=== PATIENT | female | born 1965 | race Two or more races ===

== ENCOUNTER 2024-08-23 08:57 | Outpatient (RCR) | payer MEDICARE, MEDICAID, SELFPAY | END 2024-09-18 23:59 | disposition home or self-care (01) | LOC: SCTC 08:57 | PROVIDERS: PCP Registered Nurse Community Health; Referring Provider Registered Nurse Community Health; Visit Provider Nurse Practitioner Family | DX: D50.9 Iron deficiency anemia, unspecified (principal); N18.6 End stage renal disease; D63.1 Anemia in chronic kidney disease; Z99.2 Dependence on renal dialysis; R12 Heartburn; K64.9 Unspecified hemorrhoids | CPT/HCPCS: 99212; G0463 ==

== ENCOUNTER → 2024-10-28 | Outpatient (CLI) | payer MEDICARE, MEDICAID, SELFPAY ==
--- NOTE | 2024-10-28 13:45 | XR_ITS ---
Examination: Screening digital mammography, bilateral Computer aided detection 3-D breast Tomosynthesis, bilateral Date and time of exam: October 28, 2024 1328 hours Compared to mammograms dating to March 14, 2015 Indication: Screening Technique: Nonmagnified MLO, CC views of the breasts to been obtained, reconstructed from 3-D Tomosynthesis images. R2 computer aided detection program utilized for evaluation of suspicious masses and/or abnormal calcifications. 3-D Tomosynthesis images obtained. Findings: Scattered areas of fibroglandular density. Benign calcifications. No interval suspicious masses Impression: BI-RADS category II: Benign Findings. Recommend 1 year follow-up mammogram.
== END | disposition home or self-care (01) ==
LOC: CDIM 13:16
PROVIDERS: Referring Provider Internal Medicine; Visit Provider Internal Medicine
DX: Z12.31 Encounter for screening mammogram for malignant neoplasm of breast (principal); R92.323 Mammographic fibroglandular density, bilateral breasts; R92.1 Mammographic calcification found on diagnostic imaging of breast
CPT/HCPCS: 77063; 77067

== ENCOUNTER 2024-11-16 10:36 | Outpatient (RCR) | payer MEDICARE, MEDICAID, SELFPAY | END 2024-11-19 23:59 | disposition home or self-care (01) | LOC: SCTC 10:36 | PROVIDERS: PCP Registered Nurse Community Health; Referring Provider Internal Medicine Hematology & Oncology; Visit Provider Internal Medicine Hematology & Oncology | DX: E11.22 Type 2 diabetes mellitus with diabetic chronic kidney disease (principal); N18.6 End stage renal disease; D63.1 Anemia in chronic kidney disease; Z99.2 Dependence on renal dialysis; Z79.4 Long term (current) use of insulin | CPT/HCPCS: 99213; G0463 ==

== ENCOUNTER 2024-12-16 16:12 | Outpatient (RCR) | payer MEDICARE, MEDICAID, SELFPAY ==
--- NOTE | 2024-12-20 00:13 | CTCFLWUP_ITS ---
Patient: MEME GIANG : 1965 Page 3 of 3 FOLLOW UP NOTE DATE OF SERVICE: 12/16/2024 NAME: MEME GIANG ACCOUNT: [id number] : 1965 AGE: 59 INTERVAL HISTORY: Telephone appointment to go over the results of bone density. 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 patient is doing well and have no new complaint. Patient have anemia from her CKD. Patient gets dialysis and get her treatment with Venofer and erythropoietin with her dialysis center. As per patient there is no change in her treatment plan. She is scheduled to have bone density done. She is not on vitamin D supplementation. She recently had EGD which she would like to review. HISTORY OF PRESENT ILLNESS: HISTORY: Meme Calixto is a 59-year-old Barbadian-speaking female. Patient was referred due to anemia on high-dose Mircera, Venofer every 2 weeks at dialysis center. Patient has been taking ferrous sulfate 3 times a day for 3 years, causes patient occasional constipation, none at this moment. Patient receiving daily peritoneal dialysis at home. Patient followed up with [facility] in July 2023, has not scheduled self for follow-up. Colonoscopy done 08/11/2023 showed hemorrhoids, pathology showed a few glands exhibit changes of early hyperplasia. No previous endoscopies done. Past medical history of heartburn, diabetes, hyperlipidemia back neuropathy, diabetic retinopathy, anemia, CKD. 08/11/2023: Colonoscopy 09/30/2023: Hemoglobin 9.8, MCV 89, ANC 3.8, WBC 6.6 platelets 232,000, 10/28/2023: Hemoglobin 9.1, MCV 87, ANC 4.3, WBC 6.7, platelets 190,000 11/12/2023: Hemoglobin 8.6, MCV 90, ANC 4.3, WBC 6.6, platelets 234,000, creatinine 4.5, EGFR 11 04/20/2024: Hemoglobin 9.4, MCV 93, ANC 3.3, WBC 5.3, platelets 183,000, iron saturation 21%, ferritin 751, B12 is 883, folate >20.0 06/02/2024: Hemoglobin 11.5, MCV 95, ANC 3.4, WBC 5.5, platelets 199,000, no iron saturation collected. 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 amlodipine - 10 mg 1 tab Daily 2. calcium carb,glucon-vitamin D2 - 500 mg-5 mcg (200 unit) 1 tab Daily 3. carvedilol - 25 mg 1 tab Twice a Day 4. cyclobenzaprine - 5 mg 1 tab Twice a Day 5. famotidine - 40 mg 1 tab Daily 6. ferrous sulfate - 325 mg (65 mg iron) 1 tab Three times a day 7. NovoLIN 70/30 PenFill - 100 unit/mL (70-30) As directed 8. pravastatin - 40 mg 1 tab Every day before sleep 9. Ashley-Joanne - 0.8 mg 1 tab Daily 10. sodium bicarbonate (antacid) - 325 mg 1 tab Twice a Day 11. terazosin - 5 mg 1 tab Daily 12. valsartan - 160 mg 1 tab Daily Medications Last Reconciled by Cora Glaser MA on 12/16/2024 ALLERGIES: No Known Drug Allergies REVIEW OF SYSTEMS: A complete 14-point review of systems was performed and is negative except as noted in interval history. 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 CBC CMP bone density results from tapper supervisor RETURN TO CLINIC: 4 to 6 weeks with results BILLING AND COMPLIANCE: I reviewed external records from providers outside my specialty as summarized above. I spent a total of 50 minutes on this patient?s care on the day of their visit excluding time spent related to any billed procedures. This time includes time spent with the patient as well as time spent documenting in the medical record, reviewing patients records and tests, obtaining history, placing orders, communicating with other healthcare professionals, counseling the patient, family or caregiver, and/or care coordination for the diagnoses above. Electronically Signed by: Sigifredo Sargent MD T: 12:10 AM CC: PCP: Janelle Glaser Referring: Janelle Glaser This document was completed utilizing speech recognition software. Grammatical errors, random word insertions, pronoun errors, and incomplete sentences are an occasional consequence of this system due to software limitations, ambient noise, and hardware issues. Any formal questions or concerns about the content, text or information contained within the body of this dictation should be directly addressed to the provider for clarification.
== END 2024-12-17 23:59 | disposition home or self-care (01) ==
LOC: SCTC 16:12
PROVIDERS: PCP Registered Nurse Community Health; Referring Provider Registered Nurse Community Health; Visit Provider Internal Medicine Hematology & Oncology
DX: E11.22 Type 2 diabetes mellitus with diabetic chronic kidney disease (principal); N18.9 Chronic kidney disease, unspecified; D63.1 Anemia in chronic kidney disease; Z99.2 Dependence on renal dialysis
CPT/HCPCS: 99212; G0463

== ENCOUNTER 2025-02-19 00:18 | Emergency (ER) | payer MEDICARE, MEDICAID, SELFPAY ==
[2025-02-19 00:20] VITALS: BMI 26.2
[2025-02-19 01:33] VITALS: BP 175/85; PULSE 74; RESP 20; TEMP 36.7; O2SAT 95
--- NOTE | 2025-02-19 05:40 | EDNOTE_ITS ---
<Statement entered by Chica Dillard MD - 02/20/25 04:33> As co-signing physician, I was present and available for consult prn. I concur with the plan and care as documented by the midlevel provider. ED Headache RME/HPI General Chief Complaint: Headache Stated Complaint: HIGH BP, HEADACHE, NAUSEA, DIARRHEA Time Seen by Provider: 02/19/25 02:18 Arrival date/time: 02/19/25 00:18 59F with history of ESRD, HTN, and DM presents to ED with elevated BP at home, as well as MANCINI. Prior to arrival in ED, MACNINI disappeared. Limitations: no limitations Related Data Home Medications ?Medication ?Instructions ?Recorded ?Confirmed carvedilol 25 mg tablet 12.5 mg PO BID ##0 01/03/13 11/13/23 amlodipine 5 mg tablet 10 mg PO QDAY 04/29/1811/13 pravastatin 40 mg tablet 40 mg PO QDAY 04/29/1811/13 ferrous sulfate 325 mg (65 mg 325 mg PO TID 08/11/23 0 11/13/23 iron) tablet insulin aspar prot-insulin aspart 5 unit subcut QPM 11/13/23 100 unit/mL (70-30) subcutaneous pen (Novolog Mix 70-30FlexPen U-100) omeprazole 20 mg capsule,delayed 20 mg PO QDAY 3 11/13/23 release semaglutide 2 mg/dose (8 mg/3 mL) 8 mg subcut QWEEK 11/12/23 subcutaneous pen injector (Ozempic) sodium bicarbonate 325 mg tablet 325 mg PO BID 3 11/13/23 terazosin 5 mg capsule 5 mg PO HS 08/11/23 11/13/23 valsartan 40 mg tablet 80 mg PO QDAY 08/11/2311/13 cyclobenzaprine 5 mg tablet 5 mg PO BID 11/12/2311/13 ergocalciferol (vitamin D2) 1,250 50,000 unit PO QWEEK 11/12/23 11/12/23 mcg (50,000 unit) capsule insulin aspar prot-insulin aspart 10 unit subcut QAM 0 11/12/23 11/13/23 100 unit/mL (70-30) subcutaneous pen (Novolog Mix 70-30FlexPen U-100) vitamin B complex-vitamin C-folic 1 tab PO QDAY 11/13/23 acid 0.8 mg tablet (Ashley-Joanne) Previous Rx's ?Medication ?Instructions ?Recorded docusate sodium 100 mg capsule 100 mg PO BID #40 caps 11/13/23 (Colace) hydrocodone 5 mg-acetaminophen 325 1 tab PO Q6H PRN pa in (scale score 11/13/23 mg tablet 7-10) #15 tabs Allergies Allergy/AdvReac Type Severity Reaction Status Date / Time No Known Allergies Allergy Verified 02/19/25 00:20 Review of Systems Review of Systems Systems Reviewed: All systems reviewed, normal except as documented Constitutional Constitutional: Reports system reviewed and no additional complaints, except as documented, Reports as per HPI, Denies fever(s) and Reports headache(s) ENT Ears, Nose, Mouth, and Throat: Denies disequilibrium and Reports headache(s) Cardiovascular Cardiovascular: Reports system reviewed and no additional complaints, except as documented, Denies chest pain and Denies dyspnea Respiratory Respiratory: Reports system reviewed and no additional complaints, except as documented, Denies cough and Denies dyspnea Gastrointestinal Gastrointestinal: Reports system reviewed and no additional complaints, except as documented, Denies abdominal pain, Denies nausea and Denies vomiting Neurologic Neurologic: Reports system reviewed and no additional complaints, except as documented, Denies confusion, Denies disequilibrium and Reports headache(s) Psychiatric Psychiatric: Denies confusion Past Medical History Past Medical History NEUROLOGIC: Negative Neurological Disorders or Seizures CARDIAC: Positive Cardiac Disorders, Hypercholesterolemia and Hypertension; Negative Congestive Heart Failure RESPIRATORY: Negative Chronic Obstructive Pulmonary Disease (COPD) GASTROINTESTINAL: Positive Gastrointestinal Disorders (constipation), Ulcer (Gastric), Gastroesophageal Reflux Disease and Obesity GENITOURINARY: Positive Genitourinary Disorders, Renal Disease and Dialysis (will start peritoneal) REPRODUCTIVE: Positive Previous Pregnancies MUSCULOSKELETAL: Positive Musculoskeletal Disorders, Arthritis and Fractures (hx or right ankle fracture) ENT: Positive Cataracts (BILATERAL), Blind (left eye) and Retinal Detachment (left eye) ENDOCRINE: Positive Endocrine Disorders and Diabetes Mellitus Type 2; Negative Diabetes Mellitus Type 1 HEMATOLOGIC: Positive Anemia; Negative Blood Disorders OTHER HISTORY: Positive Hospitalization (HTN), Blood Transfusions and Chicken Pox; Negative Autoimmune Disease, Shingles, Falls, Blood Transfusion Reaction, Anesthesia Reactions or Cancer Family History FAMILY HISTORY: Negative Family Psychiatric Problems, Family Respiratory Disorders, Family Cardiac Disorders, Family Gastrointestinal Problems, Family Cancer, Family Surgery or Family Anesthesia Reaction Surgical History SURGICAL: Positive Eye Surgery (left eye- retinal detachment) and Hysterectomy Social History SMOKING STATUS: Never smoker ED Exam General Limitations: Present no limitations General appearance: Present alert and in no apparent distress Head Head exam: Present atraumatic Eye Eye exam: Present normal appearance, PERRL and EOMI ENT ENT exam: Present normal exam, normal oropharynx and mucous membranes moist Neck Neck exam: Present normal inspection, full ROM and trachea midline Chest Chest inspection: Present normal inspection and symmetric chest wall rise Respiratory Respiratory exam: Present normal lung sounds bilaterally Cardiovascular Cardiovascular exam: Present regular rate, normal rhythm and normal heart sounds Abdominal Exam Abdominal exam: Present soft and normal bowel sounds Extremities Exam Extremities exam: Present normal inspection and full ROM Back Exam Back exam: Present normal inspection and full ROM Neurological Exam Neurological exam: Present alert, oriented X3 and CN II-XII intact Psychiatric Psychiatric exam: Present normal affect and normal mood Skin Skin exam: Present warm, dry, intact and normal color Course Quality Measures none Vital Signs Vital signs: Vital Signs Temperature 98.1 F 02/19/25 01:33 Pulse Rate 74 02/19/25 01:33 Respiratory Rate 20 02/19/25 01:33 Blood Pressure 175/85 H 02/19/25 01:33 Pulse Oximetry (%) 95 02/19/25 01:33 Oxygen Delivery Method Room Air 02/19/25 01:33 O2 at 95% on RA and WNLs Headache MDM Narrative MDM Narrative:: 59F with history of ESRD, HTN, and DM presents to ED with elevated BP at home, as well as MANCINI. Prior to arrival in ED, MANCINI disappeared. Patient had mentioned to triage nurse about intermittent N/V, diarrhea, and blurry vision. Patient states those have been chronic issues for her and nothing has changed recently. Physical exam reveals normal pupil response and EOM. CN II-XII grossly intact. Gait normal. Patient is afebrile, calm, and alert. Trimming Cutter Machine given. Patient declines further diagnostics and will follow-up with PCP. Patient data External records reviewed:: [facility] previous records Clinical information provided by:: patient Social determinants that could affect healthcare access:: none Patient has the following chronic illnesses:: ESRD, HTN, and DM How is presenting disease/condition affected by chronic disease/condition?: caused by Evaluation data The following diagnostics were reviewed and interpreted by me:: other (specify) (none) Lab and/or radiology exams considered but not ordered:: not ordered Interpretation Summary: n/a Medications / Prescriptions Medications or Prescriptions considered but not ordered:: not ordered Medication administrations:: n/a Consultations Consultation(s) initiated? (list below): No Diagnosis Differential diagnosis headache: migraine, tension headache, subarachnoid hemorrhage, headache, meningitis, sinusitis, postconcussion syndrome and other (asymptomatic HTN) Most likely diagnosis given after review of the tests above:: asymptomatic HTN Admission Indicated Admission indicated?: not indicated Admission Request Was there a request for admission?: No Disposition Plan Disposition Plan: Discharge Discharge Attestation Discharge Attestation: The patient and all family members were given an opportunity to ask questions and understood the discharge instructions. Discharge instructions specifically effects, indications for sooner follow up or return to the emergency department, and the expected course of current diagnosis. Patient condition: Stable Discharge Plan Plan Patient Disposition: HOME (Self Care) Discharge Disposition comment: Stable Prescriptions/Referrals Prescriptions/Med Rec: No Action carvedilol 25 MG tablet 12.5 mg PO BID Qty: 0 pravastatin 40 mg Tablet 40 mg PO QDAY amlodipine 5 mg Tablet 10 mg PO QDAY Ashley-Joanne 0.8 mg Tablet 1 tab PO QDAY ergocalciferol (vitamin D2) 1,250 mcg (50,000 unit) capsule 50,000 unit PO QWEEK Patient Comments: TAKE 1 CAPSULE BY MOUTH ONCE PER WEEK insulin asp prt-insulin aspart [Novolog Mix 70-30FlexPen U-100] 100 unit/mL (70-30) insulin pen 10 unit SUBCUT QAM Patient Comments: INJECT 20UNITS SUBCUTANEOUSLY IN THE MORNING AND 5 UNITS SUBCUTANEOUSLY AT BEDTIME cyclobenzaprine 5 mg Tablet 5 mg PO BID docusate sodium [Colace] 100 mg capsule 100 mg PO BID Qty: 40 0RF hydrocodone-acetaminophen 5-325 mg tablet 1 tab PO Q6H MDD 4 PRN (Reason: pain (scale score 7-10)) Qty: 15 0RF terazosin 5 mg capsule 5 mg PO HS Patient Comments: TAKE 1 CAPSULE BY MOUTH AT BEDTIME sodium bicarbonate 325 mg tablet 325 mg PO BID Patient Comments: TAKE 1 TABLET BY MOUTH TWICE A DAY ferrous sulfate 325 mg (65 mg iron) tablet 325 mg PO TID Patient Comments: TOME DANG TABLETA POR LA BOCA DERECK VECES AL LINK ANTES DE LAS COMIDA omeprazole 20 mg capsule,delayed release(DR/EC) 20 mg PO QDAY Patient Comments: TAKE 1 CAPSULE BY MOUTH EVERY DAY BEFORE A MEAL valsartan 40 mg tablet 80 mg PO QDAY insulin asp prt-insulin aspart [Novolog Mix 70-30FlexPen U-100] 100 unit/mL (70-30) insulin pen 5 unit SUBCUT QPM Ozempic 2 mg/dose (8 mg/3 mL) pen injector 8 mg SUBCUT QWEEK Patient Comments: INJECT 2MG SUBCUTANEOUSLY ONCE A WEEK Problem List Clinical Impression: Asymptomatic hypertension Patient/Caregiver Discharge Instructions Education Materials: ED Hypertension, Established Additional Instructions: Please follow-up with PCP within 24-48 hours and return immediately if symptoms worsen. Follow-up with Dr. Jackson's office about new med. Print Language: Armenian Stand Alone Forms: Patient Portal Info Letter IRVIN/POLA Supervising Physician IRVIN/POLA Supervising Physician: Dr. Dillard
== END 2025-02-19 03:44 | disposition home or self-care (01) ==
LOC: SERX 02:22
PROVIDERS: Emergency Provider Emergency Medicine; PCP Registered Nurse Community Health
DX: I12.0 Hypertensive chronic kidney disease with stage 5 chronic kidney disease or end stage renal disease (principal); N18.6 End stage renal disease; E11.22 Type 2 diabetes mellitus with diabetic chronic kidney disease; E78.00 Pure hypercholesterolemia, unspecified; Z79.4 Long term (current) use of insulin; Z79.85 Long-term (current) use of injectable non-insulin antidiabetic drugs
CPT/HCPCS: 99281

== ENCOUNTER 2025-04-15 11:30 | Inpatient (IN) | payer MEDICARE, MEDICAID, SELFPAY ==
[2025-04-15] VITALS (16 sets, daily range): BP systolic 179–215; BP diastolic 90–111; PULSE 76–112; RESP 16–100; TEMP 36.4–37.2; O2SAT 96–100; BMI 25.8
--- NOTE | 2025-04-15 11:42 | XR_ITS ---
Examination: CTA carotids with intravenous contrast CTA brain, head with intravenous contrast. 2-D sagittal, coronal reconstructions. 3-D reconstructions. Exam date and time: April 15, 2025 1153 hours INDICATIONS: Stroke alert slurred speech bilateral arm numbness beginning this morning CTDI: vol (mGy) 20.1 DLP: (mGycm) 440 Technique: Multiple CTA axial brain, head carotid images post intravenous contrast injection 75 cc, [id number]. 2-D sagittal, coronal reconstructions. 3-D reconstructions, 3-D post processing including vascular maximum intensity projection images. Low dose protocols were performed. One or more of the following dose reduction techniques were used; automated exposure control, adjustment of the mA and/or KV according to patient size, use of iterative reconstruction technique. Findings: Bilateral thyromegaly with multiple thyroid nodules No significant common carotid carotid bifurcation or internal carotid artery stenoses Minimally dominant left vertebral artery no critical vertebral artery stenoses No cerebral large vessel arterial occlusions or thrombus IMPRESSION: Bilateral thyromegaly with multiple thyroid nodules No significant neck arterial stenoses No cerebral large vessel arterial occlusions or thrombus
--- NOTE | 2025-04-15 11:42 | XR_ITS ---
Examination: CT brain head without contrast. 2-D sagittal coronal reconstructions Date and time of exam:April 15, 2025 1148 hours INDICATIONS: Stroke alert, onset focal neurologic deficit beginning this morning, slurred speech, numbness in the arms CTDI: vol (mGy):49.8 DLP: (mGycm):1000 Technique: Multiple CT axial sections of the brain have been obtained, 5 mm slice thickness. Contrast has not been administered. 2-D sagittal, coronal reconstructions have been obtained Low dose protocols were performed. One or more of the following dose reduction techniques were used; automated exposure control, adjustment of the mA and/or KV according to patient size, use of iterative reconstruction technique. Findings: No significant ventricular enlargement. Small old infarct left basal ganglia Intra-axial or extra-axial hemorrhage density is not seen. No mass effect or midline shift Basal cisterns are not remarkable. Fourth ventricle is midline. Cranial vault intact. Significant sphenoid sinusitis Impression: Negative for acute hemorrhage, mass effect or midline shift
--- NOTE | 2025-04-15 11:42 | EKG_ITS ---
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
--- NOTE | 2025-04-15 11:42 | PD.EDAMS ---
Altered Mental Status RME/HPI General Chief Complaint: Altered Mental Status Stated Complaint: HTN, face numbness, slurring her words Time Seen by Provider: 04/15/25 11:42 Arrival date/time: 04/15/25 11:30 RME / HPI RME / HPI narrative: 59-year-old female patient with significant history of end-stage renal disease, on peritoneal dialysis every day, hypertension diabetes mellitus, was brought in by family for evaluation regarding altered mental status, slurring of speech, and facial numbness. Patient was also noted to have difficulty ambulating due to feel very heavy with side of the body. Last well-known time was 2 AM today. Denies any cough denies any fever denies any other complaints. Related Data Home Medications ?Medication ?Instructions ?Recorded ?Confirmed carvedilol 25 mg tablet 12.5 mg PO BID ##0 01/03/13 11/13/23 amlodipine 5 mg tablet 10 mg PO QDAY 04/29/18 11/13/23 pravastatin 40 mg tablet 40 mg PO QDAY 04/29/18 11/13/23 ferrous sulfate 325 mg (65 mg 325 mg PO TID 08/11/23 11/13/23 iron) tablet insulin aspar prot-insulin aspart 5 unit subcut QPM 08/11/23 11/13/23 100 unit/mL (70-30) subcutaneous pen (Novolog Mix 70-30FlexPen U-100) omeprazole 20 mg capsule,delayed 20 mg PO QDAY 08/11/23 11/13/23 release semaglutide 2 mg/dose (8 mg/3 mL) 8 mg subcut QWEEK 08/11/23 11/12/23 subcutaneous pen injector (Ozempic) sodium bicarbonate 325 mg tablet 325 mg PO BID 08/11/23 11/13/23 terazosin 5 mg capsule 5 mg PO HS 08/11/23 11/13/23 valsartan 40 mg tablet 80 mg PO QDAY 08/11/23 11/13/23 cyclobenzaprine 5 mg tablet 5 mg PO BID 11/12/23 11/13/23 ergocalciferol (vitamin D2) 1,250 50,000 unit PO QWEEK 11/12/23 11/12/23 mcg (50,000 unit) capsule insulin aspar prot-insulin aspart 10 unit subcut QAM 11/12/23 11/13/23 100 unit/mL (70-30) subcutaneous pen (Novolog Mix 70-30FlexPen U-100) vitamin B complex-vitamin C-folic 1 tab PO QDAY 11/12/23 11/13/23 acid 0.8 mg tablet (Ashley-Joanne) Previous Rx's ?Medication ?Instructions ?Recorded docusate sodium 100 mg capsule 100 mg PO BID #40 caps 11/13/23 (Colace) hydrocodone 5 mg-acetaminophen 325 1 tab PO Q6H PRN pain (scale score 11/13/23 mg tablet 7-10) #15 tabs Allergies Allergy/AdvReac Type Severity Reaction Status Date / Time No Known Allergies Allergy Verified 04/15/25 11:35 Review of Systems Review of Systems Narrative Review of Systems: Review of system reviewed and within normal limits except mentioned in HPI ED Exam Narrative Physical exam: VITAL SIGNS: Reviewed. GENERAL APPEARANCE: Alert and oriented x 2, follows commands, no acute distress, HEAD AND FACE: Non-traumatic. ENT: PERRL, pink conjunctivitis, eyelid no trauma, Mucous membrane moist. NECK: Supple, nontender, no nuchal rigidity. CHEST: No tenderness, no crepitus, no paradoxical movement, no retractions. LUNGS: Clear, well ventilated, symmetric, no rales, no wheezing, no ronchi, no stridor, good breath sounds bilaterally. HEART: Regular rate, regular rhythm, no murmur, no gallops. ABDOMEN: Soft, positive bowel sounds, nondistended, no guarding, nontender, no rebound, no masses, RECTAL: Deferred. GENITAL: Deferred. NEUROLOGICAL: Gross motor function intact sensory function intact, Appropriate for age. No arm drifting noted MUSCULOSKELETAL: low back nontender, full range of motion. EXTREMITIES: Nontender, full range of motion. SKIN: Color pink, dry, no rash, no lacerations, no abrasions, no contusions. LYMPHATICS: Deferred. Course Quality Measures none Orders Category Date Time Status Bedside Blood Glucose NOW Care 04/15/25 11:42 Active Bedside Blood Glucose Q2HX3 Care 04/15/25 13:46 Active COVID-19 Screening Questionnaire NOW Care 04/15/25 14:13 Active Clothing Room Supervisor NOW Care 04/15/25 11:42 Active Continuous Pulse Oximetry NOW Care 04/15/25 11:42 Completed Decision to Admit X1 Care 04/15/25 14:13 Active EKG (ED ONLY) *Do not use* NOW Care 04/15/25 11:42 Completed In and Out Catheter NEEDED Care 04/15/25 11:42 Active Insert IV NOW Care 04/15/25 11:42 Active NIH Stroke Scale now Care 04/15/25 11:42 Active NPO NOW Care 04/15/25 11:42 Active Nurse Swallow Screen x1 Care 04/15/25 11:42 Active Consult to Nephrology Stat Cons 04/15/25 14:22 Ordered Consult to Neurology / Tele-Neurology Routine Cons 04/15/25 11:[address] angio stroke protocol Stat Exams 04/15/25 11:[address] stroke protocol Stat Exams 04/15/25 11:42 Completed EKG (ED Only) Stat Exams 04/15/25 11:42 Draft CBC Stat Lab 04/15/25 11:59 Completed Comprehensive Metabolic Panel Stat Lab 04/15/25 11:59 Completed Drug Screen,Urine Stat Lab 04/15/25 12:44 Completed Magnesium Stat Lab 04/15/25 11:59 Completed Partial Thromboplastin Time Stat Lab 04/15/25 11:59 Completed Prothrombin Time with INR Stat Lab 04/15/25 11:59 Completed Troponin I Stat Lab 04/15/25 11:59 Completed Urinalysis Stat Lab 04/15/25 12:44 Completed Urine Culture Stat Lab 04/15/25 12:44 Received ALBUTEROL RT 0.5ml [Proventil Rt 0.5ml] Med 04/15/25 13:46 Discontinued 5 mg INH X1 ONE Aspirin Med 04/15/25 12:21 Discontinued 325 mg PO X1 ONE Calcium Gluconate 10% Inj Med 04/15/25 13:46 Discontinued 1 gm IV X1 ONE Dextrose 50% Syr [D50w Syringe Abboject] Med 04/15/25 13:46 Active 25 ml IV Q15MIN PRN Dextrose 50% Syr [D50w Syringe Abboject] Med 04/15/25 13:46 Active 50 ml IV Q15MIN PRN Furosemide [Lasix Inj] Med 04/15/25 13:46 Discontinued 40 mg IVP X1 ONE Glucagon Inj Med 04/15/25 13:46 Active 1 mg IM Q15MIN PRN Ondansetron Inj [Zofran Inj] Med 04/15/25 11:42 Active 4 mg IVP Q4HR PRN Sod Polystyrene Sulfon Susp [Kayexalate Susp] Med 04/15/25 13:46 Discontinued 30 gm MD X1 ONE Sodium Chloride Rt Natalie 0.9% [NS Rt Natalie 0.9%] Med 04/15/25 13:46 Active 3 ml INH PRN PRN Oxygen Delivery NOW RT 04/15/25 11:42 Active Vital Signs Vital signs: Vital Signs Temperature 98.7 F 04/15/25 11:40 Pulse Rate 80 04/15/25 11:40 Respiratory Rate 17 04/15/25 11:40 Blood Pressure 209/90 H 04/15/25 11:40 Pulse Oximetry (%) 98 04/15/25 11:40 Oxygen Delivery Method Room Air 04/15/25 11:40 Altered Mental Status MDM Narrative MDM Narrative:: 59-year-old female patient with significant history of end-stage renal disease, on peritoneal dialysis every day, hypertension diabetes mellitus, was brought in by family for evaluation regarding altered mental status, slurring of speech, and facial numbness. Patient was also noted to have difficulty ambulating due to feel very heavy with side of the body. Last well-known time was 2 AM today. Denies any cough denies any fever denies any other complaints. According to the patient and family, patient is doing peritoneal dialysis, last dialysis was yesterday however for the last 1 week patient noticed less output was noted, patient denies any abdominal pain denies any fever. Stroke alert was initiated right away. I spoke with teleneurologist recommend giving 325 mg of aspirin x 1 and continue 81 mg aspirin daily. Patient is not a candidate for thrombolytics due to last well-known time more than 4.[address] scan of the head came back unremarkable CT angiogram of the head and neck came back unremarkable apart workup is significant for hemoglobin 8.4 hematocrit of 25.7 potassium 6.3. Patient's creatinine 10.4 BUN of 53. Urinalysis no UTI Patient received hyperkalemia treatment protocol., Albuterol breathing treatment, calcium gluconate, Kayexalate, EKG showed sinus rhythm, ventricular rate of 77 bpm, no ST segment elevation depression noted Spoke with hospitalist, who admitted the patient Patient data External records reviewed:: None Clinical information provided by:: patient and family Social determinants that could affect healthcare access:: none Patient has the following chronic illnesses:: ESRD, hypertension How is presenting disease/condition affected by chronic disease/condition?: caused by Evaluation data The following diagnostics were reviewed and interpreted by me:: lab results, radiology exam(s) and EKG tracing(s) Lab and/or radiology exams considered but not ordered:: None Interpretation Summary: See results MDM Medications / Prescriptions Medications or Prescriptions considered but not ordered:: None Medication administrations:: Medication Administration History Dextrose (Dextrose 50%-Water Inj 50 Ml Syringe) 25 ml IV Q15MIN PRN PRN Reason: BG 50-70 responsive npo pt Stop: 05/15/25 13:45 Dextrose (Dextrose 50%-Water Inj 50 Ml Syringe) 50 ml IV Q15MIN PRN PRN Reason: BG <50 OR BG <70 & pt unresponsive Stop: 05/15/25 13:45 Glucagon (Glucagon Inj 1 Mg Vial) 1 mg IM Q15MIN PRN PRN Reason: BG <70, and no IV access Ondansetron HCl (Ondansetron Inj 2 Mg/Ml Inj 2 Ml) 4 mg IVP Q4HR PRN PRN Reason: NAUSEA OR VOMITING Stop: 05/15/25 11:41 Sodium Chloride (Sodium Chloride Rt Natalie 0.9% 3 Ml Nebu) 3 ml INH PRN PRN PRN Reason: SOLN Stop: 05/15/25 13:45 Last Admin: 04/15/25 14:11 Dose: 3 ml Documented By: YUDY Discontinued Medications Albuterol (Albuterol Rt 2.5 Mg/0.5 Ml Nebu) 5 mg INH X1 ONE Stop: 04/15/25 13:47 Last Admin: 04/15/25 14:10 Dose: 5 mg Documented By: YUDY Aspirin (Aspirin 325 Mg Tablet) 325 mg PO X1 ONE Stop: 04/15/25 12:22 Last Admin: 04/15/25 12:47 Dose: 325 mg Documented By: YAIR Calcium Gluconate (Calcium Gluconate 10% Inj 1 Gm/10 Ml Vial) 1 gm IV X1 ONE Stop: 04/15/25 13:47 Last Admin: 04/15/25 14:20 Dose: 1 gm Documented By: YAIR Furosemide (Furosemide Inj 10 Mg/Ml Vial 2 Ml) 40 mg IVP X1 ONE Stop: 04/15/25 13:47 Last Admin: 04/15/25 14:16 Dose: 40 mg Documented By: YAIR Sodium Polystyrene Sulfonate (Sod Polystyrene Sulfon Susp 15 Gm/60 Ml Btl) 30 gm MD X1 ONE Stop: 04/15/25 13:47 Last Admin: 04/15/25 14:21 Dose: 30 gm Documented By: YAIR Aspirin, Kayexalate, calcium gluconate, Lasix, albuterol breathing treatment Consultations Consultation(s) initiated? (list below): Yes Consultation #1 (Physician, Specialty, Details): Teleneurologist thank you Diagnosis Differential diagnosis altered mental status: altered mental status and other (Strokelike symptoms, hyperkalemia, ESRD) Most likely diagnosis given after review of the tests above:: Strokelike symptoms, hyperkalemia, ESRD Admission Indicated Admission indicated?: indicated Explain why admission is indicated or not indicated:: For further management Admission Request Was there a request for admission?: Yes Admission Attestation Admission request attestation: Discussed case with [] from Hospitalist service regarding admission. Discussed patients ED course, exam findings, labs, and radiology results. The Hospitalist [agrees,declines] to accept the patient for admission. Disposition Plan Disposition Plan: Admit Discharge Plan Plan Patient Disposition: Admit Acute Care w/in Hospital Prescriptions/Referrals Prescriptions/Med Rec: No Action carvedilol 25 MG tablet 12.5 mg PO BID Qty: 0 pravastatin 40 mg Tablet 40 mg PO QDAY amlodipine 5 mg Tablet 10 mg PO QDAY Ashley-Joanne 0.8 mg Tablet 1 tab PO QDAY ergocalciferol (vitamin D2) 1,250 mcg (50,000 unit) capsule 50,000 unit PO QWEEK Patient Comments: TAKE 1 CAPSULE BY MOUTH ONCE PER WEEK insulin asp prt-insulin aspart [Novolog Mix 70-30FlexPen U-100] 100 unit/mL (70-30) insulin pen 10 unit SUBCUT QAM Patient Comments: INJECT 20UNITS SUBCUTANEOUSLY IN THE MORNING AND 5 UNITS SUBCUTANEOUSLY AT BEDTIME cyclobenzaprine 5 mg Tablet 5 mg PO BID docusate sodium [Colace] 100 mg capsule 100 mg PO BID Qty: 40 0RF hydrocodone-acetaminophen 5-325 mg tablet 1 tab PO Q6H MDD 4 PRN (Reason: pain (scale score 7-10)) Qty: 15 0RF terazosin 5 mg capsule 5 mg PO HS Patient Comments: TAKE 1 CAPSULE BY MOUTH AT BEDTIME sodium bicarbonate 325 mg tablet 325 mg PO BID Patient Comments: TAKE 1 TABLET BY MOUTH TWICE A DAY ferrous sulfate 325 mg (65 mg iron) tablet 325 mg PO TID Patient Comments: TOME DANG TABLETA POR LA BOCA DERECK VECES AL LINK ANTES DE LAS COMIDA omeprazole 20 mg capsule,delayed release(DR/EC) 20 mg PO QDAY Patient Comments: TAKE 1 CAPSULE BY MOUTH EVERY DAY BEFORE A MEAL valsartan 40 mg tablet 80 mg PO QDAY insulin asp prt-insulin aspart [Novolog Mix 70-30FlexPen U-100] 100 unit/mL (70-30) insulin pen 5 unit SUBCUT QPM Ozempic 2 mg/dose (8 mg/3 mL) pen injector 8 mg SUBCUT QWEEK Patient Comments: INJECT 2MG SUBCUTANEOUSLY ONCE A WEEK Referrals: Janelle Glaser FNP [Primary Care Provider] - In 1 week Problem List Clinical Impression: Stroke-like symptom, Acute hyperkalemia, ESRD (end stage renal disease) Patient/Caregiver Discharge Instructions Print Language: Romanian Stand Alone Forms: Elicia Award Info., Patient Portal Info Letter
[2025-04-15 12:17] LABS: Basophils % (Auto) 0 % (0-2.5); Eosinophils # (Auto) 0.2 Thou/mm3 (0.0-0.5); Eosinophils % (Auto) 4 % (0-10); Hematocrit 25.7 % (36.0-46.0); Immature Granulocytes % (Auto) 0 % (0-0); Immature Granulocytes Auto 0.02 Thou/mm3 (0.00-0.00); Lymphocytes # (Auto) 1.2 Thou/mm3 (1.0-4.8); Lymphocytes % (Auto) 22 % (10-50); Mean Corpuscular HGB Conc 32.7 g/dl (31.0-37.0); Mean Corpuscular Hemoglobin 29.9 pg (25.0-35.0); Mean Corpuscular Volume 92 fL (80-100); Monocytes # (Auto) 0.4 Thou/mm3 (0.0-0.8); Monocytes % (Auto) 7 % (0-12); Neutrophils # (Auto) 3.6 Thou/mm3 (1.8-7.7); Neutrophils % (Auto) 66 % (37-80); Nucleated Red Blood Cell % 0 /100 WBC (0); Platelet Count 192 Thou/mm3 (140-440); RDW Standard Deviation 45.2 fL (36.4-46.3); Red Blood Count 2.81 Miln/mm3 (4.00-5.20); White Blood Count 5.5 Thou/mm3 (3.6-11.0)
[2025-04-15 12:25] LABS: Hemoglobin 8.4 g/dL (12.0-16.0)
--- NOTE | 2025-04-15 12:30 | ESCONSULT_ITS ---
Tele Neuro Consultation Consultation Date 04/15/25 Most Recent Vital Signs Last Vital Signs Temp 98.9 F 04/15/25 12:10 Pulse 78 04/15/25 12:10 Resp 18 04/15/25 12:10 BP 179/98 H 04/15/25 12:10 Pulse Ox 98 04/15/25 12:10 O2 Del Method Room Air 04/15/25 12:10 Consultation Narrative [facility] Tele[facility]rology Consult [facility] Patient Name:???Meme Small Date of :???1965 Identification Number:??? Date of Service:???04/15/2025 11:43:29 Diagnosis:?G93.41 - Encephalopathy Metabolic Impression: ?59-year-old woman presents today with facial numbness, bilateral arm weakness, hypertension and slurred speech. On examination patient appears lethargic and has some difficulty following commands. No specific focal findings were appreciated. CT head shows area of chronic stroke in the left basal ganglia. CTA without LVO or high-grade stenosis on my review, formal read is pending. Presentation today is concerning for toxic metabolic etiology versus hypertensive encephalopathy. Considering the patient does have a chronic infarct she should be on lifelong aspirin 81 mg for secondary stroke prevention. Give ASA 325 mg today. Our recommendations are outlined below. Recommendations: ? Neuro Checks (Q4) Sign Out: ? Discussed with Emergency Department Provider Advanced Imaging:CTA Head and Neck Completed. LVO:No Patient is not a candidate for YANG Metrics: Last Known Well: 04/14/2025 23:00:00 Dispatch Time: 04/15/2025 11:43:29 Arrival Time: 04/15/2025 11:30:00 Initial Response Time: 04/15/2025 11:49:59Symptoms: facial numbness, slurred speech, high blood pressure, both arms feel weak . Initial patient interaction: 04/15/2025 11:55:02 NIHSS Assessment Completed: 04/15/2025 12:05:20Patient is not a candidate for Thrombolytic. Thrombolytic Medical Decision: 04/15/2025 12:05:21Patient was not deemed candidate for Thrombolytic because of following reasons: LKW outside 4.[address] Head: I personally reviewed all the CT images that were available to me and it showed: no acute intracranial changes. Agree with radiology report. Primary Provider Notified of Diagnostic Impression and Management Plan on: 04/15/2025 12:21:48 History of Present Illness:Patient is a 59 year old Female. Patient was brought by private transportation with symptoms of facial numbness, slurred speech, high blood pressure, both arms feel weak . 59-year-old woman was brought in today by family for several complaints. Since around 4 AM, the patient has had facial numbness, bilateral arm weakness, slurred speech and elevated blood pressure. On history taking the patient appears a bit lethargic and is able to answer questions but without great detail. She feels that both sides of her face are numb and has worsening of her chronic blurry vision in the left eye. She feels she woke up with the symptoms at 4 AM. She also states she has felt like this before, but unclear when. ? Past Medical History: ?Hypertension ?Diabetes Mellitus Other PMH:? ESRD on HD Medications: No Anticoagulant use? No Antiplatelet use Reviewed EMR for current medications Allergies:? Reviewed Social History: Drug Use: No Family History: There is no family history of premature cerebrovascular disease pertinent to this consultation ROS : 14 Points Review of Systems was performed and was negative except mentioned in HPI. Past Surgical History: There Is No Surgical History Contributory To Today?s Visit ? Examination: BP(209/90),?Pulse(80), 1A: Level of Consciousness - Arouses to minor stimulation?+ 1 1B: Ask Month and Age - Both Questions Right?+ 0 1C: Blink Eyes & Squeeze Hands - Performs Both Tasks?+ 0 2: Test Horizontal Extraocular Movements - Normal?+ 0 3: Test Visual [place] - No Visual Loss?+ 0 4: Test Facial Palsy (Use Grimace if Obtunded) - Normal symmetry?+ 0 5A: Test Left Arm Motor Drift - No Drift for 10 Seconds?+ 0 5B: Test Right Arm Motor Drift - No Drift for 10 Seconds?+ 0 6A: Test Left Leg Motor Drift - No Drift for 5 Seconds?+ 0 6B: Test Right Leg Motor Drift - No Drift for 5 Seconds?+ 0 7: Test Limb Ataxia (FNF/Heel-Underwood) - No Ataxia?+ 0 8: Test Sensation - Normal; No sensory loss?+ 0 9: Test Language/Aphasia - Mild-Moderate Aphasia: Some Obvious Changes, Without Significant Limitation?+ 1 10: Test Dysarthria - Mild-Moderate Dysarthria: Slurring but can be understood?+ 1 11: Test Extinction/Inattention - No abnormality?+ 0 NIHSS Score:?3 NIHSS Free Text :?Visual field testing aborted as patient was unable to follow instructions appropriately, chronic vision difficulties in both eyes, the patient appears lethargic, she is able to answer orientation questions but is sluggish to respond Pre-Morbid Modified [place] Scale:0 Points = No symptoms at all Spoke with :?Dr. Paulson This consult was conducted in real time using interactive audio and video technology. Patient was informed of the technology being used for this visit and agreed to proceed. Patient located in hospital and provider located at home/office setting. Patient is being evaluated for possible acute neurologic impairment and high probability of imminent or life-threatening deterioration. I spent total of 40 minutes providing care to this patient, including time for face to face visit via telemedicine, review of medical records, imaging studies and discussion of findings with providers, the patient and/or family. Dr Calvin Azevedo [facility] For Inpatient follow-up with [facility] physician please call [facility] at . As we are not an outpatient service for any post hospital discharge needs please contact the hospital for assistance. If you have any questions for the [facility] physicians or need to reconsult for clinical or diagnostic changes please contact us via [facility] at .
[2025-04-15 12:32] LABS: Partial Thromboplastin Time 31.4 Seconds (22.0-36.0)
[2025-04-15] MEDS: Aspirin 325 MG TABLET PO (12:47)
[2025-04-15 12:55] LABS: Alanine Aminotransferase 28 U/L (10-49); Albumin, Serum 3.1 gm/dL (3.4-4.8); Albumin/Globulin Ratio 0.9 (1.2-2.2); Alkaline Phosphatase 138 U/L (46-116); Anion Gap 10 (7-16); Aspartate Amino Transferase 22 U/L (0-34); BUN/Creatinine Ratio 5 Ratio (12-20); Bilirubin,Total 0.3 mg/dL (0.3-1.2); Blood Urea Nitrogen 53 mg/dL (9-23); Calcium 7.9 mg/dL (8.3-10.6); Calcium (Corrected) 8.6 mg/dL (8.5-10.1); Carbon Dioxide 22.1 mMol/L (20.0-31.0); Chloride 98 mMol/L (98-107); Globulin 3.4 gm/dL (2.3-3.5); Glucose 137 mg/dL (74-106); Magnesium 2.4 mg/dL (1.6-2.6); Osmolality,Calculated 277 (275-295); Sodium 130 mMol/L (136-145); Total Protein 6.5 gm/dL (5.7-8.2); Troponin I < 0.020 ng/mL (0.0-0.045); eGFR 4 See Note
[2025-04-15 12:55] LABS: Collection Type, Urine Clean Catch
[2025-04-15 12:57] LABS: Creatinine (Component) 10.4 mg/dL (0.6-1.3)
[2025-04-15 12:58] LABS: Potassium 6.3 mMol/L (3.4-5.1)
[2025-04-15 13:01] LABS: Bilirubin,Urine Negative (Negative); Blood,Urine Trace (Negative); Clarity,Urine Clear (Clear/Hazy); Color,Urine Colorless (Lt Yel-Yel); Glucose, Urine 2+ (Negative); Ketones,Urine Negative (Negative); Leukocyte Esterase,Urine Negative (Negative); Nitrite,Urine Negative (Negative); Protein,Urine 3+ (Neg - Trace); RBC,Urine 3 /hpf (0-3); Specific Gravity,Urine 1.025 (1.001-1.035); Squamous Epithelial Cell,Urine 3 /hpf (0-5); Urobilinogen,Urine Negative mg/dL (0.0-1.0); WBC,Urine 2 /hpf (0-5)
[2025-04-15 13:07] LABS: Amphetamine/Methamp Scrn,U Negative (Negative); Barbiturate Screen,Urine Negative (Negative); Benzodiazepines Screen,Urine Negative (Negative); Benzoylecgonine Screen, Ur Negative (Negative); Fentanyl Screen,Urine Negative (Negative); Opiate Screen,Urine Negative (Negative); THC Screen,Urine Negative (Negative)
--- NOTE | 2025-04-15 13:13 | PC.NURSE ---
JAMES GARCÍA INFORMED PATIENT'S POTASSIUM 6.3. PER DAUGHTER JUAN MANUEL AT BEDSIDE, PATIENT PERFORMS PERITONEAL DIALYSIS DAILY FOR THE PAST WEEK SHE HAS NOTICED HER BAG HAS NOT DRAINED MORE THAN ABOUT 100-200ML. OPERATING ROOM COORDINATOR MADE AWARE
[2025-04-15] MEDS: ALBUTEROL RT 2.5 MG/0.5 ML NEBU 5 MG INH (14:10)
[2025-04-15] MEDS: SODIUM CHLORIDE RT SOL 0.9% 3 ML NEBU INH (14:11)
[2025-04-15] MEDS: FUROSEMIDE INJ 10 MG/ML VIAL 2 ML 40 MG IVP (14:16)
[2025-04-15] MEDS: CALCIUM GLUCONATE 10% INJ 1 GM/10 ML VIAL IV (14:20)
[2025-04-15] MEDS: SOD POLYSTYRENE SULFON SUSP 15 GM/60 ML BTL 30 GM PR (14:21)
--- NOTE | 2025-04-15 14:35 | PC.NURSE ---
Per RN CASE MANAGER Khurram patient will be admitted. patient able to tolerated PO medication well. Patient is emotional crying in [facility] due to still not being able to speak like she used to. Patient speech is slow but understandable. Vitals are stable besides blood pressure. Patient given 40mg lasix as ordered IV. Plan of care ongoing
--- NOTE | 2025-04-15 15:12 | PC.NURSE ---
Per admitting residents patient will be treated as stroke, patient BP parameters will be for systolic blood pressure >220
--- NOTE | 2025-04-15 15:48 | PD.RESHP ---
Documentation for date of: 04/15/25 HPI History of Present Illness History of present illness: Meme Small is a 59-year-old female with a past medical history of peritoneal dialysis (follows Dr. Crews), anemia, type 2 diabetes mellitus, and hyperlipidemia who presents with with numbness in face and altered speech. Daughter at bedside and help provide additional information and translate. She states that patient experienced numbness in her face at around 3 AM on 04/15 and in the morning at around 10 AM daughter went to check on patient and patient was speaking in low tone with clear words but were not making sense. Patient also stated that she did not feel like [herself] as if she was in a dream. Thus, daughter brought patient to the emergency room. In the ED, daughter states that patient appeared to have a glazed look but upon evaluation patient appeared to be alert, was following commands, and answering questions appropriately and states that she felt better though she still endorsed some paresthesia of her face. Given symptoms, stroke alert was called and CT head shows areas of chronic stroke in the left basal ganglia, CTA without LVO or high-grade stenosis though formal read pending. Concern for toxic metabolic etiology versus hypertensive encephalopathy. She was given loading dose of aspirin and teleneuro had no further recommendations. Of note, patient has not been able to produce significant output from peritoneal dialysis within the last week or so after her appointment for kidney transplant. Of note, she follows Dr. Leach outpatient for management of blood pressure per daughter. In ED, vital signs show BP 209/90 but will allow for permissive hypertension at this time, CBC unremarkable other than chronic normocytic anemia, chem panel showed K of 6.3, BUN 53, Cr 10.4, ALP 138. Dr. Crews not in town at the moment so Dr. Greenberg consulted as covering vice president planning regarding peritoneal dialysis. Review of Systems Review of Systems Systems Reviewed: All systems reviewed, normal except as documented Exam Vital Signs Temp Pulse Resp BP Pulse Ox O2 Del Method 98.4 F 80 19 203/96 H 97 Room Air 04/15/25 14:00 04/15/25 15:11 04/15/25 15:11 04/15/25 15:11 04/15/25 15:11 04/15/25 15:11 Narrative Exam General: AOx3, no acute distress, able to speak full sentences HEENT: NC/AT, mucous membranes moist, bilateral sclera anicteric Cardiovascular: regular rate and rhythm, S1/S2 present, no murmurs appreciated Pulmonary: clear to auscultation bilaterally, no rales/rhonchi/wheezes Abdominal: soft, non-tender, non-distended, no rebound/guarding, normal bowel sounds present Musculoskeletal: normal ROM, no peripheral edema Skin: warm and dry, intact, no rashes Neuro: - CN II-XII intact, no focal deficits - Strength 4/5 in upper extremities bilaterally, able to wiggle toes and move legs spontaneously - Alert, oriented, following commands Results: Labs 04/16/25 06:17 04/16/25 06:17 Labs: Short CBC 04/15/25 Range/Units 11:59 WBC 5.5 (3.6-11.0) Thou/mm3 Hgb 8.4 L (12.0-16.0) g/dL Hct 25.7 L (36.0-46.0) % Plt Count 192 (140-440) Thou/mm3 BMP 04/15/25 11:59 Sodium 130 L Potassium 6.3 H* Chloride 98 Carbon Dioxide 22.1 BUN 53 H Creatinine 10.4 H* Glucose 137 H Calcium 7.9 L Cardiac Enzymes 04/15/25 Range/Units 11:59 Troponin I < 0.020 (0.0-0.045) ng/mL Liver Function 04/15/25 Range/Units 11:59 Total Bilirubin 0.3 (0.3-1.2) mg/dL AST 22 (0-34) U/L ALT 28 (10-49) U/L Alkaline Phosphatase 138 H (46-116) U/L Albumin 3.1 L (3.4-4.8) gm/dL Urine 04/15/25 Range/Units 12:44 Urine Color Colorless A (Lt Yel-Yel) Urine Clarity Clear (Clear/Hazy) Urine pH 8.0 H (5.0-7.0) Ur Specific [place] 1.025 (1.001-1.035) Urine Protein 3+ A (Neg - Trace) Urine Glucose (UA) 2+ A (Negative) Quality Measures Quality Measures none Medications Home Medications and Allergies Home Medications ?Medication ?Instructions ?Recorded ?Confirmed ?Type carvedilol 25 mg tablet 25 mg PO BID ##0 01/03/13 04/15/25 History amlodipine 5 mg tablet 10 mg PO QDAY 04/29/18 04/15/25 History pravastatin 40 mg tablet 40 mg PO QDAY 04/29/18 04/15/25 History ferrous sulfate 325 mg (65 mg 325 mg PO TID 08/11/23 04/15/25 History iron) tablet insulin aspar prot-insulin aspart 5 unit subcut QPM 08/11/23 04/15/25 History 100 unit/mL (70-30) subcutaneous pen (Novolog Mix 70-30FlexPen U-100) omeprazole 20 mg capsule,delayed 20 mg PO QDAY 08/11/23 04/15/25 History release sodium bicarbonate 325 mg tablet 325 mg PO BID 08/11/23 04/15/25 History valsartan 40 mg tablet 160 mg PO BID 08/11/23 04/15/25 History cyclobenzaprine 5 mg tablet 5 mg PO BID 11/12/23 04/15/25 History insulin aspar prot-insulin aspart 10 unit subcut QAM 11/12/23 04/15/25 History 100 unit/mL (70-30) subcutaneous pen (Novolog Mix 70-30FlexPen U-100) vitamin B complex-vitamin C-folic 1 tab PO QDAY 11/12/23 04/15/25 History acid 0.8 mg tablet (Ashley-Joanne) chlorthalidone 25 mg tablet 25 mg PO DAILY 04/15/25 04/15/25 History clonidine HCl 0.1 mg tablet 0.1 mg PO Q12H 04/15/25 04/15/25 History ferric citrate 210 mg iron tablet 210 mg PO TID 04/15/25 04/15/25 History (Auryxia) furosemide 40 mg tablet 40 mg PO QAM 04/15/25 04/15/25 History Allergies Allergy/AdvReac Type Severity Reaction Status Date / Time No Known Allergies Allergy Verified 04/15/25 11:35 Visit Medications Acetaminophen (Acetaminophen 325 Mg Tablet) 650 mg PO Q6H PRN PRN Reason: PAIN OR FEVER > 101 Stop: 05/15/25 15:01 Aspirin (Aspirin Ec 81 Mg Tabec) 81 mg PO QDAY TIFFANI Stop: 05/16/25 08:59 Atorvastatin Calcium (Atorvastatin Calcium 20 Mg Tablet) 80 mg PO HS TIFFANI Stop: 05/15/25 20:59 Dextrose (Dextrose 50%-Water Inj 50 Ml Syringe) 25 ml IV Q15MIN PRN PRN Reason: BG 50-70 responsive npo pt Stop: 05/15/25 13:45 Dextrose (Dextrose 50%-Water Inj 50 Ml Syringe) 50 ml IV Q15MIN PRN PRN Reason: BG <50 OR BG <70 & pt unresponsive Stop: 05/15/25 13:45 Famotidine (Famotidine 20 Mg Tablet) 20 mg PO BID TIFFANI Stop: 05/15/25 20:59 Glucagon (Glucagon Inj 1 Mg Vial) 1 mg IM Q15MIN PRN PRN Reason: BG <70, and no IV access Labetalol HCl (Labetalol Inj 5 Mg/Ml Vial 20 Ml) 10 mg IVP Q6H PRN PRN Reason: hypertension Stop: 05/15/25 15:14 Ondansetron HCl (Ondansetron Inj 2 Mg/Ml Inj 2 Ml) 4 mg IVP Q4HR PRN PRN Reason: NAUSEA OR VOMITING Stop: 05/15/25 11:41 Sennosides (Senna Tablet) 1 tab PO QDAY TIFFANI; Protocol Stop: 05/16/25 08:59 Sodium Chloride (Sodium Chloride Rt Natalie 0.9% 3 Ml Nebu) 3 ml INH PRN PRN PRN Reason: SOLN Stop: 05/15/25 13:45 Last Admin: 04/15/25 14:11 Dose: 3 ml Discontinued Medications Albuterol (Albuterol Rt 2.5 Mg/0.5 Ml Nebu) 5 mg INH X1 ONE Stop: 04/15/25 13:47 Last Admin: 04/15/25 14:10 Dose: 5 mg Aspirin (Aspirin 325 Mg Tablet) 325 mg PO X1 ONE Stop: 04/15/25 12:22 Last Admin: 04/15/25 12:47 Dose: 325 mg Calcium Gluconate (Calcium Gluconate 10% Inj 1 Gm/10 Ml Vial) 1 gm IV X1 ONE Stop: 04/15/25 13:47 Last Admin: 04/15/25 14:20 Dose: 1 gm Furosemide (Furosemide Inj 10 Mg/Ml Vial 2 Ml) 40 mg IVP X1 ONE Stop: 04/15/25 13:47 Last Admin: 04/15/25 14:16 Dose: 40 mg Sodium Polystyrene Sulfonate (Sod Polystyrene Sulfon Susp 15 Gm/60 Ml Btl) 30 gm MI X1 ONE Stop: 04/15/25 13:47 Last Admin: 04/15/25 14:21 Dose: 30 gm Assessment & Plan Plan Meme Small is a 59-year-old female with a past medical history of peritoneal dialysis (follows Dr. Crews), anemia, type 2 diabetes mellitus, and hyperlipidemia who is admitted for stroke work-up, hyperkalemia, and peritoneal dialysis. #? CVA vs TIA vs hypertensive encephalopathy #Facial numbness #Slow/dysarthric speech, resolved Presents with facial numbness, slow and dysarthric speech with last known well of 2 AM of 04/15. Continues to have facial numbness but speech impairments resolved. Noted to have SBP > 200, thus etiology could be hypertensive encephalopathy but given peritoneal dialysis and initial K of 6.3 and BUn 50s, could be toxic/metabolic encehalopathy as well. Given loading dose aspirin in ED. ? In-house neurology consulted, appreciate recommendations ? Aspirin 81 mg daily, atorvastatin 80 mg daily ? Follow-up echo and MRI ? Permissive hypertension, as needed labetalol if SBP > 200 or DBP > 110 ? Follow-up lipid panel, TSH, A1c ? Aspiration precautions, head of bed elevation, every 4 hour neurochecks ? Speech evaluation ordered ? Physical therapy ordered #Peritoneal dialysis Follows Dr. Crews outpatient but Dr. Dionicio pisano. Noted to have decreased peritoneal dialysis output for the last 7 days. ? Nephrology following, appreciate recommendations ? Avoid nephrotoxic agents when possible, renally dose medication #Hyperkalemia Albuterol treatment of 5 mg, Lasix 40 mg IV x 1, calcium gluconate 1 g IV x 1, Kayexalate 30 mg x 1 given and K increased from 6.3 to 7.0. ? 10 units regular insulin IV x 1 ? Albuterol treatment 10 mg x 1 ? Veltassa 8.4 g daily ? Follow-up K at 8 PM #Type 2 diabetes mellitus, insulin-dependent ? Follow-up A1c ? SSI ? Hypoglycemic protocol in place #Hyperlipidemia ? Atorvastatin 80 mg daily Hospital management: Disposition: pending MRI, echo, nephrology recommendations Diet: NPO Lines: PIV DVT prophylaxis: SCDs CODE STATUS: full code ----- Plan discussed with attending physician Dr. Luis Alberto Davis MD PGY-1 Internal Medicine Attending Provider Attestation/Addendum I have examined the patient, reviewed labs and imaging findings, discussed the case with the resident(s), and reviewed entered orders. I agree with the plan of care as outlined in this note, with these additional summaries/recommendations: After examination of the patient and review of the clinical data, I feel that this patient needs admission to the hospital for further treatment and evaluation. Patient is a 59-year-old female with a medical history of ESRD on peritoneal dialysis, primary hypertension, vitamin D deficiency, iron deficiency anemia, chronic pain, diabetes mellitus type 2, GERD, and hyperlipidemia presents to [facility] emergency department on 04/15/2025 with chief complaints of facial numbness, bilateral arm weakness, and slurred speech. Patient seen at bedside. Stroke alert called in the ED. Strokelike symptoms present possibly secondary to CVA versus TIA versus hypertensive encephalopathy. CT head negative for acute hemorrhage, mass effect or midline shift. CTA head and neck showed no LVO. Start aspirin 81 mg p.o. daily and atorvastatin 80 mg p.o. at bedtime. Order MRI brain. Permissive hypertension for now. Patient also noted to have severe hyperkalemia and is on peritoneal dialysis. Patient received temporizing measures for hyperkalemia in the ED although it worsened to 7.0. Patient given additional hyper-K bundle and nephrology contacted stat who is arranging dialysis nurse at this time. Start insulin sliding scale for diabetes mellitus type 2 with Accu-Cheks. Target blood sugar of 140-180 while hospitalized. Patient updated on the plan and in agreement. All questions answered to satisfaction. Please see residents note for additional details of management. Dr. Sahu
--- NOTE | 2025-04-15 15:51 | PC.CC ---
Patient is a 59 year-old female who presents for CVA R/O. PANCHOWGlory and INSTRUMENT REPAIRER HELPER Student Meli made [id number] contact with patient. ASW introduced self, role, and reason for visit. Patient appeared alert and oriented to self, location, and situation. Patient provided consent for INSTRUMENT REPAIRER HELPER to remain in the room during assessment. Limits of confidentiality were discussed. Patient was pleasant and engaged in initial assessment. Patient confirmed information on demographics and reports to living with her daughter, Marisa Cordova . Patient's medical decision maker is her daughter, Marisa in the event she is unable to make her own decisions her daughter would make these medical decisions for her. Patient reports she ambulates independently but since gardening yesterday she began to feel generalized weakness. Patient reports she is able to complete her own ADLs. Patient does not require the use of any DME. Patient's primary provider is Janelle Glaser and uses [facility]. Upon discharge she plans to return back home. industrial services worker to follow up with any discharge needs.
[2025-04-15] MEDS: ALBUTEROL RT 2.5 MG/0.5 ML NEBU 10 MG INH (16:19)
[2025-04-15] MEDS: DEXTROSE 50%-WATER INJ 50 ML SYRINGE IVP (17:13)
[2025-04-15] MEDS: INSULIN HUM REGULAR 1 UNIT/0.01 ML (PER UNIT) 10 UNIT IV (17:13)
[2025-04-15 18:20] LABS: Potassium 5.3 mMol/L (3.4-5.1)
[2025-04-15] MEDS: PATIROMER CALCIUM 8.4 GM PACKET (NON-FORM) PO (19:46)
[2025-04-15] MEDS: LABETALOL INJ 5 MG/ML VIAL 20 ML 10 MG IVP (19:48)
[2025-04-15] MEDS: FAMOTIDINE 20 MG TABLET PO (21:56)
[2025-04-15] MEDS: ATORVASTATIN CALCIUM 20 MG TABLET 80 MG PO (21:56)
[2025-04-15] MEDS: ONDANSETRON INJ 2 MG/ML INJ 2 ML 4 MG IVP (22:19)
[2025-04-16] VITALS (14 sets, daily range): BP systolic 162–193; BP diastolic 87–102; PULSE 75–101; RESP 12–95; TEMP 36.4–37.1; O2SAT 93–98; BMI 25.8
--- NOTE | 2025-04-16 | XR_ITS ---
Examinations: MRI Brain without intravenous contrast. MRA brain without intravenous contrast. MRA carotids without intravenous contrast 3-D vascular reconstructions Date and time of exam: April 16, 2025, 1032 hrs. Indications: Stroke alert yesterday, altered mental status slurred speech Technique: Multiple axial and sagittal images of the brain have been obtained MRA brain carotid images without contrast obtained, including 3-D postprocessing, vascular maximum intensity projection images Findings: [place] is not enlarged. The optic chiasm and infundibular stalk are not remarkable. Prepontine and interpeduncular cisterns are not enlarged. No localized enlargement of the medulla or edvin. Fourth ventricle and cerebellar tonsils normal in position. Subacute hemorrhage is not seen. Fourth ventricle is midline. Mass in the cerebellopontine angle region is not evident. 7th and 8th nerve complexes exhibits symmetry. Globes are symmetrical with no retro-orbital mass. Increased white matter signal prominent Diffusion-weighted images demonstrate no focus of restricted diffusion Mass-effect upon the ventricular system is not identified. MRA carotid images no critical carotid stenoses. MRA brain images no large vessel occlusions Impression: Negative for acute hemorrhage mass effect or midline shift No acute infarct Prominent white matter change, differential would include accelerated chronic microvascular white matter change and demyelinating disease, clinical correlation advised
[2025-04-16 06:42] LABS: Basophils % (Auto) 0 % (0-2.5); Eosinophils # (Auto) 0.1 Thou/mm3 (0.0-0.5); Eosinophils % (Auto) 1 % (0-10); Hematocrit 23.9 % (36.0-46.0); Immature Granulocytes % (Auto) 1 % (0-0); Immature Granulocytes Auto 0.03 Thou/mm3 (0.00-0.00); Lymphocytes # (Auto) 0.8 Thou/mm3 (1.0-4.8); Lymphocytes % (Auto) 15 % (10-50); Mean Corpuscular HGB Conc 33.1 g/dl (31.0-37.0); Mean Corpuscular Volume 91 fL (80-100); Monocytes # (Auto) 0.5 Thou/mm3 (0.0-0.8); Monocytes % (Auto) 8 % (0-12); Neutrophils # (Auto) 4.1 Thou/mm3 (1.8-7.7); Neutrophils % (Auto) 75 % (37-80); Nucleated Red Blood Cell % 0 /100 WBC (0); Platelet Count 176 Thou/mm3 (140-440); RDW Standard Deviation 43.9 fL (36.4-46.3); Red Blood Count 2.63 Miln/mm3 (4.00-5.20); White Blood Count 5.5 Thou/mm3 (3.6-11.0)
[2025-04-16 06:48] LABS: Hemoglobin 7.9 g/dL (12.0-16.0)
[2025-04-16 06:56] LABS: Glucose Estimated Average 126 mg/dL (80-131)
[2025-04-16 06:57] LABS: INR 1.1 (0.9-1.3); Partial Thromboplastin Time 30.9 Seconds (22.0-36.0); Prothrombin Time 11.8 Seconds (9.0-12.2)
[2025-04-16 07:17] LABS: Alanine Aminotransferase 24 U/L (10-49); Albumin, Serum 2.7 gm/dL (3.4-4.8); Albumin/Globulin Ratio 0.8 (1.2-2.2); Alkaline Phosphatase 104 U/L (46-116); Anion Gap 10 (7-16); Aspartate Amino Transferase 16 U/L (0-34); BUN/Creatinine Ratio 4 Ratio (12-20); Bilirubin,Total 0.2 mg/dL (0.3-1.2); Blood Urea Nitrogen 43 mg/dL (9-23); Calcium 7.7 mg/dL (8.3-10.6); Calcium (Corrected) 8.7 mg/dL (8.5-10.1); Carbon Dioxide 23.9 mMol/L (20.0-31.0); Cardiac Risk Estimate 2.2 RATIO (3.7-5.6); Chloride 97 mMol/L (98-107); Cholesterol 122 mg/dL (132-200); Estimated Creatinine Clearance 5.2 mL/min (>60); Globulin 3.3 gm/dL (2.3-3.5); Glucose 232 mg/dL (74-106); HDL Cholesterol 56 mg/dL (40-60); LDL Cholesterol,Calculated 51 mg/dL (0-130); Osmolality,Calculated 280 (275-295); Phosphorous 5.6 mg/dL (2.4-5.1); Potassium 4.9 mMol/L (3.4-5.1); Sodium 131 mMol/L (136-145); Thyroid Stimulating Hormone 1.92 uIU/mL (0.55-4.78); Triglycerides 77 mg/dL (30-150); eGFR 4 See Note
[2025-04-16] MEDS: INSULIN LISPRO (AdmeLOG) 1 UNIT/0.01 ML UNIT SC (07:40)
[2025-04-16] MEDS: PATIROMER CALCIUM 8.4 GM PACKET (NON-FORM) PO (09:55)
[2025-04-16] MEDS: CYCLObenzaPRINE 5 MG TABLET PO ×2 (09:57→21:07)
[2025-04-16] MEDS: ASPIRIN EC 81 MG TABEC PO (09:57)
[2025-04-16] MEDS: VIT B12/Vit C/FA (Nephrovite) TABLET 1 TAB PO (09:57)
[2025-04-16] MEDS: SENNA TABLET 1 TAB PO (09:57)
[2025-04-16] MEDS: FAMOTIDINE 20 MG TABLET PO ×2 (09:57→21:07)
--- NOTE | 2025-04-16 10:38 | PD.RESPRO ---
Documentation for date of: 04/16/25 Subjective Subjective Interval history: No acute overnight events. Seen and examined at bedside and she does not have any complaints, stating that her facial numbness has resolved at this time. Tolerated peritoneal dialysis well yesterday. MRI was negative for acute infarct but did show prominent white matter change. Currently pending echo and further neuro recs. Otherwise, will resume antihypertensives today as it has been over 24-hours from presentation as blood pressures elevated and may be etiology of patient's symptoms. Other vital signs stable, CBC showed stable hemoglobin and otherwise unremarkable, chem panel consistent with ESRD and resolved hyperkalemia. Exam Vital Signs Temp Pulse Resp BP Pulse Ox O2 Del Method 97.8 F 93 18 188/97 H 97 Room Air 04/16/25 08:00 04/16/25 09:04 04/16/25 09:04 04/16/25 08:00 04/16/25 08:00 04/16/25 08:00 Narrative Exam General: AOx3, no acute distress, able to speak full sentences HEENT: NC/AT, mucous membranes moist, bilateral sclera anicteric Cardiovascular: regular rate and rhythm, S1/S2 present, no murmurs appreciated Pulmonary: clear to auscultation bilaterally, no rales/rhonchi/wheezes Abdominal: soft, non-tender, non-distended, no rebound/guarding, normal bowel sounds present Musculoskeletal: normal ROM, no peripheral edema Skin: warm and dry, intact, no rashes Neuro: - CN II-XII intact, no focal deficits - Strength 4/5 in upper extremities bilaterally, able to wiggle toes and move legs spontaneously - Alert, oriented, following commands Objective Labs 04/17/25 06:08 04/17/25 06:08 Labs: Laboratory Results - last 24 hr 04/15/25 04/15/25 04/15/25 11:59 12:44 15:17 WBC 5.5 RBC 2.81 L Hgb 8.4 L Hct 25.7 L MCV 92 MCH 29.9 MCHC 32.7 RDW Std Deviation 45.2 Plt Count 192 Neut % (Auto) 66 Lymph % (Auto) 22 [place] % (Auto) 7 Eos % (Auto) 4 Baso % (Auto) 0 Neut # (Auto) 3.6 Lymph # (Auto) 1.2 [place] # (Auto) 0.4 Eos # (Auto) 0.2 Baso # (Auto) 0.0 Immature Gran # (Auto) 0.02 H Absolute Nucleated RBC 0.00 Immature Gran % 0 Nucleated RBC % 0 PT 11.0 INR 1.0 APTT 31.4 Sodium 130 L Potassium 6.3 H* 7.0 H* D Chloride 98 Carbon Dioxide 22.1 Anion Gap 10 BUN 53 H Creatinine 10.4 H* Estim Creat Clear Calc 5.0 L eGFR 4 L* BUN/Creatinine Ratio 5 L Glucose [address] Glu mg/dL Hemoglobin A1c Calculated Osmolality 277 Calcium 7.9 L Corrected Calcium 8.6 Phosphorus Magnesium 2.4 Total Bilirubin 0.3 AST 22 ALT 28 Alkaline Phosphatase 138 H Troponin I < 0.020 Total Protein 6.5 Albumin 3.1 L Globulin 3.4 Albumin/Globulin Ratio 0.9 L Triglycerides Cholesterol LDL Cholesterol, Calc HDL Cholesterol Cholesterol/HDL Ratio TSH Ur Collection Type Clean Catch Urine Color Colorless A Urine Clarity Clear Urine pH 8.0 H Ur Specific [place] 1.025 Urine Protein 3+ A Urine Glucose (UA) 2+ A Urine Ketones Negative Urine Blood Trace Urine Nitrite Negative Urine Bilirubin Negative Urine Urobilinogen (Auto) Negative Ur Leukocyte Esterase Negative Urine RBC 3 Urine WBC 2 Ur Squamous Epith Cells 3 Urine Bacteria None Urine Opiates Screen Negative Urine Fentanyl Screen Negative Ur Barbiturates Screen Negative U Amphetamin/Meth Scrn Negative U Benzodiazepines Scrn Negative U Cocaine Metab Screen Negative U Marijuana (THC) Screen Negative 04/15/25 04/16/25 17:54 06:17 WBC 5.5 RBC 2.63 L Hgb 7.9 L Hct 23.9 L MCV 91 MCH 30.0 MCHC 33.1 RDW Std Deviation 43.9 Plt Count 176 Neut % (Auto) 75 Lymph % (Auto) 15 [place] % (Auto) 8 Eos % (Auto) 1 Baso % (Auto) 0 Neut # (Auto) 4.1 Lymph # (Auto) 0.8 L [place] # (Auto) 0.5 Eos # (Auto) 0.1 Baso # (Auto) 0.0 Immature Gran # (Auto) 0.03 H Absolute Nucleated RBC 0.00 Immature Gran % 1 H Nucleated RBC % 0 PT 11.8 INR 1.1 APTT 30.9 Sodium 131 L Potassium 5.3 H D 4.9 Chloride 97 L Carbon Dioxide 23.9 Anion Gap 10 BUN 43 H Creatinine 10.0 H* Estim Creat Clear Calc 5.2 L eGFR 4 L* BUN/Creatinine Ratio 4 L Glucose [address] Glu mg/dL 126 Hemoglobin A1c 6.0 Calculated Osmolality 280 Calcium 7.7 L Corrected Calcium 8.7 Phosphorus 5.6 H Magnesium 2.0 Total Bilirubin 0.2 L AST 16 ALT 24 Alkaline Phosphatase 104 D Troponin I Total Protein 6.0 Albumin 2.7 L Globulin 3.3 Albumin/Globulin Ratio 0.8 L Triglycerides 77 Cholesterol 122 L LDL Cholesterol, Calc 51 HDL Cholesterol 56 Cholesterol/HDL Ratio 2.2 L TSH 1.92 Ur Collection Type Urine Color Urine Clarity Urine pH Ur Specific [place] Urine Protein Urine Glucose (UA) Urine Ketones Urine Blood Urine Nitrite Urine Bilirubin Urine Urobilinogen (Auto) Ur Leukocyte Esterase Urine RBC Urine WBC Ur Squamous Epith Cells Urine Bacteria Urine Opiates Screen Urine Fentanyl Screen Ur Barbiturates Screen U Amphetamin/Meth Scrn U Benzodiazepines Scrn U Cocaine Metab Screen U Marijuana (THC) Screen Quality Measures Quality Measures none Assessment & Plan Assessment Current Active Medications: Generic Name Dose Route Start Last Admin Trade Name Freq PRN Reason Stop Dose Admin Acetaminophen 650 mg 04/15/25 15:02 Acetaminophen 325 Mg Tablet PO 05/15/25 15:01 Q6H PRN PAIN OR FEVER > 101 Aspirin 81 mg 04/16/25 09:00 04/16/25 09:57 Aspirin Ec 81 Mg Tabec PO 05/16/25 08:59 81 mg QDAY TIFFANI Administration Atorvastatin Calcium 80 mg 04/15/25 21:00 04/15/25 21:56 Atorvastatin Calcium 20 Mg Tablet PO 05/15/25 20:59 80 mg HS TIFFANI Administration Auryxia 210 Mg 0 ea 04/16/25 12:00 Tablets PO 05/16/25 11:59 TIDWM TIFFANI Cyclobenzaprine HCl 5 mg 04/16/25 09:00 04/16/25 09:57 Cyclobenzaprine 5 Mg Tablet PO 05/16/25 08:59 5 mg BID TIFFANI Administration Dextrose 25 ml 04/15/25 13:46 Dextrose 50%-Water Inj 50 Ml Syringe IV 05/15/25 13:45 Q15MIN PRN BG 50-70 responsive npo pt Dextrose 50 ml 04/15/25 13:46 Dextrose 50%-Water Inj 50 Ml Syringe IV 05/15/25 13:45 Q15MIN PRN BG <50 OR BG <70 & pt unresponsive Famotidine 20 mg 04/15/25 21:00 04/16/25 09:57 Famotidine 20 Mg Tablet PO 05/15/25 20:59 20 mg BID TIFFANI Administration Glucagon 1 mg 04/15/25 13:46 Glucagon Inj 1 Mg Vial IM Q15MIN PRN BG <70, and no IV access Insulin Human Lispro 0 unit 04/16/25 07:30 04/16/25 07:40 Insulin Lispro (Admelog) 1 Unit/0.01 Ml Unit SC 05/16/25 07:29 2 unit AC TIFFANI Administration Protocol Labetalol HCl 10 mg 04/15/25 15:10 04/15/25 19:48 Labetalol Inj 5 Mg/Ml Vial 20 Ml IVP 05/15/25 15:14 10 mg Q6H PRN Administration hypertension Ondansetron HCl 4 mg 04/15/25 11:42 04/15/25 22:19 Ondansetron Inj 2 Mg/Ml Inj 2 Ml IVP 05/15/25 11:41 4 mg Q4HR PRN Administration NAUSEA OR VOMITING Patiromer 8.4 gm 04/15/25 17:00 04/16/25 09:55 Patiromer Calcium 8.4 Gm Packet (Non-Form) PO 05/15/25 16:59 8.4 gm DAILY TIFFANI Administration Sennosides 1 tab 04/16/25 09:00 04/16/25 09:57 Senna Tablet PO 05/16/25 08:59 1 tab QDAY TIFFANI Administration Protocol Sodium Chloride 3 ml 04/15/25 16:14 Sodium Chloride Rt Natalie 0.9% 3 Ml Nebu INH 05/15/25 16:13 PRN PRN SOLN Vitamin B Complex/Vit C/Folic Acid 1 tab 04/16/25 09:00 04/16/25 09:57 Vit B12/Vit C/Fa (Nephrovite) Tablet PO 05/16/25 08:59 1 tab QDAY TIFFANI Administration Plan Meme Small is a 59-year-old female with a past medical history of peritoneal dialysis (follows Dr. Crews), anemia, type 2 diabetes mellitus, and hyperlipidemia who is admitted for stroke work-up, hyperkalemia, and peritoneal dialysis. #Hypertensive encephalopathy #Facial numbness, resolved #Slow/dysarthric speech, resolved Presents with facial numbness, slow and dysarthric speech with last known well of 2 AM of 04/15. Continues to have facial numbness but speech impairments resolved. Noted to have SBP > 200, thus etiology could be hypertensive encephalopathy but given peritoneal dialysis and initial K of 6.3 and BUn 50s, could be toxic/metabolic encehalopathy as well. Given loading dose aspirin in ED. TSH wnl, A1c 6.0%, lipid panel showing LDL 51/HDL 56/cholesterol 122/TG 77. ? In-house neurology consulted, appreciate recommendations ? Aspirin 81 mg daily, atorvastatin 80 mg daily ? Follow-up echo ? Aspiration precautions, head of bed elevation, every 4 hour neurochecks ? Speech evaluation cleared patient without restrictions ? Physical therapy ordered #Hypertension Greater than 24 hours after initial presentation and no longer allowing for permissive hypertension. ? Amlodipine 10 mg daily ? Carvedilol 25 mg twice daily ? Clonidine 0.1 mg twice daily ? Losartan 160 mg twice daily ? Chlorthalidone 25 mg daily #Peritoneal dialysis Follows Dr. Crews outpatient but Dr. Greenberg covering. Noted to have decreased peritoneal dialysis output for the last 7 days. ? Nephrology following, appreciate recommendations ? Avoid nephrotoxic agents when possible, renally dose medication #Hyperkalemia, resolved Albuterol treatment of 5 mg, Lasix 40 mg IV x 1, calcium gluconate 1 g IV x 1, Kayexalate 30 mg x 1 given and K increased from 6.3 to 7.0. Downtrended to 4.9. #Type 2 diabetes mellitus, insulin-dependent A1c 6.0%. ? SSI ? Hypoglycemic protocol in place #Hyperlipidemia ? Atorvastatin 80 mg daily Hospital management: Disposition: pending echo, neurology recommendations Diet: renal diet Lines: PIV DVT prophylaxis: SCDs CODE STATUS: full code ----- Plan discussed with attending physician Dr. Luis Alberto Davis MD PGY-1 Internal Medicine Attending Provider Attestation/Addendum I have examined the patient, reviewed labs and imaging findings, discussed the case with the resident(s), and reviewed entered orders. I agree with the plan of care as outlined in this note, with these additional summaries/recommendations: After examination of the patient and review of the clinical data, I feel that this patient needs admission to the hospital for further treatment and evaluation. Patient is a 59-year-old female with a medical history of ESRD on peritoneal dialysis, primary hypertension, vitamin D deficiency, iron deficiency anemia, chronic pain, diabetes mellitus type 2, GERD, and hyperlipidemia presents to [facility] emergency department on 04/15/2025 with chief complaints of facial numbness, bilateral arm weakness, and slurred speech. Patient seen at bedside. No acute overnight events except for 1 episode of vomiting. Per patient and daughter her symptoms are improving although not resolved. Patient completed MRI brain as part of stroke protocol which is negative for acute hemorrhage and no acute infract. MRI did reveal relatively nonspecific prominent white matter changes with differentials including demyelinating disease although unlikely. Most likely patient's symptoms were related to hypertensive emergency +/- metabolic etiologies. Resume home antihypertensives and titrate antihypertensives as needed for BP control. Patient was found to have severe hyperkalemia on admission that has now resolved. She received peritoneal dialysis overnight and inpatient nephrology following. We will follow-up with nephrology to see how much fluid was removed as patient reports at home little to no fluid draining, only approximately 100 cc is draining per session. Continue insulin sliding scale for diabetes mellitus type 2 with Accu-Cheks. Target blood sugar of 140-180 while hospitalized. Patient updated on the plan and in agreement. All questions answered to satisfaction. Please see residents note for additional details of management. Dr. Sahu
[2025-04-16] MEDS: carVEDILOL 12.5 MG TABLET 25 MG PO ×2 (14:45→21:07)
[2025-04-16] MEDS: VALSARTAN 40 MG TABLET 160 MG PO ×2 (14:48→21:07)
[2025-04-16] MEDS: CHLORTHALIDONE 25 MG TABLET (NON-FORMULARY) PO (14:48)
[2025-04-16] MEDS: cloNIDine HCL 0.1 MG TABLET PO ×2 (14:49→22:28)
[2025-04-16] MEDS: amLODIPine BESYLATE 5 MG TABLET 10 MG PO (14:49)
--- NOTE | 2025-04-16 16:20 | PC.SS ---
Per rounding meeting, Currently pending echo and further neuro rec's. MRI is negative. No d/c date at this time.
[2025-04-16] MEDS: ONDANSETRON INJ 2 MG/ML INJ 2 ML 4 MG IVP (21:02)
[2025-04-16] MEDS: ATORVASTATIN CALCIUM 20 MG TABLET 80 MG PO (21:06)
[2025-04-17] VITALS (19 sets, daily range): BP systolic 148–178; BP diastolic 74–93; PULSE 68–96; RESP 16–97; TEMP 36.4–36.9; O2SAT 95–96; BMI 27.5
[2025-04-17] MEDS: cloNIDine HCL 0.1 MG TABLET PO ×3 (05:20→21:43)
[2025-04-17 06:35] LABS: Basophils # (Auto) 0.1 Thou/mm3 (0.0-0.2); Basophils % (Auto) 1 % (0-2.5); Eosinophils # (Auto) 0.2 Thou/mm3 (0.0-0.5); Eosinophils % (Auto) 1 % (0-10); Hematocrit 27.7 % (36.0-46.0); Hemoglobin 9.3 g/dL (12.0-16.0); Immature Granulocytes % (Auto) 2 % (0-0); Immature Granulocytes Auto 0.29 Thou/mm3 (0.00-0.00); Lymphocytes # (Auto) 2.6 Thou/mm3 (1.0-4.8); Lymphocytes % (Auto) 20 % (10-50); Mean Corpuscular HGB Conc 33.6 g/dl (31.0-37.0); Mean Corpuscular Hemoglobin 30.2 pg (25.0-35.0); Mean Corpuscular Volume 90 fL (80-100); Monocytes # (Auto) 1.5 Thou/mm3 (0.0-0.8); Monocytes % (Auto) 11 % (0-12); Neutrophils # (Auto) 8.6 Thou/mm3 (1.8-7.7); Neutrophils % (Auto) 65 % (37-80); Nucleated Red Blood Cell % 0 /100 WBC (0); Platelet Count 257 Thou/mm3 (140-440); RDW Standard Deviation 57.5 fL (36.4-46.3); Red Blood Count 3.08 Miln/mm3 (4.00-5.20); White Blood Count 13.2 Thou/mm3 (3.6-11.0)
[2025-04-17 07:19] LABS: Alanine Aminotransferase 20 U/L (10-49); Albumin, Serum 4.1 gm/dL (3.4-4.8); Albumin/Globulin Ratio 1.8 (1.2-2.2); Alkaline Phosphatase 68 U/L (46-116); Anion Gap 13 (7-16); Aspartate Amino Transferase 17 U/L (0-34); BUN/Creatinine Ratio 10 Ratio (12-20); Bilirubin,Total 0.7 mg/dL (0.3-1.2); Blood Urea Nitrogen 40 mg/dL (9-23); Calcium 9.4 mg/dL (8.3-10.6); Calcium (Corrected) 9.4 mg/dL (8.5-10.1); Chloride 101 mMol/L (98-107); Creatinine (Component) 3.9 mg/dL (0.6-1.3); Estimated Creatinine Clearance 13.3 mL/min (>60); Globulin 2.3 gm/dL (2.3-3.5); Glucose 120 mg/dL (74-106); Magnesium 2.5 mg/dL (1.6-2.6); Osmolality,Calculated 286 (275-295); Phosphorous 5.7 mg/dL (2.4-5.1); Potassium 3.6 mMol/L (3.4-5.1); Sodium 138 mMol/L (136-145); Total Protein 6.4 gm/dL (5.7-8.2); eGFR 13 See Note
[2025-04-17] MEDS: INSULIN LISPRO (AdmeLOG) 1 UNIT/0.01 ML UNIT SC ×2 (08:07→17:17)
[2025-04-17] MEDS: CHLORTHALIDONE 25 MG TABLET (NON-FORMULARY) PO ×2 (08:09→17:16)
[2025-04-17] MEDS: VIT B12/Vit C/FA (Nephrovite) TABLET 1 TAB PO (08:09)
[2025-04-17] MEDS: FAMOTIDINE 20 MG TABLET PO ×2 (08:09→20:44)
[2025-04-17] MEDS: carVEDILOL 12.5 MG TABLET 25 MG PO ×2 (08:09→17:23)
[2025-04-17] MEDS: amLODIPine BESYLATE 5 MG TABLET 10 MG PO (08:09)
[2025-04-17] MEDS: ASPIRIN EC 81 MG TABEC PO (08:09)
[2025-04-17] MEDS: SENNA TABLET 1 TAB PO (08:09)
[2025-04-17] MEDS: CYCLObenzaPRINE 5 MG TABLET PO ×2 (08:09→20:43)
[2025-04-17] MEDS: PATIROMER CALCIUM 8.4 GM PACKET (NON-FORM) PO (08:13)
--- NOTE | 2025-04-17 11:02 | ESPR_ITS ---
Documentation for date of: 04/17/25 Subjective Subjective Interval history: Patient was seen and examined at bedside. No acute overnight event. Yesterday overnight patient had a hemodialysis, tolerated procedure well, CBC today reveals mild leukocytosis most likely reactive, will continue close follow-up, patient is afebrile. Blood pressure is not well-controlled, clonidine was increased to 3 times daily, will also increase close of thiazides to 50 mg daily, plan is to tight control blood pressure, pending neurorecommendations, PT evaluation, patient might need placement. Exam Vital Signs Temp Pulse Resp BP Pulse Ox O2 Del Method 97.5 F 71 20 160/93 H 95 Room Air 04/17/25 08:00 04/17/25 08:09 04/17/25 08:00 04/17/25 08:09 04/17/25 08:00 04/17/25 08:00 Narrative Exam General: AOx3, no acute distress, able to speak full sentences HEENT: NC/AT, mucous membranes moist, bilateral sclera anicteric Cardiovascular: regular rate and rhythm, S1/S2 present, no murmurs appreciated Pulmonary: clear to auscultation bilaterally, no rales/rhonchi/wheezes Abdominal: soft, non-tender, non-distended, no rebound/guarding, normal bowel sounds present Musculoskeletal: normal ROM, no peripheral edema Skin: warm and dry, intact, no rashes Neuro: CN II-XII intact, no focal deficits.Strength 4/5 in upper extremities bilaterally, able to wiggle toes and move legs spontaneously. Alert, oriented, following commands Objective Labs 04/18/25 04:40 04/18/25 04:40 Labs: Laboratory Results - last 24 hr 04/17/25 06:08 WBC 13.2 H D RBC 3.08 L Hgb 9.3 L Hct 27.7 L MCV 90 MCH 30.2 MCHC 33.6 RDW Std Deviation 57.5 H Plt Count 257 D Neut % (Auto) 65 Lymph % (Auto) 20 [place] % (Auto) 11 Eos % (Auto) 1 Baso % (Auto) 1 Neut # (Auto) 8.6 H Lymph # (Auto) 2.6 [place] # (Auto) 1.5 H Eos # (Auto) 0.2 Baso # (Auto) 0.1 Immature Gran # (Auto) 0.29 H Absolute Nucleated RBC 0.00 Immature Gran % 2 H Nucleated RBC % 0 Sodium 138 Potassium 3.6 D Chloride 101 Carbon Dioxide 24.0 Anion Gap 13 BUN 40 H Creatinine 3.9 H D Estim Creat Clear Calc 13.3 L eGFR 13 L* BUN/Creatinine Ratio 10 L Glucose 120 H D Calculated Osmolality 286 Calcium 9.4 D Corrected Calcium 9.4 Phosphorus 5.7 H Magnesium 2.5 Total Bilirubin 0.7 D AST 17 ALT 20 Alkaline Phosphatase 68 D Total Protein 6.4 Albumin 4.1 D Globulin 2.3 Albumin/Globulin Ratio 1.8 Quality Measures Quality Measures none Assessment & Plan Assessment Current Active Medications: Generic Name Dose Route Start Last Admin Trade Name Freq PRN Reason Stop Dose Admin Acetaminophen 650 mg 04/15/25 15:02 Acetaminophen 325 Mg Tablet PO 05/15/25 15:01 Q6H PRN PAIN OR FEVER > 101 Amlodipine Besylate 10 mg 04/16/25 13:15 04/17/25 08:09 Amlodipine Besylate 5 Mg Tablet PO 05/16/25 13:14 10 mg QDAY TIFFANI Administration Aspirin 81 mg 04/16/25 09:00 04/17/25 08:09 Aspirin Ec 81 Mg Tabec PO 05/16/25 08:59 81 mg QDAY TIFFANI Administration Atorvastatin Calcium 80 mg 04/15/25 21:00 04/16/25 21:06 Atorvastatin Calcium 20 Mg Tablet PO 05/15/25 20:59 80 mg HS TIFFANI Administration Carvedilol 25 mg 04/16/25 13:15 04/17/25 08:09 Carvedilol 12.5 Mg Tablet PO 05/16/25 13:14 25 mg BID TIFFANI Administration Chlorthalidone 25 mg 04/16/25 13:45 04/17/25 08:09 Chlorthalidone 25 Mg Tablet (Non-Formulary) PO 05/16/25 13:44 25 mg DAILY TIFFANI Administration Clonidine 0.1 mg 04/16/25 22:00 04/17/25 05:20 Clonidine Hcl 0.1 Mg Tablet PO 05/16/25 21:59 0.1 mg TID TIFFANI Administration Auryxia 210 Mg 0 ea 04/16/25 12:00 04/17/25 08:08 Tablets PO 05/16/25 11:59 1 tablet TIDWM TIFFANI Administration Cyclobenzaprine HCl 5 mg 04/16/25 09:00 04/17/25 08:09 Cyclobenzaprine 5 Mg Tablet PO 05/16/25 08:59 5 mg BID TIFFANI Administration Dextrose 25 ml 04/15/25 13:46 Dextrose 50%-Water Inj 50 Ml Syringe IV 05/15/25 13:45 Q15MIN PRN BG 50-70 responsive npo pt Dextrose 50 ml 04/15/25 13:46 Dextrose 50%-Water Inj 50 Ml Syringe IV 05/15/25 13:45 Q15MIN PRN BG <50 OR BG <70 & pt unresponsive Famotidine 20 mg 04/15/25 21:00 04/17/25 08:09 Famotidine 20 Mg Tablet PO 05/15/25 20:59 20 mg BID TIFFANI Administration Glucagon 1 mg 04/15/25 13:46 Glucagon Inj 1 Mg Vial IM Q15MIN PRN BG <70, and no IV access Insulin Human Lispro 0 unit 04/16/25 07:30 04/17/25 08:07 Insulin Lispro (Admelog) 1 Unit/0.01 Ml Unit SC 05/16/25 07:29 3 unit AC TIFFANI Administration Protocol Labetalol HCl 10 mg 04/15/25 15:10 04/15/25 19:48 Labetalol Inj 5 Mg/Ml Vial 20 Ml IVP 05/15/25 15:14 10 mg Q6H PRN Administration hypertension Ondansetron HCl 4 mg 04/15/25 11:42 04/16/25 21:02 Ondansetron Inj 2 Mg/Ml Inj 2 Ml IVP 05/15/25 11:41 4 mg Q4HR PRN Administration NAUSEA OR VOMITING Patiromer 8.4 gm 04/15/25 17:00 04/17/25 08:13 Patiromer Calcium 8.4 Gm Packet (Non-Form) PO 05/15/25 16:59 8.4 gm DAILY TIFFANI Administration Sennosides 1 tab 04/16/25 09:00 04/17/25 08:09 Senna Tablet PO 05/16/25 08:59 1 tab QDAY TIFFANI Administration Protocol Sodium Chloride 3 ml 04/15/25 16:14 Sodium Chloride Rt Natalie 0.9% 3 Ml Nebu INH 05/15/25 16:13 PRN PRN SOLN Valsartan 160 mg 04/16/25 13:30 04/17/25 10:43 Valsartan 40 Mg Tablet PO 05/16/25 13:29 Not Given BID [facility] Vitamin B Complex/Vit C/Folic Acid 1 tab 04/16/25 09:00 04/17/25 08:09 Vit B12/Vit C/Fa (Nephrovite) Tablet PO 05/16/25 08:59 1 tab QDAY [facility] Administration Plan Meme Small is a 59-year-old female with a past medical history of peritoneal dialysis (follows Dr. Crews), anemia, type 2 diabetes mellitus, and hyperlipidemia who is admitted for stroke work-up, hyperkalemia, and peritoneal dialysis. #Hypertensive encephalopathy-resolved #Facial numbness, resolved #Slow/dysarthric speech, resolved Presents with facial numbness, slow and dysarthric speech with last known well of 2 AM of 04/15. Continues to have facial numbness but speech impairments resolved. Noted to have SBP > 200, thus etiology could be hypertensive encephalopathy but given peritoneal dialysis and initial K of 6.3 and BUn 50s, could be toxic/metabolic encehalopathy as well. Given loading dose aspirin in ED. TSH wnl, A1c 6.0%, lipid panel showing LDL 51/HDL 56/cholesterol 122/TG 77. ? In-house neurology consulted, appreciate recommendations ? Aspirin 81 mg daily, atorvastatin 80 mg daily ? Follow-up echo ? Aspiration precautions, head of bed elevation, every 4 hour neurochecks ? Speech evaluation cleared patient without restrictions ? Physical therapy ordered ? Tight with blood pressure control, goal to keep SBP below 151 #Hypertension Greater than 24 hours after initial presentation and no longer allowing for permissive hypertension. ? Amlodipine 10 mg daily ? Carvedilol 25 mg twice daily ? increased clonidine 0.1 mg twice daily to 3 times daily ? Losartan 160 mg twice daily ? Increased chlorthalidone 25 mg daily to 50 mg daily, add additional 25 mg chlorthalidone was given in the afternoon #Peritoneal dialysis Follows Dr. Crews outpatient but Dr. Dionicio pisano. Noted to have decreased peritoneal dialysis output for the last 7 days. ? Nephrology following, appreciate recommendations ? Avoid nephrotoxic agents when possible, renally dose medication #Hyperkalemia, resolved Albuterol treatment of 5 mg, Lasix 40 mg IV x 1, calcium gluconate 1 g IV x 1, Kayexalate 30 mg x 1 given and K increased from 6.3 to 7.0. Downtrended to 4.9. #Type 2 diabetes mellitus, insulin-dependent A1c 6.0%. ? SSI ? Hypoglycemic protocol in place #Hyperlipidemia ? Atorvastatin 80 mg daily Hospital management: Disposition: pending echo, neurology recommendations Diet: renal diet Lines: PIV DVT prophylaxis: SCDs CODE STATUS: full code Patient care was discussed with attending physician Dr. Luis Alberto Villanueva MD PGY-2 Attending Provider Attestation/Addendum I have examined the patient, reviewed labs and imaging findings, discussed the case with the resident(s), and reviewed entered orders. I agree with the plan of care as outlined in this note, with these additional summaries/recommendations: Patient is a 59-year-old female with a medical history of ESRD on peritoneal dialysis, primary hypertension, vitamin D deficiency, iron deficiency anemia, chronic pain, diabetes mellitus type 2, GERD, and hyperlipidemia presents to [facility] emergency department on 04/15/2025 with chief complaints of facial numbness, bilateral arm weakness, and slurred speech. Patient seen at bedside. No acute overnight events. Patient is alert and oriented x 3 this morning. She tolerated peritoneal dialysis overnight without complications. Patient completed MRI brain as part of stroke protocol which is negative for acute hemorrhage and no acute infract. MRI did reveal relatively nonspecific prominent white matter changes with differentials including demyelinating disease although unlikely. Most likely patient's symptoms were related to hypertensive emergency +/- metabolic etiologies. Home antihypertensives resumed. Systolic blood pressure still trending in the 160s to 170s. Patient's clonidine increased to 3 times daily today. We will continue to aggressively control blood pressure before patient can be safely discharged. Patient had episode of low blood sugar today 65 and given sugar with improvement. Patient was found to have severe hyperkalemia on admission that has now resolved. Continue insulin sliding scale for diabetes mellitus type 2 with Accu-Cheks. Target blood sugar of 140-180 while hospitalized. Patient updated on the plan and in agreement. All questions answered to satisfaction. Please see residents note for additional details of management. Dr. Sahu
--- NOTE | 2025-04-17 11:56 | PC.SS ---
Per rounding meeting, pt is pending a CVA workup, PT pending and ECHO pending. Neuro rec's needed. Pt is on dialysis. At this time there is no d/c date.
--- NOTE | 2025-04-17 14:41 | PD.NEPHCONS ---
History of Present Illness Data of Consult Requesting Physician: Reji Sahu MD Primary Care Provider: POLA Barrera Consult Narrative History of present illness: 59-year-old female with a past medical history of peritoneal dialysis (follows Dr. Crews), anemia, type 2 diabetes mellitus, and hyperlipidemia who presents with with numbness in face and altered speech. Pt is belgica nd examined. Pt is doing better Daughter at bedside and help provide additional information and translate. Other family members on bedside cc:: cc: Reji Sahu MD Review of Systems Review of Systems Systems Reviewed: All systems reviewed, normal except as documented Meds Home Medications and Allergies Home Medications ?Medication ?Instructions ?Recorded ?Confirmed ?Type carvedilol 25 mg tablet 25 mg PO BID ##0 01/03/13 04/15/25 History amlodipine 5 mg tablet 10 mg PO QDAY 04/29/18 04/15/25 History pravastatin 40 mg tablet 40 mg PO QDAY 04/29/18 04/15/25 History ferrous sulfate 325 mg (65 mg 325 mg PO TID 08/11/23 04/15/25 History iron) tablet insulin aspar prot-insulin aspart 5 unit subcut QPM 08/11/23 04/15/25 History 100 unit/mL (70-30) subcutaneous pen (Novolog Mix 70-30FlexPen U-100) omeprazole 20 mg capsule,delayed 20 mg PO QDAY 08/11/23 04/15/25 History release sodium bicarbonate 325 mg tablet 325 mg PO BID 08/11/23 04/15/25 History valsartan 40 mg tablet 160 mg PO BID 08/11/23 04/15/25 History cyclobenzaprine 5 mg tablet 5 mg PO BID 11/12/23 04/15/25 History insulin aspar prot-insulin aspart 10 unit subcut QAM 11/12/23 04/15/25 History 100 unit/mL (70-30) subcutaneous pen (Novolog Mix 70-30FlexPen U-100) vitamin B complex-vitamin C-folic 1 tab PO QDAY 11/12/23 04/15/25 History acid 0.8 mg tablet (Ashley-Joanne) chlorthalidone 25 mg tablet 25 mg PO DAILY 04/15/25 04/15/25 History clonidine HCl 0.1 mg tablet 0.1 mg PO Q12H 04/15/25 04/15/25 History ferric citrate 210 mg iron tablet 210 mg PO TID 04/15/25 04/15/25 History (Auryxia) furosemide 40 mg tablet 40 mg PO QAM 04/15/25 04/15/25 History Allergies Allergy/AdvReac Type Severity Reaction Status Date / Time No Known Allergies Allergy Verified 04/15/25 11:35 Exam Vital Signs Temp Pulse Resp BP Pulse Ox O2 Del Method 97.5 F 74 20 168/81 H 95 Room Air 04/17/25 11:53 04/17/25 11:53 04/17/25 11:53 04/17/25 11:53 04/17/25 11:53 04/17/25 11:53 Narrative Exam General: no acute distress Heart s1, s2 Chest CTA cristhian abd: no tenderness, PD catheter intact ext plus 1 edema Results Labs 04/17/25 06:08 04/17/25 06:08 Labs: Short CBC 04/17/25 Range/Units 06:08 WBC 13.2 H D (3.6-11.0) Thou/mm3 Hgb 9.3 L (12.0-16.0) g/dL Hct 27.7 L (36.0-46.0) % Plt Count 257 D (140-440) Thou/mm3 BMP 04/17/25 06:08 Sodium 138 Potassium 3.6 D Chloride 101 Carbon Dioxide 24.0 BUN 40 H Creatinine 3.9 H D Glucose 120 H D Calcium 9.4 D Liver Function 04/17/25 Range/Units 06:08 Total Bilirubin 0.7 D (0.3-1.2) mg/dL AST 17 (0-34) U/L ALT 20 (10-49) U/L Alkaline Phosphatase 68 D (46-116) U/L Albumin 4.1 D (3.4-4.8) gm/dL Assessment & Plan Assessment and plan (1) ESRD (end stage renal disease): Status: Acute Assessment and plan: started on PD with delflex 2.5%, 2 liters 4 exchanges at hole pt is on Isdextrin and working well change PD treatment communicate with out pt PD RN (2) Acute hyperkalemia: Status: Acute (3) Stroke-like symptom: Status: Acute
--- NOTE | 2025-04-17 16:12 | PC.NURSE ---
Report given to Camille Rn, care transferred to NARDA Obrien.
[2025-04-17] MEDS: ATORVASTATIN CALCIUM 20 MG TABLET 80 MG PO (20:43)
[2025-04-17] MEDS: VALSARTAN 40 MG TABLET 160 MG PO (20:44)
[2025-04-17] MEDS: ONDANSETRON INJ 2 MG/ML INJ 2 ML 4 MG IVP (20:56)
[2025-04-18] VITALS (19 sets, daily range): BP systolic 142–177; BP diastolic 73–93; PULSE 70–83; RESP 16–95; TEMP 36.1–36.8; O2SAT 95–97; BMI 27.5
[2025-04-18] MEDS: cloNIDine HCL 0.1 MG TABLET PO ×2 (05:23→14:28)
[2025-04-18 06:14] LABS: Basophils % (Auto) 0 % (0-2.5); Eosinophils # (Auto) 0.2 Thou/mm3 (0.0-0.5); Eosinophils % (Auto) 5 % (0-10); Hematocrit 22.5 % (36.0-46.0); Immature Granulocytes % (Auto) 0 % (0-0); Immature Granulocytes Auto 0.01 Thou/mm3 (0.00-0.00); Lymphocytes # (Auto) 1.3 Thou/mm3 (1.0-4.8); Lymphocytes % (Auto) 27 % (10-50); Mean Corpuscular HGB Conc 33.8 g/dl (31.0-37.0); Mean Corpuscular Hemoglobin 29.9 pg (25.0-35.0); Mean Corpuscular Volume 89 fL (80-100); Monocytes # (Auto) 0.4 Thou/mm3 (0.0-0.8); Monocytes % (Auto) 9 % (0-12); Neutrophils # (Auto) 2.9 Thou/mm3 (1.8-7.7); Neutrophils % (Auto) 59 % (37-80); Nucleated Red Blood Cell % 0 /100 WBC (0); Platelet Count 171 Thou/mm3 (140-440); RDW Standard Deviation 41.4 fL (36.4-46.3); Red Blood Count 2.54 Miln/mm3 (4.00-5.20); White Blood Count 4.8 Thou/mm3 (3.6-11.0)
[2025-04-18 06:29] LABS: Hemoglobin 7.6 g/dL (12.0-16.0)
[2025-04-18 06:53] LABS: Alanine Aminotransferase 18 U/L (10-49); Albumin, Serum 2.5 gm/dL (3.4-4.8); Albumin/Globulin Ratio 0.9 (1.2-2.2); Alkaline Phosphatase 122 U/L (46-116); Anion Gap 9 (7-16); Aspartate Amino Transferase 13 U/L (0-34); BUN/Creatinine Ratio 4 Ratio (12-20); Bilirubin,Total 0.2 mg/dL (0.3-1.2); Blood Urea Nitrogen 40 mg/dL (9-23); Calcium 7.4 mg/dL (8.3-10.6); Calcium (Corrected) 8.6 mg/dL (8.5-10.1); Carbon Dioxide 24.8 mMol/L (20.0-31.0); Chloride 96 mMol/L (98-107); Creatinine (Component) 9.3 mg/dL (0.6-1.3); Estimated Creatinine Clearance 5.6 mL/min (>60); Globulin 2.8 gm/dL (2.3-3.5); Glucose 349 mg/dL (74-106); Magnesium 1.8 mg/dL (1.6-2.6); Osmolality,Calculated 284 (275-295); Phosphorous 5.6 mg/dL (2.4-5.1); Potassium 4.1 mMol/L (3.4-5.1); Sodium 130 mMol/L (136-145); Total Protein 5.3 gm/dL (5.7-8.2); eGFR 4 See Note
[2025-04-18] MEDS: CYCLObenzaPRINE 5 MG TABLET PO (08:10)
[2025-04-18] MEDS: VIT B12/Vit C/FA (Nephrovite) TABLET 1 TAB PO (08:10)
[2025-04-18] MEDS: FAMOTIDINE 20 MG TABLET PO (08:10)
[2025-04-18] MEDS: VALSARTAN 40 MG TABLET 160 MG PO (08:11)
[2025-04-18] MEDS: ASPIRIN EC 81 MG TABEC PO (08:11)
[2025-04-18] MEDS: amLODIPine BESYLATE 5 MG TABLET 10 MG PO (08:11)
[2025-04-18] MEDS: carVEDILOL 12.5 MG TABLET 25 MG PO ×2 (08:11→17:35)
[2025-04-18] MEDS: CHLORTHALIDONE 25 MG TABLET (NON-FORMULARY) 50 MG PO (08:12)
[2025-04-18] MEDS: SENNA TABLET 1 TAB PO (08:12)
[2025-04-18] MEDS: INSULIN LISPRO (AdmeLOG) 1 UNIT/0.01 ML UNIT SC ×2 (08:12→17:36)
[2025-04-18] MEDS: hydrALAZINE HCL 25 MG TABLET PO ×2 (11:37→14:28)
[2025-04-18] MEDS: Artificial Tears 225 DROP/15 ML BTL BOTH EYES (11:52)
--- NOTE | 2025-04-18 12:28 | PD.RESDS ---
Planned Discharge Date 04/18/25 DS: Providers Provider Date of admission: 04/15/25 15:14 Primary care physician: POLA Barrera Admitting Provider: Reji Sahu MD Attending Provider on Admission: Reji Sahu MD Consults: 04/15/25 11:42 Consult to Neurology / Tele-Neurology Routine Comment: Consulting Provider: [facility] 04/15/25 14:22 Consult to Nephrology Stat Comment: ESRD Consulting Provider: Junito Greenberg 04/15/25 15:07 Consult to Neurology / Tele-Neurology Routine Comment: Consulting Provider: Adan Hunt 04/15/25 15:13 Referral Physical Therapy Routine Comment: Physician Instructions: 04/15/25 15:14 Referral Speech Therapy Stat Comment: Attending Provider on DC: Gomez Davis MD Discharging Provider: Gomez Davis MD DS: Diagnosis Problem List Completed Was Problem List Reviewed/Reconciled?: Yes Hospital Course Hospital Course Hospital course: Meme Small is a 59-year-old female with a past medical history of peritoneal dialysis (follows Dr. Crews), anemia, type 2 diabetes mellitus, and hyperlipidemia who presents with with numbness in face and altered speech. Daughter at bedside and help provide additional information and translate. Experienced numbness in her face at around 3 AM on 04/15 and in morning at around 10 AM daughter went to check on patient and was speaking in low tone with clear words but not making sense. Patient also stated that she did not feel like [herself] as if she was in a dream. Thus, daughter brought patient to the emergency room. Stroke alert was called and CT head shows areas of chronic stroke in the left basal ganglia, CTA without LVO or high-grade stenosis though formal read pending. Concern for toxic metabolic etiology versus hypertensive encephalopathy. She was given loading dose of aspirin and teleneuro had no further recommendations. MRI negative for acute stroke and will defer echo for outpatient. She was cleared by speech for regular diet and PT cleared patient to be discharged home with family support. Otherwise, during hospital course blood pressure remained significantly elevated in the 200s/100s despite being on multiple antihypertensives. Clonidine was increased and hydralazine was added with goal systolic blood pressure 160 for which patient was at on day of discharge. Additionally, blood sugars noted to be labile and switched sliding scale from step 2 to step 1. She is to follow-up closely with neurology outpatient as well as follow-up with nephrology and cardiology for further blood pressure management. Diagnoses during admission: #Hypertensive encephalopathy, resolved #Facial numbness, resolved #Slow/dysarthric speech, resolved #Hypertension #Peritoneal dialysis #Hyperkalemia, resolved #Type 2 diabetes mellitus, insulin-dependent #Hyperlipidemia Discharge instructions: ? Start taking aspirin 81 mg and atorvastatin 80 mg daily to decrease risk of strokes ? Your clonidine 0.1 mg was increased from twice per day to three times per day ? Start taking hydralazine 25 mg three times per day ? Hold taking chlorthalidone until you follow-up with your specialists ? Continue taking all other home medications as prescribed ? Follow-up with neurologist, Dr. Hunt, within 1-2 weeks of discharge ? Follow-up with PCP within 1-2 weeks of discharge ? If you do not have a PCP, you can follow-up at the [facility] (you can call [phone] to make an appointment) ? If you wish to follow-up with Dr. Davis, schedule appointment on Friday afternoons ? Return to ED if symptoms worsen or recur Time Spent with Patient Time attestation: Total time spent providing and/or coordinating discharge services: Time spent: Greater than 30 minutes Exam Vital Signs Temp Pulse Resp BP Pulse Ox O2 Del Method 97.0 F 70 16 176/93 H 97 Room Air 04/18/25 11:23 04/18/25 11:37 04/18/25 11:23 04/18/25 11:37 04/18/25 11:23 04/18/25 11:23 Discharge Plan Plan Patient Disposition: HOME (Self Care) Care Plan Goals: ? Start taking aspirin 81 mg and atorvastatin 80 mg daily to decrease risk of strokes ? Your clonidine 0.1 mg was increased from twice per day to three times per day ? Start taking hydralazine 25 mg three times per day ? Continue taking all other home medications as prescribed ? Follow-up with neurologist, Dr. Hunt, within 1-2 weeks of discharge ? Follow-up with PCP within 1-2 weeks of discharge ? If you do not have a PCP, you can follow-up at the [facility] (you can call [phone] to make an appointment) ? If you wish to follow-up with Dr. Davis, schedule appointment on Friday afternoons ? Return to ED if symptoms worsen or recur Prescriptions/Referrals Prescriptions/Med Rec: New aspirin 81 mg Tablet,Delayed Release (Dr/Ec) 81 mg PO QDAY 30 Days Qty: 30 0RF atorvastatin 80 mg tablet 80 mg PO HS 30 Days Qty: 30 0RF clonidine HCl 0.1 mg Tablet 0.1 mg PO TID 30 Days Qty: 90 0RF hydralazine 25 mg Tablet 25 mg PO TID 30 Days Qty: 90 0RF chlorthalidone 25 mg tablet 25 mg PO QDAY 30 Days Qty: 30 0RF Continued carvedilol 25 MG tablet 25 mg PO BID Qty: 0 amlodipine 5 mg Tablet 10 mg PO QDAY Ashley-Joanne 0.8 mg Tablet 1 tab PO QDAY insulin asp prt-insulin aspart [Novolog Mix 70-30FlexPen U-100] 100 unit/mL (70-30) insulin pen 10 unit SUBCUT QAM Patient Comments: INJECT 20UNITS SUBCUTANEOUSLY IN THE MORNING AND 5 UNITS SUBCUTANEOUSLY AT BEDTIME cyclobenzaprine 5 mg Tablet 5 mg PO BID sodium bicarbonate 325 mg tablet 325 mg PO BID Patient Comments: TAKE 1 TABLET BY MOUTH TWICE A DAY ferrous sulfate 325 mg (65 mg iron) tablet 325 mg PO TID Patient Comments: TOME DANG TABLETA POR LA BOCA DERECK VECES AL LINK ANTES DE LAS COMIDA omeprazole 20 mg capsule,delayed release(DR/EC) 20 mg PO QDAY Patient Comments: TAKE 1 CAPSULE BY MOUTH EVERY DAY BEFORE A MEAL valsartan 40 mg tablet 160 mg PO BID insulin asp prt-insulin aspart [Novolog Mix 70-30FlexPen U-100] 100 unit/mL (70-30) insulin pen 5 unit SUBCUT QPM furosemide 40 mg tablet 40 mg PO QAM ferric citrate [Auryxia] 210 mg iron tablet 210 mg PO TID Rx Instructions: administer with a meal Discontinued pravastatin 40 mg Tablet 40 mg PO QDAY clonidine HCl 0.1 mg tablet 0.1 mg PO Q12H chlorthalidone 25 mg tablet 25 mg PO DAILY Patient Comments: TAKE 1 TABLET IN THE MORNING WITH FOOD ORALLY EVERY DAY 90 DAYS Referrals: Janelle Glaser FNP [Primary Care Provider] - Patient/Caregiver Discharge Instructions Print Language: Japanese Stand Alone Forms: Elicia Award Info., Patient Portal Info Letter Discharge Order Discharge Orders: Discharge (Routine); Ordered 04/18/25 Ordered By: Gomez Roberts Caidania Quality Discharge Quality Measures VTE prophylaxis Attestestation MD Attestation I have examined the patient, reviewed labs and imaging findings, discussed the case with the resident(s), and reviewed entered orders. I agree with the plan of care as outlined in this note. Time Spent: [address] Luis Alberto MD
--- NOTE | 2025-04-18 15:14 | PC.NURSE ---
Discharge orders in, Per Dr Davis, Pt is not to discharge until seen by Dr Hunt
--- NOTE | 2025-04-18 15:19 | PC.SS ---
SS follow up note; Patient was going to discharge today, however Blood pressure is being monitored now, possible discharge home today.
--- NOTE | 2025-04-18 20:20 | PC.NURSE ---
called Dr. Hunt regarding clearing patient before dischrage, per doctor, patient is cleared to go home, patient to follow up tomorrow April 19, [address] Dr. Weaver regarding this, per Dr. Weaver okay to discharge patient. Discharge instructions given to daughter and patient. teletypesetter monitor removed.
== END 2025-04-18 20:40 | disposition home or self-care (01) | DRG 304 ==
LOC: SERX 14:14 → SERHOLD 04-18 05:35 → S3NX 04-18 05:35 → S2NX 04-18 05:35
PROVIDERS: Nurse Practitioner Family; Student in an Organized Health Care Education/Training Program; Admitting Provider Student in an Organized Health Care Education/Training Program; Emergency Provider Emergency Medicine; PCP Registered Nurse Community Health; Referring Provider Emergency Medicine; Visit Provider Student in an Organized Health Care Education/Training Program
DX: I16.1 Hypertensive emergency (principal); G92.8 Other toxic encephalopathy; N18.6 End stage renal disease; I67.4 Hypertensive encephalopathy; I12.0 Hypertensive chronic kidney disease with stage 5 chronic kidney disease or end stage renal disease; E78.5 Hyperlipidemia, unspecified; R47.1 Dysarthria and anarthria; E87.5 Hyperkalemia; E11.22 Type 2 diabetes mellitus with diabetic chronic kidney disease; Z79.4 Long term (current) use of insulin; Z99.2 Dependence on renal dialysis; D50.9 Iron deficiency anemia, unspecified; E55.9 Vitamin D deficiency, unspecified; G89.29 Other chronic pain; K21.9 Gastro-esophageal reflux disease without esophagitis; Z79.82 Long term (current) use of aspirin; Z79.899 Other long term (current) drug therapy; Z86.73 Personal history of transient ischemic attack (TIA), and cerebral infarction without residual deficits
CPT/HCPCS: 36415; 70450; 70496; 70498; 70544; 80053; 80061; 80307; 81001; 83036; 83735; 84100; 84132; 84443; 84484; 85025; 85610; 85730; 87081; 87086; 92610; 93005; 93225; 94640; 96374; 96375; 97162; 99285; A4649; J0612; J1815; J1938; J2405; J3490; Q9967; A9270; J1920; J7609

== ENCOUNTER 2025-04-19 17:50 | Inpatient (IN) | payer MEDICARE, MEDICAID, SELFPAY ==
[2025-04-19] VITALS (7 sets, daily range): BP systolic 177–180; BP diastolic 85–95; PULSE 77–95; RESP 18–98; TEMP 36.7–36.8; O2SAT 96–100; BMI 30.2
--- NOTE | 2025-04-19 17:56 | XR_ITS ---
Examination: CTA carotids with intravenous contrast CTA brain, head with intravenous contrast. 2-D sagittal, coronal reconstructions. 3-D reconstructions. Exam date and time: April 19, 2025 ET 04 hours Comparison April 15, 2025 INDICATIONS: Stroke alert, onset altered mental status beginning one hour ago CTDI: vol (mGy) 24.7 DLP: (mGycm) 130 Technique: Multiple CTA axial brain, head carotid images post intravenous contrast injection 75 cc, [id number]. 2-D sagittal, coronal reconstructions. 3-D reconstructions, 3-D post processing including vascular maximum intensity projection images. Low dose protocols were performed. One or more of the following dose reduction techniques were used; automated exposure control, adjustment of the mA and/or KV according to patient size, use of iterative reconstruction technique. Findings: Bilateral thyromegaly No significant common carotid and carotid bifurcation or internal carotid artery stenoses Dominant left vertebral artery with no critical vertebral artery stenoses in the neck Intracranial vertebral arteries artery and posterior cerebral branches fill with no large vessel occlusions Petrous juxtasellar supraclinoid portions internal carotid arteries fill, no large vessel occlusions involving M1 segments middle cerebral arteries spinal cerebral artery trifurcation vessels or anterior cerebral arteries IMPRESSION: No significant neck arterial stenoses No cerebral large vessel occlusions or thrombus As clinically warranted consider repeat brain MRI MRA without contrast, stroke protocol
--- NOTE | 2025-04-19 17:56 | XR_ITS ---
Examination: CT brain head without contrast. 2-D sagittal coronal reconstructions Date and time of exam: April 19, 2025, [address] cervical April 15, 2025, brain MRI April 16, 2025 INDICATIONS: Stroke alert, onset altered mental status beginning one hour ago CTDI: vol (mGy):45.8 DLP: (mGycm):930 Technique: Multiple CT axial sections of the brain have been obtained, 5 mm slice thickness. Contrast has not been administered. 2-D sagittal, coronal reconstructions have been obtained Low dose protocols were performed. One or more of the following dose reduction techniques were used; automated exposure control, adjustment of the mA and/or KV according to patient size, use of iterative reconstruction technique. Findings: No significant ventricular enlargement. Patient motion degrades scan image quality. Ventricles are not enlarged. No mass effect No gross hemorrhage Cranial vault grossly intact IMPRESSION: Patient motion significantly degrades scan image quality. Negative for gross hemorrhage mass effect or midline shift
--- NOTE | 2025-04-19 17:56 | EKG_ITS ---
[facility] Test Date: 2025-04-19 Pat Name: MATILDE GIANG Department: Room: - Gender: Female [employer]: : 1965 Requested By: Chica Arnold Order Number: [id number] Reading MD: Chica Arnold Measurements Intervals [place] Rate: 83 P: 29 PA: 172 QRS: 45 QRSD: 105 T: 48 QT: 401 QTc: 473 Interpretive Statements SINUS RHYTHM Compared to ECG 04/15/2025 12:22:46 No significant changes /[id number]/S0/[id number]
[2025-04-19 18:24] LABS: Basophils # (Auto) 0.0 Thou/mm3 (0.0-0.2); Basophils % (Auto) 1 % (0-2.5); Eosinophils # (Auto) 0.3 Thou/mm3 (0.0-0.5); Eosinophils % (Auto) 5 % (0-10); Hematocrit 24.0 % (36.0-46.0); Immature Granulocytes Auto 0.03 Thou/mm3 (0.00-0.00); Lymphocytes # (Auto) 1.2 Thou/mm3 (1.0-4.8); Lymphocytes % (Auto) 20 % (10-50); Mean Corpuscular HGB Conc 34.2 g/dl (31.0-37.0); Mean Corpuscular Hemoglobin 29.4 pg (25.0-35.0); Mean Corpuscular Volume 86 fL (80-100); Monocytes # (Auto) 0.5 Thou/mm3 (0.0-0.8); Monocytes % (Auto) 8 % (0-12); Neutrophils # (Auto) 4.1 Thou/mm3 (1.8-7.7); Neutrophils % (Auto) 66 % (37-80); Nucleated Red Blood Cell # 0.00 Thou/mm3 (0.00-0.00); Nucleated Red Blood Cell % 0 /100 WBC (0); Platelet Count 206 Thou/mm3 (140-440); RDW Standard Deviation 40.4 fL (36.4-46.3); Red Blood Count 2.79 Miln/mm3 (4.00-5.20); White Blood Count 6.1 Thou/mm3 (3.6-11.0)
[2025-04-19 18:26] LABS: Hemoglobin 8.2 g/dL (12.0-16.0)
[2025-04-19 18:35] LABS: INR 1.0 (0.9-1.3); Partial Thromboplastin Time 32.6 Seconds (22.0-36.0); Prothrombin Time 11.0 Seconds (9.0-12.2)
--- NOTE | 2025-04-19 18:36 | PD.EDNEURO ---
Neuro Symptoms Deficit-RME/HPI General Chief Complaint: Altered Mental Status Stated Complaint: ALTERED Time Seen by Provider: 04/19/25 18:30 Source: patient, family and EMS Arrival date/time: 04/19/25 17:50 Mode of arrival: EMS RME / HPI RME / HPI Narrative: Dr. Daniel?s Main ED Evaluation: 59-year-old female with PMH of ERSD on PD (under the care of Dr. Crews), anemia, T2DM, and HLD, presents to the ED with left-sided facial numbness, head pain, and altered speech. The patient was recently discharged on 04/18/25 following hospitalization for a similar neurologic presentation, which had resolved prior to discharge. However, per her daughter at bedside, she experienced recurrent left facial numbness and new-onset mumbling/slurred speech while preparing breakfast this morning, prompting her return to the ED. The family confirms the patient is taking all prescribed medications. The patient demonstrates mumbled speech but is able to respond appropriately to questions asked by her daughter. She reports numbness and pain localized to the left side of her face and posterior scalp, mirroring her symptoms during her prior admission. Stroke alert was activated. CT brain and CTA head and neck ordered. NeuroTele was consulted. Related Data Home Medications ?Medication ?Instructions ?Recorded ?Confirmed carvedilol 25 mg tablet 25 mg PO BID ##0 01/03/13 04/20/25 amlodipine 5 mg tablet 10 mg PO QDAY 04/29/18 04/20/25 ferrous sulfate 325 mg (65 mg 325 mg PO TID 08/11/23 04/20/25 iron) tablet insulin aspar prot-insulin aspart 5 unit subcut QPM 08/11/23 04/20/25 100 unit/mL (70-30) subcutaneous pen (Novolog Mix 70-30FlexPen U-100) omeprazole 20 mg capsule,delayed 20 mg PO QDAY 08/11/23 04/20/25 release sodium bicarbonate 325 mg tablet 325 mg PO BID 08/11/23 04/20/25 valsartan 40 mg tablet 160 mg PO BID 08/11/23 04/20/25 cyclobenzaprine 5 mg tablet 5 mg PO BID 11/12/23 04/20/25 insulin aspar prot-insulin aspart 10 unit subcut QAM 11/12/23 04/20/25 100 unit/mL (70-30) subcutaneous pen (Novolog Mix 70-30FlexPen U-100) vitamin B complex-vitamin C-folic 1 tab PO QDAY 11/12/23 04/20/25 acid 0.8 mg tablet (Ashley-Joanne) ferric citrate 210 mg iron tablet 210 mg PO TID 04/15/25 04/20/25 (Auryxia) furosemide 40 mg tablet 40 mg PO QAM 04/15/25 04/20/25 famotidine 40 mg tablet 40 mg PO QDAY acid reflux 04/20/25 04/20/25 Previous Rx's ?Medication ?Instructions ?Recorded aspirin 81 mg tablet,delayed 81 mg PO QDAY 30 days #30 tabs 04/18/25 release atorvastatin 80 mg tablet 80 mg PO HS 30 days #30 tabs 04/18/25 chlorthalidone 25 mg tablet 25 mg PO QDAY 30 days #30 tabs 04/18/25 clonidine HCl 0.1 mg tablet 0.1 mg PO TID 30 days #90 tabs 04/18/25 hydralazine 25 mg tablet 25 mg PO TID 30 days #90 tabs 04/18/25 Allergies Allergy/AdvReac Type Severity Reaction Status Date / Time No Known Allergies Allergy Verified 04/20/25 20:54 Review of Systems Review of Systems Systems Reviewed: All systems reviewed, normal except as documented Past Medical History Past Medical History NEUROLOGIC: Negative Neurological Disorders or Seizures CARDIAC: Positive Cardiac Disorders, Hypercholesterolemia and Hypertension; Negative Congestive Heart Failure RESPIRATORY: Negative Chronic Obstructive Pulmonary Disease (COPD) GASTROINTESTINAL: Positive Gastrointestinal Disorders, Ulcer, Gastroesophageal Reflux Disease and Obesity GENITOURINARY: Positive Genitourinary Disorders, Renal Disease and Dialysis (peritoneal dialysis) REPRODUCTIVE: Positive Previous Pregnancies MUSCULOSKELETAL: Positive Musculoskeletal Disorders, Arthritis and Fractures ENT: Positive Cataracts, Blind and Retinal Detachment ENDOCRINE: Positive Endocrine Disorders and Diabetes Mellitus Type 2; Negative Diabetes Mellitus Type 1 HEMATOLOGIC: Positive Anemia; Negative Blood Disorders OTHER HISTORY: Positive Hospitalization, Blood Transfusions and Chicken Pox; Negative Autoimmune Disease, Shingles, Falls, Blood Transfusion Reaction, Anesthesia Reactions or Cancer Family History FAMILY HISTORY: Negative Family Psychiatric Problems, Family Respiratory Disorders, Family Cardiac Disorders, Family Gastrointestinal Problems, Family Cancer, Family Surgery or Family Anesthesia Reaction Surgical History SURGICAL: Positive Eye Surgery and Hysterectomy Social History SMOKING STATUS: Never smoker ED Exam Narrative Physical exam: Examination: BP(173/85),?Pulse(81), 1A: Level of Consciousness - Alert; keenly responsive?+ 0 1B: Ask Month and Age - Both Questions Right?+ 0 1C: Blink Eyes & Squeeze Hands - Performs Both Tasks?+ 0 2: Test Horizontal Extraocular Movements - Normal?+ 0 3: Test Visual L[place]cano - No Visual Loss?+ 0 4: Test Facial Palsy (Use Grimace if Obtunded) - Normal symmetry?+ 0 5A: Test Left Arm Motor Drift - No Drift for 10 Seconds?+ 0 5B: Test Right Arm Motor Drift - No Drift for 10 Seconds?+ 0 6A: Test Left Leg Motor Drift - No Drift for 5 Seconds?+ 0 6B: Test Right Leg Motor Drift - No Drift for 5 Seconds?+ 0 7: Test Limb Ataxia (FNF/Heel-Underwood) - No Ataxia?+ 0 8: Test Sensation - Normal; No sensory loss?+ 0 9: Test Language/Aphasia - Normal; No aphasia?+ 0 10: Test Dysarthria - Normal?+ 0 11: Test Extinction/Inattention - No abnormality?+ 0 NIHSS Score:?0 GENERAL: In general the patient is awake, interactive, in an emergency department gurney. HEAD/EYES/EARS/NOSE/THROAT: normo-cephalic, atraumatic, mucus membranes are moist. No cervical tenderness palpation midline. Supple neck. CARDIOVASCULAR: regular rate and regular rhythm, no murmurs, heart sounds are not distant, strong pulses in all four extremities that are equal and symmetric bilateral upper and lower extremities, normal capillary refill. CHEST/PULMONARY: normal chest rise and fall, good air movement, clear to auscultation bilaterally, normal inspiratory to expiratory ratios without evidence of respiratory distress. ABDOMEN: soft, not tender, no masses appreciated BACK: normal range of motion without pain. NEUROLOGICAL: cranio-facial features are symmetric, moves all four extremities equally without obvious limitations or weakness. EXTREMITY: no tenderness to palpation over the long bones or large joints of the bilateral upper and lower extremities, no joint swelling, no joint erythema, no signs of trauma, no unilateral leg swelling and no peripheral edema. SKIN: warm, dry, well-perfused, no jaundice, no rash, no telangiectasias or petechia. PSYCH: calm, cooperative, no evidence of psychosis or agitation Course Quality Measures none Orders Category Date Time Status Patient Condition Routine Admission 04/19/25 20:[address] in Observation Status Routine Admission 04/19/25 20:56 Active Bedside Blood Glucose NOW Care 04/19/25 17:56 Active COVID-19 Screening Questionnaire NOW Care 04/19/25 20:55 Active Retort Condenser Attendant Q4H START 00 Care 04/19/25 17:56 Active Continuous Pulse Oximetry NOW Care 04/19/25 17:56 Completed Decision to Admit X1 Care 04/19/25 20:55 Completed EKG (ED ONLY) *Do not use* NOW Care 04/19/25 17:56 Completed In and Out Catheter NEEDED Care 04/19/25 17:56 Active Insert IV NOW Care 04/19/25 17:56 Active NIH Stroke Scale now Care 04/19/25 17:56 Active NPO NOW Care 04/19/25 17:56 Active Neuro Check Q4H Care 04/19/25 20:54 Active Notify provider NEEDED Care 04/19/25 20:56 Active Nurse Swallow Screen x1 Care 04/19/25 17:56 Active Sequential Compression Device QSHIFT Care 04/19/25 20:54 Active Consult to Neurology / Tele-Neurology Routine Cons 04/19/25 17:[address] angio stroke protocol Stat Exams 04/19/25 17:[address] stroke protocol Stat Exams 04/19/25 17:56 Completed EKG (ED Only) Stat Exams 04/19/25 17:56 Draft Alcohol, Blood Medical Stat Lab 04/19/25 18:13 Completed Basic Metabolic Panel AM DRAW Lab 04/20/25 04:54 Completed Basic Metabolic Panel AM DRAW Lab 04/21/25 05:00 Ordered Basic Metabolic Panel AM DRAW Lab 04/22/25 05:00 Ordered CBC AM DRAW Lab 04/20/25 04:54 Completed CBC AM DRAW Lab 04/21/25 05:00 Ordered CBC AM DRAW Lab 04/22/25 05:00 Ordered CBC Stat Lab 04/19/25 18:13 Completed Comprehensive Metabolic Panel Stat Lab 04/19/25 18:13 Completed Drug Screen,Urine Stat Lab 04/19/25 19:40 Completed HCG Titer if Positive Stat Lab 04/19/25 18:13 Completed Magnesium AM DRAW Lab 04/20/25 04:54 Completed Magnesium Stat Lab 04/19/25 18:13 Completed Partial Thromboplastin Time Stat Lab 04/19/25 18:13 Completed Phosphorous AM DRAW Lab 04/20/25 04:54 Completed Prothrombin Time with INR AM DRAW Lab 04/20/25 04:54 Completed Prothrombin Time with INR Stat Lab 04/19/25 18:13 Completed Troponin I Stat Lab 04/19/25 18:13 Completed Urinalysis Stat Lab 04/19/25 19:40 Completed Urine Culture Stat Lab 04/19/25 19:40 Received Acetaminophen Tab [Tylenol Tab] Med 04/19/25 20:54 Active 650 mg PO Q6H PRN Dextrose 50% Syr [D50w Syringe Abboject] Med 04/19/25 19:35 Discontinued 25 ml IVP X1 ONE Ondansetron Inj [Zofran Inj] Med 04/19/25 20:54 Active 4 mg IVP Q6H PRN Senna [Senokot] Med 04/19/25 20:54 Active 1 tab PO QDAY PRN hydrALAZINE INJ [Apresoline Inj] Med 04/19/25 20:55 Discontinued 20 mg IVP X1 ONE Code Status Routine Oth 04/19/25 20:54 Ordered Oxygen Delivery NOW RT 04/19/25 17:56 Active Vital Signs Vital signs: Vital Signs Temperature 98.1 F 04/19/25 17:53 Pulse Rate 78 04/19/25 17:53 Respiratory Rate 18 04/19/25 17:53 Blood Pressure 177/85 H 04/19/25 17:53 Pulse Oximetry (%) 96 04/19/25 17:53 Oxygen Delivery Method Room Air 04/19/25 17:53 Neuro Symptoms / Deficit MDM Narrative MDM Narrative:: 59-year-old Divehi-speaking female with history including end-stage renal disease on PD, hypertension, and type 2 diabetes mellitus, presenting with confusion and speech. She was evaluated for confusion, bilateral arm weakness, facial numbness, and slurred speech. Today, she presents again with confusion and speech. which resolved spontaneously prior to ED arrival. BP on arrival was 173/85 mmHg. At this time, patient is clinically stable but will be monitored closely for evolution of symptoms. Given the recurrence within 24 hours of discharge and neurologic symptoms affecting speech, inpatient admission is strongly considered for further evaluation and monitoring. 1939 Patient is admitted. Scribe Attestation: I, Victor M Jimenez, am scribing for and in the presence of Dr. Daniel. Provider Notation: Although this document has been carefully reviewed, there may still be some phonetic and other typographical errors. These errors are purely grammatical due to imperfections in the software program and should not be construed in any way to compromise the substance of the patient's medical care during this visit. Patient data External records reviewed:: [facility] previous records and EMS form Clinical information provided by:: patient, EMS and family Social determinants that could affect healthcare access:: none Patient has the following chronic illnesses:: See PMH How is presenting disease/condition affected by chronic disease/condition?: uneffected by Evaluation data The following diagnostics were reviewed and interpreted by me:: lab results and radiology exam(s) Lab and/or radiology exams considered but not ordered:: n/a Interpretation Summary: I personally reviewed the radiology data and agree with the radiologist's interpretation. Examination: CT brain head without contrast. Date and time of exam: April 19, 2025, [address] cervical April 15, 2025, brain MRI April 16, 2025 INDICATIONS: Stroke alert, onset altered mental status beginning one hour ago Findings: No significant ventricular enlargement. Patient motion degrades scan image quality. Ventricles are not enlarged. No mass effect No gross hemorrhage Cranial vault grossly intact IMPRESSION: Patient motion significantly degrades scan image quality. Negative for gross hemorrhage mass effect or midline shift Dictated By: Mark Melissa MD CTA carotids with intravenous contrast CTA brain, head with intravenous contrast. 2-D sagittal, coronal reconstructions. 3-D reconstructions. Exam date and time: April 19, 2025 ET 04 hours Comparison April 15, 2025 INDICATIONS: Stroke alert, onset altered mental status beginning one hour ago Findings: Bilateral thyromegaly No significant common carotid and carotid bifurcation or internal carotid artery stenoses Dominant left vertebral artery with no critical vertebral artery stenoses in the neck Intracranial vertebral arteries artery and posterior cerebral branches fill with no large vessel occlusions Petrous juxtasellar supraclinoid portions internal carotid arteries fill, no large vessel occlusions involving M1 segments middle cerebral arteries spinal cerebral artery trifurcation vessels or anterior cerebral arteries IMPRESSION: No significant neck arterial stenoses No cerebral large vessel occlusions or thrombus As clinically warranted consider repeat brain MRI MRA without contrast, stroke protocol Dictated By: Mark Melissa MD Medications / Prescriptions Medications or Prescriptions considered but not ordered:: n/a Medication administrations:: Medication Administration History Acetaminophen (Acetaminophen 325 Mg Tablet) 650 mg PO Q6H PRN PRN Reason: pain 1-3 &/or fever >100.1 Stop: 05/19/25 20:53 Aspirin (Aspirin Ec 81 Mg Tabec) 81 mg PO QDAY [facility] Stop: 05/20/25 00:14 Last Admin: 04/20/25 01:13 Dose: 81 mg Documented By: CG Atorvastatin Calcium (Atorvastatin Calcium 20 Mg Tablet) 80 mg PO [facility] Stop: 05/20/25 00:14 Last Admin: 04/20/25 21:18 Dose: 80 mg Documented By: Admin: 04/20/25 01:13 Dose: 80 mg Documented By: VALENTINO Clopidogrel Bisulfate (Clopidogrel Bisulfate 75 Mg Tablet) 75 mg PO QDAY [facility] Stop: 05/20/25 20:59 Last Admin: 04/20/25 21:18 Dose: 75 mg Documented By: CTF Cyclobenzaprine HCl (Cyclobenzaprine 5 Mg Tablet) 5 mg PO TID PRN PRN Reason: MUSCLE SPASMS Stop: 05/20/25 08:06 Dextrose (Dextrose 50%-Water Inj 50 Ml Syringe) 25 ml IV Q15MIN PRN PRN Reason: BG 50-70 responsive npo pt Stop: 05/19/25 23:51 Dextrose (Dextrose 50%-Water Inj 50 Ml Syringe) 50 ml IV Q15MIN PRN PRN Reason: BG <50 OR BG <70 & pt unresponsive Stop: 05/19/25 23:51 Glucagon (Glucagon Inj 1 Mg Vial) 1 mg IM Q15MIN PRN PRN Reason: BG <70, and no IV access Insulin Human Lispro (Insulin Lispro (Admelog) 1 Unit/0.01 Ml Unit) 0 unit SC [facility]; Protocol Stop: 05/20/25 07:29 Last Admin: 04/20/25 17:29 Dose: Not Given Documented By: KA Non-Admin Reason: Patient Refused Admin: 04/20/25 14:46 Dose: Not Given Documented By: ER Non-Admin Reason: Patient Refused Admin: 04/20/25 07:00 Dose: Not Given Documented By: ER Non-Admin Reason: Glucose, LOW Labetalol HCl (Labetalol Inj 5 Mg/Ml Vial 20 Ml) 10 mg IVP Q2H PRN PRN Reason: SBP>180 Stop: 05/20/25 17:28 Last Admin: 04/20/25 23:20 Dose: 10 mg Documented By: JUDITH Ondansetron HCl (Ondansetron Inj 2 Mg/Ml Inj 2 Ml) 4 mg IVP Q6H PRN; Protocol PRN Reason: NAUSEA OR VOMITING Stop: 05/19/25 20:53 Last Admin: 04/19/25 21:44 Dose: 4 mg Documented By: JORGE A Sennosides (Senna Tablet) 1 tab PO QDAY PRN; Protocol PRN Reason: constipation Stop: 05/19/25 20:53 Vitamin B Complex/Vit C/Folic Acid (Vit B12/Vit C/Fa (Nephrovite) Tablet) 1 tab PO QDAY TIFFANI Stop: 05/20/25 08:59 Last Admin: 04/20/25 14:48 Dose: 1 tab Documented By: ER Discontinued Medications Clopidogrel Bisulfate (Clopidogrel Bisulfate 75 Mg Tablet) 300 mg PO X1 ONE Stop: 04/19/25 21:15 Last Admin: 04/19/25 21:44 Dose: 300 mg Documented By: JORGE A Dextrose (Dextrose 50%-Water Inj 50 Ml Syringe) 25 ml IVP X1 ONE Stop: 04/19/25 19:36 Last Admin: 04/19/25 19:40 Dose: 25 ml Documented By: JORGE A Hydralazine HCl (Hydralazine Inj 20 Mg/Ml Vial) 20 mg IVP X1 ONE Stop: 04/19/25 20:56 Last Admin: 04/19/25 21:45 Dose: 20 mg Documented By: JORGE A Lorazepam (Lorazepam 2 Mg/Ml Vial) 1 mg IVP X1 ONE Stop: 04/19/25 20:57 Last Admin: 04/19/25 21:44 Dose: 1 mg Documented By: JORGE A Morphine Sulfate (Morphine Sulf Inj 10 Mg/Ml Vial) 2 mg IVP X1 ONE Stop: 04/19/25 21:10 Last Admin: 04/19/25 21:47 Dose: 2 mg Documented By: JORGE A as above Consultations Consultation(s) initiated? (list below): Yes Consultation #1 (Physician, Specialty, Details): Dr. Song, Neuro-on- call, Seizure vs TIA work, No TPA. met work-up ad Time: 18:39 Diagnosis Neuro Differential Diagnosis: convulsions, cerebrovascular accident, transient cerebral ischemia and other (TIA, seizures) Most likely diagnosis given after review of the tests above:: see clinical impression Admission Indicated Admission indicated?: indicated Admission Request Was there a request for admission?: Yes Admission Attestation Admission request attestation: Discussed case with [] from Hospitalist service regarding admission. Discussed patients ED course, exam findings, labs, and radiology results. The Hospitalist [agrees,declines] to accept the patient for admission. Disposition Plan Disposition Plan: Admit Critical Care Time Critical Care Time Critical Care Time: Yes Total Critical Care Time (min.): 45 Attestation: The high probability of sudden, clinically significant deterioration in the patient?s condition required the highest level of my preparedness to intervene urgently. ? The services I provided to this patient were to treat and/or prevent clinically significant deterioration. Services included the following: chart data review, reviewing nursing notes and/or old charts, documentation time, systems security consultant collaboration regarding findings and treatment options, medication orders and management, direct patient care, vital sign assessments and ordering, interpreting and reviewing diagnostic studies and lab tests. ? Aggregate critical care time includes only time during which I was engaged in work directly related to the patient?s care, as described above, whether at bedside or elsewhere in the Emergency Department. It did not include time spent performing other reported procedures or the services of residents, students, nurses or physician assistants. Discharge Plan Plan Patient Disposition: Admit Acute Care w/in Hospital Patient condition on transfer: Stable Problem List Clinical Impression: Stroke-like symptom
--- NOTE | 2025-04-19 18:38 | ESCONSULT_ITS ---
Tele Neuro Consultation Consultation Date 04/19/25 Most Recent Vital Signs Last Vital Signs Temp 98.1 F 04/19/25 17:53 Pulse 78 04/19/25 17:53 Resp 18 04/19/25 17:53 BP 177/85 H 04/19/25 17:53 Pulse Ox 96 04/19/25 17:53 O2 Del Method Room Air 04/19/25 17:53 Laboratory-Coagulation Panel PT 11.0 Seconds (9.0-12.2) 04/19/25 18:13 INR 1.0 (0.9-1.3) 04/19/25 18:13 APTT 32.6 Seconds (22.0-36.0) 04/19/25 18:13 Consultation Narrative [facility] TeleNeurology Consult Services Patient Name:???vick, alida Date of :???1965 Identification Number:??? Date of Service:???04/19/2025 17:54:03 Diagnosis:?R41.82 - Altered mental status, unspecified Impression: ?This consult was conducted in real-time using interactive audio and video technology. Patient was informed of the technology being used for this visit and agreed to proceed. Patient located in hospital and provider located at home/office setting. ? ?This is a 59 year old F with ESRD on HD, HTN, DM who presents to [place], [place] at 04/19/2025 17:55:00 for complaints of transient speech changes. ? ?She is Sudanese-speaking so a bedside porcelain finisher is used. ? ?Of note, the patient's recent medical history is significant for a previous presentation to the hospital on April 15 with complaints of confusion, bilateral arm weakness, facial numbness, and slurred speech. At that time, she was diagnosed with either a toxic/metabolic etiology or hypertensive encephalopathy by the attending neurologist. An MRI of the brain performed during that admission showed no evidence of hemorrhage or other acute abnormalities. She was subsequently discharged on April 18 (yesterday) with new medications, including aspirin, an increased dose of clonidine from 0.1mg BID to TID, and the addition of hydralazine 25mg TID. ? ?Today, the patient presents again with confusion and transient speech changes, and a blood pressure of 173/85 mmHg. During the examination, which was conducted with the assistance of a bedside porcelain finisher, the patient was able to speak in full sentences but was tearful and crying. When asked about her current symptoms, she reported only a headache, stating that earlier at home, she had been unable to speak at all, but now feels that her speech issue has resolved. The patient was observed to move all extremities slowly, including both arms and legs. A bilateral postural tremor was noted, which extinguished with distraction. The patient denies any other associated symptoms at this time. NIHSS is 0. ? ?With now episodic nature, etiologies to consider include unwitnessed seizures with postictal state, versus functional disorder. Also on the differential is metabolic encephalopathy or hypertensive encephalopathy. Stroke/TIA may be considered on the differential as well. She is not a tPA/TNK candidate due to rapid improvement in symptoms with no remaining focal disabling deficits. Recommendations below. Recommendations: ? Stroke/Telemetry Floor ? Neuro Checks (Q4) ? DVT Prophylaxis ? Euglycemia and Avoid Hyperthermia (PRN Acetaminophen) ? Systolic BP cap <180 ?Metabolic, infectious, and toxic workup including (or per primary team): CXR, UA, CBC, CMP, LFTs, NH3, TSH, and drug screen. Treat abnormalities as appropriate. ?Delirium precautions (lights on during day and off at night, family visits as appropriate, familiar objects in room, avoid polypharmacy, nighttime strategies to improve sleep by non-sedating means, encourage mobility as tolerated). ?MRI brain without contrast. ?Obtain routine spot EEG (20-60 minutes) if available at this hospital. If not available at this hospital, or will significantly delay discharge, can plan for as an outpatient. If performed and epileptic potential is seen (i.e. sharps, spikes, LRDA) then provide a levetiracetam 1000 mg IV one-time load, followed by 500 mg PO or IV BID thereafter. ?If the patient worsens clinically, such as an increase of NIHSS by 2 or more points, new focal findings arise, or other, or if new pertinent medical history becomes available that was previously unavailable and may change neurologic care, please update Neurology at and update the primary team. ?Continue aspirin 81 mg daily and atorvastatin 80 mg daily ?Add Plavix 300 mg once then 75 mg daily for 21 days . Advanced Imaging: CTA: An acute surgically intervenable large vessel occlusion was not seen, therefore patient is not an YANG IA candidate. Metrics: Last Known Well: 04/19/2025 16:00:00 Dispatch Time: 04/19/2025 17:54:03 Arrival Time: 04/19/2025 17:55:00 Initial Response Time: 04/19/2025 18:07:31Symptoms: transient speech changes. . Initial patient interaction: 04/19/2025 18:17:10 NIHSS Assessment Completed: 04/19/2025 18:24:30Patient is not a candidate for Thrombolytic. Thrombolytic Medical Decision: 04/19/2025 18:24:30Patient was not deemed candidate for Thrombolytic because of following reasons: Resolved symptoms . Stroke severity too mild (non-disabling) . CT Head: I personally reviewed all the CT images that were available to me and it showed: no acute pathology Primary Provider Notified of Diagnostic Impression and Management Plan on: 04/19/2025 18:36:22 History of Present Illness:Patient is a 59 year old Female. Patient was brought by EMS for symptoms of transient speech changes. . This consult was conducted in real-time using interactive audio and video technology. Patient was informed of the technology being used for this visit and agreed to proceed. Patient located in hospital and provider located at home/office setting. This is a 59 year old F with ESRD on HD, HTN, DM who presents to [place], [place] at 04/19/2025 17:55:00 for complaints of transient speech changes. She is Sudanese-speaking so a bedside porcelain finisher is used. Of note, the patient's recent medical history is significant for a previous presentation to the hospital on April 15 with complaints of confusion, bilat eral arm weakness, facial numbness, and slurred speech. At that time, she was diagnosed with either a toxic/metabolic etiology or hypertensive encephalopathy by the attending neurologist. An MRI of the brain performed during that admission showed no evidence of hemorrhage or other acute abnormalities. She was subsequently discharged on April 18 (yesterday) with new medications, including aspirin, an increased dose of clonidine from 0.1mg BID to TID, and the addition of hydralazine 25mg TID. Today, the patient presents again with confusion and transient speech changes, and a blood pressure of 173/85 mmHg. During the examination, which was conducted with the assistance of a bedside porcelain finisher, the patient was able to speak in full sentences but was tearful and crying. When asked about her current symptoms, she reported only a headache, stating that earlier at home, she had been unable to speak at all, but now feels that her speech issue has resolved. The patient was observed to move all extremities slowly, including both arms and legs. A bilateral postural tremor was noted, which extinguished with distraction. The patient denies any other associated symptoms at this time. NIHSS is 0. Past Medical History: Other PMH:? ESRD on HD, HTN, DM Medications: No Anticoagulant use? Antiplatelet use:?Yes?ASA Reviewed EMR for current medications Allergies:? Reviewed Social History: Unable To Obtain Due To Patient Status :?Patient Is Confused Family History: Family History Cannot Be Obtained Because:Patient Is Confused ROS :?ROS Cannot Be Obtained Because:? Patient Is Confused Past Surgical History: Past Surgical History Cannot Be Obtained Because: Patient Is Confused There Is No Surgical History Contributory To Today?s Visit Examination: BP(173/85),?Pulse(81), 1A: Level of Consciousness - Alert; keenly responsive?+ 0 1B: Ask Month and Age - Both Questions Right?+ 0 1C: Blink Eyes & Squeeze Hands - Performs Both Tasks?+ 0 2: Test Horizontal Extraocular Movements - Normal?+ 0 3: Test Visual [place] - No Visual Loss?+ 0 4: Test Facial Palsy (Use Grimace if Obtunded) - Normal symmetry?+ 0 5A: Test Left Arm Motor Drift - No Drift for 10 Seconds?+ 0 5B: Test Right Arm Motor Drift - No Drift for 10 Seconds?+ 0 6A: Test Left Leg Motor Drift - No Drift for 5 Seconds?+ 0 6B: Test Right Leg Motor Drift - No Drift for 5 Seconds?+ 0 7: Test Limb Ataxia (FNF/Heel-Underwood) - No Ataxia?+ 0 8: Test Sensation - Normal; No sensory loss?+ 0 9: Test Language/Aphasia - Normal; No aphasia?+ 0 10: Test Dysarthria - Normal?+ 0 11: Test Extinction/Inattention - No abnormality?+ 0 NIHSS Score:?0 NIHSS Free Text :?lethargic. Bilateral postural tremors. Overall slow movement in all limbs. Emotional, crying on exam. Pre-Morbid Modified Celestina Scale:1 Points = No significant disability despite symptoms; able to carry out all usual duties and activities Spoke with :?ed provider This consult was conducted in real time using interactive audio and video technology. Patient was informed of the technology being used for this visit and agreed to proceed. Patient located in hospital and provider located at home/office setting. Patient is being evaluated for possible acute neurologic impairment and high pro bability of imminent or life-threatening deterioration. I spent total of 45 minutes providing care to this patient, including time for face to face visit via telemedicine, review of medical records, imaging studies and discussion of findings with providers, the patient and/or family. Dr Joseph Song [facility] For Inpatient follow-up with [facility] physician please call [facility] at [phone]. As we are not an outpatient service for any post hospital discharge needs please contact the hospital for assistance. If you have any questions for the [facility] physicians or need to reconsult for clinical or diagnostic changes please contact us via [facility] at .
[2025-04-19 18:42] LABS: Alanine Aminotransferase 18 U/L (10-49); Albumin, Serum 3.0 gm/dL (3.4-4.8); Albumin/Globulin Ratio 0.9 (1.2-2.2); Alcohol, Blood Medical < 3.0 mg/dL (0-10.0); Alkaline Phosphatase 142 U/L (46-116); Anion Gap 8 (7-16); Aspartate Amino Transferase 17 U/L (0-34); BUN/Creatinine Ratio 5 Ratio (12-20); Bilirubin,Total 0.2 mg/dL (0.3-1.2); Blood Urea Nitrogen 50 mg/dL (9-23); Calcium 7.8 mg/dL (8.3-10.6); Calcium (Corrected) 8.6 mg/dL (8.5-10.1); Carbon Dioxide 25.1 mMol/L (20.0-31.0); Chloride 99 mMol/L (98-107); Creatinine (Component) 9.8 mg/dL (0.6-1.3); Globulin 3.3 gm/dL (2.3-3.5); Glucose 94 mg/dL (74-106); Magnesium 1.9 mg/dL (1.6-2.6); Osmolality,Calculated 277 (275-295); Potassium 4.6 mMol/L (3.4-5.1); Sodium 132 mMol/L (136-145); Total Protein 6.3 gm/dL (5.7-8.2); Troponin I < 0.020 ng/mL (0.0-0.045); eGFR 4 See Note
[2025-04-19 18:48] LABS: HCG Titer if Positive Negative
[2025-04-19] MEDS: DEXTROSE 50%-WATER INJ 50 ML SYRINGE 25 ML IVP (19:40)
[2025-04-19 20:20] LABS: Collection Type, Urine Catheter
[2025-04-19 20:32] LABS: Bilirubin,Urine Negative (Negative); Blood,Urine Trace (Negative); Clarity,Urine Clear (Clear/Hazy); Color,Urine Colorless (Lt Yel-Yel); Glucose, Urine 3+ (Negative); Ketones,Urine Negative (Negative); Leukocyte Esterase,Urine Negative (Negative); Nitrite,Urine Negative (Negative); PH,Urine 8.0 (5.0-7.0); Protein,Urine 3+ (Neg - Trace); RBC,Urine 2 /hpf (0-3); Specific Gravity,Urine 1.018 (1.001-1.035); Squamous Epithelial Cell,Urine 1 /hpf (0-5); Urobilinogen,Urine Negative mg/dL (0.0-1.0); WBC,Urine 1 /hpf (0-5)
--- NOTE | 2025-04-19 21:16 | ESHP_ITS ---
<Statement entered by Greg Ruelas MD - 04/20/25 00:52> I have personally seen and examined the patient. I agree with the resident's assessment and plan as documented below. Greg Ruelas DO PGY-2 Internal Medicine - G[facility] Documentation for date of: 04/19/25 HPI History of Present Illness Chief complaint: Facial numbness History of present illness: Meme Small is a 59F pmhx significant for peritoneal dialysis (follows Dr. Crews), anemia, DM2, and HLD discharged 04/18 for similar presentation who presents with with pain and numbness of left face/head and altered speech. Family member at bedside and help provide additional information and translate. Patient reports being discharged last night with improved facial numbness and slurred speech, but began feeling facial numbness and started having slurred, mumbling speech this morning while making breakfast, prompting visit to ED. Family member states that patient is taking all new medications prescribed on last discharge. On evaluation, patient is mumbling but able to answer family member's questions, and reports some pain and numbness of left side of face and back of head, similar to previous admission. Reports bilateral upper extremity weakness but denies chest pain, fever or SOB. Given recent admission and presentation, stroke alert was called. CT brain wo contrast negative for gross hemorrhage, mass effect or midline shift. CTA head and neck showed no significant neck arterial stenoses, no cerebral large vessel occlusions or thrombus. NeuroTele was consulted and recommended MRI wo contrast, metabolic/infectious/toxic workup, routine spot EEG, Plavix loading dose, and to continue home ASA 81 mg and atorvastatin 80 mg. Last known PD was 04/15. In ED, BP 177/85, CBC unremarkable other than chronic normocytic anemia, Na 132, BUN 50, Cr 9.8, ALP 142. In ED, given Lorazepam 1 mg, Zofran, Plavix 300 mg, Hydralazine 20 mg and morphine 2 mg. Patient was admitted for further workup. Review of Systems Review of Systems Narrative Review of Systems: Normal except for as above in HPI Exam Vital Signs Temp Pulse Resp BP Pulse Ox O2 Del Method 98.1 F 85 20 177/85 H 96 Room Air 04/19/25 17:53 04/19/25 18:58 04/19/25 18:15 04/19/25 17:53 04/19/25 17:53 04/19/25 17:53 Narrative Exam General: AOx3, no acute distress, no slurred speech HEENT: NC/AT, mucous membranes moist, bilateral sclera anicteric Cardiovascular: regular rate and rhythm, S1/S2 present, no murmurs appreciated Pulmonary: clear to auscultation bilaterally, no rales/rhonchi/wheezes Abdominal: soft, non-tender, non-distended, no rebound/guarding, bowel sounds present Musculoskeletal: normal ROM, no peripheral edema Skin: warm and dry, intact, no rashes Neuro: - CN II-XII grossly intact, no focal deficits - Strength 4/5 in BUE, shrimp cleaner strength 4/5, able to move legs spontaneously - Alert, following commands Results: Labs 04/19/25 18:13 04/19/25 18:13 Labs: Short CBC 04/19/25 Range/Units 18:13 WBC 6.1 (3.6-11.0) Thou/mm3 Hgb 8.2 L (12.0-16.0) g/dL Hct 24.0 L (36.0-46.0) % Plt Count 206 D (140-440) Thou/mm3 BMP 04/19/25 18:13 Sodium 132 L Potassium 4.6 D Chloride 99 Carbon Dioxide 25.1 BUN 50 H Creatinine 9.8 H* D Glucose 94 D Calcium 7.8 L Cardiac Enzymes 04/19/25 Range/Units 18:13 Troponin I < 0.020 (0.0-0.045) ng/mL Liver Function 04/19/25 Range/Units 18:13 Total Bilirubin 0.2 L (0.3-1.2) mg/dL AST 17 (0-34) U/L ALT 18 (10-49) U/L Alkaline Phosphatase 142 H D (46-116) U/L Albumin 3.0 L D (3.4-4.8) gm/dL Urine 04/19/25 Range/Units 19:40 Urine Color Colorless A (Lt Yel-Yel) Urine Clarity Clear (Clear/Hazy) Urine pH 8.0 H (5.0-7.0) Ur Specific [place] 1.018 (1.001-1.035) Urine Protein 3+ A (Neg - Trace) Urine Glucose (UA) 3+ A (Negative) Quality Measures Quality Measures VTE prophylaxis Medications Home Medications and Allergies Home Medications ?Medication ?Instructions ?Recorded ?Confirmed ?Type carvedilol 25 mg tablet 25 mg PO BID ##0 01/03/13 History amlodipine 5 mg tablet 10 mg PO QDAY 04/29/1804/15 History ferrous sulfate 325 mg (65 mg 325 mg PO TID 08/11/23 0 04/15/25 History iron) tablet insulin aspar prot-insulin aspart 5 unit subcut QPM 04/15/25 History 100 unit/mL (70-30) subcutaneous pen (Novolog Mix 70-30FlexPen U-100) omeprazole 20 mg capsule,delayed 20 mg PO QDAY 3 04/15/25 History release sodium bicarbonate 325 mg tablet 325 mg PO BID 3 04/15/25 History valsartan 40 mg tablet 160 mg PO BID 08/11/2304/15 History cyclobenzaprine 5 mg tablet 5 mg PO BID 11/12/2304/15 History insulin aspar prot-insulin aspart 10 unit subcut QAM 0 11/12/23 04/15/25 History 100 unit/mL (70-30) subcutaneous pen (Novolog Mix 70-30FlexPen U-100) vitamin B complex-vitamin C-folic 1 tab PO QDAY 04/15/25 History acid 0.8 mg tablet (Ashley-Joanne) ferric citrate 210 mg iron tablet 210 mg PO TID 04/15/25 History (Auryxia) furosemide 40 mg tablet 40 mg PO QAM 04/15/25 History Allergies Allergy/AdvReac Type Severity Reaction Status Date / Time No Known Allergies Allergy Verified 04/15/25 11:35 Visit Medications Acetaminophen (Acetaminophen 325 Mg Tablet) 650 mg PO Q6H PRN PRN Reason: pain 1-3 &/or fever >100.1 Stop: 05/19/25 20:53 Clopidogrel Bisulfate (Clopidogrel Bisulfate 75 Mg Tablet) 300 mg PO X1 ONE Stop: 04/19/25 21:15 Clopidogrel Bisulfate (Clopidogrel Bisulfate 75 Mg Tablet) 75 mg PO QDAY TIFFANI Stop: 05/20/25 20:59 Ondansetron HCl (Ondansetron Inj 2 Mg/Ml Inj 2 Ml) 4 mg IVP Q6H PRN; Protocol PRN Reason: NAUSEA OR VOMITING Stop: 05/19/25 20:53 Sennosides (Senna Tablet) 1 tab PO QDAY PRN; Protocol PRN Reason: constipation Stop: 05/19/25 20:53 Discontinued Medications Dextrose (Dextrose 50%-Water Inj 50 Ml Syringe) 25 ml IVP X1 ONE Stop: 04/19/25 19:36 Last Admin: 04/19/25 19:40 Dose: 25 ml Hydralazine HCl (Hydralazine Inj 20 Mg/Ml Vial) 20 mg IVP X1 ONE Stop: 04/19/25 20:56 Lorazepam (Lorazepam 2 Mg/Ml Vial) 1 mg IVP X1 ONE Stop: 04/19/25 20:57 Morphine Sulfate (Morphine Sulf Inj 10 Mg/Ml Vial) 2 mg IVP X1 ONE Stop: 04/19/25 21:10 Assessment & Plan Plan Meme Small is a 59F pmhx significant for ESRD on PD (follows Dr. Crews), anemia, DM2, and HLD discharged 04/18 for similar presentation who is admitted for stroke workup. #Left facial numbness #Slow/dysarthric speech Ddx includes CVA vs seizure vs hypertensive encephalopathy vs metabolic encephalopathy. Presents with left facial pain/numbness, slurred speech and bilateral upper extremity weakness beginning 7/1 AM with NIHSS 0. Similar presentation for recent admission 04/15 to 04/18 with resolution of symptoms upon discharge. CT brain wo contrast negative for hemorrhage. CTA head and neck showed no significant neck arterial stenoses, no cerebral large vessel occlusions or thrombus. NeuroTele was consulted and recommended MRI wo contrast, metabolic/infectious/toxic workup, routine spot EEG, Plavix loading dose, and to continue home ASA 81 mg and atorvastatin 80 mg. Last known PD was 04/15 and current K wnl. Systolic BP on admission 177. - Neuro checks q4h - s/p Plavix 300 mg loading dose, Plavix 75 QD for 21 days - Continue ASA 81 mg QD and atorvastatin 80 mg QD - F/u ammonia, BMP, CBC, Mg - F/u MRI and EEG #Hypertension Previous admission documented BP in 200s/100s. Patient received one dose of hydralazine in ED. TeleNeuro recommends to keep BP <180. Current BP 178/92. - Med rec pending #ESRD on PD Follows with Dr. Crews outpatient. Last HD 04/15 and current K wnl. - Dr. Crews consulted, recs appreciated - Avoid nephrotoxic medication - Hold HD for now #Type 2 DM, insulin-dependent HbA1c 6.0 on 04/16. - [facility] Hospital management: Disposition: telemetry for stroke workup Diet: pending swallow eval DVT prophylaxis: SCDs CODE STATUS: full code Plan of care discussed with attending Dr. Jimenes, and PGY-2 Dr. Ruelas. Yareli Roberts, PGY-1 Attending Provider Attestation/Addendum 59-year-old female with uncontrolled hypertension, peritoneal dialysis complains of left facial numbness. She has generalized pain. Her blood pressure is uncontrolled well. Patient is being admitted for stroke workup. Teleneurology evaluation done. Discussed with housestaff. I discussed with and supervised the resident physician who took care of this patient. I agree with the assessment and plan as above.
[2025-04-19 21:19] LABS: Amphetamine/Methamp Scrn,U Negative (Negative); Barbiturate Screen,Urine Negative (Negative); Benzodiazepines Screen,Urine Negative (Negative); Benzoylecgonine Screen, Ur Negative (Negative); Fentanyl Screen,Urine Negative (Negative); Opiate Screen,Urine Negative (Negative); THC Screen,Urine Negative (Negative)
[2025-04-19] MEDS: ONDANSETRON INJ 2 MG/ML INJ 2 ML 4 MG IVP (21:44)
[2025-04-19] MEDS: LORazepam 2 MG/ML VIAL 1 MG IVP (21:44)
[2025-04-19] MEDS: CLOPIDOGREL BISULFATE 75 MG TABLET 300 MG PO (21:44)
[2025-04-19] MEDS: hydrALAZINE INJ 20 MG/ML VIAL IVP (21:45)
[2025-04-19] MEDS: MORPHINE SULF INJ 10 MG/ML VIAL 2 MG IVP (21:47)
[2025-04-20] VITALS (12 sets, daily range): BP systolic 163–189; BP diastolic 81–99; PULSE 83–109; RESP 15–19; TEMP 36.4–37.7; O2SAT 96–98; BMI 30.2
--- NOTE | 2025-04-20 | XR_ITS ---
Examinations: MRI Brain without intravenous contrast. MRA brain without intravenous contrast. MRA carotids without intravenous contrast 3-D vascular reconstructions Date and time of exam: April 20, 2025 1124 hours Comparison brain MRI April 08, 2025 INDICATIONS: CT stroke alert yesterday, onset altered mental status Technique: Multiple axial and sagittal images of the brain have been obtained MRA brain carotid images without contrast obtained, including 3-D postprocessing, vascular maximum intensity projection images Findings: [place] is not enlarged. The optic chiasm and infundibular stalk are not remarkable. Prepontine and interpeduncular cisterns are not enlarged. No localized enlargement of the medulla or edvin. Fourth ventricle and cerebellar tonsils normal in position. Subacute hemorrhage is not seen. Fourth ventricle is midline. Mass in the cerebellopontine angle region is not evident. 7th and 8th nerve complexes exhibits symmetry. Globes are symmetrical with no retro-orbital mass. Increased white matter signal is evident including in the brainstem and left cerebellar hemisphere Diffusion-weighted images demonstrate no focus of restricted diffusion Mass-effect upon the ventricular system is not identified. MRA carotid images no significant stenosis. MRA brain images no large vessel occlusions Impression: Negative for acute hemorrhage mass effect or midline shift No acute infarct Multiple foci increased signal in the white matter including in the brainstem and left cerebellar hemisphere, consider accelerated chronic microvascular white matter change as well as demyelinating disease, clinical correlation advised
[2025-04-20] MEDS: ATORVASTATIN CALCIUM 20 MG TABLET 80 MG PO ×2 (01:13→21:18)
[2025-04-20] MEDS: ASPIRIN EC 81 MG TABEC PO (01:13)
--- NOTE | 2025-04-20 03:15 | PC.NURSE ---
WE HAD DOWN TIME FROM [id number].
[2025-04-20 05:22] LABS: Basophils # (Auto) 0.0 Thou/mm3 (0.0-0.2); Basophils % (Auto) 0 % (0-2.5); Eosinophils # (Auto) 0.0 Thou/mm3 (0.0-0.5); Eosinophils % (Auto) 0 % (0-10); Hematocrit 22.1 % (36.0-46.0); Immature Granulocytes Auto 0.06 Thou/mm3 (0.00-0.00); Lymphocytes # (Auto) 1.2 Thou/mm3 (1.0-4.8); Lymphocytes % (Auto) 16 % (10-50); Mean Corpuscular HGB Conc 33.9 g/dl (31.0-37.0); Mean Corpuscular Hemoglobin 29.6 pg (25.0-35.0); Mean Corpuscular Volume 87 fL (80-100); Monocytes # (Auto) 0.4 Thou/mm3 (0.0-0.8); Monocytes % (Auto) 5 % (0-12); Neutrophils # (Auto) 6.1 Thou/mm3 (1.8-7.7); Neutrophils % (Auto) 78 % (37-80); Nucleated Red Blood Cell # 0.00 Thou/mm3 (0.00-0.00); Nucleated Red Blood Cell % 0 /100 WBC (0); Platelet Count 196 Thou/mm3 (140-440); RDW Standard Deviation 41.2 fL (36.4-46.3); Red Blood Count 2.53 Miln/mm3 (4.00-5.20); White Blood Count 7.8 Thou/mm3 (3.6-11.0)
[2025-04-20 05:27] LABS: Hemoglobin 7.5 g/dL (12.0-16.0)
[2025-04-20 05:28] LABS: INR 1.0 (0.9-1.3); Prothrombin Time 11.3 Seconds (9.0-12.2)
[2025-04-20 05:52] LABS: Alanine Aminotransferase 16 U/L (10-49); Albumin, Serum 2.6 gm/dL (3.4-4.8); Alkaline Phosphatase 101 U/L (46-116); Anion Gap 9 (7-16); Aspartate Amino Transferase 16 U/L (0-34); BUN/Creatinine Ratio 5 Ratio (12-20); Bilirubin,Direct < 0.1 mg/dL (0.0-0.3); Bilirubin,Total 0.2 mg/dL (0.3-1.2); Blood Urea Nitrogen 55 mg/dL (9-23); Calcium 7.4 mg/dL (8.3-10.6); Carbon Dioxide 24.1 mMol/L (20.0-31.0); Chloride 98 mMol/L (98-107); Estimated Creatinine Clearance 5.5 mL/min (>60); Glucose 171 mg/dL (74-106); Magnesium 1.7 mg/dL (1.6-2.6); Osmolality,Calculated 281 (275-295); Phosphorous 5.1 mg/dL (2.4-5.1); Potassium 5.0 mMol/L (3.4-5.1); Sodium 131 mMol/L (136-145); Total Protein 5.4 gm/dL (5.7-8.2); eGFR 4 See Note
[2025-04-20 06:28] LABS: Creatinine (Component) 10.2 mg/dL (0.6-1.3)
--- NOTE | 2025-04-20 09:47 | CHAP ---
Patient's daughter was present and translated for me. I gave patient some words of comfort and prayed with her.
--- NOTE | 2025-04-20 11:20 | PC.CC ---
Patient is a 59 year old female who presents to the Emergency Department for Neuro Deficits ACSW Mary Ann and RN RESEARCH student Meli introduced self, role reason for visit. Limits of confidentiality were discussed. Patient appears to be alert and oriented to self, location and situation. Patient was pleasant and engaged in initial assessment. Patients daughter Marisa Cordova was at bedside and patient gave consent for her to remain in the room during the assessment. Patient confirmed information of demographics. Patient is unemployed and lives with her daughter Marisa Cordova ([phone]) who patient also named as her surrogate decision maker. Patient states she is able to ambulate independently and is independent with her ADL's. Patient denies use of DME at home. The patient stated her primary care provider is Janelle Glaser and pharmacy of preference is [facility]. Upon discharge patient plans to return home. Family is able to provide transport. No other needs identified at this time and donor services team leader to remain available to address further concerns.
--- NOTE | 2025-04-20 14:32 | ESPR_ITS ---
<Statement entered by Demario Davis MD - 04/20/25 22:07> In summary 59-year-old female PMHx of ESRD on peritoneal dialysis, anemia, T2DM, hyperlipidemia, presenting with left-sided weakness and dysarthria, admitted for stroke workup. CT brain, MRI brain, and CTA were negative for acute pathology. Teleneuro recommended PLAVIX and ASPIRIN which patient is currently on. Pending EEG, echocardiogram, ammonia, and other labs. Allowing for permissive hypertensive, LABETALOL on board for ED greater than 180. Continued on peritoneal dialysis with urology team. Further recommendations from neurology team. Pending PT eval. Documentation for date of: 04/20/25 Subjective Subjective Interval history: Patient seen and evaluated at bedside. She was found to be sleeping comfortably in bed. Original pain in the left side of head had subsided and patient spoke clearly and unhindered to individuals in the room. Daughter accompanies the pt and translates for her. Exam Vital Signs Temp Pulse Resp BP Pulse Ox O2 Del Method O2 Flow Rate 98.5 F 90 16 171/85 H 96 Room Air 2 04/20/25 14:23 04/20/25 14:23 04/20/25 14:23 04/20/25 14:23 04/20/25 14:23 04/20/25 14:23 04/19/25 21:43 Narrative Exam General: AOx3, no acute distress, no slurred speech HEENT: NC/AT, mucous membranes moist, bilateral sclera anicteric Cardiovascular: regular rate and rhythm, S1/S2 present, no murmurs appreciated Pulmonary: clear to auscultation bilaterally, no rales/rhonchi/wheezes Abdominal: soft, non-tender, non-distended, no rebound/guarding, bowel sounds present Musculoskeletal: normal ROM, no peripheral edema Skin: warm and dry, intact, no rashes Neuro: - CN II-XII grossly intact, no focal deficits - Strength 4/5 in Rt UE and LE, 5/5 in Lt UE/LE. 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, able to move legs spontaneously - Alert, following commands Objective Labs 04/21/25 05:39 04/21/25 05:39 Labs: Laboratory Results - last 24 hr 04/19/25 04/19/25 04/20/25 18:13 19:40 04:54 WBC 6.1 7.8 RBC 2.79 L 2.53 L Hgb 8.2 L 7.5 L Hct 24.0 L 22.1 L MCV 86 87 MCH 29.4 29.6 MCHC 34.2 33.9 RDW Std Deviation 40.4 41.2 Plt Count 206 D 196 Neut % (Auto) 66 78 Lymph % (Auto) 20 16 [place] % (Auto) 8 5 Eos % (Auto) 5 0 Baso % (Auto) 1 0 Neut # (Auto) 4.1 6.1 Lymph # (Auto) 1.2 1.2 [place] # (Auto) 0.5 0.4 Eos # (Auto) 0.3 0.0 Baso # (Auto) 0.0 0.0 Immature Gran # (Auto) 0.03 H 0.06 H Absolute Nucleated RBC 0.00 0.00 Immature Gran % 1 H 1 H Nucleated RBC % 0 0 PT 11.0 11.3 INR 1.0 1.0 APTT 32.6 Sodium 132 L 131 L Potassium 4.6 D 5.0 Chloride 99 98 Carbon Dioxide 25.1 24.1 Anion Gap 8 9 BUN 50 H 55 H Creatinine 9.8 H* D 10.2 H* Estim Creat Clear Calc Not Performed. 5.5 L eGFR 4 L* 4 L* BUN/Creatinine Ratio 5 L 5 L Glucose 94 D 171 H D Calculated Osmolality 277 281 Calcium 7.8 L 7.4 L Corrected Calcium 8.6 Phosphorus 5.1 Magnesium 1.9 1.7 Total Bilirubin 0.2 L 0.2 L Direct Bilirubin < 0.1 AST 17 16 ALT 18 16 Alkaline Phosphatase 142 H D 101 D Troponin I < 0.020 Total Protein 6.3 5.4 L Albumin 3.0 L D 2.6 L Globulin 3.3 Albumin/Globulin Ratio 0.9 L Ur Collection Type Catheter Urine Color Colorless A Urine Clarity Clear Urine pH 8.0 H Ur Specific [place] 1.018 Urine Protein 3+ A Urine Glucose (UA) 3+ A Urine Ketones Negative Urine Blood Trace Urine Nitrite Negative Urine Bilirubin Negative Urine Urobilinogen (Auto) Negative Ur Leukocyte Esterase Negative Urine RBC 2 Urine WBC 1 Ur Squamous Epith Cells 1 Urine Bacteria None Urine Opiates Screen Negative Urine Fentanyl Screen Negative Ur Barbiturates Screen Negative U Amphetamin/Meth Scrn Negative U Benzodiazepines Scrn Negative U Cocaine Metab Screen Negative U Marijuana (THC) Screen Negative Ethyl Alcohol < 3.0 HCG (Qual) Negative Quality Measures Quality Measures VTE prophylaxis Assessment & Plan Assessment Current Active Medications: Generic Name Dose Route Start Last Admin Trade Name Freq PRN Reason Stop Dose Admin Acetaminophen 650 mg 04/19/25 20:54 Acetaminophen 325 Mg Tablet PO 05/19/25 20:53 Q6H PRN pain 1-3 &/or fever >100.1 Aspirin 81 mg 04/20/25 00:15 04/20/25 01:13 Aspirin Ec 81 Mg Tabec PO 05/20/25 00:14 81 mg QDAY TIFFANI Administration Atorvastatin Calcium 80 mg 04/20/25 00:15 04/20/25 01:13 Atorvastatin Calcium 20 Mg Tablet PO 05/20/25 00:14 80 mg HS TIFFANI Administration Clopidogrel Bisulfate 75 mg 04/20/25 21:00 Clopidogrel Bisulfate 75 Mg Tablet PO 05/20/25 20:59 QDAY TIFFANI Cyclobenzaprine HCl 5 mg 04/20/25 08:07 Cyclobenzaprine 5 Mg Tablet PO 05/20/25 08:06 TID PRN MUSCLE SPASMS Dextrose 25 ml 04/19/25 23:52 Dextrose 50%-Water Inj 50 Ml Syringe IV 05/19/25 23:51 Q15MIN PRN BG 50-70 responsive npo pt Dextrose 50 ml 04/19/25 23:52 Dextrose 50%-Water Inj 50 Ml Syringe IV 05/19/25 23:51 Q15MIN PRN BG <50 OR BG <70 & pt unresponsive Glucagon 1 mg 04/19/25 23:52 Glucagon Inj 1 Mg Vial IM Q15MIN PRN BG <70, and no IV access Insulin Human Lispro 0 unit 04/20/25 07:30 Insulin Lispro (Admelog) 1 Unit/0.01 Ml Unit SC 05/20/25 07:29 AC TIFFANI Protocol Ondansetron HCl 4 mg 04/19/25 20:54 04/19/25 21:44 Ondansetron Inj 2 Mg/Ml Inj 2 Ml IVP 05/19/25 20:53 4 mg Q6H PRN Administration NAUSEA OR VOMITING Protocol Sennosides 1 tab 04/19/25 20:54 Senna Tablet PO 05/19/25 20:53 QDAY PRN constipation Protocol Vitamin B Complex/Vit C/Folic Acid 1 tab 04/20/25 09:00 Vit B12/Vit C/Fa (Nephrovite) Tablet PO 05/20/25 08:59 QDAY TIFFANI Plan Meme Geovanny is a 59F pmhx significant for ESRD on PD (follows Dr. Crews), anemia, DM2, and HLD discharged 04/18 for similar presentation who is admitted for stroke workup. #Left facial numbness #Slow/dysarthric speech Ddx includes CVA vs seizure vs hypertensive encephalopathy vs metabolic encephalopathy. Presents with left facial pain/numbness, slurred speech and bilateral upper extremity weakness beginning 7/1 AM with NIHSS 0. Similar presentation for recent admission 04/15 to 04/18 with resolution of symptoms upon discharge. CT brain wo contrast negative for hemorrhage. CTA head and neck showed no significant neck arterial stenoses, no cerebral large vessel occlusions or thrombus. NeuroTele was consulted and recommended MRI wo contrast, routine spot EEG. MRI of brain: Negative for acute hemorrhage mass effect or midline shift. No acute infarct. Multiple foci increased signal in the white matter including in the brainstem and left cerebellar hemisphere, consider accelerated chronic microvascular white matter change as well as demyelinating disease. - Neuro checks q4h - s/p Plavix 300 mg loading dose, Plavix 75 QD for 21 days - Continue ASA 81 mg QD and atorvastatin 80 mg QD - F/u ammonia, BMP, CBC, Mg - F/u EEG #Hypertension Previous admission documented BP in 200s/100s. Patient received one dose of hydralazine in ED. TeleNeuro recommends to keep BP <180. Current BP 171/85. - Med rec pending #ESRD on PD Follows with Dr. Crews outpatient. Last HD 04/15 and current K wnl. - Dr. Crews consulted, recs appreciated - Avoid nephrotoxic medication - Hold HD for now #Type 2 DM, insulin-dependent HbA1c 6.0 on 04/16. - SSI Hospital management: Disposition: telemetry for stroke workup Diet: pending swallow eval DVT prophylaxis: SCDs CODE STATUS: full code Case was discussed with attending physician, Dr. Gorman, and senior resident Dr Davis. Jacques Patel, DO PGY I Attending Provider Attestation/Addendum I attest that I was physically present for the evaluation, physical examination, lab and imaging review of the patient with the residents. I discussed the case with the residents and agree with the findings and plans of care as documented above. Lupe Gorman MD
[2025-04-20] MEDS: VIT B12/Vit C/FA (Nephrovite) TABLET 1 TAB PO (14:48)
--- NOTE | 2025-04-20 17:19 | PD.RESPRO ---
Documentation for date of: 04/20/25 Exam Vital Signs Temp Pulse Resp BP Pulse Ox O2 Del Method O2 Flow Rate 98.0 F 86 18 175/83 H 96 Room Air 2 04/20/25 16:42 04/20/25 16:42 04/20/25 16:42 04/20/25 16:42 04/20/25 16:42 04/20/25 16:42 04/19/25 21:43 Objective Labs 04/20/25 04:54 04/20/25 04:54 Labs: Laboratory Results - last 24 hr 04/19/25 04/19/25 04/20/25 18:13 19:40 04:54 WBC 6.1 7.8 RBC 2.79 L 2.53 L Hgb 8.2 L 7.5 L Hct 24.0 L 22.1 L MCV 86 87 MCH 29.4 29.6 MCHC 34.2 33.9 RDW Std Deviation 40.4 41.2 Plt Count 206 D 196 Neut % (Auto) 66 78 Lymph % (Auto) 20 16 [place] % (Auto) 8 5 Eos % (Auto) 5 0 Baso % (Auto) 1 0 Neut # (Auto) 4.1 6.1 Lymph # (Auto) 1.2 1.2 [place] # (Auto) 0.5 0.4 Eos # (Auto) 0.3 0.0 Baso # (Auto) 0.0 0.0 Immature Gran # (Auto) 0.03 H 0.06 H Absolute Nucleated RBC 0.00 0.00 Immature Gran % 1 H 1 H Nucleated RBC % 0 0 PT 11.0 11.3 INR 1.0 1.0 APTT 32.6 Sodium 132 L 131 L Potassium 4.6 D 5.0 Chloride 99 98 Carbon Dioxide 25.1 24.1 Anion Gap 8 9 BUN 50 H 55 H Creatinine 9.8 H* D 10.2 H* Estim Creat Clear Calc Not Performed. 5.5 L eGFR 4 L* 4 L* BUN/Creatinine Ratio 5 L 5 L Glucose 94 D 171 H D Calculated Osmolality 277 281 Calcium 7.8 L 7.4 L Corrected Calcium 8.6 Phosphorus 5.1 Magnesium 1.9 1.7 Total Bilirubin 0.2 L 0.2 L Direct Bilirubin < 0.1 AST 17 16 ALT 18 16 Alkaline Phosphatase 142 H D 101 D Troponin I < 0.020 Total Protein 6.3 5.4 L Albumin 3.0 L D 2.6 L Globulin 3.3 Albumin/Globulin Ratio 0.9 L Ur Collection Type Catheter Urine Color Colorless A Urine Clarity Clear Urine pH 8.0 H Ur Specific [place] 1.018 Urine Protein 3+ A Urine Glucose (UA) 3+ A Urine Ketones Negative Urine Blood Trace Urine Nitrite Negative Urine Bilirubin Negative Urine Urobilinogen (Auto) Negative Ur Leukocyte Esterase Negative Urine RBC 2 Urine WBC 1 Ur Squamous Epith Cells 1 Urine Bacteria None Urine Opiates Screen Negative Urine Fentanyl Screen Negative Ur Barbiturates Screen Negative U Amphetamin/Meth Scrn Negative U Benzodiazepines Scrn Negative U Cocaine Metab Screen Negative U Marijuana (THC) Screen Negative Ethyl Alcohol < 3.0 HCG (Qual) Negative Quality Measures Quality Measures VTE prophylaxis Assessment & Plan Assessment Current Active Medications: Generic Name Dose Route Start Last Admin Trade Name Freq PRN Reason Stop Dose Admin Acetaminophen 650 mg 04/19/25 20:54 Acetaminophen 325 Mg Tablet PO 05/19/25 20:53 Q6H PRN pain 1-3 &/or fever >100.1 Aspirin 81 mg 04/20/25 00:15 04/20/25 01:13 Aspirin Ec 81 Mg Tabec PO 05/20/25 00:14 81 mg QDAY TIFFANI Administration Atorvastatin Calcium 80 mg 04/20/25 00:15 04/20/25 01:13 Atorvastatin Calcium 20 Mg Tablet PO 05/20/25 00:14 80 mg HS TIFFANI Administration Clopidogrel Bisulfate 75 mg 04/20/25 21:00 Clopidogrel Bisulfate 75 Mg Tablet PO 05/20/25 20:59 QDAY TIFFANI Cyclobenzaprine HCl 5 mg 04/20/25 08:07 Cyclobenzaprine 5 Mg Tablet PO 05/20/25 08:06 TID PRN MUSCLE SPASMS Dextrose 25 ml 04/19/25 23:52 Dextrose 50%-Water Inj 50 Ml Syringe IV 05/19/25 23:51 Q15MIN PRN BG 50-70 responsive npo pt Dextrose 50 ml 04/19/25 23:52 Dextrose 50%-Water Inj 50 Ml Syringe IV 05/19/25 23:51 Q15MIN PRN BG <50 OR BG <70 & pt unresponsive Glucagon 1 mg 04/19/25 23:52 Glucagon Inj 1 Mg Vial IM Q15MIN PRN BG <70, and no IV access Insulin Human Lispro 0 unit 04/20/25 07:30 04/20/25 14:46 Insulin Lispro (Admelog) 1 Unit/0.01 Ml Unit SC 05/20/25 07:29 Not Given AC TIFFANI Protocol Ondansetron HCl 4 mg 04/19/25 20:54 04/19/25 21:44 Ondansetron Inj 2 Mg/Ml Inj 2 Ml IVP 05/19/25 20:53 4 mg Q6H PRN Administration NAUSEA OR VOMITING Protocol Sennosides 1 tab 04/19/25 20:54 Senna Tablet PO 05/19/25 20:53 QDAY PRN constipation Protocol Vitamin B Complex/Vit C/Folic Acid 1 tab 04/20/25 09:00 04/20/25 14:48 Vit B12/Vit C/Fa (Nephrovite) Tablet PO 05/20/25 08:59 1 tab QDAY TIFFANI Administration
--- NOTE | 2025-04-20 17:25 | PD.RESCONSUL ---
HPI Data of Consult Consult date: 04/20/25 Requesting Physician: Lupe Gorman MD Admitting Provider: Aguilar Jimenes MD Attending Provider: Lupe Gorman MD Primary Care Provider: POLA Barrera Consult Narrative Reason for consult: Pt on dialysis History of present illness: Mrs. Small is a 59 year old lady with a relevant medical history of ESRD on peritoneal dialysis (followed by Dr. Crews), anemia, T2DM, and HLD who presents with facial numbness . The patient was recently discharged from [facility] on 04/18 for similar complaints. She was accompanied by her niece who acted as a electron gun inspector for her. Nephrology was consulted due to the patient's history of being on dialysis. The patient had a noncontrast CT head, which showed no signs of hemorrhage, resulting in further stroke workup. On evaluation, the patient appeared to be drowsy but responding appropriately. The patient's BUN was 55, Cr 10.2, and GFR 4 at time of consultation request. The patient stated that she is currently on the kidney transplant waitlist due to her condition, and has peritoneal dialysis performed nightly from 8pm to 4am. During her previous hospital stay, she had peritoneal dialysis performed every night. However, she was not able to perform peritoneal dialysis the previous night due to her visit to the ED and readmission to [facility]. No other complaints at this time other than feeling cold and swelling in her lower extremities. cc:: cc: Lupe Gorman MD Review of Systems Review of Systems Narrative Review of Systems: General: Denies fevers Heart: Denies chest pain or palpitations Lungs: Denies shortness of breath or cough Abdomen: Denies abdominal pain, nausea, vomiting, constipation, diarrhea, or blood in stool Genitourinary: Denies frequency, urgency, dysuria, or hematuria Review of systems otherwise negative except what is mentioned above. Exam Vital Signs Temp Pulse Resp BP Pulse Ox O2 Del Method O2 Flow Rate 98.0 F 86 18 175/83 H 96 Room Air 2 04/20/25 16:42 04/20/25 16:42 04/20/25 16:42 04/20/25 16:42 04/20/25 16:42 04/20/25 16:42 04/19/25 21:43 Narrative Exam Physical Exam: General: Alert, no acute distress. Skin: Warm, dry, intact, no obvious rash. Head: Normocephalic, atraumatic. Eye: Normal conjunctiva, PERRL. Cardiovascular: Regular rate and rhythm, systolic murmur, +S1/S2. Respiratory: Lungs are clear to auscultation, respirations unlabored, no crackles, no wheezing. Gastrointestinal: Soft, nontender, non-distended. No guarding or rebound tenderness. Extremities: 1+ edema in BLE, no cyanosis, no clubbing. 1+ radial pulse bilaterally, 1+ posterior tibial pulse bilaterally. Neuro: No focal deficits observed. Conversant, moving all extremities. No overt cerebellar signs/incoordination. Psychiatric: Cooperative, appropriate affect. Results Labs 04/21/25 05:39 04/21/25 05:39 Labs: Short CBC 04/20/25 Range/Units 04:54 WBC 7.8 (3.6-11.0) Thou/mm3 Hgb 7.5 L (12.0-16.0) g/dL Hct 22.1 L (36.0-46.0) % Plt Count 196 (140-440) Thou/mm3 BMP 04/20/25 04:54 Sodium 131 L Potassium 5.0 Chloride 98 Carbon Dioxide 24.1 BUN 55 H Creatinine 10.2 H* Glucose 171 H D Calcium 7.4 L Liver Function 04/20/25 Range/Units 04:54 Total Bilirubin 0.2 L (0.3-1.2) mg/dL Direct Bilirubin < 0.1 (0.0-0.3) mg/dL AST 16 (0-34) U/L ALT 16 (10-49) U/L Alkaline Phosphatase 101 D (46-116) U/L Albumin 2.6 L (3.4-4.8) gm/dL Urine 04/19/25 Range/Units 19:40 Urine Color Colorless A (Lt Yel-Yel) Urine Clarity Clear (Clear/Hazy) Urine pH 8.0 H (5.0-7.0) Ur Specific [place] 1.018 (1.001-1.035) Urine Protein 3+ A (Neg - Trace) Urine Glucose (UA) 3+ A (Negative) Quality Measures Quality Measures VTE prophylaxis Medications Home Medications and Allergies Home Medications ?Medication ?Instructions ?Recorded ?Confirmed ?Type carvedilol 25 mg tablet 25 mg PO BID ##0 01/03/13 04/20/25 History amlodipine 5 mg tablet 10 mg PO QDAY 04/29/18 04/20/25 History ferrous sulfate 325 mg (65 mg 325 mg PO TID 08/11/23 04/20/25 History iron) tablet insulin aspar prot-insulin aspart 5 unit subcut QPM 08/11/23 04/20/25 History 100 unit/mL (70-30) subcutaneous pen (Novolog Mix 70-30FlexPen U-100) omeprazole 20 mg capsule,delayed 20 mg PO QDAY 08/11/23 04/20/25 History release sodium bicarbonate 325 mg tablet 325 mg PO BID 08/11/23 04/20/25 History valsartan 40 mg tablet 160 mg PO BID 08/11/23 04/20/25 History cyclobenzaprine 5 mg tablet 5 mg PO BID 11/12/23 04/20/25 History insulin aspar prot-insulin aspart 10 unit subcut QAM 11/12/23 04/20/25 History 100 unit/mL (70-30) subcutaneous pen (Novolog Mix 70-30FlexPen U-100) vitamin B complex-vitamin C-folic 1 tab PO QDAY 11/12/23 04/20/25 History acid 0.8 mg tablet (Ashley-Joanne) ferric citrate 210 mg iron tablet 210 mg PO TID 04/15/25 04/20/25 History (A[place]xia) furosemide 40 mg tablet 40 mg PO QAM 04/15/25 04/20/25 History famotidine 40 mg tablet 40 mg PO QDAY acid reflux 04/20/25 04/20/25 History Allergies Allergy/AdvReac Type Severity Reaction Status Date / Time No Known Allergies Allergy Verified 04/20/25 20:54 Visit Medications Acetaminophen (Acetaminophen 325 Mg Tablet) 650 mg PO Q6H PRN PRN Reason: pain 1-3 &/or fever >100.1 Stop: 05/19/25 20:53 Aspirin (Aspirin Ec 81 Mg Tabec) 81 mg PO QDAY TIFFANI Stop: 05/20/25 00:14 Last Admin: 04/20/25 01:13 Dose: 81 mg Atorvastatin Calcium (Atorvastatin Calcium 20 Mg Tablet) 80 mg PO [facility] Stop: 05/20/25 00:14 Last Admin: 04/20/25 01:13 Dose: 80 mg Clopidogrel Bisulfate (Clopidogrel Bisulfate 75 Mg Tablet) 75 mg PO QDAY TIFFANI Stop: 05/20/25 20:59 Cyclobenzaprine HCl (Cyclobenzaprine 5 Mg Tablet) 5 mg PO TID PRN PRN Reason: MUSCLE SPASMS Stop: 05/20/25 08:06 Dextrose (Dextrose 50%-Water Inj 50 Ml Syringe) 25 ml IV Q15MIN PRN PRN Reason: BG 50-70 responsive npo pt Stop: 05/19/25 23:51 Dextrose (Dextrose 50%-Water Inj 50 Ml Syringe) 50 ml IV Q15MIN PRN PRN Reason: BG <50 OR BG <70 & pt unresponsive Stop: 05/19/25 23:51 Glucagon (Glucagon Inj 1 Mg Vial) 1 mg IM Q15MIN PRN PRN Reason: BG <70, and no IV access Insulin Human Lispro (Insulin Lispro (Admelog) 1 Unit/0.01 Ml Unit) 0 unit SC AC [facility]; Protocol Stop: 05/20/25 07:29 Last Admin: 04/20/25 17:29 Dose: Not Given Labetalol HCl (Labetalol Inj 5 Mg/Ml Vial 20 Ml) 10 mg IVP Q2H PRN PRN Reason: SBP>180 Stop: 05/20/25 17:28 Ondansetron HCl (Ondansetron Inj 2 Mg/Ml Inj 2 Ml) 4 mg IVP Q6H PRN; Protocol PRN Reason: NAUSEA OR VOMITING Stop: 05/19/25 20:53 Last Admin: 04/19/25 21:44 Dose: 4 mg Sennosides (Senna Tablet) 1 tab PO QDAY PRN; Protocol PRN Reason: constipation Stop: 05/19/25 20:53 Vitamin B Complex/Vit C/Folic Acid (Vit B12/Vit C/Fa (Nephrovite) Tablet) 1 tab PO QDAY TIFFANI Stop: 05/20/25 08:59 Last Admin: 04/20/25 14:48 Dose: 1 tab Discontinued Medications Clopidogrel Bisulfate (Clopidogrel Bisulfate 75 Mg Tablet) 300 mg PO X1 ONE Stop: 04/19/25 21:15 Last Admin: 04/19/25 21:44 Dose: 300 mg Dextrose (Dextrose 50%-Water Inj 50 Ml Syringe) 25 ml IVP X1 ONE Stop: 04/19/25 19:36 Last Admin: 04/19/25 19:40 Dose: 25 ml Hydralazine HCl (Hydralazine Inj 20 Mg/Ml Vial) 20 mg IVP X1 ONE Stop: 04/19/25 20:56 Last Admin: 04/19/25 21:45 Dose: 20 mg Lorazepam (Lorazepam 2 Mg/Ml Vial) 1 mg IVP X1 ONE Stop: 04/19/25 20:57 Last Admin: 04/19/25 21:44 Dose: 1 mg Morphine Sulfate (Morphine Sulf Inj 10 Mg/Ml Vial) 2 mg IVP X1 ONE Stop: 04/19/25 21:10 Last Admin: 04/19/25 21:47 Dose: 2 mg Assessment & Plan Plan Mrs. Small is a 59 year old lady with a relevant medical history of ESRD on peritoneal dialysis (followed by Dr. Crews), anemia, T2DM, and HLD who presents with facial numbness . The patient was recently discharged from [facility] on 04/18 for similar complaints. Nephrology was consulted due to the patient's history of being on dialysis. #ESRD on peritoneal dialysis nightly The patient is known to Dr. Crews and is on the kidney transplant waitlist. Her BUN, Cr, and eGFR on admission were 50, 9.8, and 4 respectively. She missed one night of dialysis on 04/19. - Restart peritoneal dialysis nightly. - Continue to monitor renal function. - Avoid nephrotoxic drugs. - Nephrology will continue to follow. Patient was discussed with the Nephrology attending, Dr. Greenberg. Thank you for allowing us to participate in the care of this patient. Lester Rouse, PGY-1 Attending Provider Attestation/Addendum Pt is seen and examined. labs reviewed. notes reviewed. agree with assessment and plan and findings of resident. Junito Greenberg MD
[2025-04-20] MEDS: CLOPIDOGREL BISULFATE 75 MG TABLET PO (21:18)
[2025-04-20] MEDS: LABETALOL INJ 5 MG/ML VIAL 20 ML 10 MG IVP (23:20)
[2025-04-21] VITALS (25 sets, daily range): BP systolic 147–201; BP diastolic 75–110; PULSE 72–107; RESP 16–96; TEMP 36–36.7; O2SAT 95–97
--- NOTE | 2025-04-21 00:55 | PD.RESCONSUL ---
HPI Data of Consult Requesting Physician: Lupe Gorman MD Admitting Provider: Aguilar Jimenes MD Attending Provider: Lupe Gorman MD Primary Care Provider: POLA Barrera Consult Narrative History of present illness: Ms. Small is a 59 y/o female with PMH of peritoneal dialysis (follows with Dr. Crews), HTN, anemia of chronic disease, DM2, HLD who presented to the ED 04/19 with pain and numbness of left face/head and altered speech. She was recently discharged 04/18 for similar presentation (confusion, bilateral arm weakness, facial numbness, and slurred speech). At that time, imaging was negative for acute stroke or hemorrhage, and she was prescribed ASA, hydralazine and increased clonidine due to elevated BP. Patient was seen at bedside with daughter. Patient was cooking night before admission when she noticed right hand tingling that progressed to b/l upper extremity weakness and difficulty with speech, states that patient couldn't talk . BP upon admission 170s/80s. CT head w/o negative for hemorrhage, mass effect or midline shift. CTA head/neck showed no significant neck arterial stenoses, no cerebral large vessel occlusions or thrombus. MRI showed no hemorrhage or acute infarct, consistent with previous images of chronic microvascular white matter change. Spot EEG performed, pending final read. Given Plavix loading dose and started home ASA 81 mg daily, Atorvastatin 80 mg daily. At bedside, patient denies headache, hx migraines. Denies difficulty with word finding or numbness/paresthesias. Daughter noted patient has been increasingly anxious and BP has been high (ie. 200s) at home. cc:: cc: Lupe Gorman MD Review of Systems Review of Systems Narrative Review of Systems: Constitutional: Denies fevers, chills, weight loss or gain Skin: Denies rashes Eyes: Denies change in vision, double vision HENT: Denies rhinorrhea, nasal congestion, Respiratory: Denies cough, shortness of breath Cardiovascular: Denies palpitations, chest tightness or pain GI: Denies difficulty with swallowing, acid reflux, nausea, vomiting MSK: Denies acute pain in joints or muscles Neurological: Denies headache, dizziness, paresthesias, falls Psych: + anxiety Exam Vital Signs Temp Pulse Resp BP Pulse Ox O2 Del Method O2 Flow Rate 98.3 F 87 18 189/99 H 98 Room Air 2 04/20/25 22:13 04/20/25 23:20 04/20/25 22:13 04/20/25 23:20 04/20/25 20:00 04/20/25 20:00 04/19/25 21:43 Narrative Exam General: No acute distress, well nourished, Argentine-speaking Eye: PERRL, EOMI, normal conjunctiva, no scleral icterus HENT: Normocephalic, atraumatic, clear tympanic membranes, normal hearing, moist oral mucosa Neck: Supple, non-tender, no carotid bruits, no JVD, no lymphadenopathy Lungs: Clear to auscultation bilaterally, non-labored respirations, symmetric chest rise Heart: Normal S1 and S2, no S3 or S4 appreciated. Normal rate and regular rhythm, no murmurs, rubs gallops, or edema. Peripheral pulses intact bilaterally, capillary refill brisk distally Abdomen: Soft, non-tender, non-distended, normal bowel sounds, no masses Musculoskeletal: Normal range of motion and strength, no tenderness or swelling Skin: Skin is warm, dry, no rashes or lesions. Neurologic: Alert, awake and oriented x3. Cranial nerves: II through XII grossly intact. Speech and language: Normal with no dysarthria or dysphasia. Motor system: Tone and bulk: Normal: Strength: 5 out of 5 in all 4 extremities.. Deep tendon reflexes: 2+ bilaterally symmetrical. Plantar reflex: Downgoing bilaterally. Sensory system: Intact to all modalities of sensation bilaterally. Coordination: Intact to [id number] and [id number] test bilaterally. No ataxia, no dysmetria, or dysdiadochokinesia noted. No intention tremors noted. Gait: Normal stance, stride length, and arm swing, normal pivot and turn. Requires support for stability. Psychiatric: Cooperative, appropriate mood and affect Results Labs 04/22/25 05:49 04/22/25 05:49 Labs: Short CBC 04/20/25 Range/Units 04:54 WBC 7.8 (3.6-11.0) Thou/mm3 Hgb 7.5 L (12.0-16.0) g/dL Hct 22.1 L (36.0-46.0) % Plt Count 196 (140-440) Thou/mm3 BMP 04/20/25 04:54 Sodium 131 L Potassium 5.0 Chloride 98 Carbon Dioxide 24.1 BUN 55 H Creatinine 10.2 H* Glucose 171 H D Calcium 7.4 L Liver Function 04/20/25 Range/Units 04:54 Total Bilirubin 0.2 L (0.3-1.2) mg/dL Direct Bilirubin < 0.1 (0.0-0.3) mg/dL AST 16 (0-34) U/L ALT 16 (10-49) U/L Alkaline Phosphatase 101 D (46-116) U/L Albumin 2.6 L (3.4-4.8) gm/dL Quality Measures Quality Measures VTE prophylaxis Medications Home Medications and Allergies Home Medications ?Medication ?Instructions ?Recorded ?Confirmed ?Type carvedilol 25 mg tablet 25 mg PO BID ##0 01/03/13 04/20/25 History amlodipine 5 mg tablet 10 mg PO QDAY 04/29/18 04/20/25 History ferrous sulfate 325 mg (65 mg 325 mg PO TID 08/11/23 04/20/25 History iron) tablet insulin aspar prot-insulin aspart 5 unit subcut QPM 08/11/23 04/20/25 History 100 unit/mL (70-30) subcutaneous pen (Novolog Mix 70-30FlexPen U-100) omeprazole 20 mg capsule,delayed 20 mg PO QDAY 08/11/23 04/20/25 History release sodium bicarbonate 325 mg tablet 325 mg PO BID 08/11/23 04/20/25 History valsartan 40 mg tablet 160 mg PO BID 08/11/23 04/20/25 History cyclobenzaprine 5 mg tablet 5 mg PO BID 11/12/23 04/20/25 History insulin aspar prot-insulin aspart 10 unit subcut QAM 11/12/23 04/20/25 History 100 unit/mL (70-30) subcutaneous pen (Novolog Mix 70-30FlexPen U-100) vitamin B complex-vitamin C-folic 1 tab PO QDAY 11/12/23 04/20/25 History acid 0.8 mg tablet (Ashley-Joanne) ferric citrate 210 mg iron tablet 210 mg PO TID 04/15/25 04/20/25 History (Auryxia) furosemide 40 mg tablet 40 mg PO QAM 04/15/25 04/20/25 History famotidine 40 mg tablet 40 mg PO QDAY acid reflux 04/20/25 04/20/25 History Allergies Allergy/AdvReac Type Severity Reaction Status Date / Time No Known Allergies Allergy Verified 04/20/25 20:54 Visit Medications Acetaminophen (Acetaminophen 325 Mg Tablet) 650 mg PO Q6H PRN PRN Reason: pain 1-3 &/or fever >100.1 Stop: 05/19/25 20:53 Aspirin (Aspirin Ec 81 Mg Tabec) 81 mg PO QDAY [facility] Stop: 05/20/25 00:14 Last Admin: 04/20/25 01:13 Dose: 81 mg Atorvastatin Calcium (Atorvastatin Calcium 20 Mg Tablet) 80 mg PO HS [facility] Stop: 05/20/25 00:14 Last Admin: 04/20/25 21:18 Dose: 80 mg Clopidogrel Bisulfate (Clopidogrel Bisulfate 75 Mg Tablet) 75 mg PO QDAY [facility] Stop: 05/20/25 20:59 Last Admin: 04/20/25 21:18 Dose: 75 mg Cyclobenzaprine HCl (Cyclobenzaprine 5 Mg Tablet) 5 mg PO TID PRN PRN Reason: MUSCLE SPASMS Stop: 05/20/25 08:06 Dextrose (Dextrose 50%-Water Inj 50 Ml Syringe) 25 ml IV Q15MIN PRN PRN Reason: BG 50-70 responsive npo pt Stop: 05/19/25 23:51 Dextrose (Dextrose 50%-Water Inj 50 Ml Syringe) 50 ml IV Q15MIN PRN PRN Reason: BG <50 OR BG <70 & pt unresponsive Stop: 05/19/25 23:51 Glucagon (Glucagon Inj 1 Mg Vial) 1 mg IM Q15MIN PRN PRN Reason: BG <70, and no IV access Insulin Human Lispro (Insulin Lispro (Admelog) 1 Unit/0.01 Ml Unit) 0 unit SC [facility]; Protocol Stop: 05/20/25 07:29 Last Admin: 04/20/25 17:29 Dose: Not Given Labetalol HCl (Labetalol Inj 5 Mg/Ml Vial 20 Ml) 10 mg IVP Q2H PRN PRN Reason: SBP>180 Stop: 05/20/25 17:28 Last Admin: 04/20/25 23:20 Dose: 10 mg Ondansetron HCl (Ondansetron Inj 2 Mg/Ml Inj 2 Ml) 4 mg IVP Q6H PRN; Protocol PRN Reason: NAUSEA OR VOMITING Stop: 05/19/25 20:53 Last Admin: 04/19/25 21:44 Dose: 4 mg Sennosides (Senna Tablet) 1 tab PO QDAY PRN; Protocol PRN Reason: constipation Stop: 05/19/25 20:53 Vitamin B Complex/Vit C/Folic Acid (Vit B12/Vit C/Fa (Nephrovite) Tablet) 1 tab PO QDAY TIFFANI Stop: 05/20/25 08:59 Last Admin: 04/20/25 14:48 Dose: 1 tab Discontinued Medications Clopidogrel Bisulfate (Clopidogrel Bisulfate 75 Mg Tablet) 300 mg PO X1 ONE Stop: 04/19/25 21:15 Last Admin: 04/19/25 21:44 Dose: 300 mg Dextrose (Dextrose 50%-Water Inj 50 Ml Syringe) 25 ml IVP X1 ONE Stop: 04/19/25 19:36 Last Admin: 04/19/25 19:40 Dose: 25 ml Hydralazine HCl (Hydralazine Inj 20 Mg/Ml Vial) 20 mg IVP X1 ONE Stop: 04/19/25 20:56 Last Admin: 04/19/25 21:45 Dose: 20 mg Lorazepam (Lorazepam 2 Mg/Ml Vial) 1 mg IVP X1 ONE Stop: 04/19/25 20:57 Last Admin: 04/19/25 21:44 Dose: 1 mg Morphine Sulfate (Morphine Sulf Inj 10 Mg/Ml Vial) 2 mg IVP X1 ONE Stop: 04/19/25 21:10 Last Admin: 04/19/25 21:47 Dose: 2 mg Assessment & Plan Assessment #Stroke-like symptoms, resolved #Hypertension No residual neuro deficits on exam Elevated BP with sBP >180s Patient afebrile. UDS negative. CT head w/o negative for hemorrhage, mass effect or midline shift. CTA head/neck showed no significant neck arterial stenoses, no cerebral large vessel occlusions or thrombus. MRI showed no hemorrhage or acute infarct, consistent with previous images of chronic microvascular white matter change. Spot EEG abnormal. Most likely secondary to hypertensive encephalopathy vs toxic/metabolic encephalopathy (patient on peritoneal dialysis for ESRD) Plan: - Repeat spot EEG to assess for continuation of abnormality - Delirium precautions - Continue Plavix and ASA 81 mg daily - BP management per primary team with labetolol PRN. Goal sBP <180 - Nephro following #Anxiety Anxiety may be contributing to elevated BP, as events are precluded by stressful events Plan: - Start Sertraline 25 mg daily. Does not require renal dosing adjustment. Plan discussed with Dr. Gilbert Gutierrez, PGY1 Attending Provider Attestation/Addendum I personally examined the patient bedside and agree with resident findings and assessment plan of care. EEG showed multi focal spike-wave discharges suggestive of seizures. Will repeat the EEG to confirm the findings.
[2025-04-21 06:15] LABS: Glucose Estimated Average 126 mg/dL (80-131); Hemoglobin A1C 6.0 % Hgb (4.8-6.0)
[2025-04-21 06:23] LABS: Basophils # (Auto) 0.0 Thou/mm3 (0.0-0.2); Basophils % (Auto) 0 % (0-2.5); Eosinophils # (Auto) 0.2 Thou/mm3 (0.0-0.5); Eosinophils % (Auto) 4 % (0-10); Hematocrit 22.2 % (36.0-46.0); Immature Granulocytes Auto 0.03 Thou/mm3 (0.00-0.00); Lymphocytes # (Auto) 1.4 Thou/mm3 (1.0-4.8); Lymphocytes % (Auto) 23 % (10-50); Mean Corpuscular HGB Conc 33.8 g/dl (31.0-37.0); Mean Corpuscular Hemoglobin 30.5 pg (25.0-35.0); Mean Corpuscular Volume 90 fL (80-100); Monocytes # (Auto) 0.5 Thou/mm3 (0.0-0.8); Monocytes % (Auto) 9 % (0-12); Neutrophils # (Auto) 3.9 Thou/mm3 (1.8-7.7); Neutrophils % (Auto) 64 % (37-80); Nucleated Red Blood Cell # 0.00 Thou/mm3 (0.00-0.00); Nucleated Red Blood Cell % 0 /100 WBC (0); Platelet Count 196 Thou/mm3 (140-440); RDW Standard Deviation 42.6 fL (36.4-46.3); Red Blood Count 2.46 Miln/mm3 (4.00-5.20); White Blood Count 6.0 Thou/mm3 (3.6-11.0)
[2025-04-21 06:28] LABS: Hemoglobin 7.5 g/dL (12.0-16.0)
[2025-04-21 06:41] LABS: Ammonia 13 uMol/L (11-32)
[2025-04-21 06:48] LABS: Anion Gap 9 (7-16); BUN/Creatinine Ratio 5 Ratio (12-20); Blood Urea Nitrogen 54 mg/dL (9-23); Calcium 7.6 mg/dL (8.3-10.6); Carbon Dioxide 24.8 mMol/L (20.0-31.0); Cardiac Risk Estimate 2.3 RATIO (3.7-5.6); Chloride 97 mMol/L (98-107); Cholesterol 107 mg/dL (132-200); Estimated Creatinine Clearance 5.4 mL/min (>60); Glucose 320 mg/dL (74-106); HDL Cholesterol 46 mg/dL (40-60); LDL Cholesterol,Calculated 45 mg/dL (0-130); Osmolality,Calculated 289 (275-295); Potassium 4.6 mMol/L (3.4-5.1); Sodium 131 mMol/L (136-145); Triglycerides 82 mg/dL (30-150); eGFR 4 See Note
[2025-04-21 06:53] LABS: Creatinine (Component) 10.4 mg/dL (0.6-1.3)
--- NOTE | 2025-04-21 07:42 | ESPR_ITS ---
<Statement entered by Demario Davis MD - 04/21/25 20:58> In summary: 59-year-old female with pertinent PMHx of ESRD on PD, senting with left facial numbness and dysarthria, admitted for stroke workup. Currently on stroke protocol and under workup. CT brain and CTA head/neck showed no acute pathology. MRI brain showed no acute pathology however there was evidence of chronic microvascular white matter changes which were present on MRI from previous admission. Continued on ASPIRIN and PLAVIX and high-dose statin. Symptoms have resolved. Neurology team is following. EEG was done to rule out seizure but was inconclusive although there was abnormalities noted. Neurology recommended repeat EEG which has been ordered. Currently pending echo with bubble study. At this point, the likely cause of her symptoms include hypertensive encephalopathy and metabolic/toxic given CHEM panel findings, elevated BUN. She continued on peritoneal dialysis HS. UA showed nephrotic range proteinuria, elevated GLUCOSE, but no signs of UTI. GLUCOSE 320 today, we started glargine HS. Will adjust INSULIN going forward and as needed. She has normocytic anemia with Hgb around 7.5 and stable. Signs of active bleed. Folate and B12 are normal. Iron stores are low. We started her oral iron. As for resistant hypertension, renal artery duplex showed small kidneys with renal cortical thinning, moderate bilateral renal parenchymal scar formation, but no signs of renal artery stenosis. She is on home VALSARTAN for RAAS blunting in addition to home AMLODIPINE, CLONIDINE, HYDRALAZINE, and despite LABETALOL PRN. We resumed home CARVEDILOL 25 mg BID, BP currently 165/81. Pending further recommendations from nephrology regarding BP. Will consider HYDROCHLOROTHIAZIDE or MINOXIDIL if nephrology agrees. Case was discussed with attending physician. Demario Davis DO PGY II This document was transcribed using voice recognition technology. Minor inaccuracies may be present. Documentation for date of: 04/21/25 Subjective Subjective Interval history: Patient seen and evaluated at bedside. She was found to be awake and resting comfortably in bed, alone in the room. Phone hospice liaison service for Danish was utilized. Original pain in the left side of head has subsided and patient spoke clearly and unhindered to resident physician in the room. Admits to nausea. Denies headaches, or sensory abnormalities. Overnight events: Patient became hypertensive with BP in 190/90's and was administered one time dose of IV labetalol in french binder. Exam Vital Signs Temp Pulse Resp BP Pulse Ox O2 Del Method O2 Flow Rate 97.9 F 103 19 191/110 H 96 Room Air 2 04/21/25 04:00 04/21/25 13:00 04/21/25 04:00 04/21/25 13:00 04/21/25 04:00 04/21/25 04:00 04/19/25 21:43 Narrative Exam General: AOx3, no acute distress, no slurred speech HEENT: NC/AT, mucous membranes moist, bilateral sclera anicteric Cardiovascular: regular rate and rhythm, S1/S2 present, no murmurs appreciated Pulmonary: clear to auscultation bilaterally, no rales/rhonchi/wheezes Abdominal: soft, non-tender, non-distended, no rebound/guarding, bowel sounds present Musculoskeletal: normal ROM, no peripheral edema Extremities: 1+ edema in BLE, no cyanosis, no clubbing. 1+ radial pulse bilaterally, 1+ posterior tibial pulse bilaterally. Skin: warm and dry, intact, no rashes Neuro: - CN II-XII grossly intact, no focal deficits - Strength 5/5 in BUE and BLE. 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 - Alert, following commands Objective Labs 04/22/25 05:49 04/22/25 05:49 Labs: Laboratory Results - last 24 hr 04/21/25 05:39 WBC 6.0 RBC 2.46 L Hgb 7.5 L Hct 22.2 L MCV 90 MCH 30.5 MCHC 33.8 RDW Std Deviation 42.6 Plt Count 196 Neut % (Auto) 64 Lymph % (Auto) 23 [place] % (Auto) 9 Eos % (Auto) 4 Baso % (Auto) 0 Neut # (Auto) 3.9 Lymph # (Auto) 1.4 [place] # (Auto) 0.5 Eos # (Auto) 0.2 Baso # (Auto) 0.0 Immature Gran # (Auto) 0.03 H Absolute Nucleated RBC 0.00 Immature Gran % 1 H Nucleated RBC % 0 Sodium 131 L Potassium 4.6 Chloride 97 L Carbon Dioxide 24.8 Anion Gap 9 BUN 54 H Creatinine 10.4 H* Estim Creat Clear Calc 5.4 L eGFR 4 L* BUN/Creatinine Ratio 5 L Glucose [address] Glu mg/dL 126 Hemoglobin A1c 6.0 Calculated Osmolality 289 Calcium 7.6 L Ammonia 13 Triglycerides 82 Cholesterol 107 L LDL Cholesterol, Calc 45 HDL Cholesterol 46 Cholesterol/HDL Ratio 2.3 L Quality Measures Quality Measures VTE prophylaxis Assessment & Plan Assessment Current Active Medications: Generic Name Dose Route Start Last Admin Trade Name Freq PRN Reason Stop Dose Admin Acetaminophen 650 mg 04/19/25 20:54 Acetaminophen 325 Mg Tablet PO 05/19/25 20:53 Q6H PRN pain 1-3 &/or fever >100.1 Aspirin 81 mg 04/20/25 00:15 04/20/25 01:13 Aspirin Ec 81 Mg Tabec PO 05/20/25 00:14 81 mg QDAY TIFFANI Administration Atorvastatin Calcium 80 mg 04/20/25 00:15 04/20/25 21:18 Atorvastatin Calcium 20 Mg Tablet PO 05/20/25 00:14 80 mg HS TIFFANI Administration Clopidogrel Bisulfate 75 mg 04/20/25 21:00 04/20/25 21:18 Clopidogrel Bisulfate 75 Mg Tablet PO 05/20/25 20:59 75 mg QDAY TIFFANI Administration Cyclobenzaprine HCl 5 mg 04/20/25 08:07 Cyclobenzaprine 5 Mg Tablet PO 05/20/25 08:06 TID PRN MUSCLE SPASMS Dextrose 25 ml 04/19/25 23:52 Dextrose 50%-Water Inj 50 Ml Syringe IV 05/19/25 23:51 Q15MIN PRN BG 50-70 responsive npo pt Dextrose 50 ml 04/19/25 23:52 Dextrose 50%-Water Inj 50 Ml Syringe IV 05/19/25 23:51 Q15MIN PRN BG <50 OR BG <70 & pt unresponsive Glucagon 1 mg 04/19/25 23:52 Glucagon Inj 1 Mg Vial IM Q15MIN PRN BG <70, and no IV access Insulin Human Lispro 0 unit 04/20/25 07:30 04/20/25 17:29 Insulin Lispro (Admelog) 1 Unit/0.01 Ml Unit SC 05/20/25 07:29 Not Given [facility] Protocol Labetalol HCl 10 mg 04/20/25 17:29 04/20/25 23:20 Labetalol Inj 5 Mg/Ml Vial 20 Ml IVP 05/20/25 17:28 10 mg Q2H PRN Administration SBP>180 Ondansetron HCl 4 mg 04/19/25 20:54 04/19/25 21:44 Ondansetron Inj 2 Mg/Ml Inj 2 Ml IVP 05/19/25 20:53 4 mg Q6H PRN Administration NAUSEA OR VOMITING Protocol Sennosides 1 tab 04/19/25 20:54 Senna Tablet PO 05/19/25 20:53 QDAY PRN constipation Protocol Vitamin B Complex/Vit C/Folic Acid 1 tab 04/20/25 09:00 04/20/25 14:48 Vit B12/Vit C/Fa (Nephrovite) Tablet PO 05/20/25 08:59 1 tab QDAY TIFFANI Administration Plan Meme Small is a 59F pmhx significant for ESRD on PD (follows Dr. Crews), anemia, DM2, and HLD discharged 04/18 for similar presentation who is admitted for stroke workup. DEMARIO -- started insulin glarg HS #Left facial numbness #Slow/dysarthric speech #Stroke-like symptoms, resolved Ddx includes CVA vs seizure vs hypertensive encephalopathy vs metabolic encephalopathy. Presented with left facial pain/numbness, slurred speech and bilateral upper extremity weakness beginning 7/1 AM with NIHSS 0. Similar presentation for recent admission 04/15 to 04/18 with resolution of symptoms upon discharge. No residual neuro deficits on exam (04/21) CT brain wo contrast negative for hemorrhage, mass effect, or midline shift. CTA head and neck showed no significant neck arterial stenoses, no cerebral large vessel occlusions or thrombus. NeuroTele was consulted and recommended MRI wo contrast, routine spot EEG. MRI of brain: Negative for acute hemorrhage mass effect or midline shift. No acute infarct. Multiple foci increased signal in the white matter including in the brainstem and left cerebellar hemisphere, consider accelerated chronic microvascular white matter change as well as demyelinating disease. Neurology consult: Most likely secondary to hypertensive encephalopathy vs toxic/metabolic encephalopathy (patient on peritoneal dialysis for ESRD). Recommendations as follows - Neurology recommendations: -- Repeat spot EEG to assess for continuation of abnormality -- Delirium precautions - s/p Plavix 300 mg loading dose, Plavix 75 QD for 21 days (12/10) - Continue ASA 81 mg QD and atorvastatin 80 mg QD -- BP management per primary team with labetolol PRN. Goal SBP <180 - F/u ammonia, BMP, CBC, Mg #Hypertension Elevated BP with SBP>180s Previous admission documented BP in 200s/100s. Patient received one dose of hydralazine in ED. Patient afebrile. UDS negative. TeleNeuro recommends to keep BP <180. Current BP 171/85. Plan: -continue home antihypertensive regiment --hydralazine HCl 25mg PO TID --clonidine 0.1mg PO TID --amlodipine 10mg PO Qday --valsartan 160mg PO BID - IV labetalol 10mg if BP >170 - Nephrology on board #ESRD on PD Follows with Dr. Crews outpatient. Last HD 04/15 and current K wnl. - Dr. Crews consulted, recommendations as follows The patient is known to Dr. Crews and is on the kidney transplant waitlist. Her BUN, Cr, and eGFR on admission were 50, 9.8, and 4 respectively. She missed one night of dialysis on 04/19. - Restart peritoneal dialysis nightly. - Continue to monitor renal function. - Avoid nephrotoxic drugs. - Nephrology will continue to follow. - Avoid nephrotoxic medication - Hold HD for now #Anxiety Anxiety may be contributing to elevated BP, as events are precluded by stressful events Plan: - Start Sertraline 25 mg daily. Does not require renal dosing adjustment. Chronic, normocytic anemia Hx of ESRD, likely anemia of chronic disease Hgb around 7.0 which is baseline for her. Hgb 7.5 (04/21) Serum iron 113 wnl, iron saturation 59 (H), TIBC 189 (L) (04/21) vit B12 1093 (H), folate >24 wnl (04/21) Plan ? Recommeded EPO with HD #Type 2 DM, insulin-dependent HbA1c 6.0 on 04/16. glc 328 (AM 04/21) Plan: - SSI - insulin glargine 10u HS Hospital management: Disposition: telemetry for stroke workup Diet: renal diet DVT prophylaxis: SCDs CODE STATUS: full code Case was discussed with attending physician, Dr. Gorman, and senior resident Dr Davis. Jacques Patel, DO PGY I Attending Provider Attestation/Addendum I attest that I was physically present for the evaluation, physical examination, lab and imaging review of the patient with the residents. I discussed the case with the residents and agree with the findings and plans of care as documented above. Lupe Gorman MD
--- NOTE | 2025-04-21 07:46 | PC.NURSE ---
Md Patel notified of current BP 201/110-106 HR. Per continue with labetalol. Notified that Bp home meds need to be restarted as well.
[2025-04-21] MEDS: LABETALOL INJ 5 MG/ML VIAL 20 ML 10 MG IVP (08:01)
[2025-04-21] MEDS: INSULIN LISPRO (AdmeLOG) 1 UNIT/0.01 ML UNIT SC ×3 (08:06→16:28)
[2025-04-21] MEDS: ONDANSETRON INJ 2 MG/ML INJ 2 ML 4 MG IVP (08:06)
[2025-04-21] MEDS: VIT B12/Vit C/FA (Nephrovite) TABLET 1 TAB PO (08:07)
[2025-04-21] MEDS: CLOPIDOGREL BISULFATE 75 MG TABLET PO (08:07)
[2025-04-21] MEDS: ASPIRIN EC 81 MG TABEC PO (08:07)
--- NOTE | 2025-04-21 09:00 | PC.NURSE ---
Dr Susan plummer with pt at bedside notified of pts current bp of 194/101-88.
[2025-04-21 09:13] LABS: Iron 113 mcg/dL (50-170); Percent Iron Saturation 59 % (20-55); Total Iron Binding Capacity 189 mcg/dL (250-425); Unsaturated Iron Binding 76 (225-295)
[2025-04-21 09:18] LABS: Folate > 24.00 ng/mL (>5.38); Vitamin B12 1093 pg/mL (211-911)
[2025-04-21] MEDS: VALSARTAN 40 MG TABLET 160 MG PO ×3 (09:23→20:15)
--- NOTE | 2025-04-21 12:16 | XR_ITS ---
Examination: Renal sonography Renal Doppler sonographic arterial evaluation Date and time: April 21, 2025 1626 hours INDICATIONS: Altered mental status, hypertension this week FINDINGS: Right kidney 8.6 cm medial cortex 1.3 cm Left kidney 9.0 cm renal cortex 0.9 cm No bilateral elevation of peak systolic velocities Mild elevation of resistive indices bilaterally Bilateral normal renal aorta ratios IMPRESSION: Small kidneys with renal cortical thinning Moderate bilateral renal parenchymal scar formation No Doppler sonographic findings of renal artery stenosis
--- NOTE | 2025-04-21 12:56 | PC.NURSE ---
Notified MD Gorman on current bp 191/103-103 HR. Regardless of all the medication interventions done. Per cont with iv labetalol and pt will be reevaluated.
--- NOTE | 2025-04-21 13:19 | PC.NURSE ---
Update given to dr Greenberg on current pt status including hypertension events bps reviewed.
--- NOTE | 2025-04-21 15:13 | PC.SS ---
rounding note: Patient is pending echo and EGD. D/c plan is to return home.
--- NOTE | 2025-04-21 17:36 | PD.RESPRO ---
Documentation for date of: 04/21/25 Subjective Subjective Interval history: Overnight events: No acute events overnight. Patient was seen and examined at bedside. AM vitals and labs reviewed. BUN 54, Cr 10.4, eGFR 4. Lab values not unexpected given how advanced the patient's ESRD is. Tolerated her nightly peritoneal dialysis well. No other complaints at this time. Review of systems otherwise negative except for what is mentioned above. Exam Vital Signs Temp Pulse Resp BP Pulse Ox O2 Del Method O2 Flow Rate 97.7 F 95 18 172/93 H 95 Room Air 2 04/21/25 16:00 04/21/25 16:00 04/21/25 16:00 04/21/25 16:00 04/21/25 16:00 04/21/25 16:00 04/19/25 21:43 Narrative Exam Physical Exam: General: Alert, no acute distress. Skin: Warm, dry, intact, no obvious rash. Head: Normocephalic, atraumatic. Eye: Normal conjunctiva, PERRL. Respiratory: Respirations unlabored on room air. Neuro: No focal deficits observed. Conversant, moving all extremities. No overt cerebellar signs/incoordination. Psychiatric: Cooperative, appropriate affect. Objective Labs 04/23/25 17:42 04/23/25 04:17 Labs: Laboratory Results - last 24 hr 04/21/25 05:39 WBC 6.0 RBC 2.46 L Hgb 7.5 L Hct 22.2 L MCV 90 MCH 30.5 MCHC 33.8 RDW Std Deviation 42.6 Plt Count 196 Neut % (Auto) 64 Lymph % (Auto) 23 [place] % (Auto) 9 Eos % (Auto) 4 Baso % (Auto) 0 Neut # (Auto) 3.9 Lymph # (Auto) 1.4 [place] # (Auto) 0.5 Eos # (Auto) 0.2 Baso # (Auto) 0.0 Immature Gran # (Auto) 0.03 H Absolute Nucleated RBC 0.00 Immature Gran % 1 H Nucleated RBC % 0 Sodium 131 L Potassium 4.6 Chloride 97 L Carbon Dioxide 24.8 Anion Gap 9 BUN 54 H Creatinine 10.4 H* Estim Creat Clear Calc 5.4 L eGFR 4 L* BUN/Creatinine Ratio 5 L Glucose [address] Glu mg/dL 126 Hemoglobin A1c 6.0 Calculated Osmolality 289 Calcium 7.6 L Iron 113 TIBC 189 L Iron Saturation 59 H Unsat Iron Binding 76 L Ammonia 13 Triglycerides 82 Cholesterol 107 L LDL Cholesterol, Calc 45 HDL Cholesterol 46 Cholesterol/HDL Ratio 2.3 L Vitamin B12 1093 H Folate > 24.00 Quality Measures Quality Measures VTE prophylaxis Assessment & Plan Assessment Current Active Medications: Generic Name Dose Route Start Last Admin Trade Name Phoebe PRN Reason Stop Dose Admin Acetaminophen 650 mg 04/19/25 20:54 Acetaminophen 325 Mg Tablet PO 05/19/25 20:53 Q6H PRN pain 1-3 &/or fever >100.1 Amlodipine Besylate 10 mg 04/21/25 08:00 04/21/25 11:30 Amlodipine Besylate 5 Mg Tablet PO 05/21/25 07:59 10 mg QDAY TIFFANI Administration Aspirin 81 mg 04/20/25 00:15 04/21/25 08:07 Aspirin Ec 81 Mg Tabec PO 05/20/25 00:14 81 mg QDAY TIFFANI Administration Atorvastatin Calcium 80 mg 04/20/25 00:15 04/20/25 21:18 Atorvastatin Calcium 20 Mg Tablet PO 05/20/25 00:14 80 mg HS TIFFANI Administration Clonidine 0.1 mg 04/21/25 14:00 04/21/25 13:02 Clonidine Hcl 0.1 Mg Tablet PO 05/21/25 13:59 0.1 mg TID TIFFANI Administration Clopidogrel Bisulfate 75 mg 04/20/25 21:00 04/21/25 08:07 Clopidogrel Bisulfate 75 Mg Tablet PO 05/20/25 20:59 75 mg QDAY TIFFANI Administration Cyclobenzaprine HCl 5 mg 04/20/25 08:07 Cyclobenzaprine 5 Mg Tablet PO 05/20/25 08:06 TID PRN MUSCLE SPASMS Dextrose 25 ml 04/19/25 23:52 Dextrose 50%-Water Inj 50 Ml Syringe IV 05/19/25 23:51 Q15MIN PRN BG 50-70 responsive npo pt Dextrose 50 ml 04/19/25 23:52 Dextrose 50%-Water Inj 50 Ml Syringe IV 05/19/25 23:51 Q15MIN PRN BG <50 OR BG <70 & pt unresponsive Glucagon 1 mg 04/19/25 23:52 Glucagon Inj 1 Mg Vial IM Q15MIN PRN BG <70, and no IV access Hydralazine HCl 25 mg 04/21/25 08:00 04/21/25 13:03 Hydralazine Hcl 25 Mg Tablet PO 05/21/25 07:59 25 mg TID TIFFANI Administration Insulin Glargine 10 unit 04/21/25 21:00 Insulin Glargine (Lantus) 5 Unit/0.05 Ml (Per 5 Units) SC 05/21/25 20:59 HS TIFFANI Insulin Human Lispro 0 unit 04/21/25 15:39 04/21/25 16:28 Insulin Lispro (Admelog) 1 Unit/0.01 Ml Unit SC 05/20/25 07:29 2 unit AC TIFFANI Administration Protocol Labetalol HCl 10 mg 04/20/25 17:29 04/21/25 08:01 Labetalol Inj 5 Mg/Ml Vial 20 Ml IVP 05/20/25 17:28 10 mg Q2H PRN Administration SBP>180 Ondansetron HCl 4 mg 04/19/25 20:54 04/21/25 08:06 Ondansetron Inj 2 Mg/Ml Inj 2 Ml IVP 05/19/25 20:53 4 mg Q6H PRN Administration NAUSEA OR VOMITING Protocol Sennosides 1 tab 04/19/25 20:54 Senna Tablet PO 05/19/25 20:53 QDAY PRN constipation Protocol Sertraline HCl 25 mg 04/21/25 21:00 Sertraline Hcl 25 Mg Tablet PO 05/21/25 20:59 HS TIFFANI Valsartan 160 mg 04/21/25 08:00 04/21/25 11:29 Valsartan 40 Mg Tablet PO 05/21/25 07:59 160 mg BID TIFFANI Administration Vitamin B Complex/Vit C/Folic Acid 1 tab 04/20/25 09:00 04/21/25 08:07 Vit B12/Vit C/Fa (Nephrovite) Tablet PO 05/20/25 08:59 1 tab QDAY TIFFANI Administration Plan Mrs. Small is a 59 year old lady with a relevant medical history of ESRD on peritoneal dialysis (followed by Dr. Crews), anemia, T2DM, and HLD who presents with facial numbness . The patient was recently discharged from [facility] on 04/18 for similar complaints. Nephrology was consulted due to the patient's history of being on dialysis. #ESRD on peritoneal dialysis nightly The patient is known to Dr. Crews and is on the kidney transplant waitlist. Her BUN, Cr, and eGFR on admission were 50, 9.8, and 4 respectively. She missed one night of dialysis on 04/19. - Restarted peritoneal dialysis nightly. - Continue to monitor renal function. - Avoid nephrotoxic drugs. - Nephrology will continue to follow. Patient was discussed with the Nephrology attending, Dr. Greenberg. Thank you for allowing us to participate in the care of this patient. Lester Rouse, PGY-1 Attending Provider Attestation/Addendum Pt is seen and examined. labs and investigations are reviewed. Agree with assessment and plan and findings by resident. Junito Greenberg MD
[2025-04-21] MEDS: INSULIN GLARGINE (Lantus) 5 UNIT/0.05 ML (PER 5 UNITS) 10 UNIT SC (20:12)
[2025-04-21] MEDS: ATORVASTATIN CALCIUM 20 MG TABLET 80 MG PO (20:14)
[2025-04-21] MEDS: SERTRALINE HCL 25 MG TABLET PO (20:15)
--- NOTE | 2025-04-21 23:18 | ESPR_ITS ---
Documentation for date of: 04/21/25 Subjective Subjective Interval history: Interval history: sBP 190-201 / dBP 110 with nausea and 3 episodes of vomiting this AM. Resolved within 10 minutes. Denies N/V, change in vision at time of interview. Patient reports throbbing pain behind left eye but denies temporal pain with chewing, excessive lacrimation, or hx of cluster headache. Resumed peritoneal dialysis. Exam Vital Signs Temp Pulse Resp BP Pulse Ox O2 Del Method O2 Flow Rate 96.8 F 89 18 147/75 H 96 Room Air 2 04/21/25 22:50 04/21/25 22:50 04/21/25 22:50 04/21/25 22:50 04/21/25 20:25 04/21/25 20:25 04/19/25 21:43 Narrative Exam General: No acute distress, well nourished, [place]ese-speaking Eye: PERRL, EOMI, normal conjunctiva, no scleral icterus HENT: Normocephalic, atraumatic, clear tympanic membranes, normal hearing, moist oral mucosa Neck: Supple, non-tender, no carotid bruits, no JVD, no lymphadenopathy Lungs: Clear to auscultation bilaterally, non-labored respirations, symmetric chest rise Heart: Normal S1 and S2, no S3 or S4 appreciated. Normal rate and regular rhythm, no murmurs, rubs gallops, or edema. Peripheral pulses intact bilaterally, capillary refill brisk distally Abdomen: Soft, non-tender, non-distended, normal bowel sounds, no masses Musculoskeletal: Normal range of motion and strength, no tenderness or swelling Skin: Skin is warm, dry, no rashes or lesions. Neurologic: Alert, awake and oriented x3. Cranial nerves: II through XII grossly intact. Speech and language: Normal with no dysarthria or dysphasia. Motor system: Tone and bulk: Normal: Strength: 5 out of 5 in all 4 extremities.. Deep tendon reflexes: 2+ bilaterally symmetrical. Plantar reflex: Downgoing bilaterally. Sensory system: Intact to all modalities of sensation bilaterally. Coordination: Intact to [id number] and ihak-[id number]-flcc test bilaterally. No ataxia, no dysmetria, or dysdiadochokinesia noted. No intention tremors noted. Gait: Deferred Psychiatric: Cooperative, appropriate mood and affect Objective Labs 04/22/25 05:49 04/22/25 05:49 Labs: Laboratory Results - last 24 hr 04/21/25 05:39 WBC 6.0 RBC 2.46 L Hgb 7.5 L Hct 22.2 L MCV 90 MCH 30.5 MCHC 33.8 RDW Std Deviation 42.6 Plt Count 196 Neut % (Auto) 64 Lymph % (Auto) 23 [place] % (Auto) 9 Eos % (Auto) 4 Baso % (Auto) 0 Neut # (Auto) 3.9 Lymph # (Auto) 1.4 [place] # (Auto) 0.5 Eos # (Auto) 0.2 Baso # (Auto) 0.0 Immature Gran # (Auto) 0.03 H Absolute Nucleated RBC 0.00 Immature Gran % 1 H Nucleated RBC % 0 Sodium 131 L Potassium 4.6 Chloride 97 L Carbon Dioxide 24.8 Anion Gap 9 BUN 54 H Creatinine 10.4 H* Estim Creat Clear Calc 5.4 L eGFR 4 L* BUN/Creatinine Ratio 5 L Glucose [address] Glu mg/dL 126 Hemoglobin A1c 6.0 Calculated Osmolality 289 Calcium 7.6 L Iron 113 TIBC 189 L Iron Saturation 59 H Unsat Iron Binding 76 L Ammonia 13 Triglycerides 82 Cholesterol 107 L LDL Cholesterol, Calc 45 HDL Cholesterol 46 Cholesterol/HDL Ratio 2.3 L Vitamin B12 1093 H Folate > 24.00 Quality Measures Quality Measures VTE prophylaxis Assessment & Plan Assessment Current Active Medications: Generic Name Dose Route Start Last Admin Trade Name Freq PRN Reason Stop Dose Admin Acetaminophen 650 mg 04/19/25 20:54 Acetaminophen 325 Mg Tablet PO 05/19/25 20:53 Q6H PRN pain 1-3 &/or fever >100.1 Amlodipine Besylate 10 mg 04/21/25 08:00 04/21/25 11:30 Amlodipine Besylate 5 Mg Tablet PO 05/21/25 07:59 10 mg QDAY TIFFANI Administration Aspirin 81 mg 04/20/25 00:15 04/21/25 08:07 Aspirin Ec 81 Mg Tabec PO 05/20/25 00:14 81 mg QDAY TIFFANI Administration Atorvastatin Calcium 80 mg 04/20/25 00:15 04/21/25 20:14 Atorvastatin Calcium 20 Mg Tablet PO 05/20/25 00:14 80 mg HS TIFFANI Administration Carvedilol 25 mg 04/21/25 21:00 04/21/25 20:14 Carvedilol 12.5 Mg Tablet PO 05/21/25 20:59 25 mg BID TIFFANI Administration Clonidine 0.1 mg 04/21/25 14:00 04/21/25 22:04 Clonidine Hcl 0.1 Mg Tablet PO 05/21/25 13:59 0.1 mg TID TIFFANI Administration Clopidogrel Bisulfate 75 mg 04/20/25 21:00 04/21/25 08:07 Clopidogrel Bisulfate 75 Mg Tablet PO 05/20/25 20:59 75 mg QDAY TIFFANI Administration Cyclobenzaprine HCl 5 mg 04/20/25 08:07 Cyclobenzaprine 5 Mg Tablet PO 05/20/25 08:06 TID PRN MUSCLE SPASMS Dextrose 25 ml 04/19/25 23:52 Dextrose 50%-Water Inj 50 Ml Syringe IV 05/19/25 23:51 Q15MIN PRN BG 50-70 responsive npo pt Dextrose 50 ml 04/19/25 23:52 Dextrose 50%-Water Inj 50 Ml Syringe IV 05/19/25 23:51 Q15MIN PRN BG <50 OR BG <70 & pt unresponsive Glucagon 1 mg 04/19/25 23:52 Glucagon Inj 1 Mg Vial IM Q15MIN PRN BG <70, and no IV access Hydralazine HCl 25 mg 04/21/25 08:00 04/21/25 22:04 Hydralazine Hcl 25 Mg Tablet PO 05/21/25 07:59 25 mg TID TIFFANI Administration Insulin Glargine 10 unit 04/21/25 21:00 04/21/25 20:12 Insulin Glargine (Lantus) 5 Unit/0.05 Ml (Per 5 Units) SC 05/21/25 20:59 10 unit HS TIFFANI Administration Insulin Human Lispro 0 unit 04/21/25 15:39 04/21/25 16:28 Insulin Lispro (Admelog) 1 Unit/0.01 Ml Unit SC 05/20/25 07:29 2 unit AC TIFFANI Administration Protocol Labetalol HCl 10 mg 04/20/25 17:29 04/21/25 08:01 Labetalol Inj 5 Mg/Ml Vial 20 Ml IVP 05/20/25 17:28 10 mg Q2H PRN Administration SBP>180 Ondansetron HCl 4 mg 04/19/25 20:54 04/21/25 08:06 Ondansetron Inj 2 Mg/Ml Inj 2 Ml IVP 05/19/25 20:53 4 mg Q6H PRN Administration NAUSEA OR VOMITING Protocol Sennosides 1 tab 04/19/25 20:54 04/21/25 20:14 Senna Tablet PO 05/19/25 20:53 1 tab QDAY PRN Administration constipation Protocol Sertraline HCl 25 mg 04/21/25 21:00 04/21/25 20:15 Sertraline Hcl 25 Mg Tablet PO 05/21/25 20:59 25 mg HS TIFFANI Administration Valsartan 160 mg 04/21/25 08:00 04/21/25 20:15 Valsartan 40 Mg Tablet PO 05/21/25 07:59 160 mg BID TIFFANI Administration Vitamin B Complex/Vit C/Folic Acid 1 tab 04/20/25 09:00 04/21/25 08:07 Vit B12/Vit C/Fa (Nephrovite) Tablet PO 05/20/25 08:59 1 tab QDAY TIFFANI Administration Plan #Hypertensive encephalopathy #Abnormal EEG No residual neuro deficits on exam Elevated BP with sBP 201 with N/V, resolved with BP management CT head w/o negative for hemorrhage, mass effect or midline shift. CTA head/neck showed no significant neck arterial stenoses, no cerebral large vessel occlusions or thrombus. MRI showed no hemorrhage or acute infarct, consistent with previous images of chronic microvascular white matter change. Spot EEG abnormal. EEG: abnormal B12 elevated, folate WNL Most likely secondary to hypertensive encephalopathy as patient's symptoms resolve with management of BP Plan: - Repeat regular spot EEG to assess for continuation of abnormality - Continue Plavix and ASA 81 mg daily - BP management per primary team. Goal sBP <180 - Nephro following #Anxiety Anxiety may be contributing to elevated BP, as events are precluded by stressful events Plan: - Sertraline 25 mg daily. Does not require renal dosing adjustment. Plan discussed with Dr. Gilbert Gutierrez, PGY1 Attending Provider Attestation/Addendum I personally have seen and examined the patient at the bedside and I agreed with resdient's findings, assessment and plan of care. FU with repeat EEG to decide about the next step. Keep the BP controlled.
--- NOTE | 2025-04-21 23:29 | RESP.EEG ---
EEG has been recorded and is ready for MD interpretation.
[2025-04-22] VITALS (18 sets, daily range): BP systolic 118–147; BP diastolic 60–82; PULSE 18–85; RESP 16–96; TEMP 36.2–36.4; O2SAT 95–98
[2025-04-22 06:01] LABS: Basophils # (Auto) 0.0 Thou/mm3 (0.0-0.2); Basophils % (Auto) 0 % (0-2.5); Eosinophils # (Auto) 0.4 Thou/mm3 (0.0-0.5); Eosinophils % (Auto) 5 % (0-10); Hematocrit 25.3 % (36.0-46.0); Immature Granulocytes Auto 0.05 Thou/mm3 (0.00-0.00); Lymphocytes # (Auto) 1.2 Thou/mm3 (1.0-4.8); Lymphocytes % (Auto) 15 % (10-50); Mean Corpuscular HGB Conc 32.4 g/dl (31.0-37.0); Mean Corpuscular Hemoglobin 29.7 pg (25.0-35.0); Mean Corpuscular Volume 92 fL (80-100); Monocytes # (Auto) 0.6 Thou/mm3 (0.0-0.8); Monocytes % (Auto) 7 % (0-12); Neutrophils # (Auto) 5.8 Thou/mm3 (1.8-7.7); Neutrophils % (Auto) 71 % (37-80); Nucleated Red Blood Cell # 0.00 Thou/mm3 (0.00-0.00); Nucleated Red Blood Cell % 0 /100 WBC (0); Platelet Count 223 Thou/mm3 (140-440); RDW Standard Deviation 42.5 fL (36.4-46.3); Red Blood Count 2.76 Miln/mm3 (4.00-5.20); White Blood Count 8.1 Thou/mm3 (3.6-11.0)
[2025-04-22 06:13] LABS: Hemoglobin 8.2 g/dL (12.0-16.0)
[2025-04-22 06:35] LABS: Anion Gap 10 (7-16); BUN/Creatinine Ratio 5 Ratio (12-20); Blood Urea Nitrogen 50 mg/dL (9-23); Carbon Dioxide 27.0 mMol/L (20.0-31.0); Chloride 94 mMol/L (98-107); Potassium 4.2 mMol/L (3.4-5.1); Sodium 131 mMol/L (136-145)
[2025-04-22 06:36] LABS: Alanine Aminotransferase 19 U/L (10-49); Albumin, Serum 3.0 gm/dL (3.4-4.8); Albumin/Globulin Ratio 0.9 (1.2-2.2); Alkaline Phosphatase 93 U/L (46-116); Aspartate Amino Transferase 19 U/L (0-34); Bilirubin,Total 0.2 mg/dL (0.3-1.2); Calcium 7.9 mg/dL (8.3-10.6); Calcium (Corrected) 8.7 mg/dL (8.5-10.1); Estimated Creatinine Clearance 5.5 mL/min (>60); Globulin 3.3 gm/dL (2.3-3.5); Glucose 254 mg/dL (74-106); Magnesium 1.9 mg/dL (1.6-2.6); Osmolality,Calculated 284 (275-295); Phosphorous 5.7 mg/dL (2.4-5.1); Total Protein 6.3 gm/dL (5.7-8.2); eGFR 4 See Note
[2025-04-22 06:37] LABS: Creatinine (Component) 10.1 mg/dL (0.6-1.3)
--- NOTE | 2025-04-22 07:37 | PD.RESPRO ---
Documentation for date of: 04/22/25 Subjective Subjective Interval history: Patient seen and evaluated at bedside. She was found to be awake and resting comfortably in bed, alone in the room. Nurse translated Lithuanian. Original pain in the left side of head has subsided and patient spoke clearly and unhindered to resident physician in the room. Denies headaches, neasea/vomit, or sensory abnormalities. Patient had throbbing pain in her left eye which has left her today. Pt states her previous EEG demonstrated abnormality. No acute events overnight. BP <150 since midnight. Exam Vital Signs Temp Pulse Resp BP Pulse Ox O2 Del Method O2 Flow Rate 97.3 F 74 18 142/82 H 97 Room Air 2 04/22/25 04:00 04/22/25 05:14 04/22/25 04:00 04/22/25 05:14 04/22/25 04:00 04/22/25 04:00 04/19/25 21:43 Narrative Exam General: AOx3, no acute distress, no slurred speech HEENT: NC/AT, mucous membranes moist, bilateral sclera anicteric Cardiovascular: regular rate and rhythm, S1/S2 present, no murmurs appreciated Pulmonary: clear to auscultation bilaterally, no rales/rhonchi/wheezes Abdominal: soft, non-tender, non-distended, no rebound/guarding, bowel sounds present Musculoskeletal: normal ROM, no peripheral edema Extremities: 1+ edema in BLE, no cyanosis, no clubbing. 1+ radial pulse bilaterally, 1+ posterior tibial pulse bilaterally. Skin: warm and dry, intact, no rashes Neuro: - CN II-XII grossly intact, no focal deficits - Strength 5/5 in BUE and BLE. radiopharmacist strength 4/5, able to move legs spontaneously. - Alert, following commands Objective Labs 04/22/25 05:49 04/22/25 05:49 Labs: Laboratory Results - last 24 hr 04/21/25 04/22/25 05:39 05:49 WBC 8.1 RBC 2.76 L Hgb 8.2 L Hct 25.3 L MCV 92 MCH 29.7 MCHC 32.4 RDW Std Deviation 42.5 Plt Count 223 Neut % (Auto) 71 Lymph % (Auto) 15 [place] % (Auto) 7 Eos % (Auto) 5 Baso % (Auto) 0 Neut # (Auto) 5.8 Lymph # (Auto) 1.2 [place] # (Auto) 0.6 Eos # (Auto) 0.4 Baso # (Auto) 0.0 Immature Gran # (Auto) 0.05 H Absolute Nucleated RBC 0.00 Immature Gran % 1 H Nucleated RBC % 0 Sodium 131 L Potassium 4.2 Chloride 94 L Carbon Dioxide 27.0 Anion Gap 10 BUN 50 H Creatinine 10.1 H* Estim Creat Clear Calc 5.5 L eGFR 4 L* BUN/Creatinine Ratio 5 L Glucose 254 H D Calculated Osmolality 284 Calcium 7.9 L Corrected Calcium 8.7 Phosphorus 5.7 H Magnesium 1.9 Iron 113 TIBC 189 L Iron Saturation 59 H Unsat Iron Binding 76 L Total Bilirubin 0.2 L AST 19 ALT 19 Alkaline Phosphatase 93 Total Protein 6.3 Albumin 3.0 L Globulin 3.3 Albumin/Globulin Ratio 0.9 L Vitamin B12 1093 H Folate > 24.00 Quality Measures Quality Measures VTE prophylaxis Assessment & Plan Assessment Current Active Medications: Generic Name Dose Route Start Last Admin Trade Name Freq PRN Reason Stop Dose Admin Acetaminophen 650 mg 04/19/25 20:54 Acetaminophen 325 Mg Tablet PO 05/19/25 20:53 Q6H PRN pain 1-3 &/or fever >100.1 Amlodipine Besylate 10 mg 04/21/25 08:00 04/21/25 11:30 Amlodipine Besylate 5 Mg Tablet PO 05/21/25 07:59 10 mg QDAY TIFFANI Administration Aspirin 81 mg 04/20/25 00:15 04/21/25 08:07 Aspirin Ec 81 Mg Tabec PO 05/20/25 00:14 81 mg QDAY TIFFANI Administration Atorvastatin Calcium 80 mg 04/20/25 00:15 04/21/25 20:14 Atorvastatin Calcium 20 Mg Tablet PO 05/20/25 00:14 80 mg HS TIFFANI Administration Carvedilol 25 mg 04/21/25 21:00 04/21/25 20:14 Carvedilol 12.5 Mg Tablet PO 05/21/25 20:59 25 mg BID TIFFANI Administration Clonidine 0.1 mg 04/21/25 14:00 04/22/25 05:14 Clonidine Hcl 0.1 Mg Tablet PO 05/21/25 13:59 0.1 mg TID TIFFANI Administration Clopidogrel Bisulfate 75 mg 04/20/25 21:00 04/21/25 08:07 Clopidogrel Bisulfate 75 Mg Tablet PO 05/20/25 20:59 75 mg QDAY TIFFANI Administration Cyclobenzaprine HCl 5 mg 04/20/25 08:07 Cyclobenzaprine 5 Mg Tablet PO 05/20/25 08:06 TID PRN MUSCLE SPASMS Dextrose 25 ml 04/19/25 23:52 Dextrose 50%-Water Inj 50 Ml Syringe IV 05/19/25 23:51 Q15MIN PRN BG 50-70 responsive npo pt Dextrose 50 ml 04/19/25 23:52 Dextrose 50%-Water Inj 50 Ml Syringe IV 05/19/25 23:51 Q15MIN PRN BG <50 OR BG <70 & pt unresponsive Glucagon 1 mg 04/19/25 23:52 Glucagon Inj 1 Mg Vial IM Q15MIN PRN BG <70, and no IV access Hydralazine HCl 25 mg 04/21/25 08:00 04/22/25 05:13 Hydralazine Hcl 25 Mg Tablet PO 05/21/25 07:59 25 mg TID TIFFANI Administration Insulin Glargine 10 unit 04/21/25 21:00 04/21/25 20:12 Insulin Glargine (Lantus) 5 Unit/0.05 Ml (Per 5 Units) SC 05/21/25 20:59 10 unit HS TIFFANI Administration Insulin Human Lispro 0 unit 04/21/25 15:39 04/21/25 16:28 Insulin Lispro (Admelog) 1 Unit/0.01 Ml Unit SC 05/20/25 07:29 2 unit AC TIFFANI Administration Protocol Labetalol HCl 10 mg 04/20/25 17:29 04/21/25 08:01 Labetalol Inj 5 Mg/Ml Vial 20 Ml IVP 05/20/25 17:28 10 mg Q2H PRN Administration SBP>180 Ondansetron HCl 4 mg 04/19/25 20:54 04/21/25 08:06 Ondansetron Inj 2 Mg/Ml Inj 2 Ml IVP 05/19/25 20:53 4 mg Q6H PRN Administration NAUSEA OR VOMITING Protocol Sennosides 1 tab 04/19/25 20:54 04/21/25 20:14 Senna Tablet PO 05/19/25 20:53 1 tab QDAY PRN Administration constipation Protocol Sertraline HCl 25 mg 04/21/25 21:00 04/21/25 20:15 Sertraline Hcl 25 Mg Tablet PO 05/21/25 20:59 25 mg HS TIFFANI Administration Valsartan 160 mg 04/21/25 08:00 04/21/25 20:15 Valsartan 40 Mg Tablet PO 05/21/25 07:59 160 mg BID TIFFANI Administration Vitamin B Complex/Vit C/Folic Acid 1 tab 04/20/25 09:00 04/21/25 08:07 Vit B12/Vit C/Fa (Nephrovite) Tablet PO 05/20/25 08:59 1 tab QDAY TIFFANI Administration Plan Memeharshil Small is a 59F pmhx significant for ESRD on PD (follows Dr. Crews), anemia, DM2, and HLD discharged 04/18 for similar presentation who is admitted for stroke workup. #Left facial numbness #Slow/dysarthric speech #Stroke-like symptoms, resolved Ddx includes CVA vs seizure vs hypertensive encephalopathy vs metabolic encephalopathy. Presented with left facial pain/numbness, slurred speech and bilateral upper extremity weakness beginning 7/ AM with NIHSS 0. Similar presentation for recent admission 04/15 to 04/18 with resolution of symptoms upon discharge. No residual neuro deficits on exam (04/21) CT brain wo contrast negative for hemorrhage, mass effect, or midline shift. CTA head and neck showed no significant neck arterial stenoses, no cerebral large vessel occlusions or thrombus. NeuroTele was consulted and recommended MRI wo contrast, routine spot EEG. MRI of brain: Negative for acute hemorrhage mass effect or midline shift. No acute infarct. Multiple foci increased signal in the white matter including in the brainstem and left cerebellar hemisphere, consider accelerated chronic microvascular white matter change as well as demyelinating disease. Neurology consult: Most likely secondary to hypertensive encephalopathy vs toxic/metabolic encephalopathy (patient on peritoneal dialysis for ESRD). Recommendations as follows - Neurology recommendations: -- Repeat spot EEG to assess for continuation of abnormality -- Delirium precautions - s/p Plavix 300 mg loading dose, Plavix 75 QD for 21 days (12/10) - Continue ASA 81 mg QD and atorvastatin 80 mg QD -- BP management per primary team with labetolol PRN. Goal SBP <180 - F/u ammonia, BMP, CBC, Mg #Hypertension Presented with Elevated BP with SBP>180s Previous admission documented BP in 200s/100s. Patient received one dose of hydralazine in ED. Patient afebrile. UDS negative. TeleNeuro recommends to keep BP <180. Current BP 142/82. BP downtrending with current regiment. Patient on amlodipine and +pedal edema, reduce/discontinue amlodipine? Plan: -continue home antihypertensive regiment --hydralazine HCl 25mg PO TID --clonidine 0.1mg PO TID --amlodipine 10mg PO Qday --valsartan 160mg PO BID - IV labetalol 10mg if BP >170 - Nephrology on board #ESRD on PD Follows with Dr. Crews outpatient. Last HD 04/15 and current K wnl. - Dr. Crews consulted, recommendations as follows The patient is known to Dr. Crews and is on the kidney transplant waitlist. Her BUN, Cr, and eGFR on admission were 50, 9.8, and 4 respectively. She missed one night of dialysis on 04/19. - Restart peritoneal dialysis nightly. - Continue to monitor renal function. - Avoid nephrotoxic drugs. - Nephrology will continue to follow. - Avoid nephrotoxic medication - Hold HD for now #Anxiety Anxiety may be contributing to elevated BP, as events are precluded by stressful events Plan: - Start Sertraline 25 mg daily. Does not require renal dosing adjustment. Chronic, normocytic anemia Hx of ESRD, likely anemia of chronic disease Hgb around 7.0 which is baseline for her. Hgb 7.5 (04/21) Serum iron 113 wnl, iron saturation 59 (H), TIBC 189 (L) (04/21) vit B12 1093 (H), folate >24 wnl (04/21) Plan ? Recommeded EPO with HD #Type 2 DM, insulin-dependent HbA1c 6.0 on 04/16. glc 328 (AM 04/21), 254 (AM 7/4) raise glargine to twice as much? Plan: - SSI - insulin glargine 10u HS Hospital management: Disposition: telemetry for stroke workup Diet: renal diet DVT prophylaxis: SCDs CODE STATUS: full code Case was discussed with attending physician, Dr. Gorman, and senior resident Dr Davis. Jacques Patel, DO PGY I Attending Provider Attestation/Addendum I attest that I was physically present for the evaluation, physical examination, lab and imaging review of the patient with the residents. I discussed the case with the residents and agree with the findings and plans of care as documented above. Lupe Gorman MD
[2025-04-22] MEDS: INSULIN LISPRO (AdmeLOG) 1 UNIT/0.01 ML UNIT SC ×2 (08:09→11:47)
[2025-04-22] MEDS: VALSARTAN 40 MG TABLET 160 MG PO (08:10)
[2025-04-22] MEDS: ASPIRIN EC 81 MG TABEC PO (08:11)
[2025-04-22] MEDS: VIT B12/Vit C/FA (Nephrovite) TABLET 1 TAB PO (08:11)
[2025-04-22] MEDS: CLOPIDOGREL BISULFATE 75 MG TABLET PO (08:11)
--- NOTE | 2025-04-22 08:49 | ESPR_ITS ---
Documentation for date of: 04/22/25 Subjective Subjective Interval history: Overnight events: No acute events. Patient was seen and examined at bedside. AM vitals and labs reviewed. Spoke to patient with aid of Medical seat installer. BUN 50, Cr 10.1, eGFR 4. Patient has no complaints at this time. Patient reports no issue with dialysis last night. Review of systems otherwise negative except for what is mentioned above. Exam Vital Signs Temp Pulse Resp BP Pulse Ox O2 Del Method O2 Flow Rate 97.3 F 74 18 142/82 H 97 Room Air 2 04/22/25 04:00 04/22/25 08:11 04/22/25 04:00 04/22/25 08:11 04/22/25 04:00 04/22/25 04:00 04/19/25 21:43 Narrative Exam Physical Exam: General: Alert, no acute distress. Skin: Warm, dry, intact, no obvious rash. Head: Normocephalic, atraumatic. Eye: Normal conjunctiva, PERRL. Cardiovascular: Regular rate and rhythm, no murmur, +S1/S2. Respiratory: Lungs are clear to auscultation, respirations unlabored, no crackles, no wheezing. Gastrointestinal: Soft, nontender, non-distended. No guarding or rebound tenderness. Extremities: 1+ edema, right proximal arm and distal forearm swollen, no cyanosis, no clubbing. 2+ radial pulse bilaterally, 2+ posterior tibial pulse bilaterally. Neuro: No focal deficits observed. Conversant, moving all extremities. No overt cerebellar signs/incoordination. Psychiatric: Cooperative, appropriate affect. Objective Labs 04/23/25 17:42 04/23/25 04:17 Labs: Laboratory Results - last 24 hr 04/21/25 04/22/25 05:39 05:49 WBC 8.1 RBC 2.76 L Hgb 8.2 L Hct 25.3 L MCV 92 MCH 29.7 MCHC 32.4 RDW Std Deviation 42.5 Plt Count 223 Neut % (Auto) 71 Lymph % (Auto) 15 [place] % (Auto) 7 Eos % (Auto) 5 Baso % (Auto) 0 Neut # (Auto) 5.8 Lymph # (Auto) 1.2 [place] # (Auto) 0.6 Eos # (Auto) 0.4 Baso # (Auto) 0.0 Immature Gran # (Auto) 0.05 H Absolute Nucleated RBC 0.00 Immature Gran % 1 H Nucleated RBC % 0 Sodium 131 L Potassium 4.2 Chloride 94 L Carbon Dioxide 27.0 Anion Gap 10 BUN 50 H Creatinine 10.1 H* Estim Creat Clear Calc 5.5 L eGFR 4 L* BUN/Creatinine Ratio 5 L Glucose 254 H D Calculated Osmolality 284 Calcium 7.9 L Corrected Calcium 8.7 Phosphorus 5.7 H Magnesium 1.9 Iron 113 TIBC 189 L Iron Saturation 59 H Unsat Iron Binding 76 L Total Bilirubin 0.2 L AST 19 ALT 19 Alkaline Phosphatase 93 Total Protein 6.3 Albumin 3.0 L Globulin 3.3 Albumin/Globulin Ratio 0.9 L Vitamin B12 1093 H Folate > 24.00 Quality Measures Quality Measures VTE prophylaxis Assessment & Plan Assessment Current Active Medications: Generic Name Dose Route Start Last Admin Trade Name Freq PRN Reason Stop Dose Admin Acetaminophen 650 mg 04/19/25 20:54 Acetaminophen 325 Mg Tablet PO 05/19/25 20:53 Q6H PRN pain 1-3 &/or fever >100.1 Amlodipine Besylate 10 mg 04/21/25 08:00 04/22/25 08:11 Amlodipine Besylate 5 Mg Tablet PO 05/21/25 07:59 10 mg QDAY TIFFANI Administration Aspirin 81 mg 04/20/25 00:15 04/22/25 08:11 Aspirin Ec 81 Mg Tabec PO 05/20/25 00:14 81 mg QDAY TIFFANI Administration Atorvastatin Calcium 80 mg 04/20/25 00:15 04/21/25 20:14 Atorvastatin Calcium 20 Mg Tablet PO 05/20/25 00:14 80 mg HS TIFFANI Administration Carvedilol 25 mg 04/21/25 21:00 04/22/25 08:11 Carvedilol 12.5 Mg Tablet PO 05/21/25 20:59 25 mg BID TIFFANI Administration Clonidine 0.1 mg 04/21/25 14:00 04/22/25 05:14 Clonidine Hcl 0.1 Mg Tablet PO 05/21/25 13:59 0.1 mg TID TIFFANI Administration Clopidogrel Bisulfate 75 mg 04/20/25 21:00 04/22/25 08:11 Clopidogrel Bisulfate 75 Mg Tablet PO 05/20/25 20:59 75 mg QDAY TIFFANI Administration Cyclobenzaprine HCl 5 mg 04/20/25 08:07 Cyclobenzaprine 5 Mg Tablet PO 05/20/25 08:06 TID PRN MUSCLE SPASMS Dextrose 25 ml 04/19/25 23:52 Dextrose 50%-Water Inj 50 Ml Syringe IV 05/19/25 23:51 Q15MIN PRN BG 50-70 responsive npo pt Dextrose 50 ml 04/19/25 23:52 Dextrose 50%-Water Inj 50 Ml Syringe IV 05/19/25 23:51 Q15MIN PRN BG <50 OR BG <70 & pt unresponsive Glucagon 1 mg 04/19/25 23:52 Glucagon Inj 1 Mg Vial IM Q15MIN PRN BG <70, and no IV access Hydralazine HCl 25 mg 04/21/25 08:00 04/22/25 05:13 Hydralazine Hcl 25 Mg Tablet PO 05/21/25 07:59 25 mg TID TIFFANI Administration Insulin Glargine 10 unit 04/21/25 21:00 04/21/25 20:12 Insulin Glargine (Lantus) 5 Unit/0.05 Ml (Per 5 Units) SC 05/21/25 20:59 10 unit HS TIFFANI Administration Insulin Human Lispro 0 unit 04/21/25 15:39 04/22/25 08:09 Insulin Lispro (Admelog) 1 Unit/0.01 Ml Unit SC 05/20/25 07:29 4 unit AC TIFFANI Administration Protocol Labetalol HCl 10 mg 04/20/25 17:29 04/21/25 08:01 Labetalol Inj 5 Mg/Ml Vial 20 Ml IVP 05/20/25 17:28 10 mg Q2H PRN Administration SBP>180 Ondansetron HCl 4 mg 04/19/25 20:54 04/21/25 08:06 Ondansetron Inj 2 Mg/Ml Inj 2 Ml IVP 05/19/25 20:53 4 mg Q6H PRN Administration NAUSEA OR VOMITING Protocol Sennosides 1 tab 04/19/25 20:54 04/21/25 20:14 Senna Tablet PO 05/19/25 20:53 1 tab QDAY PRN Administration constipation Protocol Sertraline HCl 25 mg 04/21/25 21:00 04/21/25 20:15 Sertraline Hcl 25 Mg Tablet PO 05/21/25 20:59 25 mg HS TIFFANI Administration Valsartan 160 mg 04/21/25 08:00 04/22/25 08:10 Valsartan 40 Mg Tablet PO 05/21/25 07:59 160 mg BID TIFFANI Administration Vitamin B Complex/Vit C/Folic Acid 1 tab 04/20/25 09:00 04/22/25 08:11 Vit B12/Vit C/Fa (Nephrovite) Tablet PO 05/20/25 08:59 1 tab QDAY TIFFANI Administration Plan Mrs. Small is a 59 year old lady with a relevant medical history of ESRD on peritoneal dialysis (followed by Dr. Crews), anemia, T2DM, and HLD who presents with facial numbness . The patient was recently discharged from [facility] on 04/18 for similar complaints. Nephrology was consulted due to the patient's history of being on dialysis. #ESRD on peritoneal dialysis nightly The patient is known to Dr. Crews and is on the kidney transplant waitlist. Her BUN, Cr, and eGFR on admission were 50, 9.8, and 4 respectively. She missed one night of dialysis on 04/19. - Restarted peritoneal dialysis nightly. - Continue to monitor renal function. - Avoid nephrotoxic drugs. Patient was discussed with the Nephrology attending, Dr. Greenberg. Thank you for allowing us to participate in the care of this patient. Lester Rouse, PGY-1 Attending Provider Attestation/Addendum Pt is seen and examined. labs and investigations are reviewed. Agree with assessment and plan and findings by resident. Junito Greenberg MD
[2025-04-22] MEDS: levETIRAcetam LIQD 500 MG/5 ML UDC PO ×2 (14:55→20:39)
--- NOTE | 2025-04-22 16:08 | PC.NURSE ---
Discharge instructions done at bedside along with MD Quezada along with tests results reviewed. Per pt would like something to to help with BM prior to DC. MD will order and continue with DC upon daughters arrival for rock picker.
--- NOTE | 2025-04-22 16:18 | ESDS_ITS ---
<Statement entered by Demario Davis MD - 04/22/25 18:27> In summary: 59-year-old female PMHx of ESRD on PD HS, anemia, T2DM, HLD presenting with left-sided numbness and slurred speech, admitted for stroke workup. CT brain, CTA head/neck were negative for acute pathology. MRI brain was negative for acute pathology but did show chronic microvascular change consistent with findings from previous MRI. Subsequently started on PLAVIX, ASPIRIN, and high-dose statin. Cardiogram showed no PFO. EEG was abnormal, subsequently started on KEPPRA per neurology recommendations. Meanwhile she continued on PD with nephrology team. Her symptoms have resolved at the end of discharge. She was cleared by physical therapy. Blood pressure was significantly elevated on admission, but improved with hemodialysis and after resuming home meds. She had chronic normocytic anemia with Hgb around 7.5. Workup showed low iron stores, normal B12/folate, subsequently started on iron supplements. She remained stable throughout the hospital course. Recommendations: * Follow-up with PCP within 1-2 weeks of discharge. * Recommended follow-up with neurology within 1-2 weeks of discharge. * Continue taking KEPPRA 500 mg twice daily (NEW). * Continue taking ATORVASTATIN 80 mg daily. * Continue taking ASPIRIN 81 mg daily. * STOP taking HYDRALAZINE 25 mg since her blood pressure has been controlled without HYDRALAZINE. Discussed with PCP prior to resuming HYDRALAZINE. * Continue taking daily iron supplements. * Do not drive motor vehicle until you see your PCP or neurology. * Return to Emergency Room if symptoms persist, worsen, or new symptoms develop. * Continue taking medications as prescribed below. Case was discussed with attending physician. Demario Davis DO PGY II This document was transcribed using voice recognition technology. Minor inaccuracies may be present. Planned Discharge Date 04/22/25 DS: Providers Provider Date of admission: 04/21/25 07:43 Primary care physician: POLA Barrera Admitting Provider: Aguilar Jimenes MD Attending Provider on Admission: Lupe Gorman MD Consults: 04/19/25 17:56 Consult to Neurology / Tele-Neurology Routine Comment: Consulting Provider: [facility] 04/19/25 21:12 Consult to Neurology / Tele-Neurology Routine Comment: Consulting Provider: Adan Hunt 04/20/25 08:08 Consult to Nephrology Routine Comment: PD Consulting Provider: Junito Greenberg 04/20/25 22:08 Referral Physical Therapy Routine Comment: Physician Instructions: Attending Provider on DC: Lupe Gorman MD Discharging Provider: Lupe Gorman MD DS: Diagnosis Problem List Completed Was Problem List Reviewed/Reconciled?: Yes Hospital Course Hospital Course Hospital course: Meme Small is a 59F with PMHx significant for peritoneal dialysis (follows Dr. Crews), anemia, DM2, and HLD who presented to the ED on 04/19/2025 c/o pain and numbness of left face/head, altered speech, and bilateral upper extremity weakness. Pt had been discharged from the hospital the day before after resolution of a previous similar presentation. Pt was started on Plavix, aspirin, and statin and admitted for stroke work up. In the light of negative imaging findings for infarct or hemorrhage, neurology consult posited the presenting symptoms to likely be secondary to hypertensive and/or toxic/metabolic encephalopathy. Patient had come in to ED with SBP >180 which was controlled with inpatient resume of her home antihypertensives. Pt hy perglycemia was controlled with sliding scale insulin and 10u of glargine at nights. EEG study demonstrated abnormal activity suggestive of seizures, and patient was started on Keppra. Meanwhile, patient underwent peritoneal dialysis daily in hospital by the nephrology team. At the time of discharge, patient presenting symptoms were resolved. Imaging: (1) CT brain wo contrast negative for gross hemorrhage, mass effect or midline shift. (2) CTA head and neck showed no significant neck arterial stenoses, no cerebral large vessel occlusions or thrombus. (3) MRI of brain: Negative for acute hemorrhage mass effect or midline shift. No acute infarct. Multiple foci increased signal in the white matter including in the brainstem and left cerebellar hemisphere, consider accelerated chronic microvascular white matter change as well as demyelinating disease. (4)Echocardiogram Bubble Study Negative for PFO/ASD. Consider SHAWNA if high index of clinical suspicion. Normal LV size and function.. Estimated EF 55%. Moderate LVH. Stage I diastolic dysfunction. Normal RV size and function. Normal RVSP at around 20 to 25 mmHg. Mild MAC with trace MR and AI. Mild TR. No Pericardial Effusion. (5)EEG: Abnormal. Localized spike and wave activity was noted in both frontal, temporal, and central areas suggestive of seizures. PATIENT INSTRUCTIONS: * Follow-up with PCP within 1-2 weeks of discharge. * Recommended follow-up with neurology within 1-2 weeks of discharge. * Continue taking KEPPRA 500 mg twice daily (NEW). * Continue taking ATORVASTATIN 80 mg daily. * Continue taking ASPIRIN 81 mg daily. * STOP taking HYDRALAZINE 25 mg since her blood pressure has been controlled without HYDRALAZINE. Discussed with PCP prior to resuming HYDRALAZINE. * Continue taking daily iron supplements. * Do not drive motor vehicle until you see your PCP or neurology. * Return to Emergency Room if symptoms persist, worsen, or new symptoms develop. * Continue taking medications as prescribed below. ADMISSION DIAGNOSES: #Left facial numbness #Slow/dysarthric speech #Stroke-like symptoms, resolved #Hypertension #ESRD on PD #Anxiety #Chronic, normocytic anemia #Type 2 DM, insulin-dependent Case was discussed with attending physician, Dr. Gorman, and senior resident Dr. Davis. Jacques Patel, DO PGY I This document was transcribed using voice recognition technology. Minor inaccuracies may be present. Status at Discharge Overall status at discharge: patient is back to baseline Time Spent with Patient Time attestation: Total time spent providing and/or coordinating discharge services: Time spent: Greater than 30 minutes Exam Vital Signs Temp Pulse Resp BP Pulse Ox O2 Del Method O2 Flow Rate 97.4 F 78 18 118/65 98 Room Air 2 04/22/25 12:00 04/22/25 14:54 04/22/25 12:00 04/22/25 14:54 04/22/25 12:00 04/22/25 12:00 04/19/25 21:43 Narrative Exam General: AOx3, no acute distress, no slurred speech HEENT: NC/AT, mucous membranes moist, bilateral sclera anicteric Cardiovascular: regular rate and rhythm, S1/S2 present, no murmurs appreciated Pulmonary: clear to auscultation bilaterally, no rales/rhonchi/wheezes Abdominal: soft, non-tender, non-distended, no rebound/guarding, bowel sounds present Musculoskeletal: normal ROM, no peripheral edema Extremities: trace edema in BLE, no cyanosis, no clubbing. 1+ radial pulse bilaterally, 1+ posterior tibial pulse bilaterally. Skin: warm and dry, intact, no rashes Neuro: - CN II-XII grossly intact, no focal deficits - Strength 5/5 in BUE and BLE. information engineer strength 4/5, able to move legs spontaneously. - Alert, following commands Discharge Plan Plan Patient Disposition: HOME (Self Care) Patient condition on transfer: Stable Health Concerns: In summary: 59-year-old female with pertinent PMHx of ESRD on PD, senting with left facial numbness and dysarthria, admitted for stroke workup. CT head and CTA head/neck were negative for acute pathology. Brain MRI showed chronic microvascular white matter change consistent with finding on previous visit, no acute changes. EEG was done and was abnormal. Echocardiogram showed no signs of PFO/ASD, EF 55%,, stage I diastolic dysfunction. Additionally, she was found to have resistant hypertension with BP max 200/110, which improved after resuming home med. We've discontinued home HYDRALAZINE on discharge, as blood pressure was softer after resuming meds. Recommended follow- up with nephrology. Her symptoms have improved since admission. She is independent based on physical therapy evaluation. Will discharge to home on ASPIRIN, statin, and KEPPRA. Advised against motor vehicle use until cleared by PCP. Case was discussed with attending physician. Deamrio Davis DO PGY II This document was transcribed using voice recognition technology. Minor inaccuracies may be present. Care Plan Goals: * Follow-up with PCP within 1-2 weeks of discharge. * Recommended follow-up with neurology within 1-2 weeks of discharge. * Continue taking KEPPRA 500 mg twice daily (NEW). * Continue taking ATORVASTATIN 80 mg daily. * Continue taking ASPIRIN 81 mg daily. * STOP taking HYDRALAZINE 25 mg since her blood pressure has been controlled without HYDRALAZINE. Discussed with PCP prior to resuming HYDRALAZINE. * Continue taking daily iron supplements. * Do not drive motor vehicle until you see your PCP or neurology. * Return to Emergency Room if symptoms persist, worsen, or new symptoms develop. * Continue taking medications as prescribed below. Seguimiento con arboleda m?dico de cabecera dentro de 1-2 semanas despu?s del lin. Seguimiento recomendado con neurolog?a dentro de 1-2 semanas despu?s del lin. Contin?e tomando KEPPRA 500 mg dos veces al d?a (NUEVO) Contin?e tomando ATORVASTATINA 80 mg al d?a Contin?e tomando ASPIRINA 81 mg al d?a DEJE de lanie HIDRALAZINA 25 mg, ya que arboleda presi?n arterial se perez controlado sin HIDRALAZINA. Se lo coment? a arboleda m?dico de cabecera antes de reanudar el tratamiento con HIDRALAZINA Contin?e tomando suplementos de jacquelin a diario No conduzca hasta que mary jane a arboleda m?dico de cabecera o a arboleda neur?logo Regrese a urgencias si los s?ntomas persisten, empeoran o aparecen nuevos Contin?e tomando los medicamentos seg?n lo prescrito a continuaci?n Prescriptions/Referrals Prescriptions/Med Rec: New levetiracetam 500 mg/5 mL (5 mL) Solution 500 mg PO BID Qty: 60 0RF Continued carvedilol 25 MG tablet 25 mg PO BID Qty: 0 amlodipine 5 mg Tablet 10 mg PO QDAY Ashley-Joanne 0.8 mg Tablet 1 tab PO QDAY insulin asp prt-insulin aspart [Novolog Mix 70-30FlexPen U-100] 100 unit/mL (70-30) insulin pen 10 unit SUBCUT QAM Patient Comments: INJECT 20UNITS SUBCUTANEOUSLY IN THE MORNING AND 5 UNITS SUBCUTANEOUSLY AT BEDTIME cyclobenzaprine 5 mg Tablet 5 mg PO BID famotidine 40 mg tablet 40 mg PO QDAY Patient Comments: TOME DANG TABLETA POR V A ORAL TODOS LOS D FOR ACID REFLUX sodium bicarbonate 325 mg tablet 325 mg PO BID Patient Comments: TAKE 1 TABLET BY MOUTH TWICE A DAY ferrous sulfate 325 mg (65 mg iron) tablet 325 mg PO TID Patient Comments: TOME DANG TABLETA POR LA BOCA DERECK VECES AL LINK ANTES DE LAS COMIDA valsartan 40 mg tablet 160 mg PO BID insulin asp prt-insulin aspart [Novolog Mix 70-30FlexPen U-100] 100 unit/mL (70-30) insulin pen 5 unit SUBCUT QPM furosemide 40 mg tablet 40 mg PO QAM ferric citrate [Auryxia] 210 mg iron tablet 210 mg PO TID Rx Instructions: administer with a meal aspirin 81 mg Tablet,Delayed Release (Dr/Ec) 81 mg PO QDAY 30 Days Qty: 30 0RF Patient Comments: New medication from last Discharged on 04/18/25. atorvastatin 80 mg tablet 80 mg PO HS 30 Days Qty: 30 0RF Patient Comments: New medication from last Discharged on 04/18/25. clonidine HCl 0.1 mg Tablet 0.1 mg PO TID 30 Days Qty: 90 0RF Patient Comments: New medication from last Discharged on 04/18/25. chlorthalidone 25 mg tablet 25 mg PO QDAY 30 Days Qty: 30 0RF Patient Comments: New medication from last Discharged on 04/18/25. Discontinued omeprazole 20 mg capsule,delayed release(DR/EC) 20 mg PO QDAY Patient Comments: TAKE 1 CAPSULE BY MOUTH EVERY DAY BEFORE A MEAL hydralazine 25 mg Tablet 25 mg PO TID 30 Days Qty: 90 0RF Patient Comments: New medication from last Discharged on 04/18/25. Referrals: Janelle Glaser FNP [Primary Care Provider] - Patient/Caregiver Discharge Instructions Discharge Activity: as per physical therapy Education Materials: 5 Steps for Eating Healthier, First Aid: Seizures, ED Seizure New Onset Unk Cause Ch, ED Seizure New Onset Unknown ..., ED Symptoms With Uncertain Cause Print Language: Micronesian Stand Alone Forms: Elicia Award Info., Patient Portal Info Letter Discharge Order Discharge Orders: Discharge (Routine); Ordered 04/22/25 Ordered By: Demario Davis Quality Discharge Quality Measures VTE prophylaxis Attestestation MD Attestation I attest that I was physically present for the evaluation, physical examination, lab and imaging review of the patient with the residents. I discussed the case with the residents and agree with the findings and plans of care as documented above. Lupe Gorman MD
--- NOTE | 2025-04-22 17:37 | ESCONSULT_ITS ---
HPI Data of Consult Requesting Physician: Lupe Gorman MD Admitting Provider: Aguilar Jimenes MD Attending Provider: Lupe Gorman MD Primary Care Provider: POLA Barrera Consult Narrative History of present illness: A 59-year-old female patient with a past medical history of end-stage renal disease on peritoneal dialysis, chronic diastolic CHF, hypertension, diabetes mellitus type 2, hyperlipidemia, diabetic nephropathy, diabetic retinopathy, anemia of chronic disease secondary to the kidney disease, cataract eye surgery in 2014 presented to the emergency department for further evaluation of pain and numbness of the left face and head along with some altered speech. Patient was admitted for further evaluation for possible stroke and teleneurology was consulted and eventually patient did have a CT head which was negative. CTA head and neck was also negative for any acute stenosis. No cerebral arterial occlusions noted. MRI was recommended which showed no evidence of any acute stroke but did show chronic microvascular changes to previous MRI. Patient was started on aspirin Plavix as well as statin. Echocardiogram was repeated during the admission and bubble study was negative for PFO and or ASD. Estimated EF is 55 to 60%. Moderate LVH stage I diastolic dysfunction, normal RV size and function, normal RVSP mild MAC with trace MR and AI. Mild TR no pericardial effusion. Patient was also hypertensive during this admission. EEG was also performed which was abnormal with low flow spike and wave activity in both frontotemporal as well as several areas history of seizures. Patient was started on Keppra by the neurology. Past medical history: As noted above Past surgical history: Cataract surgery along with surgery for uterine fibroids Family history: Diabetes for both mother and father Social history: Denies any kind of smoking alcohol or drug abuse and lives with her daughter. Allergies: No known drug allergies Travel history: None recently cc:: cc: Lupe Gorman MD Review of Systems Review of Systems Systems Reviewed: All systems reviewed, normal except as documented Past Medical History Past Medical History NEUROLOGIC: Negative Neurological Disorders or Seizures CARDIAC: Positive Cardiac Disorders, Hypercholesterolemia and Hypertension; Negative Congestive Heart Failure RESPIRATORY: Negative Chronic Obstructive Pulmonary Disease (COPD) GASTROINTESTINAL: Positive Gastrointestinal Disorders, Ulcer, Gastroesophageal Reflux Disease and Obesity GENITOURINARY: Positive Genitourinary Disorders, Renal Disease and Dialysis (peritoneal dialysis) REPRODUCTIVE: Positive Previous Pregnancies MUSCULOSKELETAL: Positive Musculoskeletal Disorders, Arthritis and Fractures ENT: Positive Cataracts, Blind and Retinal Detachment ENDOCRINE: Positive Endocrine Disorders and Diabetes Mellitus Type 2; Negative Diabetes Mellitus Type 1 HEMATOLOGIC: Positive Anemia; Negative Blood Disorders OTHER HISTORY: Positive Hospitalization, Blood Transfusions and Chicken Pox; Negative Autoimmune Disease, Shingles, Falls, Blood Transfusion Reaction, Anesthesia Reactions or Cancer Family History FAMILY HISTORY: Negative Family Psychiatric Problems, Family Respiratory Disorders, Family Cardiac Disorders, Family Gastrointestinal Problems, Family Cancer, Family Surgery or Family Anesthesia Reaction Surgical History SURGICAL: Positive Eye Surgery and Hysterectomy Social History SMOKING STATUS: Never smoker Exam Vital Signs Temp Pulse Resp BP Pulse Ox O2 Del Method O2 Flow Rate 97.6 F 72 18 141/72 H 95 Room Air 2 04/22/25 16:00 04/22/25 16:00 04/22/25 16:00 04/22/25 16:00 04/22/25 16:00 04/22/25 16:00 04/19/25 21:43 Results Labs 04/24/25 05:19 04/24/25 05:19 Labs: Short CBC 04/22/25 Range/Units 05:49 WBC 8.1 (3.6-11.0) Thou/mm3 Hgb 8.2 L (12.0-16.0) g/dL Hct 25.3 L (36.0-46.0) % Plt Count 223 (140-440) Thou/mm3 BMP 04/22/25 05:49 Sodium 131 L Potassium 4.2 Chloride 94 L Carbon Dioxide 27.0 BUN 50 H Creatinine 10.1 H* Glucose 254 H D Calcium 7.9 L Liver Function 04/22/25 Range/Units 05:49 Total Bilirubin 0.2 L (0.3-1.2) mg/dL AST 19 (0-34) U/L ALT 19 (10-49) U/L Alkaline Phosphatase 93 (46-116) U/L Albumin 3.0 L (3.4-4.8) gm/dL Quality Measures Quality Measures VTE prophylaxis Medications Home Medications and Allergies Home Medications ?Medication ?Instructions ?Recorded ?Confirmed ?Type carvedilol 25 mg tablet 25 mg PO BID ##0 01/03/13 History amlodipine 5 mg tablet 10 mg PO QDAY 04/29/1804/20 History ferrous sulfate 325 mg (65 mg 325 mg PO TID 08/11/23 0 04/20/25 History iron) tablet insulin aspar prot-insulin aspart 5 unit subcut QPM 04/20/25 History 100 unit/mL (70-30) subcutaneous pen (Novolog Mix 70-30FlexPen U-100) sodium bicarbonate 325 mg tablet 325 mg PO BID 3 04/20/25 History valsartan 40 mg tablet 160 mg PO BID 08/11/2304/20 History cyclobenzaprine 5 mg tablet 5 mg PO BID 11/12/2304/20 History insulin aspar prot-insulin aspart 10 unit subcut QAM 0 11/12/23 04/20/25 History 100 unit/mL (70-30) subcutaneous pen (Novolog Mix 70-30FlexPen U-100) vitamin B complex-vitamin C-folic 1 tab PO QDAY 04/20/25 History acid 0.8 mg tablet (Ashley-Joanne) ferric citrate 210 mg iron tablet 210 mg PO TID 04/20/25 History (Auryxia) furosemide 40 mg tablet 40 mg PO QAM 04/15/25 History famotidine 40 mg tablet 40 mg PO QDAY acid reflux 04/20/25 History Allergies Allergy/AdvReac Type Severity Reaction Status Date / Time No Known Allergies Allergy Verified 04/20/25 20:54 Visit Medications Acetaminophen (Acetaminophen 325 Mg Tablet) 650 mg PO Q6H PRN PRN Reason: pain 1-3 &/or fever >100.1 Stop: 05/19/25 20:53 Amlodipine Besylate (Amlodipine Besylate 5 Mg Tablet) 10 mg PO QDAY [facility] Stop: 05/21/25 07:59 Last Admin: 04/22/25 08:11 Dose: 10 mg Aspirin (Aspirin Ec 81 Mg Tabec) 81 mg PO QDAY [facility] Stop: 05/20/25 00:14 Last Admin: 04/22/25 08:11 Dose: 81 mg Atorvastatin Calcium (Atorvastatin Calcium 20 Mg Tablet) 80 mg PO HS [facility] Stop: 05/20/25 00:14 Last Admin: 04/21/25 20:14 Dose: 80 mg Carvedilol (Carvedilol 12.5 Mg Tablet) 25 mg PO BID [facility] Stop: 05/21/25 20:59 Last Admin: 04/22/25 08:11 Dose: 25 mg Clonidine (Clonidine Hcl 0.1 Mg Tablet) 0.1 mg PO TID [facility] Stop: 05/21/25 13:59 Last Admin: 04/22/25 14:54 Dose: 0.1 mg Clopidogrel Bisulfate (Clopidogrel Bisulfate 75 Mg Tablet) 75 mg PO QDAY [facility] Stop: 05/20/25 20:59 Last Admin: 04/22/25 08:11 Dose: 75 mg Cyclobenzaprine HCl (Cyclobenzaprine 5 Mg Tablet) 5 mg PO TID PRN PRN Reason: MUSCLE SPASMS Stop: 05/20/25 08:06 Dextrose (Dextrose 50%-Water Inj 50 Ml Syringe) 25 ml IV Q15MIN PRN PRN Reason: BG 50-70 responsive npo pt Stop: 05/19/25 23:51 Dextrose (Dextrose 50%-Water Inj 50 Ml Syringe) 50 ml IV Q15MIN PRN PRN Reason: BG <50 OR BG <70 & pt unresponsive Stop: 05/19/25 23:51 Glucagon (Glucagon Inj 1 Mg Vial) 1 mg IM Q15MIN PRN PRN Reason: BG <70, and no IV access Hydralazine HCl (Hydralazine Hcl 25 Mg Tablet) 25 mg PO TID [facility] Stop: 05/21/25 07:59 Last Admin: 04/22/25 17:15 Dose: Not Given Insulin Glargine (Insulin Glargine (Lantus) 5 Unit/0.05 Ml (Per 5 Units)) 10 unit SC [facility] Stop: 05/21/25 20:59 Last Admin: 04/21/25 20:12 Dose: 10 unit Insulin Human Lispro (Insulin Lispro (Admelog) 1 Unit/0.01 Ml Unit) 0 unit SC [facility]; Protocol Stop: 05/20/25 07:29 Last Admin: 04/22/25 17:19 Dose: Not Given Labetalol HCl (Labetalol Inj 5 Mg/Ml Vial 20 Ml) 10 mg IVP Q2H PRN PRN Reason: SBP>180 Stop: 05/20/25 17:28 Last Admin: 04/21/25 08:01 Dose: 10 mg Levetiracetam (Levetiracetam Liqd 500 Mg/5 Ml Udc) 500 mg PO BID [facility] Stop: 05/22/25 14:44 Last Admin: 04/22/25 14:55 Dose: 500 mg Ondansetron HCl (Ondansetron Inj 2 Mg/Ml Inj 2 Ml) 4 mg IVP Q6H PRN; Protocol PRN Reason: NAUSEA OR VOMITING Stop: 05/19/25 20:53 Last Admin: 04/21/25 08:06 Dose: 4 mg Sennosides (Senna Tablet) 1 tab PO QDAY PRN; Protocol PRN Reason: constipation Stop: 05/19/25 20:53 Last Admin: 04/21/25 20:14 Dose: 1 tab Sertraline HCl (Sertraline Hcl 25 Mg Tablet) 25 mg PO HS [facility] Stop: 05/21/25 20:59 Last Admin: 04/21/25 20:15 Dose: 25 mg Valsartan (Valsartan 80 Mg Tablet) 160 mg PO BID [facility] Stop: 05/21/25 07:59 Vitamin B Complex/Vit C/Folic Acid (Vit B12/Vit C/Fa (Nephrovite) Tablet) 1 tab PO QDAY [facility] Stop: 05/20/25 08:59 Last Admin: 04/22/25 08:11 Dose: 1 tab Discontinued Medications Clopidogrel Bisulfate (Clopidogrel Bisulfate 75 Mg Tablet) 300 mg PO X1 ONE Stop: 04/19/25 21:15 Last Admin: 04/19/25 21:44 Dose: 300 mg Dextrose (Dextrose 50%-Water Inj 50 Ml Syringe) 25 ml IVP X1 ONE Stop: 04/19/25 19:36 Last Admin: 04/19/25 19:40 Dose: 25 ml Hydralazine HCl (Hydralazine Inj 20 Mg/Ml Vial) 20 mg IVP X1 ONE Stop: 04/19/25 20:56 Last Admin: 04/19/25 21:45 Dose: 20 mg Insulin Glargine (Insulin Glargine (Lantus) 5 Unit/0.05 Ml (Per 5 Units)) 5 unit SC [facility] Stop: 05/21/25 20:59 Insulin Human Lispro (Insulin Lispro (Admelog) 1 Unit/0.01 Ml Unit) 0 unit SC [facility]; Protocol Stop: 05/20/25 07:29 Last Admin: 04/21/25 11:29 Dose: 3 unit Lorazepam (Lorazepam 2 Mg/Ml Vial) 1 mg IVP X1 ONE Stop: 04/19/25 20:57 Last Admin: 04/19/25 21:44 Dose: 1 mg Morphine Sulfate (Morphine Sulf Inj 10 Mg/Ml Vial) 2 mg IVP X1 ONE Stop: 04/19/25 21:10 Last Admin: 04/19/25 21:47 Dose: 2 mg Polyethylene Glycol (Polyethylene Glycol 17 Gm Packet) 17 gm PO X1 ONE Stop: 04/22/25 16:08 Valsartan (Valsartan 40 Mg Tablet) 160 mg PO BID TIFFANI Stop: 05/21/25 07:59 Last Admin: 04/22/25 08:10 Dose: 160 mg Assessment & Plan Plan A 59-year-old female patient with a past medical history of end-stage renal disease on peritoneal dialysis, chronic diastolic CHF, hypertension, diabetes mellitus type 2, hyperlipidemia, diabetic nephropathy, diabetic retinopathy, anemia of chronic disease secondary to the kidney disease, cataract eye surgery in 2014 presented to the emergency department for further evaluation of pain and numbness of the left face and head along with some altered speech. 1. Acute encephalopathy-CVA ruled out 2. New onset seizure disorder 3. Hypertensive urgency 4. End-stage renal disease on peritoneal dialysis patient on transplant list 5. Chronic diastolic CHF 6. Diabetes mellitus type 2 7. Hyperlipidemia 8. Diabetic nephropathy as well as retinopathy 9. Chronic anemia secondary to the kidney disease 10. History of cataract eye surgery Patient was admitted for further evaluation for possible stroke and teleneurology was consulted and eventually patient did have a CT head which was negative. CTA head and neck was also negative for any acute stenosis. No cerebral arterial occlusions noted. MRI was recommended which showed no evidence of any acute stroke but did show chronic microvascular changes to previous MRI. Patient was started on aspirin Plavix as well as statin. Echocardiogram was repeated during the admission and bubble study was negative for PFO and or ASD. Estimated EF is 55 to 60%. Moderate LVH stage I diastolic dysfunction, normal RV size and function, normal RVSP mild MAC with trace MR and AI. Mild TR no pericardial effusion. EEG was also performed which was abnormal with low flow spike and wave activity in both frontotemporal as well as several areas history of seizures. Patient was started on Keppra by the neurology. Further workup as per neurology. Patient has a history of end-stage renal disease on peritoneal access for more than a year and he is on the transplant list and was referred to me for preoperative cardiac risk assessment. Patient was in the process of the workup and she was in the process to be scheduled for left and right heart cardiac catheterization as part of the transplant workup before she was admitted to the hospital. Family, patient wants all the cardiac workup completed including the cardiac catheterization. Patient recommended to follow-up again with me in the office and will reschedule the left and right heart cardiac catheterization as outpatient Patient denies any Chest pain or chest pressure with the present moment and troponins are negative. EKG also without any acute ST-T changes. Regarding hypertensive urgency. Her blood pressure has been well-controlled out patient on multiple medications including Coreg 25 mg twice daily and amlodipine 10 mg once daily, valsartan 160 mg twice daily. Patient is also on chlorthalidone 25 mg once daily and Lasix 40 mg twice daily. She was on clonidine as needed at home. Blood pressure was elevated on admission patient restarted on all medications except for the chlorthalidone, Lasix and hence we recommend to restart chlorthalidone 25 mg once daily. Started on clonidine 0.1 mg 3 times daily and continue for now and will titrate as outpatient as needed. Management of rest of the medical conditions as per primary team and other consultants. Thank you for the consult and allowing me to participate in the care of the patient. Cardiology will continue to follow. Dread Leach M.D. Interventional Cardiology
[2025-04-22] MEDS: POLYETHYLENE GLYCOL 17 GM PACKET PO (17:50)
--- NOTE | 2025-04-22 19:13 | ECHO_ITS ---
Transthoracic Echo Report Ht (in): 62 Wt (lb): 165 Exam Location: Echo Lab Status: Inpatient Golf Caddy: Griselda Torres Indications: Procedure Performed: BP: 201 / 110 HR: 102 Technical Quality: Adequate MEASUREMENTS (Male / Female) Normal Values 2D ECHO LV Diastolic Diameter PLAX 3.2 cm 4.2 - 5.9 / 3.9 - 5.3 cm LV Systolic Diameter PLAX 2.1 cm IVS Diastolic Thickness 1.6 cm 0.6 - 1.0 / 0.6 - 0.9 cm LVPW Diastolic Thickness 1.3 cm 0.6 - 1.0 / 0.6 - 0.9 cm LV Relative Wall Thickness 0.9 LVOT Diameter 1.4 cm LA Volume Index 41.7 cm?/m? 16 - 28 cm?/m? Ascending Aorta Diameter 2.7 cm M-MODE AV Cusp Separation MM 1.2 cm DOPPLER AV Peak Velocity 168.0 cm/s AV Peak Gradient 11.3 mmHg LVOT Peak Velocity 110.0 cm/s LVOT Peak Gradient 4.8 mmHg AV Area Cont Eq pk 1.0 cm? MV Area PHT 2.6 cm? Mitral E Point Velocity 92.6 cm/s Mitral A Point Velocity 108.0 cm/s Mitral E to A Ratio 0.9 LV E' Lateral Velocity 5.8 cm/s Mitral E to LV E' Lateral Ratio 16.0 LV E' Septal Velocity 4.0 cm/s Mitral E to LV E' Septal Ratio 23.0 TR Peak Velocity 227.0 cm/s TR Peak Gradient 20.6 mmHg PV Peak Velocity 114.0 cm/s PV Peak Gradient 5.2 mmHg FINDINGS Left Ventricle Normal left ventricular size and systolic function with no obvious regional wall motion abnormalities. Moderate left ventricular hypertrophy. The ejection fraction is visually estimated at 55 %. Diastology is indeterminate. Right Ventricle The right ventricle is normal in size and systolic function. The estimated right ventricular systolic pressure 20 mmHg. RAP 5mmHg. Left Atrium The left atrial cavity size is moderately increased. Right Atrium The right atrium is normal by two-dimensional imaging, color flow and Doppler imaging with no structural abnormalities, no thrombus formation present. Atrial Septum Bubble study negative for PFO/ASD. Aorta The aorta is normal by two-dimensional, color flow and Doppler interrogation. Mitral Valve Moderate mitral annulcar calcification without stenosis. Trace mitral regurgitation. Aortic Valve The aortic valve is trileaflet and normal by two-dimensional, color flow and Doppler interrogation. There is trace aortic regurgitation. Tricuspid Valve The tricuspid valve is normal by two-dimensional, color flow and Doppler interrogation. There is no significant tricuspid valve regurgitation. Pulmonic Valve The pulmonic valve is not well visualized. There is no significant pulmonic valve regurgitation. Vessels The pulmonary artery appears normal. The inferior vena cava pulmonary and hepatic veins appear normal. Pericardium The pericardium is normal by two-dimensional imaging. There is no significant pericardial effusion. CONCLUSIONS Indications: Stroke Bubble Study Negative for PFO/ASD. Consider SHAWNA if high index of clinical suspicion. Normal LV size and function.. Estimated EF 55%. Moderate LVH. Stage I diastolic dysfunction. Normal RV size and function. Normal RVSP at around 20 to 25 mmHg. Mild MAC with trace MR and AI. Mild TR. No Pericardial Effusion. Dread Leach (Electronically Signed) Final Date: 22 April 2025 13:28
--- NOTE | 2025-04-22 19:30 | PC.NURSE ---
Notified david matos pt will need dialysis services.dialysis nurse will be contacted. care handed to yue LABOY night nurse
[2025-04-22] MEDS: SERTRALINE HCL 25 MG TABLET PO (20:36)
[2025-04-22] MEDS: VALSARTAN 80 MG TABLET 160 MG PO (20:37)
[2025-04-22] MEDS: ATORVASTATIN CALCIUM 20 MG TABLET 80 MG PO (20:37)
[2025-04-22] MEDS: INSULIN GLARGINE (Lantus) 5 UNIT/0.05 ML (PER 5 UNITS) 10 UNIT SC (20:39)
--- NOTE | 2025-04-22 23:43 | VVPN_ITS ---
Telemedicine visit statement This visit was conducted with the use of phone was obtained on 04/22/25 at 2343. Documentation for date of: 04/22/25 Subjective Subjective Interval history: Patient is in medsrug, no issues/new symptoms reported, getting ready to get Peritoneal dialysis tonight. Virtual exam Vital Signs Temp Pulse Resp BP Pulse Ox O2 Del Method O2 Flow Rate 97.1 F 74 18 118/60 97 Room Air 2 04/22/25 20:00 04/22/25 22:33 04/22/25 22:33 04/22/25 21:46 04/22/25 20:00 04/22/25 20:00 04/19/25 21:43 Objective Labs 04/22/25 05:49 04/22/25 05:49 Labs: Laboratory Results - last 24 hr 04/22/25 05:49 WBC 8.1 RBC 2.76 L Hgb 8.2 L Hct 25.3 L MCV 92 MCH 29.7 MCHC 32.4 RDW Std Deviation 42.5 Plt Count 223 Neut % (Auto) 71 Lymph % (Auto) 15 [place] % (Auto) 7 Eos % (Auto) 5 Baso % (Auto) 0 Neut # (Auto) 5.8 Lymph # (Auto) 1.2 [place] # (Auto) 0.6 Eos # (Auto) 0.4 Baso # (Auto) 0.0 Immature Gran # (Auto) 0.05 H Absolute Nucleated RBC 0.00 Immature Gran % 1 H Nucleated RBC % 0 Sodium 131 L Potassium 4.2 Chloride 94 L Carbon Dioxide 27.0 Anion Gap 10 BUN 50 H Creatinine 10.1 H* Estim Creat Clear Calc 5.5 L eGFR 4 L* BUN/Creatinine Ratio 5 L Glucose 254 H D Calculated Osmolality 284 Calcium 7.9 L Corrected Calcium 8.7 Phosphorus 5.7 H Magnesium 1.9 Total Bilirubin 0.2 L AST 19 ALT 19 Alkaline Phosphatase 93 Total Protein 6.3 Albumin 3.0 L Globulin 3.3 Albumin/Globulin Ratio 0.9 L Assessment & Plan Assessment Hypertensive encephalopathy #Abnormal EEG No residual neuro deficits on exam Elevated BP with sBP 201 with N/V, resolved with BP management CT head w/o negative for hemorrhage, mass effect or midline shift. CTA head/neck showed no significant neck arterial stenoses, no cerebral large vessel occlusions or thrombus. MRI showed no hemorrhage or acute infarct, consistent with previous images of chronic microvascular white matter change. EEG: continues to be abnormal, suggestive of sz B12 elevated, folate WNL Plan: - start Keppra 500 mg bid - Continue ASA 81 mg daily - BP management per primary team. Goal sBP <180 - Nephro following -Stable for d/c home, no driving. -FU in 2 weeks. #Anxiety Anxiety may be contributing to elevated BP, as events are precluded by stressful events Plan: - continue Sertraline 25 mg daily.
[2025-04-23] VITALS (18 sets, daily range): BP systolic 122–138; BP diastolic 62–72; PULSE 15–73; RESP 15–96; TEMP 36.1–37.1; O2SAT 95–98
--- NOTE | 2025-04-23 04:08 | PC.NURSE ---
Patient was supposed to have peritoneal dialysis last night. Per house sup, machine is being used in the ED, no machine available. MD made aware. Patient was informed (Ilene LABOY translated for this nurse).
[2025-04-23 05:31] LABS: Basophils # (Auto) 0.0 Thou/mm3 (0.0-0.2); Basophils % (Auto) 0 % (0-2.5); Eosinophils # (Auto) 0.4 Thou/mm3 (0.0-0.5); Eosinophils % (Auto) 5 % (0-10); Hematocrit 21.3 % (36.0-46.0); Immature Granulocytes Auto 0.03 Thou/mm3 (0.00-0.00); Lymphocytes # (Auto) 1.7 Thou/mm3 (1.0-4.8); Lymphocytes % (Auto) 21 % (10-50); Mean Corpuscular HGB Conc 33.3 g/dl (31.0-37.0); Mean Corpuscular Hemoglobin 29.8 pg (25.0-35.0); Mean Corpuscular Volume 90 fL (80-100); Monocytes # (Auto) 0.7 Thou/mm3 (0.0-0.8); Monocytes % (Auto) 9 % (0-12); Neutrophils # (Auto) 5.1 Thou/mm3 (1.8-7.7); Neutrophils % (Auto) 64 % (37-80); Nucleated Red Blood Cell # 0.00 Thou/mm3 (0.00-0.00); Nucleated Red Blood Cell % 0 /100 WBC (0); Platelet Count 199 Thou/mm3 (140-440); RDW Standard Deviation 42.3 fL (36.4-46.3); Red Blood Count 2.38 Miln/mm3 (4.00-5.20); White Blood Count 8.0 Thou/mm3 (3.6-11.0)
[2025-04-23 05:33] LABS: Hemoglobin 7.1 g/dL (12.0-16.0)
[2025-04-23 06:19] LABS: Alanine Aminotransferase 18 U/L (10-49); Albumin, Serum 2.6 gm/dL (3.4-4.8); Albumin/Globulin Ratio 1.0 (1.2-2.2); Alkaline Phosphatase 80 U/L (46-116); Anion Gap 13 (7-16); Aspartate Amino Transferase 19 U/L (0-34); BUN/Creatinine Ratio 5 Ratio (12-20); Bilirubin,Total 0.2 mg/dL (0.3-1.2); Blood Urea Nitrogen 54 mg/dL (9-23); Calcium 7.5 mg/dL (8.3-10.6); Calcium (Corrected) 8.6 mg/dL (8.5-10.1); Carbon Dioxide 25.1 mMol/L (20.0-31.0); Chloride 93 mMol/L (98-107); Estimated Creatinine Clearance 5.3 mL/min (>60); Globulin 2.7 gm/dL (2.3-3.5); Glucose 100 mg/dL (74-106); Magnesium 1.8 mg/dL (1.6-2.6); Osmolality,Calculated 277 (275-295); Phosphorous 6.3 mg/dL (2.4-5.1); Potassium 4.6 mMol/L (3.4-5.1); Sodium 131 mMol/L (136-145); Total Protein 5.3 gm/dL (5.7-8.2); eGFR 4 See Note
[2025-04-23 06:24] LABS: Creatinine (Component) 10.6 mg/dL (0.6-1.3)
[2025-04-23] MEDS: VALSARTAN 80 MG TABLET 160 MG PO ×2 (09:15→20:33)
[2025-04-23] MEDS: VIT B12/Vit C/FA (Nephrovite) TABLET 1 TAB PO (09:16)
[2025-04-23] MEDS: levETIRAcetam LIQD 500 MG/5 ML UDC PO ×2 (09:16→20:34)
[2025-04-23] MEDS: ASPIRIN EC 81 MG TABEC PO (10:05)
[2025-04-23] MEDS: CLOPIDOGREL BISULFATE 75 MG TABLET PO (10:05)
--- NOTE | 2025-04-23 10:24 | PC.SS ---
Addendum entered by Alaina Donis 04/23/25 11:40: Per resident, pt is not d/c soon. Pt missed her dialysis last night and there's other concerns regarding her labs, so pt will remain today. No d/c at this time. Addendum entered by Alaina Donis 04/23/25 10:29: addendum to last note: Pt missed dialysis last night and because of this, pt stay another night or so. F/u with resident to confirm is needed. Original Note: Per rounding this morning, pts family informed staffing rn that they want to appeal the discharge. Per assigned Lety [phone] RN, pt may end of staying another few days due to labs not stabilized.
--- NOTE | 2025-04-23 17:00 | PD.IMPROG ---
Documentation for date of: 04/24/25 Subjective Subjective Interval history: Patient seen and examined at the bedside. No new cardiac complaints. Patient has not been feeling well since the starting the Keppra yesterday and hence the discharge was held. She is feeling better today but she does not feel that she is not ready for discharge yet. Blood pressure appears to be better controlled today in the 120-130 mm range after reintroduction of the clonidine. Okay to hold off on the chlorthalidone for now and will restart it as outpatient Exam Vital Signs Temp Pulse Resp BP Pulse Ox O2 Del Method O2 Flow Rate 97.2 F 63 15 125/63 95 Room Air 2 04/24/25 04:00 04/24/25 08:30 04/24/25 04:00 04/24/25 08:30 04/24/25 04:00 04/24/25 04:00 04/19/25 21:43 Narrative Exam General: Alert and oriented x3. In no acute distress. Eyes: Pupils are equal and reactive to light bilaterally. HEENT: Atraumatic, normocephalic. No JVD noted. Mucosa moist. Cardiovascular: Normal S1 and S2. Normal rate and regular rhythm. 2 out of 6 systolic murmur heard at the apex. No peripheral pitting edema noted. Respiratory: No respiratory distress. Lungs are clear to auscultation bilaterally. No wheezing or crackles heard. Abdomen: Soft, nontender, nondistended. PD catheter site clean Skin: No rash. Warm to touch. Musculoskeletal: No gross injuries. Able to move all 4 extremities. Neuro: Alert and oriented x3. No focal neuro deficits. Psych: Normal affect and mood Objective Labs 04/24/25 05:19 04/24/25 05:19 Labs: Laboratory Results - last 24 hr 04/23/25 04/23/25 04/24/25 11:00 17:42 05:19 WBC 6.9 RBC 2.53 L Hgb 8.1 L 7.6 L Hct 23.7 L 22.7 L MCV 90 MCH 30.0 MCHC 33.5 RDW Std Deviation 43.4 Plt Count 172 Neut % (Auto) 63 Lymph % (Auto) 21 [place] % (Auto) 10 Eos % (Auto) 6 Baso % (Auto) 0 Neut # (Auto) 4.4 Lymph # (Auto) 1.5 [place] # (Auto) 0.7 Eos # (Auto) 0.4 Baso # (Auto) 0.0 Immature Gran # (Auto) 0.03 H Absolute Nucleated RBC 0.00 Immature Gran % 0 Nucleated RBC % 0 Sodium 127 L Potassium 5.0 Chloride 92 L Carbon Dioxide 23.8 Anion Gap 11 BUN 55 H Creatinine 10.7 H* Estim Creat Clear Calc 5.2 L eGFR 4 L* BUN/Creatinine Ratio 5 L Glucose 127 H Calculated Osmolality 272 L Calcium 7.4 L Corrected Calcium 8.6 Phosphorus 6.3 H Magnesium 1.8 Total Bilirubin < 0.2 L AST 19 ALT 17 Alkaline Phosphatase 87 Total Protein 5.0 L Albumin 2.5 L Globulin 2.5 Albumin/Globulin Ratio 1.0 L Blood Type O Positive Antibody Screen NEGATIVE Crossmatch See Detail Blood Bank Wristband ID Yes Assessment & Plan A&P Narrative A 59-year-old female patient with a past medical history of end-stage renal disease on peritoneal dialysis, chronic diastolic CHF, hypertension, diabetes mellitus type 2, hyperlipidemia, diabetic nephropathy, diabetic retinopathy, anemia of chronic disease secondary to the kidney disease, cataract eye surgery in 2014 presented to the emergency department for further evaluation of pain and numbness of the left face and head along with some altered speech. 1. Acute encephalopathy-CVA ruled out 2. New onset seizure disorder 3. Hypertensive urgency 4. End-stage renal disease on peritoneal dialysis patient on transplant list 5. Chronic diastolic CHF 6. Diabetes mellitus type 2 7. Hyperlipidemia 8. Diabetic nephropathy as well as retinopathy 9. Chronic anemia secondary to the kidney disease 10. History of cataract eye surgery Patient was admitted for further evaluation for possible stroke and teleneurology was consulted and eventually patient did have a CT head which was negative. CTA head and neck was also negative for any acute stenosis. No cerebral arterial occlusions noted. MRI was recommended which showed no evidence of any acute stroke but did show chronic microvascular changes to previous MRI. Patient was started on aspirin Plavix as well as statin. Echocardiogram was repeated during the admission and bubble study was negative for PFO and or ASD. Estimated EF is 55 to 60%. Moderate LVH stage I diastolic dysfunction, normal RV size and function, normal RVSP mild MAC with trace MR and AI. Mild TR no pericardial effusion. EEG was also performed which was abnormal with low flow spike and wave activity in both frontotemporal as well as several areas history of seizures. Patient was started on Keppra by the neurology. Further workup as per neurology. Patient has a history of end-stage renal disease on peritoneal access for more than a year and he is on the transplant list and was referred to me for preoperative cardiac risk assessment. Patient was in the process of the workup and she was in the process to be scheduled for left and right heart cardiac catheterization as part of the transplant workup before she was admitted to the hospital. Family, patient wants all the cardiac workup completed including the cardiac catheterization. Patient recommended to follow-up again with me in the office and will reschedule the left and right heart cardiac catheterization as outpatient Patient denies any Chest pain or chest pressure with the present moment and troponins are negative. EKG also without any acute ST-T changes. Regarding hypertensive urgency. Her blood pressure has been well-controlled out patient on multiple medications including Coreg 25 mg twice daily and amlodipine 10 mg once daily, valsartan 160 mg twice daily. Patient is also on chlorthalidone 25 mg once daily and Lasix 40 mg twice daily. She was on clonidine as needed at home. Blood pressure was elevated on admission patient restarted on all medications except for the chlorthalidone, Lasix and hence we recommend to restart chlorthalidone 25 mg once daily. Started on clonidine 0.1 mg 3 times daily and continue for now and will titrate as outpatient as needed. Management of rest of the medical conditions as per primary team and other consultants. Thank you for the consult and allowing me to participate in the care of the patient. Cardiology will continue to follow. Dread Leach M.D. Interventional Cardiology Time Spent With Patient Time: Total time spent is greater than 50% in coordination of care (as documented) at patient's floor/unit and/or counseling patient:
[2025-04-23 17:55] LABS: Hematocrit 23.7 % (36.0-46.0)
[2025-04-23] MEDS: INSULIN LISPRO (AdmeLOG) 1 UNIT/0.01 ML UNIT SC (17:58)
[2025-04-23 18:02] LABS: Hemoglobin 8.1 g/dL (12.0-16.0)
[2025-04-23] MEDS: SERTRALINE HCL 25 MG TABLET PO (20:33)
[2025-04-23] MEDS: ATORVASTATIN CALCIUM 20 MG TABLET 80 MG PO (20:34)
--- NOTE | 2025-04-23 20:53 | ESPR_ITS ---
Documentation for date of: 04/23/25 Subjective Subjective Interval history: Patient examined at bedside today. No acute overnight events. Patient reports that she still feels weak. She reports that she is not ready to go home. She is wondering if she can get her PD dialysis today. No other complaints this time. Exam Vital Signs Temp Pulse Resp BP Pulse Ox O2 Del Method O2 Flow Rate 97.3 F 69 15 126/65 98 Room Air 2 04/23/25 20:00 04/23/25 20:33 04/23/25 20:00 04/23/25 20:33 04/23/25 20:00 04/23/25 20:00 04/19/25 21:43 Narrative Exam General: AOx3, no acute distress, no slurred speech HEENT: NC/AT, mucous membranes moist, bilateral sclera anicteric Cardiovascular: regular rate and rhythm, S1/S2 present, no murmurs appreciated Pulmonary: clear to auscultation bilaterally, no rales/rhonchi/wheezes Abdominal: soft, non-tender, non-distended, no rebound/guarding, bowel sounds present Musculoskeletal: normal ROM, no peripheral edema Extremities: trace edema in BLE, no cyanosis, no clubbing. 1+ radial pulse bilaterally, 1+ posterior tibial pulse bilaterally. Skin: warm and dry, intact, no rashes Neuro: - CN II-XII grossly intact, no focal deficits - Strength 5/5 in BUE and BLE. 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 - Alert, following commands Objective Labs 04/24/25 05:19 04/24/25 05:19 Labs: Laboratory Results - last 24 hr 04/23/25 04/23/25 04/23/25 04:17 11:00 17:42 WBC 8.0 RBC 2.38 L Hgb 7.1 L 8.1 L Hct 21.3 L* 23.7 L MCV 90 MCH 29.8 MCHC 33.3 RDW Std Deviation 42.3 Plt Count 199 Neut % (Auto) 64 Lymph % (Auto) 21 [place] % (Auto) 9 Eos % (Auto) 5 Baso % (Auto) 0 Neut # (Auto) 5.1 Lymph # (Auto) 1.7 [place] # (Auto) 0.7 Eos # (Auto) 0.4 Baso # (Auto) 0.0 Immature Gran # (Auto) 0.03 H Absolute Nucleated RBC 0.00 Immature Gran % 0 Nucleated RBC % 0 Sodium 131 L Potassium 4.6 Chloride 93 L Carbon Dioxide 25.1 Anion Gap 13 BUN 54 H Creatinine 10.6 H* D Estim Creat Clear Calc 5.3 L eGFR 4 L* BUN/Creatinine Ratio 5 L Glucose 100 D Calculated Osmolality 277 Calcium 7.5 L Corrected Calcium 8.6 Phosphorus 6.3 H Magnesium 1.8 Total Bilirubin 0.2 L AST 19 ALT 18 Alkaline Phosphatase 80 Total Protein 5.3 L Albumin 2.6 L Globulin 2.7 Albumin/Globulin Ratio 1.0 L Blood Type O Positive Antibody Screen NEGATIVE Crossmatch See Detail Blood Bank Wristband ID Yes Quality Measures Quality Measures VTE prophylaxis Assessment & Plan Assessment Current Active Medications: Generic Name Dose Route Start Last Admin Trade Name Freq PRN Reason Stop Dose Admin Acetaminophen 650 mg 04/19/25 20:54 Acetaminophen 325 Mg Tablet PO 05/19/25 20:53 Q6H PRN pain 1-3 &/or fever >100.1 Amlodipine Besylate 10 mg 04/21/25 08:00 04/23/25 09:16 Amlodipine Besylate 5 Mg Tablet PO 05/21/25 07:59 10 mg QDAY TIFFANI Administration Aspirin 81 mg 04/20/25 00:15 04/23/25 10:05 Aspirin Ec 81 Mg Tabec PO 05/20/25 00:14 81 mg QDAY TIFFANI Administration Atorvastatin Calcium 80 mg 04/20/25 00:15 04/23/25 20:34 Atorvastatin Calcium 20 Mg Tablet PO 05/20/25 00:14 80 mg HS TIFFANI Administration Carvedilol 25 mg 04/21/25 21:00 04/23/25 20:33 Carvedilol 12.5 Mg Tablet PO 05/21/25 20:59 25 mg BID TIFFANI Administration Clonidine 0.1 mg 04/21/25 14:00 04/23/25 14:41 Clonidine Hcl 0.1 Mg Tablet PO 05/21/25 13:59 0.1 mg TID TIFFANI Administration Clopidogrel Bisulfate 75 mg 04/20/25 21:00 04/23/25 10:05 Clopidogrel Bisulfate 75 Mg Tablet PO 05/20/25 20:59 75 mg QDAY TIFFANI Administration Cyclobenzaprine HCl 5 mg 04/20/25 08:07 Cyclobenzaprine 5 Mg Tablet PO 05/20/25 08:06 TID PRN MUSCLE SPASMS Dextrose 25 ml 04/19/25 23:52 Dextrose 50%-Water Inj 50 Ml Syringe IV 05/19/25 23:51 Q15MIN PRN BG 50-70 responsive npo pt Dextrose 50 ml 04/19/25 23:52 Dextrose 50%-Water Inj 50 Ml Syringe IV 05/19/25 23:51 Q15MIN PRN BG <50 OR BG <70 & pt unresponsive Glucagon 1 mg 04/19/25 23:52 Glucagon Inj 1 Mg Vial IM Q15MIN PRN BG <70, and no IV access Hydralazine HCl 25 mg 04/21/25 08:00 04/23/25 14:41 Hydralazine Hcl 25 Mg Tablet PO 05/21/25 07:59 25 mg TID TIFFANI Administration Insulin Glargine 10 unit 04/21/25 21:00 04/23/25 20:26 Insulin Glargine (Lantus) 5 Unit/0.05 Ml (Per 5 Units) SC 05/21/25 20:59 Not Given HS [facility] Insulin Human Lispro 0 unit 04/21/25 15:39 04/23/25 17:58 Insulin Lispro (Admelog) 1 Unit/0.01 Ml Unit SC 05/20/25 07:29 2 unit AC TIFFANI Administration Protocol Labetalol HCl 10 mg 04/20/25 17:29 04/21/25 08:01 Labetalol Inj 5 Mg/Ml Vial 20 Ml IVP 05/20/25 17:28 10 mg Q2H PRN Administration SBP>180 Levetiracetam 500 mg 04/22/25 14:45 04/23/25 20:34 Levetiracetam Liqd 500 Mg/5 Ml Udc PO 05/22/25 14:44 500 mg BID TIFFANI Administration Ondansetron HCl 4 mg 04/19/25 20:54 04/21/25 08:06 Ondansetron Inj 2 Mg/Ml Inj 2 Ml IVP 05/19/25 20:53 4 mg Q6H PRN Administration NAUSEA OR VOMITING Protocol Sennosides 1 tab 04/19/25 20:54 04/21/25 20:14 Senna Tablet PO 05/19/25 20:53 1 tab QDAY PRN Administration constipation Protocol Sertraline HCl 25 mg 04/21/25 21:00 04/23/25 20:33 Sertraline Hcl 25 Mg Tablet PO 05/21/25 20:59 25 mg HS TIFFANI Administration Valsartan 160 mg 04/22/25 21:00 04/23/25 20:33 Valsartan 80 Mg Tablet PO 05/21/25 07:59 160 mg BID TIFFANI Administration Vitamin B Complex/Vit C/Folic Acid 1 tab 04/20/25 09:00 04/23/25 09:16 Vit B12/Vit C/Fa (Nephrovite) Tablet PO 05/20/25 08:59 1 tab QDAY TIFFANI Administration Plan Assessment: Meme Small is a 59F pmhx significant for ESRD on PD (follows Dr. Crews), anemia, DM2, and HLD discharged 04/18 for similar presentation who is admitted for stroke workup. #Acute CVA, ruled out #Left facial numbness #Slow/dysarthric speech #Stroke-like symptoms, resolved Ddx includes CVA vs seizure vs hypertensive encephalopathy vs metabolic encephalopathy. Presented with left facial pain/numbness, slurred speech and bilateral upper extremity weakness beginning 7 AM with NIHSS 0. Similar presentation for recent admission 04/15 to 04/18 with resolution of symptoms upon discharge. No residual neuro deficits on exam (04/21) CT brain wo contrast negative for hemorrhage, mass effect, or midline shift. CTA head and neck showed no significant neck arterial stenoses, no cerebral large vessel occlusions or thrombus. NeuroTele was consulted and recommended MRI wo contrast, routine spot EEG. MRI of brain: Negative for acute hemorrhage mass effect or midline shift. No acute infarct. Multiple foci increased signal in the white matter including in the brainstem and left cerebellar hemisphere, consider accelerated chronic microvascular white matter change as well as demyelinating disease. Neurology consult: Most likely secondary to hypertensive encephalopathy vs toxic/metabolic encephalopathy (patient on peritoneal dialysis for ESRD). Recommendations as follows - Neurology recommendations: -- Repeat spot EEG to assess for continuation of abnormality -- Delirium precautions - s/p Plavix 300 mg loading dose, Plavix 75 QD for 21 days (12/10) - Continue ASA 81 mg QD and atorvastatin 80 mg QD -- BP management per primary team with labetolol PRN. Goal SBP <180 #Hypertension Elevated BP with SBP>180s Previous admission documented BP in 200s/100s. Patient received one dose of hydralazine in ED. Patient afebrile. UDS negative. TeleNeuro recommends to keep BP <180. Current BP 171/85. Plan: -continue home antihypertensive regiment --hydralazine HCl 25mg PO TID --clonidine 0.1mg PO TID --amlodipine 10mg PO Qday --valsartan 160mg PO BID - IV labetalol 10mg if BP >170 - Nephrology on board #ESRD on PD Follows with Dr. Crews outpatient. Last HD 04/15 and current K wnl. - Dr. Crews consulted, recommendations as follows The patient is known to Dr. Crews and is on the kidney transplant waitlist. Her BUN, Cr, and eGFR on admission were 50, 9.8, and 4 respectively. She missed one night of dialysis on 04/19. - Restart peritoneal dialysis nightly. - Continue to monitor renal function. - Avoid nephrotoxic drugs. - Nephrology will continue to follow. - Avoid nephrotoxic medication - PD dialysis tonight #Anxiety Anxiety may be contributing to elevated BP, as events are precluded by stressful events Plan: - Start Sertraline 25 mg daily. Does not require renal dosing adjustment. #Anemia of chronic disease #Acute blood loss anemia #Chronic, normocytic anemia Hx of ESRD, likely anemia of chronic disease Hgb around 7.0 which is baseline for her. Hgb 7.5 (04/21) Serum iron 113 wnl, iron saturation 59 (H), TIBC 189 (L) (04/21) vit B12 1093 (H), folate >24 wnl (04/21) Hgb 7.1 this AM, will transfuse because of CKD Plan: ? Transfuse 1 PRBC, trend post H and H #Type 2 DM, insulin-dependent HbA1c 6.0 on 04/16. glc 328 (AM 04/21) Plan: - SSI - insulin glargine 10u HS #Health Maintenance Disposition: Telemetry DVT prophylaxis: SCDs GI prophylaxis: Protonix Diet: Renal CODE STATUS: Full Patient seen and care discussed with my attending physician, Dr. Yudy Quezada, PGY-2 Attending Provider Attestation/Addendum 59-year-old female who was admitted for strokelike symptoms. MRI of the brain showed no infarction no hemorrhage no midline shift. Patient is anemic with a creatinine 0.1. The patient will receive PRBC transfusion. I discussed with and supervised the resident physician who took care of this patient. I agree with the assessment and plan as above.
--- NOTE | 2025-04-23 23:59 | PD.VPROG1 ---
Telemedicine visit statement This visit was conducted with the use of phone was obtained on 04/23/25 at 2359. Documentation for date of: 04/23/25 Subjective Subjective Interval history: Patient is in medsrug, no issues/new symptoms reported, stayed in patient for the blood transfusion for low HGB and got Peritoneal dialysis tonight. Virtual exam Vital Signs Temp Pulse Resp BP Pulse Ox O2 Del Method O2 Flow Rate 97.3 F 71 15 136/68 H 98 Room Air 2 04/23/25 20:00 04/23/25 21:31 04/23/25 20:00 04/23/25 21:31 04/23/25 20:00 04/23/25 20:00 04/19/25 21:43 Objective Labs 04/23/25 17:42 04/23/25 04:17 Labs: Laboratory Results - last 24 hr 04/23/25 04/23/25 04/23/25 04:17 11:00 17:42 WBC 8.0 RBC 2.38 L Hgb 7.1 L 8.1 L Hct 21.3 L* 23.7 L MCV 90 MCH 29.8 MCHC 33.3 RDW Std Deviation 42.3 Plt Count 199 Neut % (Auto) 64 Lymph % (Auto) 21 [place] % (Auto) 9 Eos % (Auto) 5 Baso % (Auto) 0 Neut # (Auto) 5.1 Lymph # (Auto) 1.7 [place] # (Auto) 0.7 Eos # (Auto) 0.4 Baso # (Auto) 0.0 Immature Gran # (Auto) 0.03 H Absolute Nucleated RBC 0.00 Immature Gran % 0 Nucleated RBC % 0 Sodium 131 L Potassium 4.6 Chloride 93 L Carbon Dioxide 25.1 Anion Gap 13 BUN 54 H Creatinine 10.6 H* D Estim Creat Clear Calc 5.3 L eGFR 4 L* BUN/Creatinine Ratio 5 L Glucose 100 D Calculated Osmolality 277 Calcium 7.5 L Corrected Calcium 8.6 Phosphorus 6.3 H Magnesium 1.8 Total Bilirubin 0.2 L AST 19 ALT 18 Alkaline Phosphatase 80 Total Protein 5.3 L Albumin 2.6 L Globulin 2.7 Albumin/Globulin Ratio 1.0 L Blood Type O Positive Antibody Screen NEGATIVE Crossmatch See Detail Blood Bank Wristband ID Yes Assessment & Plan Assessment Hypertensive encephalopathy #Abnormal EEG No residual neuro deficits on exam Elevated BP with sBP 201 with N/V, resolved with BP management CT head w/o negative for hemorrhage, mass effect or midline shift. CTA head/neck showed no significant neck arterial stenoses, no cerebral large vessel occlusions or thrombus. MRI showed no hemorrhage or acute infarct, consistent with previous images of chronic microvascular white matter change. EEG: continues to be abnormal, suggestive of sz B12 elevated, folate WNL Plan: - continue with Keppra 500 mg bid - Continue ASA 81 mg daily - BP management per primary team. Goal sBP <180 - Nephro following -Stable for d/c home, no driving. -FU in 2 weeks. #Anxiety Anxiety may be contributing to elevated BP, as events are precluded by stressful events Plan: - continue Sertraline 25 mg daily.
[2025-04-24] VITALS (9 sets, daily range): BP systolic 120–138; BP diastolic 56–65; PULSE 63–71; RESP 15–18; TEMP 36.1–36.3; O2SAT 95–98
[2025-04-24 06:16] LABS: Basophils # (Auto) 0.0 Thou/mm3 (0.0-0.2); Basophils % (Auto) 0 % (0-2.5); Eosinophils # (Auto) 0.4 Thou/mm3 (0.0-0.5); Eosinophils % (Auto) 6 % (0-10); Hematocrit 22.7 % (36.0-46.0); Immature Granulocytes Auto 0.03 Thou/mm3 (0.00-0.00); Lymphocytes # (Auto) 1.5 Thou/mm3 (1.0-4.8); Lymphocytes % (Auto) 21 % (10-50); Mean Corpuscular HGB Conc 33.5 g/dl (31.0-37.0); Mean Corpuscular Hemoglobin 30.0 pg (25.0-35.0); Mean Corpuscular Volume 90 fL (80-100); Monocytes # (Auto) 0.7 Thou/mm3 (0.0-0.8); Monocytes % (Auto) 10 % (0-12); Neutrophils # (Auto) 4.4 Thou/mm3 (1.8-7.7); Neutrophils % (Auto) 63 % (37-80); Nucleated Red Blood Cell # 0.00 Thou/mm3 (0.00-0.00); Nucleated Red Blood Cell % 0 /100 WBC (0); Platelet Count 172 Thou/mm3 (140-440); RDW Standard Deviation 43.4 fL (36.4-46.3); Red Blood Count 2.53 Miln/mm3 (4.00-5.20); White Blood Count 6.9 Thou/mm3 (3.6-11.0)
[2025-04-24 06:19] LABS: Hemoglobin 7.6 g/dL (12.0-16.0)
[2025-04-24 07:00] LABS: Alanine Aminotransferase 17 U/L (10-49); Albumin, Serum 2.5 gm/dL (3.4-4.8); Albumin/Globulin Ratio 1.0 (1.2-2.2); Alkaline Phosphatase 87 U/L (46-116); Anion Gap 11 (7-16); Aspartate Amino Transferase 19 U/L (0-34); BUN/Creatinine Ratio 5 Ratio (12-20); Bilirubin,Total < 0.2 mg/dL (0.3-1.2); Blood Urea Nitrogen 55 mg/dL (9-23); Calcium 7.4 mg/dL (8.3-10.6); Calcium (Corrected) 8.6 mg/dL (8.5-10.1); Carbon Dioxide 23.8 mMol/L (20.0-31.0); Chloride 92 mMol/L (98-107); Estimated Creatinine Clearance 5.2 mL/min (>60); Globulin 2.5 gm/dL (2.3-3.5); Glucose 127 mg/dL (74-106); Magnesium 1.8 mg/dL (1.6-2.6); Osmolality,Calculated 272 (275-295); Phosphorous 6.3 mg/dL (2.4-5.1); Potassium 5.0 mMol/L (3.4-5.1); Sodium 127 mMol/L (136-145); Total Protein 5.0 gm/dL (5.7-8.2); eGFR 4 See Note
[2025-04-24 07:01] LABS: Creatinine (Component) 10.7 mg/dL (0.6-1.3)
--- NOTE | 2025-04-24 07:57 | PD.RESPRO ---
Documentation for date of: 04/24/25 Subjective Subjective Interval history: Patient seen and examined at bedside today. No acute overnight events. Patient reports that she feels rested and decompressed today after having slept the majority of time yesterday. Produces urine as usual. However, pt reports fullness and bloating x4 days, has been having BM once every two days and of a smaller size. No other complaints. Denies bodily pain. Exam Vital Signs Temp Pulse Resp BP Pulse Ox O2 Del Method O2 Flow Rate 97.2 F 71 15 128/64 95 Room Air 2 04/24/25 04:00 04/24/25 05:34 04/24/25 04:00 04/24/25 05:34 04/24/25 04:00 04/24/25 04:00 04/19/25 21:43 Narrative Exam General: AOx3, no acute distress, no slurred speech HEENT: NC/AT, mucous membranes moist, bilateral sclera anicteric Cardiovascular: regular rate and rhythm, S1/S2 present, no murmurs appreciated Pulmonary: clear to auscultation bilaterally, no rales/rhonchi/wheezes Abdominal: soft, distended somewhat, non-tender, hardened/distended loops of bowel in LLQ. no rebound/guarding, bowel sounds present but soft. Musculoskeletal: normal ROM, no peripheral edema Extremities: trace edema in BLE, no cyanosis, no clubbing. 1+ radial pulse bilaterally, 1+ posterior tibial pulse bilaterally. Skin: warm and dry, intact, no rashes Neuro: - CN II-XII grossly intact, no focal deficits - Strength 5/5 in BUE and BLE. 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 - Alert, following commands Objective Labs 04/24/25 09:40 04/24/25 05:19 Labs: Laboratory Results - last 24 hr 04/23/25 04/23/25 04/24/25 11:00 17:42 05:19 WBC 6.9 RBC 2.53 L Hgb 8.1 L 7.6 L Hct 23.7 L 22.7 L MCV 90 MCH 30.0 MCHC 33.5 RDW Std Deviation 43.4 Plt Count 172 Neut % (Auto) 63 Lymph % (Auto) 21 [place] % (Auto) 10 Eos % (Auto) 6 Baso % (Auto) 0 Neut # (Auto) 4.4 Lymph # (Auto) 1.5 [place] # (Auto) 0.7 Eos # (Auto) 0.4 Baso # (Auto) 0.0 Immature Gran # (Auto) 0.03 H Absolute Nucleated RBC 0.00 Immature Gran % 0 Nucleated RBC % 0 Sodium 127 L Potassium 5.0 Chloride 92 L Carbon Dioxide 23.8 Anion Gap 11 BUN 55 H Creatinine 10.7 H* Estim Creat Clear Calc 5.2 L eGFR 4 L* BUN/Creatinine Ratio 5 L Glucose 127 H Calculated Osmolality 272 L Calcium 7.4 L Corrected Calcium 8.6 Phosphorus 6.3 H Magnesium 1.8 Total Bilirubin < 0.2 L AST 19 ALT 17 Alkaline Phosphatase 87 Total Protein 5.0 L Albumin 2.5 L Globulin 2.5 Albumin/Globulin Ratio 1.0 L Blood Type O Positive Antibody Screen NEGATIVE Crossmatch See Detail Blood Bank Wristband ID Yes Quality Measures Quality Measures VTE prophylaxis Assessment & Plan Assessment Current Active Medications: Generic Name Dose Route Start Last Admin Trade Name Freq PRN Reason Stop Dose Admin Acetaminophen 650 mg 04/19/25 20:54 Acetaminophen 325 Mg Tablet PO 05/19/25 20:53 Q6H PRN pain 1-3 &/or fever >100.1 Amlodipine Besylate 10 mg 04/21/25 08:00 04/23/25 09:16 Amlodipine Besylate 5 Mg Tablet PO 05/21/25 07:59 10 mg QDAY TIFFANI Administration Aspirin 81 mg 04/20/25 00:15 04/23/25 10:05 Aspirin Ec 81 Mg Tabec PO 05/20/25 00:14 81 mg QDAY TIFFANI Administration Atorvastatin Calcium 80 mg 04/20/25 00:15 04/23/25 20:34 Atorvastatin Calcium 20 Mg Tablet PO 05/20/25 00:14 80 mg HS TIFFANI Administration Carvedilol 25 mg 04/21/25 21:00 04/23/25 20:33 Carvedilol 12.5 Mg Tablet PO 05/21/25 20:59 25 mg BID TIFFANI Administration Clonidine 0.1 mg 04/21/25 14:00 04/24/25 05:34 Clonidine Hcl 0.1 Mg Tablet PO 05/21/25 13:59 0.1 mg TID TIFFANI Administration Clopidogrel Bisulfate 75 mg 04/20/25 21:00 04/23/25 10:05 Clopidogrel Bisulfate 75 Mg Tablet PO 05/20/25 20:59 75 mg QDAY TIFFANI Administration Cyclobenzaprine HCl 5 mg 04/20/25 08:07 Cyclobenzaprine 5 Mg Tablet PO 05/20/25 08:06 TID PRN MUSCLE SPASMS Dextrose 25 ml 04/19/25 23:52 Dextrose 50%-Water Inj 50 Ml Syringe IV 05/19/25 23:51 Q15MIN PRN BG 50-70 responsive npo pt Dextrose 50 ml 04/19/25 23:52 Dextrose 50%-Water Inj 50 Ml Syringe IV 05/19/25 23:51 Q15MIN PRN BG <50 OR BG <70 & pt unresponsive Glucagon 1 mg 04/19/25 23:52 Glucagon Inj 1 Mg Vial IM Q15MIN PRN BG <70, and no IV access Hydralazine HCl 25 mg 04/21/25 08:00 04/24/25 05:34 Hydralazine Hcl 25 Mg Tablet PO 05/21/25 07:59 25 mg TID TIFFANI Administration Insulin Glargine 10 unit 04/21/25 21:00 04/23/25 20:26 Insulin Glargine (Lantus) 5 Unit/0.05 Ml (Per 5 Units) SC 05/21/25 20:59 Not Given HS [facility] Insulin Human Lispro 0 unit 04/21/25 15:39 04/24/25 07:21 Insulin Lispro (Admelog) 1 Unit/0.01 Ml Unit SC 05/20/25 07:29 Not Given AC [facility] Protocol Labetalol HCl 10 mg 04/20/25 17:29 04/21/25 08:01 Labetalol Inj 5 Mg/Ml Vial 20 Ml IVP 05/20/25 17:28 10 mg Q2H PRN Administration SBP>180 Levetiracetam 500 mg 04/22/25 14:45 04/23/25 20:34 Levetiracetam Liqd 500 Mg/5 Ml Udc PO 05/22/25 14:44 500 mg BID TIFFANI Administration Ondansetron HCl 4 mg 04/19/25 20:54 04/21/25 08:06 Ondansetron Inj 2 Mg/Ml Inj 2 Ml IVP 05/19/25 20:53 4 mg Q6H PRN Administration NAUSEA OR VOMITING Protocol Pantoprazole Sodium 40 mg 04/24/25 09:00 Pantoprazole Inj 40 Mg Vial IVP 05/24/25 08:59 QDAY TIFFANI Sennosides 1 tab 04/19/25 20:54 04/21/25 20:14 Senna Tablet PO 05/19/25 20:53 1 tab QDAY PRN Administration constipation Protocol Sertraline HCl 25 mg 04/21/25 21:00 04/23/25 20:33 Sertraline Hcl 25 Mg Tablet PO 05/21/25 20:59 25 mg HS TIFFANI Administration Valsartan 160 mg 04/22/25 21:00 04/23/25 20:33 Valsartan 80 Mg Tablet PO 05/21/25 07:59 160 mg BID TIFFANI Administration Vitamin B Complex/Vit C/Folic Acid 1 tab 04/20/25 09:00 04/23/25 09:16 Vit B12/Vit C/Fa (Nephrovite) Tablet PO 05/20/25 08:59 1 tab QDAY TIFFANI Administration Plan Assessment: Meme Small is a 59F pmhx significant for ESRD on PD (follows Dr. Crews), anemia, DM2, and HLD discharged 04/18 for similar presentation who is admitted for stroke workup. #Acute CVA, ruled out #Left facial numbness #Slow/dysarthric speech #Stroke-like symptoms, resolved Ddx includes CVA vs seizure vs hypertensive encephalopathy vs metabolic encephalopathy. Presented with left facial pain/numbness, slurred speech and bilateral upper extremity weakness beginning 7/1 AM with NIHSS 0. Similar presentation for recent admission 04/15 to 04/18 with resolution of symptoms upon discharge. No residual neuro deficits on exam (04/21) CT brain wo contrast negative for hemorrhage, mass effect, or midline shift. CTA head and neck showed no significant neck arterial stenoses, no cerebral large vessel occlusions or thrombus. NeuroTele was consulted and recommended MRI wo contrast, routine spot EEG. MRI of brain: Negative for acute hemorrhage mass effect or midline shift. No acute infarct. Multiple foci increased signal in the white matter including in the brainstem and left cerebellar hemisphere, consider accelerated chronic microvascular white matter change as well as demyelinating disease. Neurology consult: Most likely secondary to hypertensive encephalopathy vs toxic/metabolic encephalopathy (patient on peritoneal dialysis for ESRD). Recommendations as follows - Neurology recommendations: -- Repeat spot EEG to assess for continuation of abnormality -- Delirium precautions - s/p Plavix 300 mg loading dose, Plavix 75 QD for 21 days (12/10) - Continue ASA 81 mg QD and atorvastatin 80 mg QD -- BP management per primary team with labetolol PRN. Goal SBP <180 #Hypertension Elevated BP with SBP>180s Previous admission documented BP in 200s/100s. Patient received one dose of hydralazine in ED. Patient afebrile. UDS negative. TeleNeuro recommends to keep BP <180. Current BP 171/85. BP 125/60 (04/24) Plan: -continue home antihypertensive regiment --hydralazine HCl 25mg PO TID --clonidine 0.1mg PO TID --amlodipine 10mg PO Qday --valsartan 160mg PO BID - IV labetalol 10mg if BP >170 - Nephrology on board #ESRD on PD Follows with Dr. Crews outpatient. Last HD 04/15 and current K wnl. - Dr. Crews consulted, recommendations as follows The patient is known to Dr. Crews and is on the kidney transplant waitlist. Her BUN, Cr, and eGFR on admission were 50, 9.8, and 4 respectively. She missed one night of dialysis on 04/19. - Restart peritoneal dialysis nightly. - Continue to monitor renal function. - Avoid nephrotoxic drugs. - Nephrology will continue to follow. - Avoid nephrotoxic medication - PD dialysis tonight #Anxiety Anxiety may be contributing to elevated BP, as events are precluded by stressful events Plan: - Start Sertraline 25 mg daily. Does not require renal dosing adjustment. #Anemia of chronic disease #Acute blood loss anemia #Chronic, normocytic anemia Hx of ESRD, likely anemia of chronic disease Serum iron 113 wnl, iron saturation 59 (H), TIBC 189 (L) (04/21) vit B12 1093 (H), folate >24 wnl (04/21) Hgb 7.1 (04/23). Patient has CKD. After administration of 1 unit of pRBC, Hgb (04/24) Plan: ? Transfuse 1 PRBC, trend post H and H #Type 2 DM, insulin-dependent HbA1c 6.0 on 04/16. glc 328 (AM 04/21) Plan: - SSI - insulin glargine 10u HS #Health Maintenance Disposition: Telemetry DVT prophylaxis: SCDs GI prophylaxis: Protonix Diet: Renal CODE STATUS: Full Case was discussed with attending physician, Dr Shook, and senior resident Dr Davis. Jacques Patel, DO PGY I
[2025-04-24] MEDS: levETIRAcetam LIQD 500 MG/5 ML UDC PO (08:27)
[2025-04-24] MEDS: VALSARTAN 80 MG TABLET 160 MG PO (08:28)
[2025-04-24] MEDS: VIT B12/Vit C/FA (Nephrovite) TABLET 1 TAB PO (08:30)
[2025-04-24] MEDS: ASPIRIN EC 81 MG TABEC PO (08:30)
[2025-04-24] MEDS: CLOPIDOGREL BISULFATE 75 MG TABLET PO (08:30)
[2025-04-24 10:04] LABS: Hematocrit 23.3 % (36.0-46.0)
[2025-04-24 10:08] LABS: Hemoglobin 7.8 g/dL (12.0-16.0)
--- NOTE | 2025-04-24 10:11 | PD.NEPHPROG ---
Documentation for date of: 04/24/25 Subjective Subjective Interval history: Pt is seen and examined no new complaints Exam Vital Signs Temp Pulse Resp BP Pulse Ox O2 Del Method O2 Flow Rate 97.3 F 63 16 125/63 96 Room Air 2 04/24/25 08:00 04/24/25 08:30 04/24/25 08:00 04/24/25 08:30 04/24/25 08:00 04/24/25 08:00 04/19/25 21:43 Narrative Exam heart s1, s2 chest CTA cristhian ext no edema Objective Labs 04/24/25 09:40 04/24/25 05:19 Labs: Laboratory Results - last 24 hr 04/23/25 04/23/25 04/24/25 11:00 17:42 05:19 WBC 6.9 RBC 2.53 L Hgb 8.1 L 7.6 L Hct 23.7 L 22.7 L MCV 90 MCH 30.0 MCHC 33.5 RDW Std Deviation 43.4 Plt Count 172 Neut % (Auto) 63 Lymph % (Auto) 21 [place] % (Auto) 10 Eos % (Auto) 6 Baso % (Auto) 0 Neut # (Auto) 4.4 Lymph # (Auto) 1.5 [place] # (Auto) 0.7 Eos # (Auto) 0.4 Baso # (Auto) 0.0 Immature Gran # (Auto) 0.03 H Absolute Nucleated RBC 0.00 Immature Gran % 0 Nucleated RBC % 0 Sodium 127 L Potassium 5.0 Chloride 92 L Carbon Dioxide 23.8 Anion Gap 11 BUN 55 H Creatinine 10.7 H* Estim Creat Clear Calc 5.2 L eGFR 4 L* BUN/Creatinine Ratio 5 L Glucose 127 H Calculated Osmolality 272 L Calcium 7.4 L Corrected Calcium 8.6 Phosphorus 6.3 H Magnesium 1.8 Total Bilirubin < 0.2 L AST 19 ALT 17 Alkaline Phosphatase 87 Total Protein 5.0 L Albumin 2.5 L Globulin 2.5 Albumin/Globulin Ratio 1.0 L Blood Type O Positive Antibody Screen NEGATIVE Crossmatch See Detail Blood Bank Wristband ID Yes 04/24/25 09:40 WBC RBC Hgb 7.8 L Hct 23.3 L MCV MCH MCHC RDW Std Deviation Plt Count Neut % (Auto) Lymph % (Auto) [place] % (Auto) Eos % (Auto) Baso % (Auto) Neut # (Auto) Lymph # (Auto) [place] # (Auto) Eos # (Auto) Baso # (Auto) Immature Gran # (Auto) Absolute Nucleated RBC Immature Gran % Nucleated RBC % Sodium Potassium Chloride Carbon Dioxide Anion Gap BUN Creatinine Estim Creat Clear Calc eGFR BUN/Creatinine Ratio Glucose Calculated Osmolality Calcium Corrected Calcium Phosphorus Magnesium Total Bilirubin AST ALT Alkaline Phosphatase Total Protein Albumin Globulin Albumin/Globulin Ratio Blood Type Antibody Screen Crossmatch Blood Bank Wristband ID Assessment & Plan Assessment and plan (1) ESRD (end stage renal disease): Status: Acute Assessment and plan: c/w PD
[2025-04-24] MEDS: EPOETIN ALFA-EPBX INJ 10,000 UNIT/ML VIAL (ESRD) 10000 UNIT SC (11:35)
--- NOTE | 2025-04-24 14:00 | ESPR_ITS ---
Documentation for date of: 04/23/25 Subjective Subjective Interval history: atient seen and examined at the bedside. No new cardiac complaints. Patient has not been feeling well since the starting the Keppra yesterday and hence the discharge was held. She is feeling better today but she does not feel that she is not ready for discharge yet. Blood pressure appears to be better controlled today in the 120-130 mm range after reintroduction of the clonidine. Okay to hold off on the chlorthalidone for now and will restart it as outpatient Recommended to follow-up with me in the clinics in 7 days and will plan for outpatient cardiac catheterization for a kidney transplant workup Exam Vital Signs Temp Pulse Resp BP Pulse Ox O2 Del Method O2 Flow Rate 97.0 F 66 18 120/56 L 97 Room Air 2 04/24/25 15:40 04/24/25 15:40 04/24/25 15:40 04/24/25 15:40 04/24/25 15:40 04/24/25 15:40 04/19/25 21:43 Narrative Exam General: Alert and oriented x3. In no acute distress. Eyes: Pupils are equal and reactive to light bilaterally. HEENT: Atraumatic, normocephalic. No JVD noted. Mucosa moist. Cardiovascular: Normal S1 and S2. Normal rate and regular rhythm. 2 out of 6 systolic murmur heard at the apex. No peripheral pitting edema noted. Respiratory: No respiratory distress. Lungs are clear to auscultation bilaterally. No wheezing or crackles heard. Abdomen: Soft, nontender, nondistended. PD catheter site clean Skin: No rash. Warm to touch. Musculoskeletal: No gross injuries. Able to move all 4 extremities. Neuro: Alert and oriented x3. No focal neuro deficits. Psych: Normal affect and mood Objective Labs 04/24/25 09:40 04/24/25 05:19 Labs: Laboratory Results - last 24 hr 04/23/25 04/24/25 04/24/25 11:00 05:19 09:40 WBC 6.9 RBC 2.53 L Hgb 7.6 L 7.8 L Hct 22.7 L 23.3 L MCV 90 MCH 30.0 MCHC 33.5 RDW Std Deviation 43.4 Plt Count 172 Neut % (Auto) 63 Lymph % (Auto) 21 [place] % (Auto) 10 Eos % (Auto) 6 Baso % (Auto) 0 Neut # (Auto) 4.4 Lymph # (Auto) 1.5 [place] # (Auto) 0.7 Eos # (Auto) 0.4 Baso # (Auto) 0.0 Immature Gran # (Auto) 0.03 H Absolute Nucleated RBC 0.00 Immature Gran % 0 Nucleated RBC % 0 Sodium 127 L Potassium 5.0 Chloride 92 L Carbon Dioxide 23.8 Anion Gap 11 BUN 55 H Creatinine 10.7 H* Estim Creat Clear Calc 5.2 L eGFR 4 L* BUN/Creatinine Ratio 5 L Glucose 127 H Calculated Osmolality 272 L Calcium 7.4 L Corrected Calcium 8.6 Phosphorus 6.3 H Magnesium 1.8 Total Bilirubin < 0.2 L AST 19 ALT 17 Alkaline Phosphatase 87 Total Protein 5.0 L Albumin 2.5 L Globulin 2.5 Albumin/Globulin Ratio 1.0 L Blood Type O Positive Antibody Screen NEGATIVE Crossmatch See Detail Blood Bank Wristband ID Yes Assessment & Plan A&P Narrative A 59-year-old female patient with a past medical history of end-stage renal disease on peritoneal dialysis, chronic diastolic CHF, hypertension, diabetes mellitus type 2, hyperlipidemia, diabetic nephropathy, diabetic retinopathy, anemia of chronic disease secondary to the kidney disease, cataract eye surgery in 2014 presented to the emergency department for further evaluation of pain and numbness of the left face and head along with some altered speech. 1. Acute encephalopathy-CVA ruled out 2. New onset seizure disorder 3. Hypertensive urgency 4. End-stage renal disease on peritoneal dialysis patient on transplant list 5. Chronic diastolic CHF 6. Diabetes mellitus type 2 7. Hyperlipidemia 8. Diabetic nephropathy as well as retinopathy 9. Chronic anemia secondary to the kidney disease 10. History of cataract eye surgery Patient was admitted for further evaluation for possible stroke and teleneurology was consulted and eventually patient did have a CT head which was negative. CTA head and neck was also negative for any acute stenosis. No cerebral arterial occlusions noted. MRI was recommended which showed no evidence of any acute stroke but did show chronic microvascular changes to previous MRI. Patient was started on aspirin Plavix as well as statin. Echocardiogram was repeated during the admission and bubble study was negative for PFO and or ASD. Estimated EF is 55 to 60%. Moderate LVH stage I diastolic dysfunction, normal RV size and function, normal RVSP mild MAC with trace MR and AI. Mild TR no pericardial effusion. EEG was also performed which was abnormal with low flow spike and wave activity in both frontotemporal as well as several areas history of seizures. Patient was started on Keppra by the neurology. Further workup as per neurology. Patient has a history of end-stage renal disease on peritoneal access for more than a year and he is on the transplant list and was referred to me for preoperative cardiac risk assessment. Patient was in the process of the workup and she was in the process to be scheduled for left and right heart cardiac catheterization as part of the transplant workup before she was admitted to the hospital. Family, patient wants all the cardiac workup completed including the cardiac catheterization. Patient recommended to follow-up again with me in the office in 7 days and will reschedule the left and right heart cardiac catheterization as outpatient Patient denies any Chest pain or chest pressure with the present moment and troponins are negative. EKG also without any acute ST-T changes. Regarding hypertensive urgency. Her blood pressure has been well-controlled out patient on multiple medications including Coreg 25 mg twice daily and amlodipine 10 mg once daily, valsartan 160 mg twice daily. Patient is also on chlorthalidone 25 mg once daily and Lasix 40 mg twice daily. She was on clonidine as needed at home. Blood pressure was elevated on admission patient restarted on all medications except for the chlorthalidone, Lasix and hence we recommend to restart chlorthalidone 25 mg once daily. Started on clonidine 0.1 mg 3 times daily and continue for now and will titrate as outpatient as needed. Management of rest of the medical conditions as per primary team and other consultants. Thank you for the consult and allowing me to participate in the care of the patient. Cardiology will continue to follow. Dread Leach M.D. Interventional Cardiology Time Spent With Patient Time: Total time spent is greater than 50% in coordination of care (as documented) at patient's floor/unit and/or counseling patient:
--- NOTE | 2025-04-24 14:33 | ESDS_ITS ---
Planned Discharge Date 04/24/25 DS: Providers Provider Date of admission: 04/21/25 07:43 Primary care physician: POLA Barrera Admitting Provider: Aguilar Jimenes MD Attending Provider on Admission: Lupe Gorman MD Consults: 04/19/25 17:56 Consult to Neurology / Tele-Neurology Routine Comment: Consulting Provider: [facility] 04/19/25 21:12 Consult to Neurology / Tele-Neurology Routine Comment: Consulting Provider: Adan Hunt 04/20/25 08:08 Consult to Nephrology Routine Comment: PD Consulting Provider: Junito Greenberg 04/20/25 22:08 Referral Physical Therapy Routine Comment: Physician Instructions: Attending Provider on DC: Aguilar Jimenes MD Discharging Provider: Aguilar Jimenes MD DS: Diagnosis Problem List Completed Was Problem List Reviewed/Reconciled?: Yes Hospital Course Hospital Course Hospital course: Meme Small is a 59F with PMHx significant for peritoneal dialysis (follows Dr. Crews), anemia, DM2, and HLD who presented to the ED on 04/19/2025 c/o pain and numbness of left face/head, altered speech, and bilateral upper extremity weakness. Pt had been discharged from the hospital the day before after resolution of a previous similar presentation. Pt initially started on Plavix, aspirin, and statin and admitted for stroke work up. Imaging were negative for acute pathology, including CT head, CTA neck/head and MRI. In the light of negative imaging findings for infarct or hemorrhage, neurology consult posited the presenting symptoms to likely be secondary to hypertensive and/or to xic/metabolic encephalopathy. Patient had come in to ED with SBP >180 which was controlled with inpatient resume of her home antihypertensives. Patient's Hgb dropped to 7.1 on 04/23/2025. Being a CKD patient, patient met requirement for blood transfusion. After receiving a unit of pRBC, her Hgb aneesh to 8.1. To further stimulate hematopoiesis, patient was administered one time shot of EPO. Furthermore, Pt hyperglycemia was controlled with sliding scale insulin and 10u of glargine at nights. Morning glucose were controlled with values of 100 and 127 on 04/23 and 04/24/2025. EEG study demonstrated abnormal activity suggestive of seizures, and patient was started on Keppra. Meanwhile, patient underwent peritoneal dialysis daily in hospital by the nephrology team. At the time of discharge, patient p resenting symptoms were resolved. Imaging: * CT brain wo contrast negative for gross hemorrhage, mass effect or midline shift. * CTA head and neck showed no significant neck arterial stenoses, no cerebral large vessel occlusions or thrombus. * MRI of brain: Negative for acute hemorrhage mass effect or midline shift. No acute infarct. * Multiple foci increased signal in the white matter including in the brainstem and left cerebellar hemisphere, consider accelerated chronic microvascular white matter change as well as demyelinating disease. * Echocardiogram Bubble Study Negative for PFO/ASD. Consider SHAWNA if high index of clinical suspicion. Normal LV size and function. Estimated EF 55%. Moderate LVH. Stage I diastolic dysfunction. Normal RV size and function. Normal RVSP at around 20 to 25 mmHg. Mild MAC with trace MR and AI. Mild TR. No Pericardial Effusion. * EEG: Abnormal. Localized spike and wave activity was noted in both frontal, temporal, and central areas suggestive of seizures. PATIENT INSTRUCTIONS: * Follow-up with PCP within 1-2 weeks of discharge. * Recommended follow-up with neurology within 1-2 weeks of discharge. * Continue taking KEPPRA 500 mg twice daily (NEW). * Continue taking ATORVASTATIN 80 mg daily. * Continue taking ASPIRIN 81 mg daily. * STOP taking HYDRALAZINE 25 mg since her blood pressure has been controlled without HYDRALAZINE. Discussed with PCP prior to resuming HYDRALAZINE. * Continue taking daily iron supplements. * Do not drive motor vehicle until you see your PCP or neurology. * Return to Emergency Room if symptoms persist, worsen, or new symptoms develop. * Continue taking medications as prescribed below. ADMISSION DIAGNOSES: #Left facial numbness #Slow/dysarthric speech #Stroke-like symptoms, resolved #Hypertension #ESRD on PD #Anxiety #Chronic, normocytic anemia #Type 2 DM, insulin-dependent Status at Discharge Overall status at discharge: patient is back to baseline Time Spent with Patient Time attestation: Total time spent providing and/or coordinating discharge services: Time spent: Greater than 30 minutes Exam Vital Signs Temp Pulse Resp BP Pulse Ox O2 Del Method O2 Flow Rate 97.1 F 66 18 125/60 98 Room Air 2 04/24/25 12:00 04/24/25 14:04 04/24/25 12:00 04/24/25 14:04 04/24/25 12:00 04/24/25 12:00 04/19/25 21:43 Narrative Exam General: AOx3, no acute distress, no slurred speech. HEENT: NC/AT, mucous membranes moist, bilateral sclera anicteric. Cardiovascular: regular rate and rhythm, S1/S2 present, no murmurs appreciated. Pulmonary: clear to auscultation bilaterally, no rales/rhonchi/wheezes. Abdominal: soft, distended somewhat, non-tender, no rebound/guarding, bowel sounds present but soft. Musculoskeletal: normal ROM, no peripheral edema. Extremities: trace edema in BLE, no cyanosis, no clubbing. 1+ radial pulse bilaterally, 1+ posterior tibial pulse bilaterally. Skin: warm and dry, intact, no rashes. Neuro: - CN II-XII grossly intact, no focal deficits. - Strength 5/5 in BUE and BLE. participant administrator strength 4/5, able to move legs spontaneously. - Alert, following commands Discharge Plan Plan Patient Disposition: HOME (Self Care) Patient condition on transfer: Stable Health Concerns: In summary: 59-year-old female with pertinent PMHx of ESRD on PD, senting with left facial numbness and dysarthria, admitted for stroke workup. CT head and CTA head/neck were negative for acute pathology. Brain MRI showed chronic microvascular white matter change consistent with finding on previous visit, no acute changes. EEG was done and was abnormal. Echocardiogram showed no signs of PFO/ASD, EF 55%,, stage I diastolic dysfunction. Additionally, she was found to have resistant hypertension with BP max 200/110, which improved after resuming home med. We've discontinued home HYDRALAZINE on discharge, as blood pressure was softer after resuming meds. Recommended follow- up with nephrology. Her symptoms have improved since admission. She is independent based on physical therapy evaluation. Will discharge to home on ASPIRIN, statin, and KEPPRA. Advised against motor vehicle use until cleared by PCP. Case was discussed with attending physician. Demario Davis DO PGY II This document was transcribed using voice recognition technology. Minor inaccuracies may be present. Care Plan Goals: * Follow-up with PCP within 1-2 weeks of discharge. * Recommended follow-up with neurology within 1-2 weeks of discharge. * Continue taking KEPPRA 500 mg twice daily (NEW). * Continue taking ATORVASTATIN 80 mg daily. * Continue taking ASPIRIN 81 mg daily. * STOP taking HYDRALAZINE 25 mg since her blood pressure has been controlled without HYDRALAZINE. Discussed with PCP prior to resuming HYDRALAZINE. * Continue taking daily iron supplements, please verify dose and quantity with your PCP. * Do not drive motor vehicle until you see your PCP or neurology. * Return to Emergency Room if symptoms persist, worsen, or new symptoms develop. * Continue taking medications as prescribed below. Seguimiento con arboleda m?dico de cabecera dentro de 1-2 semanas despu?s del lin. Seguimiento recomendado con neurolog?a dentro de 1-2 semanas despu?s del lin. Contin?e tomando KEPPRA 500 mg dos veces al d?a (NUEVO) Contin?e tomando ATORVASTATINA 80 mg al d?a Contin?e tomando ASPIRINA 81 mg al d?a DEJE de lanie HIDRALAZINA 25 mg, ya que arboleda presi?n arterial se perez controlado sin HIDRALAZINA. Se lo coment? a arboleda m?dico de cabecera antes de reanudar el tratamiento con HIDRALAZINA Contin?e tomando suplementos de jacquelin a diario No conduzca hasta que mary jane a arboleda m?dico de cabecera o a arboleda neur?logo Regrese a urgencias si los s?ntomas persisten, empeoran o aparecen nuevos Contin?e tomando los medicamentos seg?n lo prescrito a continuaci?n Prescriptions/Referrals Prescriptions/Med Rec: New levetiracetam 500 mg/5 mL (5 mL) Solution 500 mg PO BID Qty: 60 0RF Continued carvedilol 25 MG tablet 25 mg PO BID Qty: 0 amlodipine 5 mg Tablet 10 mg PO QDAY Ashley-Joanne 0.8 mg Tablet 1 tab PO QDAY insulin asp prt-insulin aspart [Novolog Mix 70-30FlexPen U-100] 100 unit/mL (70-30) insulin pen 10 unit SUBCUT QAM Patient Comments: INJECT 20UNITS SUBCUTANEOUSLY IN THE MORNING AND 5 UNITS SUBCUTANEOUSLY AT BEDTIME cyclobenzaprine 5 mg Tablet 5 mg PO BID famotidine 40 mg tablet 40 mg PO QDAY Patient Comments: TOME DANG TABLETA POR V A ORAL TODOS LOS D FOR ACID REFLUX sodium bicarbonate 325 mg tablet 325 mg PO BID Patient Comments: TAKE 1 TABLET BY MOUTH TWICE A DAY ferrous sulfate 325 mg (65 mg iron) tablet 325 mg PO TID Patient Comments: TOME DANG TABLETA POR LA BOCA DERECK VECES AL LINK ANTES DE LAS COMIDA valsartan 40 mg tablet 160 mg PO BID insulin asp prt-insulin aspart [Novolog Mix 70-30FlexPen U-100] 100 unit/mL (70-30) insulin pen 5 unit SUBCUT QPM furosemide 40 mg tablet 40 mg PO QAM ferric citrate [Auryxia] 210 mg iron tablet 210 mg PO TID Rx Instructions: administer with a meal aspirin 81 mg Tablet,Delayed Release (Dr/Ec) 81 mg PO QDAY 30 Days Qty: 30 0RF Patient Comments: New medication from last Discharged on 04/18/25. atorvastatin 80 mg tablet 80 mg PO HS 30 Days Qty: 30 0RF Patient Comments: New medication from last Discharged on 04/18/25. clonidine HCl 0.1 mg Tablet 0.1 mg PO TID 30 Days Qty: 90 0RF Patient Comments: New medication from last Discharged on 04/18/25. chlorthalidone 25 mg tablet 25 mg PO QDAY 30 Days Qty: 30 0RF Patient Comments: New medication from last Discharged on 04/18/25. Discontinued omeprazole 20 mg capsule,delayed release(DR/EC) 20 mg PO QDAY Patient Comments: TAKE 1 CAPSULE BY MOUTH EVERY DAY BEFORE A MEAL hydralazine 25 mg Tablet 25 mg PO TID 30 Days Qty: 90 0RF Patient Comments: New medication from last Discharged on 04/18/25. Referrals: Janelle Glaser FNP [Primary Care Provider] - Adan Hunt MD [Physician] - Jolly Crews MD [Physician] - Patient/Caregiver Discharge Instructions Discharge Activity: as per physical therapy Education Materials: 5 Steps for Eating Healthier, First Aid: Seizures, ED Seizure New Onset Unk Cause Ch, ED Seizure New Onset Unknown ..., ED Symptoms With Uncertain Cause Print Language: Greek Stand Alone Forms: Elicia Award Info., Patient Portal Info Letter Discharge Order Discharge Orders: Discharge (Routine); Ordered 04/24/25 Ordered By: Demario Davis Quality Discharge Quality Measures VTE prophylaxis Attestestation MD Attestation I discussed with and supervised the resident physician who took care of this patient. I agree with the assessment and discharge plan as above. Follow-up with PCP as scheduled. Return to the ER for recurrent symptoms.
--- NOTE | 2025-04-24 23:59 | ESPR_ITS ---
Documentation for date of: 04/24/25 Subjective Subjective Interval history: Patient was seen in [facility] today at the bedside. No new symptoms reported. She feels significantly better after the last unit of blood transfusion. She was seen sitting up and eating lunch. Exam - Neurology Vital Signs Temp Pulse Resp BP Pulse Ox O2 Del Method O2 Flow Rate 97.0 F 66 18 120/56 L 97 Room Air 2 04/24/25 15:40 04/24/25 15:40 04/24/25 15:40 04/24/25 15:40 04/24/25 15:40 04/24/25 15:40 04/19/25 21:43 Narrative Exam GENERAL APPEARANCE: Well hydrated, well-nourished in no acute distress. HEENT: Normocephalic, atraumatic, extraocular movements intact. Pupils: Equal reacting to light and accommodation NECK: Supple, no JVD or bruits. CARDIOVASULAR: Heart: S1, S2 heard, regular without S3-S4 or murmur no rubs or gallops. LUNGS/CHEST: Clear to auscultation bilaterally. No rails, rhonchi, or wheezing. Normal inspection. ABDOMEN: Soft, nontender, with normal bowel sounds. No pulsatile masses. No rebound, rigidity, or guarding. Normal inspection and palpation. EXTREMITIES: Normal inspection and palpation. No edema, clubbing or cyanosis. SKIN: Warm and dry without rashes. Normal inspection. MUSCULOSKELETAL: No cervical, thoracic, lumbar or midline bony tenderness. Normal inspection. NEURO: Alert, awake and oriented x3. Cranial nerves: II through XII grossly intact. Speech and language: Normal with no dysarthria or dysphasia. Motor system: Tone and bulk: Normal: Strength: 5 out of 5 in all 4 extremities; No pronator drift noted. Deep tendon reflexes: 2+ bilaterally symmetrical. Plantar reflex: Downgoing bilaterally. Sensory system: Intact to all modalities of sensation bilaterally. Coordination: Intact to llpyrf-ejas-ileic and lmxg-zrfb-kpkn test bilaterally. No ataxia, no dysmetria, or dysdiadochokinesia noted. No intention tremors noted. Gait: Normal. Toe, heel, tandem walk all are normal. Romberg: Negative. No signs of meningeal irritation noted. PSYCHIATRIC: Normal mood and affect. Objective Labs 04/24/25 09:40 04/24/25 05:19 Labs: Laboratory Results - last 24 hr 04/23/25 04/24/25 04/24/25 11:00 05:19 09:40 WBC 6.9 RBC 2.53 L Hgb 7.6 L 7.8 L Hct 22.7 L 23.3 L MCV 90 MCH 30.0 MCHC 33.5 RDW Std Deviation 43.4 Plt Count 172 Neut % (Auto) 63 Lymph % (Auto) 21 Clarke % (Auto) 10 Eos % (Auto) 6 Baso % (Auto) 0 Neut # (Auto) 4.4 Lymph # (Auto) 1.5 Clarke # (Auto) 0.7 Eos # (Auto) 0.4 Baso # (Auto) 0.0 Immature Gran # (Auto) 0.03 H Absolute Nucleated RBC 0.00 Immature Gran % 0 Nucleated RBC % 0 Sodium 127 L Potassium 5.0 Chloride 92 L Carbon Dioxide 23.8 Anion Gap 11 BUN 55 H Creatinine 10.7 H* Estim Creat Clear Calc 5.2 L eGFR 4 L* BUN/Creatinine Ratio 5 L Glucose 127 H Calculated Osmolality 272 L Calcium 7.4 L Corrected Calcium 8.6 Phosphorus 6.3 H Magnesium 1.8 Total Bilirubin < 0.2 L AST 19 ALT 17 Alkaline Phosphatase 87 Total Protein 5.0 L Albumin 2.5 L Globulin 2.5 Albumin/Globulin Ratio 1.0 L Blood Type O Positive Antibody Screen NEGATIVE Crossmatch See Detail Blood Bank Wristband ID Yes Assessment & Plan Additional Assessment & Plan Additional Plan: Hypertensive encephalopathy #Abnormal EEG No residual neuro deficits on exam Elevated BP with sBP 201 with N/V, resolved with BP management CT head w/o negative for hemorrhage, mass effect or midline shift. CTA head/neck showed no significant neck arterial stenoses, no cerebral large vessel occlusions or thrombus. MRI showed no hemorrhage or acute infarct, consistent with previous images of chronic microvascular white matter change. EEG: continues to be abnormal, suggestive of sz B12 elevated, folate WNL Plan: - continue with Keppra 500 mg bid - Continue ASA 81 mg daily - BP management per primary team. Goal sBP <180 - Nephro following -Stable for d/c home, no driving. -FU in 2 weeks. #Anxiety Anxiety may be contributing to elevated BP, as events are precluded by stressful events Plan: - continue Sertraline 25 mg daily. # Anemia: Improved hemoglobin after blood transfusion
== END 2025-04-24 15:56 | disposition home or self-care (01) | DRG 77 ==
LOC: SERX 19:24 → SERHOLD 22:34 → S3SX 04-21 07:49 → SERHOLD 04-21 21:14
PROVIDERS: Emergency Medicine; Admitting Provider Internal Medicine; Emergency Provider Emergency Medicine; PCP Registered Nurse Community Health; Visit Provider Student in an Organized Health Care Education/Training Program
DX: I67.4 Hypertensive encephalopathy (principal); N18.6 End stage renal disease; I13.2 Hypertensive heart and chronic kidney disease with heart failure and with stage 5 chronic kidney disease, or end stage renal disease; I50.32 Chronic diastolic (congestive) heart failure; D62 Acute posthemorrhagic anemia; R20.0 Anesthesia of skin; E78.5 Hyperlipidemia, unspecified; E11.22 Type 2 diabetes mellitus with diabetic chronic kidney disease; D63.1 Anemia in chronic kidney disease; Z79.82 Long term (current) use of aspirin; R94.01 Abnormal electroencephalogram [EEG]; F41.9 Anxiety disorder, unspecified; Z76.82 Awaiting organ transplant status; Z99.2 Dependence on renal dialysis; I16.0 Hypertensive urgency; G40.909 Epilepsy, unspecified, not intractable, without status epilepticus; E11.65 Type 2 diabetes mellitus with hyperglycemia; N27.1 Small kidney, bilateral; I1A.0 Resistant hypertension; E11.319 Type 2 diabetes mellitus with unspecified diabetic retinopathy without macular edema; Z79.02 Long term (current) use of antithrombotics/antiplatelets; Z79.4 Long term (current) use of insulin; Z79.899 Other long term (current) drug therapy; R47.1 Dysarthria and anarthria
CPT/HCPCS: 36415; 70450; 70496; 70498; 70544; 80048; 80053; 80061; 80076; 80307; 80320; 81001; 82140; 82607; 82746; 83036; 83540; 83550; 83735; 84100; 84484; 84703; 85014; 85018; 85025; 85610; 85730; 86850; 86900; 86901; 86923; 87081; 87086; 92610; 93005; 93225; 93306; 93975; 95816; 96374; 96375; 97162; 99291; A4649; G0378; J0360; J1815; J2060; J2270; J2405; J2470; J3490; P9016; Q5105; Q9967; A9270; G0480; J1920

== ENCOUNTER 2025-05-03 07:08 | Day surgery (SDC) | payer MEDICARE, MEDICAID, SELFPAY ==
--- NOTE | 2025-05-02 07:00 | EKG_ITS ---
[facility] Test Date: 2025-05-02 Pat Name: MATILDE GIANG Department: Room: - Gender: Female Environmental Project Manager: [place] : 1965 Requested By: Dread Leach Order Number: [id number] Reading MD: Dread Leach Measurements Intervals [place] Rate: 60 P: 9 [place]: 193 QRS: -14 QRSD: 100 T: 43 QT: 481 QTc: 481 Interpretive Statements SINUS RHYTHM LOW QRS VOLTAGE IN PRECORDIAL LEADS [QRS DEFLECTION < 1.0 mV IN CHEST LEADS] PROLONGED QT INTERVAL Compared to ECG 04/19/2025 18:55:44 Low QRS voltage now present Prolonged QT interval now present /store/S0/[id number]/[id number].pdf
[2025-05-02 12:33] LABS: Basophils # (Auto) 0.0 Thou/mm3 (0.0-0.2); Basophils % (Auto) 0 % (0-2.5); Eosinophils # (Auto) 0.5 Thou/mm3 (0.0-0.5); Eosinophils % (Auto) 9 % (0-10); Hematocrit 24.3 % (36.0-46.0); Immature Granulocytes Auto 0.02 Thou/mm3 (0.00-0.00); Lymphocytes # (Auto) 1.0 Thou/mm3 (1.0-4.8); Lymphocytes % (Auto) 18 % (10-50); Mean Corpuscular HGB Conc 33.3 g/dl (31.0-37.0); Mean Corpuscular Hemoglobin 29.8 pg (25.0-35.0); Mean Corpuscular Volume 89 fL (80-100); Monocytes # (Auto) 0.5 Thou/mm3 (0.0-0.8); Monocytes % (Auto) 9 % (0-12); Neutrophils # (Auto) 3.6 Thou/mm3 (1.8-7.7); Neutrophils % (Auto) 63 % (37-80); Nucleated Red Blood Cell # 0.00 Thou/mm3 (0.00-0.00); Nucleated Red Blood Cell % 0 /100 WBC (0); Platelet Count 168 Thou/mm3 (140-440); RDW Standard Deviation 45.7 fL (36.4-46.3); Red Blood Count 2.72 Miln/mm3 (4.00-5.20); White Blood Count 5.7 Thou/mm3 (3.6-11.0)
[2025-05-02 12:39] LABS: INR 1.1 (0.9-1.3); Partial Thromboplastin Time 35.3 Seconds (22.0-36.0); Prothrombin Time 11.8 Seconds (9.0-12.2)
[2025-05-02 12:44] LABS: Hemoglobin 8.1 g/dL (12.0-16.0)
[2025-05-02 12:54] LABS: Anion Gap 11 (7-16); BUN/Creatinine Ratio 5 Ratio (12-20); Blood Urea Nitrogen 61 mg/dL (9-23); Calcium 8.1 mg/dL (8.3-10.6); Carbon Dioxide 24.9 mMol/L (20.0-31.0); Chloride 93 mMol/L (98-107); Glucose 129 mg/dL (74-106); Osmolality,Calculated 278 (275-295); Potassium 4.8 mMol/L (3.4-5.1); Sodium 129 mMol/L (136-145); eGFR 3 See Note
[2025-05-02 12:58] LABS: Creatinine (Component) 11.8 mg/dL (0.6-1.3)
[2025-05-03] VITALS (11 sets, daily range): BP systolic 141–160; BP diastolic 62–91; PULSE 62–70; RESP 12–19; TEMP 36.1–36.4; O2SAT 97–100
--- NOTE | 2025-05-03 08:23 | CHAP ---
Family member was present and translated for me with the patient. I gave patient encouragement and prayer.
--- NOTE | 2025-05-03 12:20 | PC.NURSE ---
1134 patient is awake, alert, breathing unlabored, s/p LHC and RHC by Dr. Leach, TR band present to right wrist, no bleeding or hematoma noted. Coban present to right AC, no bleeding or hematoma noted. Report received from Carmen LABOY, patient to recover 3 hrs. 1200 patient sitting in [facility] eating lunch tray 1219 Report given to Carmen LABOY, patient ate food tray with no nausea or vomiting, family at bedside
[2025-05-03] MEDS: ACETAMINOPHEN 325 MG TABLET 650 MG PO (14:15)
--- NOTE | 2025-05-03 16:14 | ESOP_ITS ---
Cardiac Cath Procedure Procedure Name Date of procedure: 05/03/25 STRATEGY PLANNING CONSULTANT: Dread Leach MD PROCEDURE PERFORMED: 1. Left heart and right heart cardiac catheterization including right, left coronary angiograms and left ventriculogram - CPT 26794 2. Ultrasound-guided access of the right radial artery and right femoral vein - CPT 98451 3. Conscious sedation for 30 minutes - CPT 62464 Procedure Narrative HISTORY AND INDICATIONS: A 59 year old female patient with past medical history of chronic diastolic CHF, hypertension, Diabetes, hyperlipidemia, Diabetic nephropathy, Diabetic Retinopathy, Anemia, ESRD on peritoneal dialysis >1 year, cataract eye surgery 2014.Patient complained of LUE numbness with chest tightness for which ischemic cardiac work up was ordered. NST showed EF of 46% there was no transient ischemic dilatation. There was decreased uptake in the rest in apical and apical lateral segments that improves slightly with stress indicating possible artifact versus infarct. Patient was brought in for an elective cardiac catheterization. Discussed with patient risks, benefits and alternatives of performing left with coronary angiogram including the risks of bleeding, heart rate, stroke and with the procedure. Patient understands the risks and is willing to undergo the procedure. Consent provided for the same. H&P updated and consent was signed prior to the procedure DESCRIPTION OF PROCEDURE: The patient was brought to the cardiac catheterization lab and all asceptic precautions were followed. Patient was given 1 Mg of Versed and 50 mcg of fentanyl for moderate conscious sedation. 2 mL of lidocaine was given in the right wrist. The right radial artery was accessed via the ultrasound guidance as well as micropuncture technique. A 6 Mauritanian glide sheath was introduced. Patient already had right antecubital vein access placed. Right antecubital vein access was cleaned appropriately and all aseptic precautions was followed and exchanged into a micropuncture catheter with the help of a micropuncture wire and then introduced and a 7 Mauritanian sheath into the antecubital vein access with the help of a J-wire. A 7 [place]ian [place] catheter was used to direct catheter into the right atrium with inflated balloon. A 10 ml of lidocaine was then injected in the right femoral area and right femoral vein vein was accessed with ultrasound guidance and micropuncture technique. A 7 syriac femoral sheath was used. A 7 [place]ian [place]Thu catheter was used with a [place] wire to direct into the right atrium with inflated balloon. Serial measurements of right atrium, right ventricle, pulmonary artery and pulmonary capillary wedge were taken severely with normal respiration as well as at end expiration as noted below. We then used a 6 Mauritanian TIG 4 catheter to perform the left and right coronary angiogram as well as a left ventriculogram which showed the following findings. LHC findings: 1. Left ventricular ejection fraction was 55-60% without any regional wall motion abnormalities. LVEDP was normal at 14 mmHg. There was no significant transvalvular aortic gradient. 2. Right dominant circulation left main artery is a large-caliber vessel without any significant stenosis. 3. LAD is a large sized artery with 40-50% stenosis of mid segment. Medium size diagonal and does not show any significant disease. mild 20% disease of ostial diagonal 1 4. LCx is a large sized artery with medium OM1, small OM2 and LPL without any significant disease. 5. RCA is a large artery with 10-20% stenosis of mid segment. Medium RPDA without any significant disease. RHC findings: Mean right atrial pressure was 3 mmHg. Right ventricular pressure was 5/5 mmHg. Pulmonary artery pressure was 26/8 mmHg with a mean of 16 mmHg. Mean pulmonary capillary wedge pressure was 10 mmHg. TPG was 6 mmHg Pulmonary artery PA saturation was 72.3%.? Arterial saturation was 90.3% on room air. Cardiac output was 4.74 L/min and cardiac index was normal at 3.98 L/min/m? A radial band was used to achieve the hemostasis of the right radial artery access and manual hemostasis for the right antecubital vein. Patient will be monitored in the cardiac program services planner for the next 2 to 3 hours and will be sent to the telemetry floor. Patient recommended to follow-up with me in the office within 7 days after discharge. Complications: None Specimens: None Blood loss: Estimated 5 ml Summary/findings: 1. Abnormal stress test: LHC showed Moderate CAD with 40-50% stenosis of mid LAD, 10-20% of mid RCA, rest of the coronaries without any angiographically significant obstruction and few luminal irregularities. 2. LVEF was 55-60%. 3. LVEDP severely elevated at 14 mm hg. No significant transvalvular aortic gradient. 4. Normal right heart pressures with mean RA of 3 mm hg, mean PA of 16 mmhg and mean PCWP at 10 mm hg. Recommendations: 1. Recommend aggressive medical management and aggressive risk factor modification. 2. Patient recommended not to lift more than 5 lbs for the next 7-10 days and follow up with me in my office in 7 days. Dread Leach MD Interventional Cardiology.
[2025-05-04 11:17] LABS: O2 Saturation (Cath Lab) 72 % (91-98); O2 Saturation (Cath Lab) 90 % (91-98); Puncture Site Aortic; Puncture Site Pulmonary Artery
== END 2025-05-03 15:10 | disposition home or self-care (01) ==
PROVIDERS: PCP Registered Nurse Community Health; Referring Provider Internal Medicine Cardiovascular Disease; Visit Provider Internal Medicine Cardiovascular Disease
PROC: (CPT 93460; principal; 2025-05-03 08:45)
PROC: (CPT 93460; 2025-05-03 08:45)
DX: I25.10 Atherosclerotic heart disease of native coronary artery without angina pectoris (principal); E11.22 Type 2 diabetes mellitus with diabetic chronic kidney disease; E78.5 Hyperlipidemia, unspecified; I13.2 Hypertensive heart and chronic kidney disease with heart failure and with stage 5 chronic kidney disease, or end stage renal disease; I50.32 Chronic diastolic (congestive) heart failure; N18.6 End stage renal disease; Z99.2 Dependence on renal dialysis; Z01.810 Encounter for preprocedural cardiovascular examination
CPT/HCPCS: 93460; 36415; 75820; 80048; 82810; 85025; 85610; 85730; 93005; 99152; 99153; A4649; C1769; C1887; C1894; J0461; J1643; J2250; J2310; J2371; J3010; J3490; Q9967; A9270; J2305

== ENCOUNTER 2025-06-08 15:50 | Inpatient (IN) | payer MEDICARE, MEDICAID, SELFPAY ==
[2025-06-08 16:09] VITALS: BP 161/95; PULSE 74; RESP 18; TEMP 36.8; O2SAT 98; BMI 26.2
--- NOTE | 2025-06-08 16:22 | XR_ITS ---
Examination: PA lateral chest 2 views. FINDINGS: Upright PA and lateral chest 2 views. Date and time: June 08, 2025, 1645 hours, comparison March 09, 2007. INDICATIONS: Coughing today. FINDINGS: Normal heart size. Mild vascular congestion. No lobar pneumonia. Moderate osteopenia. IMPRESSION: Mild vascular congestion. No lobar pneumonia
--- NOTE | 2025-06-08 16:23 | EDRME_ITS ---
Rapid Medical Screening Exam RME Arrival date/time: 06/08/25 15:50 59-year-old female with medical history significant for peritoneal dialysis presents to the emergency department today with daughter reports they spoke with her emergency veterinary technician who believes she has an infection to her peritoneal dialysis and she is to start hemodialysis Chief Complaint: General Adult/Misc Complain Time Seen by Provider: 06/08/25 18:29 Vital signs: Vital Signs Temperature 98.3 F 06/08/25 16:09 Pulse Rate 74 06/08/25 16:09 Respiratory Rate 18 06/08/25 16:09 Blood Pressure 161/95 H 06/08/25 16:09 Pulse Oximetry (%) 98 06/08/25 16:09 Oxygen Delivery Method Room Air 06/08/25 16:09
--- NOTE | 2025-06-08 16:23 | EKG_ITS ---
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
[2025-06-08 16:52] LABS: Lactate (Lactic Acid) 1.0 mMol/L (0.4-2.0)
[2025-06-08 16:53] LABS: Basophils # (Auto) 0.0 Thou/mm3 (0.0-0.2); Basophils % (Auto) 0 % (0-2.5); Eosinophils # (Auto) 0.2 Thou/mm3 (0.0-0.5); Eosinophils % (Auto) 4 % (0-10); Hematocrit 27.4 % (36.0-46.0); Hemoglobin 9.1 g/dL (12.0-16.0); Immature Granulocytes Auto 0.01 Thou/mm3 (0.00-0.00); Lymphocytes # (Auto) 1.2 Thou/mm3 (1.0-4.8); Lymphocytes % (Auto) 20 % (10-50); Mean Corpuscular HGB Conc 33.2 g/dl (31.0-37.0); Mean Corpuscular Hemoglobin 29.9 pg (25.0-35.0); Mean Corpuscular Volume 90 fL (80-100); Monocytes # (Auto) 0.4 Thou/mm3 (0.0-0.8); Monocytes % (Auto) 7 % (0-12); Neutrophils # (Auto) 4.1 Thou/mm3 (1.8-7.7); Neutrophils % (Auto) 69 % (37-80); Nucleated Red Blood Cell # 0.00 Thou/mm3 (0.00-0.00); Nucleated Red Blood Cell % 0 /100 WBC (0); Platelet Count 173 Thou/mm3 (140-440); RDW Standard Deviation 46.8 fL (36.4-46.3); Red Blood Count 3.04 Miln/mm3 (4.00-5.20); White Blood Count 6.0 Thou/mm3 (3.6-11.0)
[2025-06-08 17:09] LABS: INR 1.0 (0.9-1.3); Partial Thromboplastin Time 29.8 Seconds (22.0-36.0); Prothrombin Time 11.1 Seconds (9.0-12.2)
[2025-06-08 17:19] LABS: Collection Type, Urine Clean Catch
[2025-06-08 17:24] LABS: Bilirubin,Urine Negative (Negative); Blood,Urine Trace (Negative); Clarity,Urine Clear (Clear/Hazy); Color,Urine Lt-Yellow (Lt Yel-Yel); Glucose, Urine 3+ (Negative); Ketones,Urine Negative (Negative); Leukocyte Esterase,Urine Negative (Negative); Nitrite,Urine Negative (Negative); PH,Urine 7.0 (5.0-7.0); Protein,Urine 3+ (Neg - Trace); RBC,Urine 6 /hpf (0-3); Specific Gravity,Urine 1.030 (1.001-1.035); Squamous Epithelial Cell,Urine 3 /hpf (0-5); Urobilinogen,Urine Negative mg/dL (0.0-1.0); WBC,Urine 4 /hpf (0-5)
[2025-06-08 17:25] LABS: Alanine Aminotransferase 18 U/L (10-49); Albumin, Serum 3.1 gm/dL (3.4-4.8); Albumin/Globulin Ratio 1.2 (1.2-2.2); Alkaline Phosphatase 124 U/L (46-116); Anion Gap 15 (7-16); Aspartate Amino Transferase 10 U/L (0-34); BUN/Creatinine Ratio 4 Ratio (12-20); Bilirubin,Total 0.2 mg/dL (0.3-1.2); Blood Urea Nitrogen 71 mg/dL (9-23); Calcium 8.6 mg/dL (8.3-10.6); Calcium (Corrected) 9.3 mg/dL (8.5-10.1); Carbon Dioxide 19.5 mMol/L (20.0-31.0); Chloride 97 mMol/L (98-107); Creatinine (Component) 15.8 mg/dL (0.6-1.3); Estimated Creatinine Clearance 2.9 mL/min (>60); Globulin 2.6 gm/dL (2.3-3.5); Glucose 178 mg/dL (74-106); Osmolality,Calculated 287 (275-295); Potassium 4.3 mMol/L (3.4-5.1); Procalcitonin 0.20 ng/ml (0.0-0.49); Sodium 131 mMol/L (136-145); Total Protein 5.7 gm/dL (5.7-8.2); Troponin I < 0.020 ng/mL (0.0-0.045); eGFR 2 See Note
--- NOTE | 2025-06-08 18:58 | PD.EDWEAK ---
ED Weakness RME/HPI General Chief complaint: General Adult/Misc Complain Stated complaint: INFECTION DIALYSIS CATHETER Time Seen by Provider: 06/08/25 18:29 Arrival date/time: 06/08/25 15:50 RME / HPI RME / HPI Narrative: 06/08/25 15:50 59-year-old female with medical history significant for peritoneal dialysis presents to the emergency department today with daughter reports they spoke with her histology aide who believes she has an infection to her peritoneal dialysis and she is to start hemodialysis See MDM Related Data Home Medications ?Medication ?Instructions ?Recorded ?Confirmed carvedilol 25 mg tablet 25 mg PO BID ##0 01/03/13 05/03/25 amlodipine 5 mg tablet 10 mg PO QDAY 04/29/18 05/03/25 ferrous sulfate 325 mg (65 mg 325 mg PO TID 08/11/23 05/03/25 iron) tablet insulin aspar prot-insulin aspart 5 unit subcut QPM 08/11/23 04/20/25 100 unit/mL (70-30) subcutaneous pen (Novolog Mix 70-30FlexPen U-100) sodium bicarbonate 325 mg tablet 325 mg PO BID 08/11/23 05/03/25 valsartan 40 mg tablet 160 mg PO BID 08/11/23 05/03/25 cyclobenzaprine 5 mg tablet 5 mg PO BID 11/12/23 05/03/25 insulin aspar prot-insulin aspart 10 unit subcut QAM 11/12/23 04/20/25 100 unit/mL (70-30) subcutaneous pen (Novolog Mix 70-30FlexPen U-100) vitamin B complex-vitamin C-folic 1 tab PO QDAY 11/12/23 05/03/25 acid 0.8 mg tablet (Ashley-Joanne) ferric citrate 210 mg iron tablet 210 mg PO TID 04/15/25 04/20/25 (Auryxia) furosemide 40 mg tablet 40 mg PO QAM 04/15/25 05/03/25 famotidine 40 mg tablet 40 mg PO QDAY acid reflux 04/20/25 05/03/25 ferric citrate 210 mg iron tablet 210 mg PO TID 05/03/25 05/03/25 (Auryxia) Allergies Allergy/AdvReac Type Severity Reaction Status Date / Time No Known Allergies Allergy Verified 06/08/25 15:52 Review of Systems Review of Systems Systems Reviewed: All systems reviewed, normal except as documented Past Medical History Past Medical History CARDIAC: Positive Cardiac Disorders, Hypercholesterolemia and Hypertension GASTROINTESTINAL: Positive Gastrointestinal Disorders, Ulcer, Gastroesophageal Reflux Disease and Obesity GENITOURINARY: Positive Genitourinary Disorders, Renal Disease and Dialysis REPRODUCTIVE: Positive Previous Pregnancies MUSCULOSKELETAL: Positive Musculoskeletal Disorders and Fractures ENT: Positive Cataracts and Retinal Detachment ENDOCRINE: Positive Endocrine Disorders and Diabetes Mellitus Type 2 HEMATOLOGIC: Positive Anemia OTHER HISTORY: Positive Hospitalization, Falls and Chicken Pox ED Exam Narrative Physical exam: Refer to [facility] Course Course Course Narrative: CXR is ordered for determining the etiology of shortness of breath. Quality Measures none Orders Category Date Time Status Bedside COVID-19 Antigen Test NOW Care 06/08/25 16:22 Active COVID-19 Screening Questionnaire NOW Care 06/08/25 19:13 Active Decision to Admit X1 Care 06/08/25 19:13 Completed EKG (ED ONLY) *Do not use* NOW Care 06/08/25 16:23 Completed Insert IV NOW Care 06/08/25 16:22 Active Consult to Nephrology Stat Cons 06/08/25 18:51 Ordered EKG (ED Only) Stat Exams 06/08/25 16:23 Draft XR chest 2V Stat Exams 06/08/25 16:22 Completed Blood Culture (Lab) Stat Lab 06/08/25 16:35 Received CBC Stat Lab 06/08/25 16:41 Completed Comprehensive Metabolic Panel Stat Lab 06/08/25 16:41 Completed Lactate (Lactic Acid) Stat Lab 06/08/25 16:41 Completed PT [Prothrombin Time with INR] Stat Lab 06/08/25 16:41 Completed PTT [Partial Thromboplastin Time] Stat Lab 06/08/25 16:41 Completed Procalcitonin Stat Lab 06/08/25 16:41 Completed Troponin I Stat Lab 06/08/25 16:41 Completed Urinalysis Stat Lab 06/08/25 17:02 Completed Urine Culture Stat Lab 06/08/25 17:02 Received Piper/Tazo 3.375 gm Premix [Zosyn] Med 06/08/25 19:13 Discontinued 3.375 gm in 50 ml IV X1 Vital Signs Vital signs: Vital Signs Temperature 98.3 F 06/08/25 16:09 Pulse Rate 74 06/08/25 16:09 Respiratory Rate 18 06/08/25 16:09 Blood Pressure 161/95 H 06/08/25 16:09 Pulse Oximetry (%) 98 06/08/25 16:09 Oxygen Delivery Method Room Air 06/08/25 16:09 Weakness MDM Narrative MDM Narrative:: Scribe Attestation: I, Isi Vazquez, am scribing for and in the presence of Dr. Schultz. Provider Notation: Although this document has been carefully reviewed, there may still be some phonetic and other typographical errors.? These errors are purely grammatical due to imperfections in the software program and should not be construed in any way to? compromise the substance of the patient's medical care during this visit. This section includes all my notes and documentations, including HPI, PE, and ED course. Capo Schultz MD HPI: 59 y/o female with Hx of Renal Disease, HTN, and at-home Peritoneal Dialysis c/o weakness and feeling unwell x 1 week. During dialysis treatment she was told that she may have an infection due yellow color of the dialysis. Patient is to start hemodialysis according to Dr Crews. She also wants IV antibiotics for peritonitis. No other complaints. ROS: All negative except as documented in HPI. Physical Exam: General: Alert and oriented. No acute distress. Eyes: Conjunctivae and lids clear. ENT: No nasal congestion. Neck: Supple. Heart: RRR. Lungs: No respiratory distress. Good air movement. No rhonchi, wheezing, rales. Abdomen: Soft with equivocal tenderness. Normal bowel sounds. No distension. No rebound or guarding. Back: No CVA tenderness. Legs: No clubbing, cyanosis, edema. Skin: Warm and dry. Neuro: Alert and oriented X 3. I reviewed all diagnostic test results: My interpretation of the EKG is sinus rhythm with no acute ST?T changes. My interpretation of the chest x-ray is increased vascular congestion. Blood tests and urine tests unremarkable except Cr 2.9. Covid: Negative. At this point, diagnoses include: ESRD, Peritonitis Treatment here included: Zosyn 3.375 G 1850: I discussed the case with our histology aide, Dr. Crews. About the presentation and exam and diagnostics and treatments here. Recommended admission for further care. I discussed the case with our hospitalist.? About the presentation and exam and diagnostics and treatments here.? And need of further care in the hospital.? Will accept the patient. Capo Schultz MD Patient data External records reviewed:: [facility] previous records (Reviewed prior ED records from 04/19/25. Patient was seen for Stroke-like symptom.) Clinical information provided by:: patient and family (Daughter) Social determinants that could affect healthcare access:: none Patient has the following chronic illnesses:: Hypercholesterolemia, Hypertension, Ulcer, Gastroesophageal Reflux Disease, Obesity, Renal Disease and Dialysis, Cataracts, Retinal Detachment, Diabetes Mellitus Type 2, Anemia How is presenting disease/condition affected by chronic disease/condition?: exacerbated by Evaluation data The following diagnostics were reviewed and interpreted by me:: lab results, radiology exam(s) and EKG tracing(s) Lab and/or radiology exams considered but not ordered:: None Interpretation Summary: I reviewed all diagnostic test results: My interpretation of the EKG is sinus rhythm with no acute ST?T changes. My interpretation of the chest x-ray is increased vascular congestion. Blood tests and urine tests unremarkable except Cr 2.9. Covid: Negative. For the hospitalist put that in the consult as well Medications / Prescriptions Medications or Prescriptions considered but not ordered:: None Medication administrations:: Medication Administration History Discontinued Medications Piperacillin/Tazobactam/Dextrose (Zosyn) 3.375 gm in 50 mls @ 100 mls/hr IV X1 ONE Stop: 06/08/25 19:42 Zosyn 3.375 mg Consultations Consultation(s) initiated? (list below): Yes Consultation #1 (Physician, Specialty, Details): I discussed the case with our histology aide, Dr. Crews. About the presentation and exam and diagnostics and treatments here. And need of further care in the hospital. Will accept the patient. Time: 18:50 Consultation #2 (Physician, Specialty, Details): I discussed the case with our hospitalist.? About the presentation and exam and diagnostics and treatments here.? And need of further care in the hospital.? Will accept the patient. Time: 19:11 Diagnosis Weakness Differential Diagnosis: anemia, hypoglycemia, rhabdomyolysis, sepsis, dehydration and other (Peritonitis) Most likely diagnosis given after review of the tests above:: Peritonitis, ESRD Admission Indicated Admission indicated?: indicated Explain why admission is indicated or not indicated:: Peritonitis, ESRD Admission Request Was there a request for admission?: Yes Admission Attestation Admission request attestation: Discussed case with Hospitalist service regarding admission. Discussed patients ED course, exam findings, labs, and radiology results. Agreed to accept the patient for admission. Disposition Plan Disposition Plan: Admit Discharge Plan Plan Patient Disposition: Admit Acute Care w/in Hospital Prescriptions/Referrals Prescriptions/Med Rec: No Action carvedilol 25 MG tablet 25 mg PO BID Qty: 0 amlodipine 5 mg Tablet 10 mg PO QDAY Ashley-Joanne 0.8 mg Tablet 1 tab PO QDAY insulin asp prt-insulin aspart [Novolog Mix 70-30FlexPen U-100] 100 unit/mL (70-30) insulin pen 10 unit SUBCUT QAM Patient Comments: INJECT 20UNITS SUBCUTANEOUSLY IN THE MORNING AND 5 UNITS SUBCUTANEOUSLY AT BEDTIME cyclobenzaprine 5 mg Tablet 5 mg PO BID famotidine 40 mg tablet 40 mg PO QDAY Patient Comments: TOME DANG TABLETA POR V A ORAL TODOS LOS D FOR ACID REFLUX sodium bicarbonate 325 mg tablet 325 mg PO BID Patient Comments: TAKE 1 TABLET BY MOUTH TWICE A DAY ferrous sulfate 325 mg (65 mg iron) tablet 325 mg PO TID Patient Comments: TOME DANG TABLETA POR LA BOCA DERECK VECES AL LINK ANTES DE LAS COMIDA valsartan 40 mg tablet 160 mg PO BID insulin asp prt-insulin aspart [Novolog Mix 70-30FlexPen U-100] 100 unit/mL (70-30) insulin pen 5 unit SUBCUT QPM furosemide 40 mg tablet 40 mg PO QAM ferric citrate [Auryxia] 210 mg iron tablet 210 mg PO TID Rx Instructions: administer with a meal ferric citrate [Auryxia] 210 mg iron tablet 210 mg PO TID Rx Instructions: administer with a meal Referrals: Janelle Glaser FNP [Primary Care Provider] - In 1 week Problem List Clinical Impression: Peritonitis, ESRD (end stage renal disease) Patient/Caregiver Discharge Instructions Print Language: Greek Stand Alone Forms: Elicia Award Info., Patient Portal Info Letter
[2025-06-08 19:20] VITALS: BP 193/94; PULSE 82; RESP 18; TEMP 36.6; O2SAT 98
[2025-06-08] MEDS: PIPER/TAZO 3.375 GM PREMIX 3.375 GM/50 ML BAG IV (20:00)
[2025-06-08 21:06] VITALS: BP 175/81; PULSE 80; RESP 18; O2SAT 98
--- NOTE | 2025-06-08 22:31 | PD.RESHP ---
Documentation for date of: 06/08/25 HPI History of Present Illness Chief complaint: Concern for peritonitis History of present illness: 59 y/o F with PMHx significant for ESRD on peritoneal dialysis, anemia, type 2 diabetes, hyperlipidemia, seizure disorder, CHF presents with chief complaint of concern for peritoneal dialysis infection. Patient peritoneal exchange fluid is more yellowish than normal, per PCP and planning associate Dr. Crews indicates concern for infection. In addition patient has had declining benefit of peritoneal dialysis, plan to switch to hemodialysis. Patient denies fever, chills, chest pain, nausea, vomiting, abdominal pain. ED COURSE: Labs significant for: WBC 6.0, hemoglobin 9.1 (chronic), sodium 131 (chronic), serum bicarb 19.5, anion gap 15, BUN 71, creatinine 15.8, EGFR 2, lactic acid 1.0, Pro-Jeff negative. Urinalysis negative for nitrates, LE, WBCs. Imaging significant for: Chest x-ray showing mild vascular congestion. Patient received Zosyn in the ED. PMH: ESRD, anemia, type 2 diabetes, seizure disorder, CHF PSH: PD cath placement Allergies:?NKDA Medications: Keppra, Coreg, amlodipine, valsartan, Lasix, aspirin, clonidine, chlorthalidone, atorvastatin Review of Systems Review of Systems Systems Reviewed: All systems reviewed, normal except as documented Past Medical History Past Medical History Comments PMH COMMENT: PMH: ESRD, anemia, type 2 diabetes, seizure disorder, CHF PSH: PD cath placement Allergies:?NKDA Medications: Keppra, Coreg, amlodipine, valsartan, Lasix, aspirin, clonidine, chlorthalidone, atorvastatin Exam Vital Signs Temp Pulse Resp BP Pulse Ox O2 Del Method 97.9 F 80 18 175/81 H 98 Room Air 06/08/25 19:20 06/08/25 21:06 06/08/25 21:06 06/08/25 21:06 06/08/25 21:06 06/08/25 21:06 Narrative Exam PE: Gen: Well-developed and well-nourished. HEENT: NCAT, PERRLA, EOMI, MMM, anicteric conjunctivae. CVS: normal S1 and S2. RRR. No M/R/G. Resp: CTA B/L. No rhonchi, rales, crackles or wheezing. Abd: soft, non-tender, non-distended. BS+ in all [address]rants[address] cath in place. MSK: Good ROM in BUE & BLE. No edema or rash. Neuro: CN II-XII grossly intact. Strength 5/5 in BUE & BLE. Alert and oriented x3. Psych: appropriate mood and affect. Results: Labs 06/08/25 16:41 06/08/25 16:41 Labs: Short CBC 06/08/25 Range/Units 16:41 WBC 6.0 (3.6-11.0) Thou/mm3 Hgb 9.1 L (12.0-16.0) g/dL Hct 27.4 L (36.0-46.0) % Plt Count 173 (140-440) Thou/mm3 BMP 06/08/25 16:41 Sodium 131 L Potassium 4.3 Chloride 97 L Carbon Dioxide 19.5 L BUN 71 H Creatinine 15.8 H* Glucose 178 H Calcium 8.6 Cardiac Enzymes 06/08/25 Range/Units 16:41 Troponin I < 0.020 (0.0-0.045) ng/mL Liver Function 06/08/25 Range/Units 16:41 Total Bilirubin 0.2 L (0.3-1.2) mg/dL AST 10 (0-34) U/L ALT 18 (10-49) U/L Alkaline Phosphatase 124 H (46-116) U/L Albumin 3.1 L (3.4-4.8) gm/dL Urine 06/08/25 Range/Units 17:02 Urine Color Lt-Yellow (Lt Yel-Yel) Urine Clarity Clear (Clear/Hazy) Urine pH 7.0 (5.0-7.0) Ur Specific Sevier 1.030 (1.001-1.035) Urine Protein 3+ A (Neg - Trace) Urine Glucose (UA) 3+ A (Negative) Quality Measures Quality Measures VTE prophylaxis Medications Home Medications and Allergies Home Medications ?Medication ?Instructions ?Recorded ?Confirmed ?Type carvedilol 25 mg tablet 25 mg PO BID ##0 01/03/13 06/08/25 History amlodipine 5 mg tablet 10 mg PO QDAY 04/29/18 06/08/25 History ferrous sulfate 325 mg (65 mg 325 mg PO TID 08/11/23 06/08/25 History iron) tablet insulin aspar prot-insulin aspart 5 unit subcut QPM 08/11/23 04/20/25 History 100 unit/mL (70-30) subcutaneous pen (Novolog Mix 70-30FlexPen U-100) sodium bicarbonate 325 mg tablet 325 mg PO BID 08/11/23 06/08/25 History valsartan 40 mg tablet 160 mg PO BID 08/11/23 06/08/25 History cyclobenzaprine 5 mg tablet 5 mg PO BID 11/12/23 06/08/25 History insulin aspar prot-insulin aspart 10 unit subcut QAM 11/12/23 04/20/25 History 100 unit/mL (70-30) subcutaneous pen (Novolog Mix 70-30FlexPen U-100) vitamin B complex-vitamin C-folic 1 tab PO QDAY 11/12/23 06/08/25 History acid 0.8 mg tablet (Ashley-Joanne) ferric citrate 210 mg iron tablet 210 mg PO TID 04/15/25 06/08/25 History (Auryxia) furosemide 40 mg tablet 40 mg PO QAM 04/15/25 06/08/25 History famotidine 40 mg tablet 40 mg PO QDAY acid reflux 04/20/25 06/08/25 History ferric citrate 210 mg iron tablet 210 mg PO TID 05/03/25 05/03/25 History (Auryxia) clonidine HCl 0.1 mg tablet 0.1 mg PO TID 06/08/25 06/08/25 History levetiracetam 500 mg tablet 500 mg PO BID 06/08/25 06/08/25 History Allergies Allergy/AdvReac Type Severity Reaction Status Date / Time No Known Allergies Allergy Verified 06/08/25 15:52 Visit Medications Acetaminophen (Acetaminophen 325 Mg Tablet) 650 mg PO Q6H PRN PRN Reason: Fever >100.4 or pain 1-3 Stop: 07/08/25 22:21 Hydrocodone Bitart/Acetaminophen (Hydrocodone/Apap 5/325 Tablet) 1 tab PO Q4HR PRN PRN Reason: PAIN SCALE 4-10(Mod-Sev Stop: 06/13/25 22:21 Docusate Sodium (Docusate Sod 100 Mg Capsule) 100 mg PO QDAY PRN; Protocol PRN Reason: CONSTIPATION Stop: 07/08/25 22:21 Heparin Sodium (Porcine) (Heparin Sod Inj 5000 Unit/Ml Vial) 5,000 unit SC Q12HR TIFFANI Stop: 06/23/25 08:59 Ceftazidime 2 gm/ Sodium (Chloride) 50 mls @ 100 mls/hr IV Q8HR TIFFANI Stop: 06/15/25 22:29 Ondansetron HCl (Ondansetron Inj 2 Mg/Ml Inj 2 Ml) 4 mg IVP Q6H PRN; Protocol PRN Reason: NAUSEA OR VOMITING Stop: 07/08/25 22:21 Pharmacy Consult (Vancomycin Pharmacy To Dose 1 Each Each) 1 each IV QDAY TIFFANI Stop: 07/09/25 08:59 Sennosides (Senna Tablet) 1 tab PO QDAY PRN; Protocol PRN Reason: constipation Stop: 07/08/25 22:21 Discontinued Medications Piperacillin/Tazobactam/Dextrose (Zosyn) 3.375 gm in 50 mls @ 100 mls/hr IV X1 ONE Stop: 06/08/25 19:42 Last Infusion: 06/08/25 20:30 Dose: Infused Assessment & Plan Plan 59 y/o F with PMHx significant for ESRD on peritoneal dialysis, anemia, type 2 diabetes, hyperlipidemia, seizure disorder, CHF presents with chief complaint of concern for peritoneal dialysis infection, admitted for potential peritonitis and to initiate hemodialysis. #Peritonitis, rule out #ESRD (PD dialysis) Patient sent to ED by PCP and planning associate due to yellow-colored PD fluid concerning for peritonitis. In addition, PD has had diminishing benefit for patient, plan to switch to hemodialysis. WBC 6.0, lactic acid 1.0, Pro-Jeff negative. Patient denies fevers, chills, chest pain, shortness of breath, nausea, vomiting. Abdomen soft/nontender on exam. Dr. Crews on board. Dr Juan consulted to remove PD cath. - Vancomycin pharmacy dosing (started 06/09) - Ceftazidime 2 g IV every 8 hours (started 06/08) - Blood cultures drawn, follow-up - Renally dose meds as needed - Nephrology consulted, appreciate recommendations - General Surgery consulted, appreciate recommendations - Diagnostic paracentesis ordered - Follow-up paracentesis fluid studies/culture #HTN #Hypertensive urgency Patient has history as stated. Blood pressure elevated on admission, as high as 193/94 in ED. Patient denies headache, blurry vision, chest pain. Blood pressure improved without active treatment. - Closely monitor blood pressure - Consider resuming patient's home meds when appropriate. - No need for aggressive treatment #DM type II Patient history as described. Currently NPO. A1c 6% as of 04/21/2025. - ISS #Anemia of chronic kidney disease, asymptomatic #Seizure disorder #Chronic asymptomatic hyponatremia Patient history as stated. Hemoglobin currently 9.1, baseline for patient. Sodium 131, patient asymptomatic. - Resume home Keppra 500 mg p.o. twice daily - Monitor hemoglobin, transfuse as needed - Monitor sodium DVT prophylaxis: Heparin GI prophylaxis: Protonix Diet: N.p.o. Lines: PIV, PD cath Code status: Full code Plan of care discussed with attending Dr. Sahu. Bakari Meier MD PGY?2 Attending Provider Attestation/Addendum I have examined the patient, reviewed labs and imaging findings, discussed the case with the resident(s), and reviewed entered orders. I agree with the plan of care as outlined in this note, with these additional summaries/recommendations: After examination of the patient and review of the clinical data, I feel that this patient needs admission to the hospital for further treatment and evaluation. Patient is a 59-year-old female with a medical history of ESRD on peritoneal dialysis, iron deficiency anemia, diabetes mellitus type 2, hyperlipidemia, primary hypertension, ?seizure disorder, and GERD who presents to [facility] emergency department on 06/08/2025 with chief complaint of peritoneal dialysis catheter infection. Patient seen at bedside. Patient reports she noted whitish/blood-tinged discharge from her peritoneal dialysis catheter. There is concern for infected PD catheter/bacterial peritonitis. Whitish discharge is suggestive of peritonitis although abdominal exam relatively benign. Blood cultures taken and follow-up results when available. Will order paracentesis to evaluate peritoneal fluid for infection and send for fluid analysis and Gram stain/culture. We will also attempt to obtain dialysate culture. We will start empiric treatment for bacterial peritonitis given high clinical suspicion follow-up culture results. In-house nephrology consulted for inpatient dialysis. If back serial peritonitis confirmed patient will likely need to have her PD catheter removed and we will coordinate with nephrology. Patient was also found to have hypertensive urgency in the emergency room with systolic blood pressure trending into the 190s. Resume home antihypertensives and adjust regimen as needed. Start insulin sliding scale for diabetes mellitus type 2 with Accu-Cheks. Target blood sugar of 140-180 while hospitalized. Patient has history of TERRENCE and hold home ferrous sulfate for now. Okay to resume home famotidine. Continue home Keppra 500 mg p.o. twice daily. Patient updated on the plan and in agreement. All questions answered to satisfaction. Please see residents note for additional details of management. Dr. Luis Alberto MD
[2025-06-08 22:45] VITALS: BP 196/92; PULSE 83; RESP 18; TEMP 36.7; O2SAT 98
[2025-06-08] MEDS: Vancomycin Inj 1,000 MG in SODIUM CHLORIDE 0.9% 250 ML 250 ML 120 MG IV (23:41)
[2025-06-08 23:46] VITALS: BP 194/99; PULSE 84
[2025-06-09] VITALS (33 sets, daily range): BP systolic 92–180; BP diastolic 53–100; PULSE 55–86; RESP 12–19; TEMP 36.2–36.8; O2SAT 95–100; BMI 25.7; BMI 25.6; BMI 13.0
--- NOTE | 2025-06-09 01:00 | PC.NURSE ---
per Dr. Ramachandran advised that does not want to aggresivley lower B/P due to procedure of fluid removal tomorrow.
[2025-06-09] MEDS: LABETALOL INJ 5 MG/ML VIAL 20 ML 10 MG IVP ×2 (02:10→04:09)
[2025-06-09] MEDS: ONDANSETRON INJ 2 MG/ML INJ 2 ML 4 MG IVP (02:14)
[2025-06-09] MEDS: ACETAMINOPHEN 325 MG TABLET 650 MG PO (03:50)
--- NOTE | 2025-06-09 03:55 | PC.NURSE ---
Pt BP still elevated 180/93, pt has a headache, Tylenol PO given, MD Craig made aware, new order for Labetalol 10mg IVP, will administer as per MD ordered.
[2025-06-09 05:53] LABS: Basophils # (Auto) 0.0 Thou/mm3 (0.0-0.2); Basophils % (Auto) 0 % (0-2.5); Eosinophils # (Auto) 0.3 Thou/mm3 (0.0-0.5); Eosinophils % (Auto) 4 % (0-10); Hematocrit 23.9 % (36.0-46.0); Immature Granulocytes Auto 0.02 Thou/mm3 (0.00-0.00); Lymphocytes # (Auto) 1.2 Thou/mm3 (1.0-4.8); Lymphocytes % (Auto) 18 % (10-50); Mean Corpuscular HGB Conc 33.1 g/dl (31.0-37.0); Mean Corpuscular Hemoglobin 29.7 pg (25.0-35.0); Mean Corpuscular Volume 90 fL (80-100); Monocytes # (Auto) 0.4 Thou/mm3 (0.0-0.8); Monocytes % (Auto) 6 % (0-12); Neutrophils # (Auto) 5.0 Thou/mm3 (1.8-7.7); Neutrophils % (Auto) 72 % (37-80); Nucleated Red Blood Cell # 0.00 Thou/mm3 (0.00-0.00); Nucleated Red Blood Cell % 0 /100 WBC (0); Platelet Count 151 Thou/mm3 (140-440); RDW Standard Deviation 46.5 fL (36.4-46.3); Red Blood Count 2.66 Miln/mm3 (4.00-5.20); White Blood Count 6.9 Thou/mm3 (3.6-11.0)
[2025-06-09 05:54] LABS: Hemoglobin 7.9 g/dL (12.0-16.0)
[2025-06-09 06:06] LABS: INR 1.0 (0.9-1.3); Partial Thromboplastin Time 31.6 Seconds (22.0-36.0); Prothrombin Time 11.4 Seconds (9.0-12.2)
[2025-06-09 06:35] LABS: Alanine Aminotransferase 13 U/L (10-49); Albumin, Serum 2.7 gm/dL (3.4-4.8); Albumin/Globulin Ratio 1.2 (1.2-2.2); Alkaline Phosphatase 102 U/L (46-116); Anion Gap 14 (7-16); Aspartate Amino Transferase < 10 U/L (0-34); BUN/Creatinine Ratio 5 Ratio (12-20); Bilirubin,Total 0.2 mg/dL (0.3-1.2); Blood Urea Nitrogen 73 mg/dL (9-23); Calcium 8.1 mg/dL (8.3-10.6); Calcium (Corrected) 9.1 mg/dL (8.5-10.1); Carbon Dioxide 17.9 mMol/L (20.0-31.0); Chloride 100 mMol/L (98-107); Creatinine (Component) 16.2 mg/dL (0.6-1.3); Estimated Creatinine Clearance 2.8 mL/min (>60); Globulin 2.2 gm/dL (2.3-3.5); Glucose 142 mg/dL (74-106); Magnesium 1.5 mg/dL (1.6-2.6); Osmolality,Calculated 288 (275-295); Phosphorous 6.9 mg/dL (2.4-5.1); Potassium 4.5 mMol/L (3.4-5.1); Sodium 132 mMol/L (136-145); Total Protein 4.9 gm/dL (5.7-8.2); eGFR 2 See Note
--- NOTE | 2025-06-09 07:05 | XR_ITS ---
Ultrasound-guided needle placement right internal jugular vein Permanent tunneled dialysis catheter insertion, percutaneous Fluoroscopy AP chest, portable, single view. Date and time of procedure: June 09, 2025, 0943 hours INDICATIONS: Renal failure patient requiring long-term dialysis with permanent tunneled dialysis catheter Informed consent provided Technique: A timeout was completed verifying correct patient, procedure, site, positioning, and special equipment if applicable. The patient was placed in a dependent position appropriate for dialysis catheter placement based on the vein to be cannulated. The patient'sright neck was prepped and draped in sterile fashion. Maximum Sterile Barrier Technique used including cap, mask, sterile gown, sterile gloves, and sterile full body drape. If ultrasound technique used: sterile gel and sterile probe covers. Hand Hygiene performed using proper scrub, soap and water, or alcohol-based hand rub. 1% lidocaine was used to anesthetize the surrounding skin area The [employer] portable ultrasound apparatus to determine patency of the right internal jugular vein, utilizing ultrasonographic guidance successful 21-gauge needle puncture into the right internal jugular vein Ultrasound images were recorded and stored. Vessel micropuncture was performed with 21-gauge needle. 0.18 wire guide is introduced into the vein. 0.18 wire is introduced into the vena cava under fluoroscopy. Subcutaneous tunnel formed in the upper chest. Permanent tunneled dialysis catheter placed in the subcutaneous tunnel. Dilators were introduced over the J-wire guide. Tunneled dialysis catheter is introduced through a dilator with venous sheath into the superior vena cava under fluoroscopic guidance. The catheter is sutured in place to the skin and a sterile dressing applied. Perfusion to the extremity distal to the point of catheter insertion is checked and found to be adequate Attending radiologist was present for the entire procedure Estimated blood loss2 cc. The patient tolerated the procedure well and there were no complications Impression: Successful ultrasound-guided needle placement right internal blood or vein Successful permanent tunneled dialysis catheter insertion, percutaneous Fluoroscopy 0.1 minute radiation dose 1.34 milligray 1 spot fluoroscopic chest film. AP chest performed at completion procedure demonstrates satisfactory position dialysis catheter. May use dialysis catheter.
[2025-06-09 07:30] LABS: Vancomycin,Random 17.9 mcg/mL
[2025-06-09] MEDS: VALSARTAN 80 MG TABLET 160 MG PO (08:17)
--- NOTE | 2025-06-09 08:58 | PD.RESCONSUL ---
HPI Data of Consult Consult date: 06/09/25 Requesting Physician: Reji Sahu MD Admitting Provider: Reji Sahu MD Attending Provider: Reji Sahu MD Primary Care Provider: POLA Barrera Consult Narrative Reason for consult: ESRD- peritoneal dialysis pt with c/f infection History of present illness: Ms Small is a 59 yo woman with a pmh of ESRD on peritoneal dialysis, anemia, type 2 diabetes, hyperlipidemia, seizure disorder, CHF presents with concern for peritoneal dialysis infection (picture of peritoneal fluid is cloudy and yellow. Dr. Crews saw picture and was concerned for infection, plan to switch to conventional HD given declining benefit from PD. ROS pt denies, fever chills, chest pain, nausea, vomiting, or abdominal pain ED COURSE: Dx - Labs significant for: WBC 6.0, hemoglobin 9.1 (chronic), sodium 131 (chronic), serum bicarb 19.5, anion gap 15, BUN 71, creatinine 15.8, EGFR 2, lactic acid 1.0, procalcitoninl negative. Urinalysis negative bland - Imaging significant for: Chest x-ray showing mild vascular congestion. Tx - Zosyn PMH: ESRD, anemia, type 2 diabetes, seizure disorder, CHF (EF 55% 04/2025), GERD PSH: PD cath placement Allergies:?NKDA Medications: Keppra, Coreg, amlodipine, valsartan, Lasix, aspirin, clonidine, chlorthalidone, atorvastatin 06/09/2025 Pt admitted, Nephro consulted. Surgery consulted for removal of PD catheter given c/f infection, R IJ cath placed by IR for conventional HD. Pt seen and examined in HD s/p PD cath removal, resting comfortably, reports some abdominal pain, no rebound or guarding, recently administerd pain medication. Na 132, K 4.5, CO2 17, BUN 73, Cr 16.2, Phos 6.9, Mag 1.5. eGFR 2.UA with 3+ protien, 3+ glucose, HD today cc:: cc: Reji Sahu MD Review of Systems Review of Systems Narrative Review of Systems: as per hpi Exam Vital Signs Temp Pulse Resp BP Pulse Ox O2 Del Method 98.3 F 86 17 180/86 H 98 Room Air 06/09/25 08:00 06/09/25 08:17 06/09/25 08:00 06/09/25 08:17 06/09/25 08:00 06/09/25 08:00 Narrative Exam GENERAL: no acute distress, AAO x3, comfortably laying in HD bed, somnolent (given pain med prior to exam) HEENT: Head AT/ NC. Mucous membranes moist. PERRL. RIJ catheter NECK: Supple, no lymphadenopathy, no carotid bruits. CARDIOVASCULAR: RRR. Normal S1/S2, No m/r/g. No pitting edema of bilateral LEs. RESPIRATORY: CTAB. No wheezing, rhonchi, crackles. satting well on RA GASTROINTESTINAL: Abdomen soft, mild tenderness, PD catheter removed no palpable masses. Bowel sounds present MUSCULOSKELETAL:? No cyanosis or edema, no visible joint swelling. scds in place NEUROLOGICAL: CN II-XII grossly intact. No focal deficits. Sensation intact, symmetric. PSYCHIATRIC: Awake and alert, not agitated, normal mood and affect. SKIN: No obvious rashes, no jaundice, normal turgor. Results Labs 06/09/25 04:15 06/09/25 04:15 Labs: Short CBC 06/08/25 06/09/25 Range/Units 16:41 04:15 WBC 6.0 6.9 (3.6-11.0) Thou/mm3 Hgb 9.1 L 7.9 L (12.0-16.0) g/dL Hct 27.4 L 23.9 L (36.0-46.0) % Plt Count 173 151 (140-440) Thou/mm3 BMP 06/08/25 06/09/25 16:41 04:15 Sodium 131 L 132 L Potassium 4.3 4.5 Chloride 97 L 100 Carbon Dioxide 19.5 L 17.9 L BUN 71 H 73 H Creatinine 15.8 H* 16.2 H* Glucose 178 H 142 H Calcium 8.6 8.1 L Cardiac Enzymes 06/08/25 Range/Units 16:41 Troponin I < 0.020 (0.0-0.045) ng/mL Liver Function 06/08/25 06/09/25 Range/Units 16:41 04:15 Total Bilirubin 0.2 L 0.2 L (0.3-1.2) mg/dL AST 10 < 10 (0-34) U/L ALT 18 13 (10-49) U/L Alkaline Phosphatase 124 H 102 D (46-116) U/L Albumin 3.1 L 2.7 L (3.4-4.8) gm/dL Urine 06/08/25 Range/Units 17:02 Urine Color Lt-Yellow (Lt Yel-Yel) Urine Clarity Clear (Clear/Hazy) Urine pH 7.0 (5.0-7.0) Ur Specific [place] 1.030 (1.001-1.035) Urine Protein 3+ A (Neg - Trace) Urine Glucose (UA) 3+ A (Negative) Quality Measures Quality Measures VTE prophylaxis Medications Home Medications and Allergies Home Medications ?Medication ?Instructions ?Recorded ?Confirmed ?Type carvedilol 25 mg tablet 25 mg PO BID ##0 01/03/13 06/08/25 History amlodipine 5 mg tablet 10 mg PO QDAY 04/29/18 06/08/25 History ferrous sulfate 325 mg (65 mg 325 mg PO TID 08/11/23 06/08/25 History iron) tablet sodium bicarbonate 325 mg tablet 325 mg PO BID 08/11/23 06/08/25 History valsartan 40 mg tablet 160 mg PO BID 08/11/23 06/08/25 History cyclobenzaprine 5 mg tablet 5 mg PO BID 11/12/23 06/08/25 History vitamin B complex-vitamin C-folic 1 tab PO QDAY 11/12/23 06/08/25 History acid 0.8 mg tablet (Ashley-Joanne) ferric citrate 210 mg iron tablet 210 mg PO TID 04/15/25 06/08/25 History (Auryxia) furosemide 40 mg tablet 40 mg PO QAM 04/15/25 06/08/25 History famotidine 40 mg tablet 40 mg PO QDAY acid reflux 04/20/25 06/08/25 History ferric citrate 210 mg iron tablet 210 mg PO TID 05/03/25 06/09/25 History (Auryxia) clonidine HCl 0.1 mg tablet 0.1 mg PO TID 06/08/25 06/08/25 History levetiracetam 500 mg tablet 500 mg PO BID 06/08/25 06/08/25 History Allergies Allergy/AdvReac Type Severity Reaction Status Date / Time No Known Allergies Allergy Verified 06/09/25 12:29 Visit Medications Acetaminophen (Acetaminophen 325 Mg Tablet) 650 mg PO Q6H PRN PRN Reason: Fever >100.4 or pain 1-3 Stop: 07/08/25 22:21 Last Admin: 06/09/25 03:50 Dose: 650 mg Hydrocodone Bitart/Acetaminophen (Hydrocodone/Apap 5/325 Tablet) 1 tab PO Q4HR PRN PRN Reason: PAIN SCALE 4-10(Mod-Sev Stop: 06/13/25 22:21 Amlodipine Besylate (Amlodipine Besylate 5 Mg Tablet) 10 mg PO QDAY [facility] Stop: 07/09/25 08:59 Last Admin: 06/09/25 08:16 Dose: 10 mg Carvedilol (Carvedilol 12.5 Mg Tablet) 25 mg PO BIDWM [facility] Stop: 07/09/25 07:59 Last Admin: 06/09/25 08:16 Dose: 25 mg Clonidine (Clonidine Hcl 0.1 Mg Tablet) 0.1 mg PO TID [facility] Stop: 07/09/25 05:59 Last Admin: 06/09/25 05:11 Dose: 0.1 mg Dextrose (Dextrose 50%-Water Inj 50 Ml Syringe) 25 ml IV Q15MIN PRN PRN Reason: BG 50-70 responsive npo pt Stop: 07/08/25 23:05 Dextrose (Dextrose 50%-Water Inj 50 Ml Syringe) 50 ml IV Q15MIN PRN PRN Reason: BG <50 OR BG <70 & pt unresponsive Stop: 07/08/25 23:05 Docusate Sodium (Docusate Sod 100 Mg Capsule) 100 mg PO QDAY PRN; Protocol PRN Reason: CONSTIPATION Stop: 07/08/25 22:21 Glucagon (Glucagon Inj 1 Mg Vial) 1 mg IM Q15MIN PRN PRN Reason: BG <70, and no IV access Heparin Sodium (Porcine) (Heparin Sod Inj 5000 Unit/Ml Vial) 5,000 unit SC Q12HR [facility] Stop: 06/23/25 08:59 Last Admin: 06/09/25 08:30 Dose: Not Given Ceftazidime 2 gm/ Sodium (Chloride) 50 mls @ 100 mls/hr IV Q24H [facility]; Protocol Stop: 06/16/25 20:59 Insulin Human Lispro (Insulin Lispro (Admelog) 1 Unit/0.01 Ml Unit) 0 unit SC Q6HR [facility]; Protocol Stop: 07/09/25 00:00 Last Admin: 06/09/25 05:07 Dose: Not Given Levetiracetam (Levetiracetam 250 Mg Tablet) 500 mg PO BID [facility] Stop: 07/09/25 08:59 Last Admin: 06/09/25 08:17 Dose: 500 mg Ondansetron HCl (Ondansetron Inj 2 Mg/Ml Inj 2 Ml) 4 mg IVP Q6H PRN; Protocol PRN Reason: NAUSEA OR VOMITING Stop: 07/08/25 22:21 Last Admin: 06/09/25 02:14 Dose: 4 mg Pantoprazole Sodium (Pantoprazole Inj 40 Mg Vial) 40 mg IVP QDAY [facility] Stop: 07/09/25 08:59 Last Admin: 06/09/25 08:17 Dose: 40 mg Pharmacy Consult (Vancomycin Pharmacy To Dose 1 Each Each) 1 each IV QDAY [facility] Stop: 07/09/25 08:59 Sennosides (Senna Tablet) 1 tab PO QDAY PRN; Protocol PRN Reason: constipation Stop: 07/08/25 22:21 Valsartan (Valsartan 80 Mg Tablet) 160 mg PO QDAY [facility] Stop: 07/09/25 08:59 Last Admin: 06/09/25 08:17 Dose: 160 mg Discontinued Medications Clonidine (Clonidine Hcl 0.1 Mg Tablet) 0.1 mg PO X1 ONE Stop: 06/08/25 23:22 Last Admin: 06/08/25 23:46 Dose: 0.1 mg Piperacillin/Tazobactam/Dextrose (Zosyn) 3.375 gm in 50 mls @ 100 mls/hr IV X1 ONE Stop: 06/08/25 19:42 Last Infusion: 06/08/25 20:30 Dose: Infused Vancomycin HCl 1,000 mg/ (Sodium Chloride) 250 mls @ 120 mls/hr IV X1 ONE Stop: 06/09/25 00:49 Last Infusion: 06/09/25 01:46 Dose: Infused Ceftazidime 1 gm/ Sodium (Chloride) 50 mls @ 100 mls/hr IV X1 ONE Stop: 06/08/25 23:14 Last Infusion: 06/08/25 23:28 Dose: Infused Labetalol HCl (Labetalol Inj 5 Mg/Ml Vial 20 Ml) 10 mg IVP X1 ONE Stop: 06/09/25 00:54 Last Admin: 06/09/25 02:10 Dose: 10 mg Labetalol HCl (Labetalol Inj 5 Mg/Ml Vial 20 Ml) 10 mg IVP X1 ONE Stop: 06/09/25 03:56 Last Admin: 06/09/25 04:09 Dose: 10 mg Assessment & Plan Plan Ms Small is a 59 yo woman with a pmh of ESRD on peritoneal dialysis, anemia, type 2 diabetes, hyperlipidemia, seizure disorder, CHF presented with concern for peritoneal dialysis infection (picture of peritoneal fluid is cloudy and yellow. switched to conventional HD given declining benefit from PD, sp R IJ HD cath placement , s/p removal of PD cath with . #c/f peretonitis #ESRD (PD dialysis)s/p PD cath removal, s/p IJ HD cath placement Patient sent to ED by PCP and floor care specialist, Dr. Crews, due to yellow-colored PD fluid concerning for peritonitis. pt ROS negative for systemic signs of infection, abdomen soft nt on exam, wbc On 06/09: Na 132, K 4.5, Cl 100, Co2 17, BUN 73, Cr 16, UA with 3+ protein, 3+ glucose HD: 06/09 Plan -HD today -surgery consulted, Dr. Juan, s/p PD cath removal -IR placement of R IJ HD cath -initiate HD today -renally dosed vanc -Ceftazidime 2 g IV every 8 hours (started 06/08) -f/u blood cultures -renally dose medications #HTN #Hypertensive urgency- resolved Blood pressure elevated on admission, as high as 193/94 in ED. Patient denies headache, blurry vision, chest pain. Blood pressure improved without active treatment. - reassess after HD with fluid removal #DM type II A1c 6% as of 04/21/2025. #Anemia of chronic kidney disease, asymptomatic #Seizure disorder #Chronic asymptomatic hyponatremia #electrolyte abnormalities - management per primary team Plan discussed with nephrology attending Dr. Eleonora Beltran MD Internal Medicine PGY-1 Attending Provider Attestation/Addendum Patient seen and examined with resident physician Dr. Beltran. Agree with findings and recommendations. Patient admitted with a PD peritonitis. Apparently daughter stated that she has not been doing peritoneal dialysis well. We are recommending to switch her PD to hemodialysis modality. Spoke to Dr. Juan-PD catheter was removed. Spoke to Dr. Boles-dialysis catheter was placed. Patient currently seen on dialysis. Tolerating dialysis without any problems. Hemodialysis for 2 hours, 2K, ultrafiltration 0L, Epogen 6000, no heparin ordered. Plan of care discussed with the dialysis nurse. Please see dialysis flowsheet for further details. Next dialysis will be scheduled for tomorrow. Outpatient dialysis will be arranged. Thank you Laurent for allowing me to participate in the care of Ms. Small
--- NOTE | 2025-06-09 09:53 | PD.SURCONS ---
HPI Consult details Consult date: 06/08/25 Reason for consultation narrative: Peritonitis from infected peritoneal dialysis catheter History of present illness: 59-year-old female with history of hypertension, diabetes, end-stage renal disease on peritoneal dialysis was admitted with peritonitis due to infected peritoneal dialysis catheter Review of Systems Constitutional Constitutional: Denies chills and Denies fever(s) Cardiovascular Cardiovascular: Denies chest pain Respiratory Respiratory: Denies cough Gastrointestinal Gastrointestinal: Reports abdominal pain Hematologic/Lymphatic Hematologic/Lymphatic: Denies easy bleeding and Reports easy bruising Past Medical History Surgical History OTHER SURGICAL HX: Appendectomy, BETHANY unilateral salpingo-oophorectomy, peritoneal dialysis catheter placement, eye surgery Meds Home Medications and Allergies Home Medications ?Medication ?Instructions ?Recorded ?Confirmed ?Type carvedilol 25 mg tablet 25 mg PO BID ##0 01/03/13 06/08/25 History amlodipine 5 mg tablet 10 mg PO QDAY 04/29/18 06/08/25 History ferrous sulfate 325 mg (65 mg 325 mg PO TID 08/11/23 06/08/25 History iron) tablet sodium bicarbonate 325 mg tablet 325 mg PO BID 08/11/23 06/08/25 History valsartan 40 mg tablet 160 mg PO BID 08/11/23 06/08/25 History cyclobenzaprine 5 mg tablet 5 mg PO BID 11/12/23 06/08/25 History vitamin B complex-vitamin C-folic 1 tab PO QDAY 11/12/23 06/08/25 History acid 0.8 mg tablet (Ashley-Joanne) ferric citrate 210 mg iron tablet 210 mg PO TID 04/15/25 06/08/25 History (Auryxia) furosemide 40 mg tablet 40 mg PO QAM 04/15/25 06/08/25 History famotidine 40 mg tablet 40 mg PO QDAY acid reflux 04/20/25 06/08/25 History ferric citrate 210 mg iron tablet 210 mg PO TID 05/03/25 06/09/25 History (Auryxia) clonidine HCl 0.1 mg tablet 0.1 mg PO TID 06/08/25 06/08/25 History levetiracetam 500 mg tablet 500 mg PO BID 06/08/25 06/08/25 History Allergies Allergy/AdvReac Type Severity Reaction Status Date / Time No Known Allergies Allergy Verified 06/09/25 12:29 Exam Vital Signs Temp Pulse Resp BP Pulse Ox O2 Del Method 98.3 F 86 17 180/86 H 98 Room Air 06/09/25 08:00 06/09/25 08:17 06/09/25 08:00 06/09/25 08:17 06/09/25 08:00 06/09/25 08:00 Constitutional Constitutional: no acute distress Routine Abdominal Exam Abdominal: Present soft, normoactive bowel sounds and tenderness (Tenderness to deep palpation throughout the abdomen, no rebound tenderness or diffuse peritonitis at this time. PD catheter in place and intact without external evidence of infection); Absent distended Assessment & Plan Problem List (1) Peritonitis associated with peritoneal dialysis: Status: Acute Plan Patient is being treated for IV antibiotics and she wishes to proceed with hemodialysis, order was placed for placement of tunneled catheter. Will plan for removal of peritoneal dialysis catheter. Risks include but not limited to infection, bleeding, injury to surround neurovascular structures, chronic nonhealing wound discussed with the patient. Benefits alternatives explained to her, her questions answered, she agreed and consented to proceed with the operation. (1) Peritonitis associated with peritoneal dialysis Qualifiers: Encounter type: initial encounter Qualified Code(s): T85.71XA - Infection and inflammatory reaction due to peritoneal dialysis catheter, initial encounter
[2025-06-09] MEDS: HEPARIN SOD LOCK SYR 100 UNIT/ML 500 UNIT STFIELD (11:11)
[2025-06-09] MEDS: fentaNYL CIT INJ 50 mCg/ML AMP 2ML 62.5 MCG IVP (11:11)
[2025-06-09] MEDS: LIDOCAINE INJ PF 1% 30 ML VIAL 10 ML EPID (11:11)
[2025-06-09] MEDS: HEPARIN SOD INJ 1000 UNIT/ML VIAL 3800 UNIT INDWELLCAT (11:11)
--- NOTE | 2025-06-09 11:25 | PC.SS ---
Addendum entered by Fany Drake 06/09/25 15:24: SS submitted new hemodialysis documentation to [facility] for o/p chair time Original Note: Patient is alert/oriented. Patient was admitted for peritonitis. Patient is Ukrainian speaking only. SS spoke to patient's daughter, Marisa. SS receive a p/c from PT indicating they recommend a short stay at a SNF. Daughter, Marisa, agrees with this plan. Patient will ultimately make the final decision. Daughter states she used to live with patient but since she has had her baby she no longer resides with her. Daughter states patient lives with her sister. Patient is on peritoneal dialysis. Daughter feels that patient is depressed and has not been property doing her peritoneal dialysis and forgetting treatments. Patient has been getting progressively worse physically. Daughter feels patient is also getting depressed. Prior to hospitalization patient was independent with ADL's. Neurological Surgery Teacher is Dr. Crews. Patient has a wheelchair at home but family states she refuses to use it. Family provides transportation assistance. PCP: [facility] with Janelle Glaser NP. Pharmacy: [facility]. Patient may switch to hemodialysis Alt medical decision maker: Marisa Carlos, transportatoin: medi van vs private vehicle. d/c plan: HH vs SNF.
--- NOTE | 2025-06-09 12:15 | PD.SUROPNT ---
Date of Procedure 06/09/25 Pre Op Diagnosis Peritonitis from infected peritoneal dialysis catheter Post Op Diagnosis Peritonitis from infected peritoneal dialysis catheter Procedure Removal of intraperitoneal dialysis catheter Findings No external evidence of infection Procedure Description Patient brought into the operating room in supine position. After administration of monitored anesthesia care, patient's abdomen prepped and draped in standard surgical manner. The area over the previous insertion site of his peritoneal dialysis catheter was anesthetized with half percent Marcaine. Dissection was carried subcutaneous tissue. The catheter was identified and followed up 20 abdominal fascia. The proximal cuff of the catheter was just posterior to anterior abdominal fascia. The cuff was circumferentially dissected off surrounding tissue. The distal cuff was in subcutaneous tissue and it was similarly dissected off surrounding tissue. The catheter was then removed from abdominal cavity. The anterior abdominal fascial opening was closed with a pursestring suture using 2-0 Prolene. The wound was washed with Betadine and warm saline. Subcutaneous tissue closed with interrupted suture using 2-0 Vicryl and the incision was closed 4-0 Monocryl subcuticular fashion. Instruments, needles and sponge counts were reported to be correct ?2. Patient tolerated the procedure well. She was breathing spontaneously and without difficulty and was transferred to postanesthesia care in stable condition. Anesthesia MAC and local Pathology / specimen Other (Peritoneal dialysis catheter for gross inspection. Tip of the catheter for culture and sensitivity) Estimated Blood Loss 2 Condition Stable Disposition PACU Surgeon Ricardo Juan MD Surgical Staff Operation Date: 06/09/25 12:00 <No data on this case meets the specified criteria>
--- NOTE | 2025-06-09 12:48 | ESPR_ITS ---
<Statement entered by Mayra Goldsmith MD - 06/10/25 05:08> Patient was seen and examined at bedside. I agree on most of the assessment and plan on this note. Patient's plan and care discussed with my attending, Dr. Wendy Goldsmith MD Internal Medicine PGY-3 Documentation for date of: 06/09/25 Subjective Subjective Interval history: No acute events overnight. Patient seen and examined at bedside. Vitals and labs reviewed. Patient endorsed having some R flank and R upper glute itchyness. Patient denies fever, chest pain, shortness of breath Exam Vital Signs Temp Pulse Resp BP Pulse Ox O2 Del Method O2 Flow Rate 97.2 F 61 12 147/71 H 98 Nasal Cannula 2 06/09/25 12:20 06/09/25 12:35 06/09/25 12:35 06/09/25 12:35 06/09/25 12:35 06/09/25 11:21 06/09/25 12:30 Narrative Exam General: No acute distress; A&Ox3 Skin: Warm, dry, intact, no obvious rash. HENT: NCAT, EOMI, not icteric. External ears normal. No rhinorrhea. Moist mucous membranes Cardiovascular: Regular rate and rhythm, no murmur, +S1/S2. Respiratory: Lungs CTAB GI: Peritoneal Dialysis Catheter area dry, non-erythematous, non-tender; No guarding or rebound tenderness. Extremities: no edema, no cyanosis, no clubbing. Extremity pulses present Neuro: No focal deficits observed. Conversant, moving all extremities. No overt cerebellar signs/incoordination. Psychiatric: Cooperative, appropriate affect. Objective Labs 06/10/25 13:28 06/10/25 05:53 Labs: Laboratory Results - last 24 hr 06/08/25 06/08/25 06/09/25 16:41 17:02 04:15 WBC 6.0 6.9 RBC 3.04 L 2.66 L Hgb 9.1 L 7.9 L Hct 27.4 L 23.9 L MCV 90 90 MCH 29.9 29.7 MCHC 33.2 33.1 RDW Std Deviation 46.8 H 46.5 H Plt Count 173 151 Neut % (Auto) 69 72 Lymph % (Auto) 20 18 [place] % (Auto) 7 6 Eos % (Auto) 4 4 Baso % (Auto) 0 0 Neut # (Auto) 4.1 5.0 Lymph # (Auto) 1.2 1.2 [place] # (Auto) 0.4 0.4 Eos # (Auto) 0.2 0.3 Baso # (Auto) 0.0 0.0 Immature Gran # (Auto) 0.01 H 0.02 H Absolute Nucleated RBC 0.00 0.00 Immature Gran % 0 0 Nucleated RBC % 0 0 PT 11.1 11.4 INR 1.0 1.0 APTT 29.8 31.6 Sodium 131 L 132 L Potassium 4.3 4.5 Chloride 97 L 100 Carbon Dioxide 19.5 L 17.9 L Anion Gap 15 14 BUN 71 H 73 H Creatinine 15.8 H* 16.2 H* Estim Creat Clear Calc 2.9 L 2.8 L eGFR 2 L* 2 L* BUN/Creatinine Ratio 4 L 5 L Glucose 178 H 142 H Calculated Osmolality 287 288 Lactic Acid 1.0 Calcium 8.6 8.1 L Corrected Calcium 9.3 9.1 Phosphorus 6.9 H Magnesium 1.5 L Total Bilirubin 0.2 L 0.2 L AST 10 < 10 ALT 18 13 Alkaline Phosphatase 124 H 102 D Troponin I < 0.020 Total Protein 5.7 4.9 L Albumin 3.1 L 2.7 L Globulin 2.6 2.2 L Albumin/Globulin Ratio 1.2 1.2 Procalcitonin 0.20 Ur Collection Type Clean Catch Urine Color Lt-Yellow Urine Clarity Clear Urine pH 7.0 Ur Specific [place] 1.030 Urine Protein 3+ A Urine Glucose (UA) 3+ A Urine Ketones Negative Urine Blood Trace Urine Nitrite Negative Urine Bilirubin Negative Urine Urobilinogen (Auto) Negative Ur Leukocyte Esterase Negative Urine RBC 6 H Urine WBC 4 Ur Squamous Epith Cells 3 Urine Bacteria None Random Vancomycin 17.9 Quality Measures Quality Measures VTE prophylaxis Assessment & Plan Assessment Current Active Medications: Generic Name Dose Route Start Last Admin Trade Name Freq PRN Reason Stop Dose Admin Acetaminophen 650 mg 06/08/25 22:22 06/09/25 03:50 Acetaminophen 325 Mg Tablet PO 07/08/25 22:21 650 mg Q6H PRN Administration Fever >100.4 or pain 1-3 Hydrocodone Bitart/Acetaminophen 1 tab 06/08/25 22:22 Hydrocodone/Apap 5/325 Tablet PO 06/13/25 22:21 Q4HR PRN PAIN SCALE 4-10(Mod-Sev Amlodipine Besylate 10 mg 06/09/25 09:00 06/09/25 08:16 Amlodipine Besylate 5 Mg Tablet PO 07/09/25 08:59 10 mg QDAY TIFFANI Administration Carvedilol 25 mg 06/09/25 08:00 06/09/25 08:16 Carvedilol 12.5 Mg Tablet PO 07/09/25 07:59 25 mg BIDWM TIFFANI Administration Clonidine 0.1 mg 06/09/25 06:00 06/09/25 05:11 Clonidine Hcl 0.1 Mg Tablet PO 07/09/25 05:59 0.1 mg TID TIFFANI Administration Dextrose 25 ml 06/08/25 23:06 Dextrose 50%-Water Inj 50 Ml Syringe IV 07/08/25 23:05 Q15MIN PRN BG 50-70 responsive npo pt Dextrose 50 ml 06/08/25 23:06 Dextrose 50%-Water Inj 50 Ml Syringe IV 07/08/25 23:05 Q15MIN PRN BG <50 OR BG <70 & pt unresponsive Docusate Sodium 100 mg 06/08/25 22:22 Docusate Sod 100 Mg Capsule PO 07/08/25 22:21 QDAY PRN CONSTIPATION Protocol Glucagon 1 mg 06/08/25 23:06 Glucagon Inj 1 Mg Vial IM Q15MIN PRN BG <70, and no IV access Heparin Sodium (Porcine) 5,000 unit 06/09/25 09:00 06/09/25 08:30 Heparin Sod Inj 5000 Unit/Ml Vial SC 06/23/25 08:59 Not Given Q12HR [facility] Hydralazine HCl 10 mg 06/09/25 09:06 Hydralazine Inj 20 Mg/Ml Vial IVP 07/09/25 09:14 Q6H PRN SBP above 180 Ceftazidime 2 gm/ Sodium 50 mls @ 100 mls/hr 06/09/25 21:00 Chloride IV 06/16/25 20:59 Q24H [facility] Protocol Insulin Human Lispro 0 unit 06/09/25 00:00 06/09/25 05:07 Insulin Lispro (Admelog) 1 Unit/0.01 Ml Unit SC 07/09/25 00:00 Not Given Q6HR [facility] Protocol Levetiracetam 500 mg 06/09/25 09:00 06/09/25 08:17 Levetiracetam 250 Mg Tablet PO 07/09/25 08:59 500 mg BID TIFFANI Administration Ondansetron HCl 4 mg 06/08/25 22:22 06/09/25 02:14 Ondansetron Inj 2 Mg/Ml Inj 2 Ml IVP 07/08/25 22:21 4 mg Q6H PRN Administration NAUSEA OR VOMITING Protocol Pantoprazole Sodium 40 mg 06/09/25 09:00 06/09/25 08:17 Pantoprazole Inj 40 Mg Vial IVP 07/09/25 08:59 40 mg QDAY TIFFANI Administration Pharmacy Consult 1 each 06/09/25 09:00 Vancomycin Pharmacy To Dose 1 Each Each IV 07/09/25 08:59 QDAY TIFFANI Sennosides 1 tab 06/08/25 22:22 Senna Tablet PO 07/08/25 22:21 QDAY PRN constipation Protocol Valsartan 160 mg 06/09/25 09:00 06/09/25 08:17 Valsartan 80 Mg Tablet PO 07/09/25 08:59 160 mg QDAY TIFFANI Administration Plan 59 y/o F with PMHx significant for ESRD on peritoneal dialysis, anemia, type 2 diabetes, hyperlipidemia, seizure disorder, CHF presents with chief complaint of concern for peritoneal dialysis infection, admitted for potential peritonitis and to initiate hemodialysis. 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 In addition, PD has had diminishing benefit for patient, plan to switch to hemodialysis. WBC 6.0, lactic acid 1.0, Pro-Jeff negative. Patient denies fevers, chills, chest pain, shortness of breath, nausea, vomiting. Abdomen soft/nontender on exam. Dr. Crews on board. Dr Juan consulted to remove PD cath. - PD catheter removed by surgery Dr. Juan - IR placement of R IJ HD cath - Will get HD today - Vancomycin pharmacy dosing (started 06/09) - Ceftazidime 2 g IV every 8 hours (started 06/08) - Blood cultures pending, f/u - Renally dose meds as needed - Nephrology consulted, appreciate recommendations - General Surgery consulted, appreciate recommendations #HTN #Hypertensive urgency Patient has history as stated. Blood pressure elevated on admission, as high as 193/94 in ED. Patient denies headache, blurry vision, chest pain. Blood pressure improved initially without active treatment. Was given x2 Labetalol 10 mg pushes. - hydralazine 10 mg IV prn q6hr - Closely monitor blood pressure - Continued clonidine 0.1 mg TID, coreg 25 mg po BIDWM - No need for aggressive treatment #DM type II Patient history as described. Currently NPO. A1c 6% as of 04/21/2025. - ISS #Anemia of chronic kidney disease, asymptomatic #Seizure disorder #Chronic asymptomatic hyponatremia Patient history as stated. Hemoglobin on admission 9.1, baseline for patient. Sodium 131, patient asymptomatic. - Resume home Keppra 500 mg p.o. twice daily - Monitor hemoglobin, transfuse as needed - Monitor sodium DVT prophylaxis: Heparin GI prophylaxis: Protonix Diet: Renal Bowel Prophylaxis: Colace prn Lines: PIV, PD cath Code status: Full code Patient plan of care was discussed with the attending physician, Dr. Nguyen & senior resident Dr. Rupal Moreno MD PGY-1 Attending Provider Attestation/Addendum I have discussed and was present for the essential components of the history, physical examination, diagnosis, and treatment plan with the resident. I agree with the patient's care as documented by the resident and amended herein by me. Laurent Nguyen DO. Although this document has been carefully reviewed, there may still be some phonetic and other typographical errors. These errors are purely grammatical due to imperfections in the software program and should not be construed in any way to compromise the substance of the patient's medical care during this visit.
--- NOTE | 2025-06-09 12:51 | SUR.PHASEI ---
1220: pt arrived to PACU via rarbela drowsy-arouses to voice, breathing unlabored, dressing to abdomen clean, dry, and intact, report from Beatriz LABOY and [place] DESIGN AGENT 1250: Pt awake, alert, able to follow commands, breathing unlabored, dressing to abdomen clean, dry, and intact, report called to Sierra LABOY 1251: Pt transferred to room at this time.
[2025-06-09] MEDS: HYDROcodone/APAP 5/325 TABLET 1 TAB PO ×2 (14:38→21:39)
[2025-06-09] MEDS: HEPARIN SOD INJ 1000 UNIT/ML VIAL 10 ML 3800 UNIT INDWELLCAT (16:51)
[2025-06-09] MEDS: TUBERCULIN PPD INJ 5 UNIT/0.1 ML DOSE ID (17:30)
--- NOTE | 2025-06-09 17:38 | PC.NURSE ---
Pt answering all orientation questions correctly. However, Pt making comments that suggest she make be a little confused. Called Dr. Walker who is covering for Dr. Quezada and made aware.
[2025-06-09] MEDS: SODIUM CHLORIDE 0.9% IV (21:40)
[2025-06-09] MEDS: CEFTAZIDIME IV (21:40)
[2025-06-09] MEDS: HEPARIN SOD INJ 5000 UNIT/ML VIAL SC (21:45)
[2025-06-10] VITALS (28 sets, daily range): BP systolic 140–204; BP diastolic 67–101; PULSE 63–89; RESP 14–18; TEMP 35.7–37; O2SAT 96–98; BMI 13.0
[2025-06-10 06:11] LABS: Basophils # (Auto) 0.0 Thou/mm3 (0.0-0.2); Basophils % (Auto) 0 % (0-2.5); Eosinophils # (Auto) 0.3 Thou/mm3 (0.0-0.5); Eosinophils % (Auto) 5 % (0-10); Hematocrit 21.6 % (36.0-46.0); Immature Granulocytes Auto 0.03 Thou/mm3 (0.00-0.00); Lymphocytes # (Auto) 0.6 Thou/mm3 (1.0-4.8); Lymphocytes % (Auto) 10 % (10-50); Mean Corpuscular HGB Conc 32.9 g/dl (31.0-37.0); Mean Corpuscular Hemoglobin 30.1 pg (25.0-35.0); Mean Corpuscular Volume 92 fL (80-100); Monocytes # (Auto) 0.4 Thou/mm3 (0.0-0.8); Monocytes % (Auto) 6 % (0-12); Neutrophils # (Auto) 4.7 Thou/mm3 (1.8-7.7); Neutrophils % (Auto) 79 % (37-80); Nucleated Red Blood Cell # 0.00 Thou/mm3 (0.00-0.00); Nucleated Red Blood Cell % 0 /100 WBC (0); Platelet Count 124 Thou/mm3 (140-440); RDW Standard Deviation 47.4 fL (36.4-46.3); Red Blood Count 2.36 Miln/mm3 (4.00-5.20); White Blood Count 6.0 Thou/mm3 (3.6-11.0)
[2025-06-10 06:14] LABS: Hemoglobin 7.1 g/dL (12.0-16.0)
[2025-06-10 07:00] LABS: Alanine Aminotransferase 9 U/L (10-49); Albumin, Serum 2.6 gm/dL (3.4-4.8); Albumin/Globulin Ratio 1.1 (1.2-2.2); Alkaline Phosphatase 85 U/L (46-116); Anion Gap 13 (7-16); Aspartate Amino Transferase < 8 U/L (0-34); Bilirubin,Total 0.2 mg/dL (0.3-1.2); Blood Urea Nitrogen 38 mg/dL (9-23); Calcium 7.9 mg/dL (8.3-10.6); Calcium (Corrected) 9.0 mg/dL (8.5-10.1); Carbon Dioxide 21.0 mMol/L (20.0-31.0); Chloride 100 mMol/L (98-107); Globulin 2.3 gm/dL (2.3-3.5); Glucose 114 mg/dL (74-106); Magnesium 2.1 mg/dL (1.6-2.6); Osmolality,Calculated 278 (275-295); Phosphorous 5.7 mg/dL (2.4-5.1); Potassium 4.2 mMol/L (3.4-5.1); Sodium 134 mMol/L (136-145); Total Protein 4.9 gm/dL (5.7-8.2)
[2025-06-10 07:16] LABS: BUN/Creatinine Ratio 3 Ratio (12-20); Creatinine (Component) 11.0 mg/dL (0.6-1.3); Estimated Creatinine Clearance 4.2 mL/min (>60); Vancomycin,Random 13.7 mcg/mL; eGFR 4 See Note
[2025-06-10 07:31] LABS: Hepatitis C Antibody Non Reactive (Non React)
--- NOTE | 2025-06-10 07:55 | PC.NURSE ---
Pt was taken to dialysis
[2025-06-10 09:56] LABS: HIV (1&2) Antibody Rapid Non-Reactive
[2025-06-10] MEDS: CITRIC ACID/SODIUM CITR 15 ML UDC (BICITRA) 30 ML PO ×2 (11:19→21:26)
[2025-06-10] MEDS: HEPARIN SOD INJ 5000 UNIT/ML VIAL SC (11:19)
[2025-06-10] MEDS: VALSARTAN 80 MG TABLET 160 MG PO ×2 (11:20→21:27)
[2025-06-10] MEDS: VANCOMYCIN/NS 500 MG IVPB 100 ML 120 MG IV (11:22)
--- NOTE | 2025-06-10 11:36 | PD.NEPHPROG ---
Documentation for date of: 06/10/25 Subjective Subjective Interval history: Ms Small is a 59 yo woman with a pmh of ESRD on peritoneal dialysis, anemia, type 2 diabetes, hyperlipidemia, seizure disorder, CHF presents with concern for peritoneal dialysis infection (picture of peritoneal fluid is cloudy and yellow. Dr. Crews saw picture and was concerned for infection, plan to switch to conventional HD given declining benefit from PD. ROS pt denies, fever chills, chest pain, nausea, vomiting, or abdominal pain ED COURSE: Dx - Labs significant for: WBC 6.0, hemoglobin 9.1 (chronic), sodium 131 (chronic), serum bicarb 19.5, anion gap 15, BUN 71, creatinine 15.8, EGFR 2, lactic acid 1.0, procalcitoninl negative. Urinalysis negative bland - Imaging significant for: Chest x-ray showing mild vascular congestion. Tx - Zosyn PMH: ESRD, anemia, type 2 diabetes, seizure disorder, CHF (EF 55% 04/2025), GERD PSH: PD cath placement Allergies:?NKDA Medications: Keppra, Coreg, amlodipine, valsartan, Lasix, aspirin, clonidine, chlorthalidone, atorvastatin 06/09/2025 Pt admitted, Nephro consulted. Surgery consulted for removal of PD catheter given c/f infection, R IJ cath placed by IR for conventional HD. Pt seen and examined in HD s/p PD cath removal, resting comfortably, reports some abdominal pain, no rebound or guarding, recently administerd pain medication. Na 132, K 4.5, CO2 17, BUN 73, Cr 16.2, Phos 6.9, Mag 1.5. eGFR 2.UA with 3+ protien, 3+ glucose, HD today 06/10/2025 patient will receive her second dialysis session today. PD catheter was removed. Patient has a right IJ PermCath and did receive first session yesterday. Seems to be anxious. Had a long conversation with the patient who had several questions which were answered to her satisfaction. Outpatient hemodialysis will be arranged. Review of Systems Review of Systems Narrative Review of Systems: CONSTITUTIONAL: Patient denies any fever, chills. HEENT: Denies any visual disturbances or hearing problems. CARDIOVASCULAR: Patient denies any chest pain, shortness of breath, swelling in the lower extremities. PULMONARY: Patient denies any shortness of breath, cough. GASTROINTESTINAL: Patient denies any abdominal pain, constipation, nausea, vomiting, diarrhea. GENITOURINARY: Patient denies any urinary symptoms of burning or frequency or hematuria, denies any form in the urine. SKIN: Denies any rash. MUSCULOSKELETAL: Denies any muscular skeletal problems of joint pains. NEUROLOGICAL: Denies any neurological problems of strokes, seizures or confusion. Denies any memory problems. PSYCHIATRIC: Patient admits anxiety and depression Exam Vital Signs Temp Pulse Resp BP Pulse Ox O2 Del Method O2 Flow Rate 36.4 C 88 18 180/92 H 98 Room Air 2 06/10/25 10:48 06/10/25 11:21 06/10/25 10:48 06/10/25 11:21 06/10/25 10:48 06/10/25 08:00 06/10/25 10:48 Narrative Exam GENERAL: no acute distress, AAO x3, comfortably laying in HD bed HEENT: Head AT/ NC. Mucous membranes moist. PERRL. RIJ catheter NECK: Supple, no lymphadenopathy, no carotid bruits. CARDIOVASCULAR: RRR. Normal S1/S2, No m/r/g. No pitting edema of bilateral LEs. RESPIRATORY: CTAB. No wheezing, rhonchi, crackles. satting well on RA GASTROINTESTINAL: Abdomen soft, mild tenderness, PD catheter removed no palpable masses. Bowel sounds present MUSCULOSKELETAL:? No cyanosis or edema, no visible joint swelling. scds in place NEUROLOGICAL: CN II-XII grossly intact. No focal deficits. Sensation intact, symmetric. PSYCHIATRIC: Awake and alert, not agitated, normal mood and affect. SKIN: No obvious rashes, no jaundice, normal turgor. Objective Labs 06/11/25 04:39 06/11/25 04:39 Labs: Laboratory Results - last 24 hr 06/10/25 06/10/25 05:53 08:40 WBC 6.0 RBC 2.36 L Hgb 7.1 L Hct 21.6 L* MCV 92 MCH 30.1 MCHC 32.9 RDW Std Deviation 47.4 H Plt Count 124 L Neut % (Auto) 79 Lymph % (Auto) 10 [place] % (Auto) 6 Eos % (Auto) 5 Baso % (Auto) 0 Neut # (Auto) 4.7 Lymph # (Auto) 0.6 L [place] # (Auto) 0.4 Eos # (Auto) 0.3 Baso # (Auto) 0.0 Immature Gran # (Auto) 0.03 H Absolute Nucleated RBC 0.00 Immature Gran % 1 H Nucleated RBC % 0 Sodium 134 L Potassium 4.2 Chloride 100 Carbon Dioxide 21.0 Anion Gap 13 BUN 38 H Creatinine 11.0 H* D Estim Creat Clear Calc 4.2 L eGFR 4 L* BUN/Creatinine Ratio 3 L Glucose 114 H Calculated Osmolality 278 Calcium 7.9 L Corrected Calcium 9.0 Phosphorus 5.7 H Magnesium 2.1 Total Bilirubin 0.2 L AST < 8 ALT 9 L Alkaline Phosphatase 85 Total Protein 4.9 L Albumin 2.6 L Globulin 2.3 Albumin/Globulin Ratio 1.1 L Random Vancomycin 13.7 Hepatitis C Antibody Non Reactive HIV 1&2 Antibody Rapid Non-Reactive Blood Type O Positive Antibody Screen NEGATIVE Crossmatch See Detail Blood Bank Wristband ID Yes Assessment & Plan Assessment and plan (1) Peritonitis associated with peritoneal dialysis: Status: Acute Additional Assessment & Plan Additional Plan: Ms Small is a 59 yo woman with a pmh of ESRD on peritoneal dialysis, anemia, type 2 diabetes, hyperlipidemia, seizure disorder, CHF presented with concern for peritoneal dialysis infection (picture of peritoneal fluid is cloudy and yellow. switched to conventional HD given declining benefit from PD, sp R IJ HD cath placement , s/p removal of PD cath with . # PD peritonitis-PD catheter was removed by Dr. Juan. #ESRD transition to hemodialysis. Status post--right IJ HD cath placement Patient currently seen on dialysis. Tolerating dialysis without any problems. Hemodialysis for 2/5 hours, 2K, ultrafiltration 2-3 L, Epogen 6000, no heparin ordered. Plan of care discussed with the dialysis nurse. Please see dialysis flowsheet for further details. Currently on antibiotics for PD peritonitis. #HTN Blood pressure elevated on admission, as high as 193/94 in ED. Patient denies headache, blurry vision, chest pain. Blood pressure improved without active treatment. - reassess after HD with fluid removal #DM type II A1c 6% as of 04/21/2025. #Anemia of chronic kidney disease, asymptomatic #Seizure disorder #Chronic asymptomatic hyponatremia #electrolyte abnormalities - management per primary team Outpatient dialysis will be arranged. Might need p.o. antibiotics for peritonitis for 1 more week. Quality - progress note Quality Measures Quality Measures: VTE prophylaxis Reason for Continued Stay Reason for Continued Stay: further monitoring (1) Peritonitis associated with peritoneal dialysis Qualifiers: Encounter type: initial encounter Qualified Code(s): T85.71XA - Infection and inflammatory reaction due to peritoneal dialysis catheter, initial encounter
--- NOTE | 2025-06-10 11:44 | ESPR_ITS ---
<Statement entered by Tarun Quezada MD - 06/10/25 17:12> I have reviewed the note and agree with the resident's assessment & plan with exceptions as below. I have personally reviewed labs, imaging, home meds/prior records, examined the patient, formulated and discussed management plan with the IM team. Patient examined at bedside today. Nephrology on consult, appreciate recommendations. Patient to get second hemodialysis session today. Pending PPD result. Patient getting outpatient dialysis chair time set up with social work. Added hydralazine as needed for patient, however do not want to overcorrect patient's blood pressure as she is new to hemodialysis. Will slowly adjust blood pressure medicines. Repeat hematology and chemistry in the a.m. Tarun Quezada, PGY-2 Internal Medicine Documentation for date of: 06/10/25 Subjective Subjective Interval history: No acute events overnight. Patient seen and examined at bedside. Patient appears mildly confused, reports 8/10 pain everywhere without any emotional indication, reports 8/10 pain around abdomen where surgical scars are and yelps in pain upon palpation rating 8/10 as well. Per nursing patient does not endorse any pain on their interviews and insists on showing photos of grandchildren. Patient denies fever, chest pain, shortness of breath. 1 unit of pRBCs given for low hgb, hgb rebounded. Exam Vital Signs Temp Pulse Resp BP Pulse Ox O2 Del Method O2 Flow Rate 97.6 F 88 18 180/92 H 98 Room Air 2 06/10/25 10:48 06/10/25 11:21 06/10/25 10:48 06/10/25 11:21 06/10/25 10:48 06/10/25 08:00 06/10/25 10:48 Narrative Exam General: No acute distress; A&Ox3 Skin: Warm, dry, intact, no obvious rash. HENT: NCAT, EOMI, not icteric. External ears normal. No rhinorrhea. Moist mucous membranes Cardiovascular: Regular rate and rhythm, no murmur, +S1/S2. Respiratory: Lungs CTAB GI: Peritoneal Dialysis Catheter area dry, non-erythematous, TTP, NBS; No guarding or rebound tenderness. Extremities: no edema, no cyanosis, no clubbing. Extremity pulses present Neuro: No focal deficits observed. Conversant, moving all extremities. No overt cerebellar signs/incoordination. Psychiatric: Cooperative, appropriate affect. Objective Labs 06/10/25 13:28 06/10/25 05:53 Labs: Laboratory Results - last 24 hr 06/10/25 06/10/25 05:53 08:40 WBC 6.0 RBC 2.36 L Hgb 7.1 L Hct 21.6 L* MCV 92 MCH 30.1 MCHC 32.9 RDW Std Deviation 47.4 H Plt Count 124 L Neut % (Auto) 79 Lymph % (Auto) 10 [place] % (Auto) 6 Eos % (Auto) 5 Baso % (Auto) 0 Neut # (Auto) 4.7 Lymph # (Auto) 0.6 L [place] # (Auto) 0.4 Eos # (Auto) 0.3 Baso # (Auto) 0.0 Immature Gran # (Auto) 0.03 H Absolute Nucleated RBC 0.00 Immature Gran % 1 H Nucleated RBC % 0 Sodium 134 L Potassium 4.2 Chloride 100 Carbon Dioxide 21.0 Anion Gap 13 BUN 38 H Creatinine 11.0 H* D Estim Creat Clear Calc 4.2 L eGFR 4 L* BUN/Creatinine Ratio 3 L Glucose 114 H Calculated Osmolality 278 Calcium 7.9 L Corrected Calcium 9.0 Phosphorus 5.7 H Magnesium 2.1 Total Bilirubin 0.2 L AST < 8 ALT 9 L Alkaline Phosphatase 85 Total Protein 4.9 L Albumin 2.6 L Globulin 2.3 Albumin/Globulin Ratio 1.1 L Random Vancomycin 13.7 Hepatitis C Antibody Non Reactive HIV 1&2 Antibody Rapid Non-Reactive Blood Type O Positive Antibody Screen NEGATIVE Crossmatch See Detail Blood Bank Wristband ID Yes Quality Measures Quality Measures VTE prophylaxis Assessment & Plan Assessment Current Active Medications: Generic Name Dose Route Start Last Admin Trade Name Freq PRN Reason Stop Dose Admin Acetaminophen 650 mg 06/08/25 22:22 06/09/25 03:50 Acetaminophen 325 Mg Tablet PO 07/08/25 22:21 650 mg Q6H PRN Administration Fever >100.4 or pain 1-3 Hydrocodone Bitart/Acetaminophen 1 tab 06/08/25 22:22 06/09/25 21:39 Hydrocodone/Apap 5/325 Tablet PO 06/13/25 22:21 1 tab Q4HR PRN Administration PAIN SCALE 4-10(Mod-Sev Amlodipine Besylate 10 mg 06/09/25 09:00 06/10/25 11:21 Amlodipine Besylate 5 Mg Tablet PO 07/09/25 08:59 10 mg QDAY TIFFANI Administration Carvedilol 25 mg 06/09/25 08:00 06/10/25 11:19 Carvedilol 12.5 Mg Tablet PO 07/09/25 07:59 25 mg BIDWM TIFFANI Administration Citric Acid/Sodium Citrate 30 ml 06/10/25 09:00 06/10/25 11:19 Citric Acid/Sodium Citr 15 Ml Udc (Bicitra) PO 07/10/25 08:59 30 ml BID TIFFANI Administration Clonidine 0.1 mg 06/09/25 06:00 06/10/25 05:51 Clonidine Hcl 0.1 Mg Tablet PO 07/09/25 05:59 0.1 mg TID TIFFANI Administration Dextrose 25 ml 06/08/25 23:06 Dextrose 50%-Water Inj 50 Ml Syringe IV 07/08/25 23:05 Q15MIN PRN BG 50-70 responsive npo pt Dextrose 50 ml 06/08/25 23:06 Dextrose 50%-Water Inj 50 Ml Syringe IV 07/08/25 23:05 Q15MIN PRN BG <50 OR BG <70 & pt unresponsive Docusate Sodium 100 mg 06/08/25 22:22 Docusate Sod 100 Mg Capsule PO 07/08/25 22:21 QDAY PRN CONSTIPATION Protocol Furosemide 40 mg 06/10/25 09:01 Furosemide 40 Mg Tablet PO 07/10/25 08:59 QAM TIFFANI Glucagon 1 mg 06/08/25 23:06 Glucagon Inj 1 Mg Vial IM Q15MIN PRN BG <70, and no IV access Heparin Sodium (Porcine) 5,000 unit 06/09/25 09:00 06/10/25 11:19 Heparin Sod Inj 5000 Unit/Ml Vial SC 06/23/25 08:59 5,000 unit Q12HR TIFFANI Administration Heparin Sodium (Porcine) 3,800 unit 06/09/25 15:24 06/09/25 16:51 Heparin Sod Inj 1000 Unit/Ml Vial 10 Ml INDWELLCAT 06/23/25 15:23 3,800 unit X1 PRN Administration DIALYSIS Hydralazine HCl 10 mg 06/09/25 09:06 Hydralazine Inj 20 Mg/Ml Vial IVP 07/09/25 09:14 Q6H PRN SBP above 180 Ceftazidime 2 gm/ Sodium 50 mls @ 100 mls/hr 06/09/25 21:00 06/09/25 21:40 Chloride IV 06/16/25 20:59 100 mls/hr Q24H TIFFANI Administration Protocol Albumin Human 25 gm in 100 mls @ 100 mls/min 06/09/25 15:24 Albuminar-25 Ivpb IV 06/12/25 15:23 PRN PRN DIALYSIS Insulin Human Lispro 0 unit 06/09/25 17:00 06/10/25 07:28 Insulin Lispro (Admelog) 1 Unit/0.01 Ml Unit SC 07/09/25 16:59 Not Given ACHS TIFFANI Protocol Levetiracetam 500 mg 06/09/25 09:00 06/10/25 11:20 Levetiracetam 250 Mg Tablet PO 07/09/25 08:59 500 mg BID TIFFANI Administration Ondansetron HCl 4 mg 06/08/25 22:22 06/09/25 02:14 Ondansetron Inj 2 Mg/Ml Inj 2 Ml IVP 07/08/25 22:21 4 mg Q6H PRN Administration NAUSEA OR VOMITING Protocol Pantoprazole Sodium 40 mg 06/09/25 09:00 06/10/25 11:18 Pantoprazole Inj 40 Mg Vial IVP 07/09/25 08:59 40 mg QDAY TIFFANI Administration Pharmacy Consult 1 each 06/09/25 09:00 06/10/25 11:22 Vancomycin Pharmacy To Dose 1 Each Each IV 07/09/25 08:59 Not Given QDAY TIFFANI Sennosides 1 tab 06/08/25 22:22 Senna Tablet PO 07/08/25 22:21 QDAY PRN constipation Protocol Valsartan 160 mg 06/10/25 09:00 06/10/25 11:20 Valsartan 80 Mg Tablet PO 07/10/25 08:59 160 mg BID TIFFANI Administration Zinc Acetate/Diphenhydramine 0 gm 06/09/25 17:42 Diphenhydramine/Zn Acet 2% Cr 30 Gm Tube TOP 07/09/25 17:41 Q4HR PRN Itchyness Plan 59 y/o F with PMHx significant for ESRD on peritoneal dialysis, anemia, type 2 diabetes, hyperlipidemia, seizure disorder, CHF presents with chief complaint of concern for peritoneal dialysis infection, admitted for potential peritonitis and to initiate hemodialysis. First round of HDS today. Pending PPD and chair placement for discharge. #Peritonitis, rule out #ESRD (PD dialysis) Patient sent to ED by PCP and cytology laboratory manager due to yellow-colored PD fluid concerning for peritonitis. In addition, PD has had diminishing benefit for patient, plan to switch to hemodialysis. WBC 6.0, lactic acid 1.0, Pro-Jeff negative. Patient denies fevers, chills, chest pain, shortness of breath, nausea, vomiting. Abdomen soft/nontender on exam. Dr. Crews on board. Dr Juan consulted to remove PD cath. - PD catheter removed by surgery Dr. Juan - IR placement of R IJ HD cath - Will get HD today - Vancomycin pharmacy dosing (started 06/09) - Ceftazidime 2 g IV every 8 hours (started 06/08) - Blood cultures, +MRSA - Renally dose meds as needed - Nephrology consulted, appreciate recommendations - General Surgery consulted, appreciate recommendations #Anemia of chronic kidney disease, asymptomatic Hemoglobin on admission 9.1, baseline for patient. 1 unit pRBCs given Hgb rebounded 7.1 --> 9.6. Plan: - Monitor hemoglobin, transfuse as needed - Potential to FUP iron studies, including ferritin, peripheral blod smear. #HTN #Hypertensive urgency Patient has history as stated. Blood pressure elevated on admission, as high as 193/94 in ED. Patient denies headache, blurry vision, chest pain. Blood pressure improved initially without active treatment. Was given x2 Labetalol 10 mg pushes. - hydralazine 10 mg IV prn q6hr - Closely monitor blood pressure - Continued clonidine 0.1 mg TID, coreg 25 mg po BIDWM - No need for aggressive treatment #DM type II Patient history as described. Currently NPO. A1c 6% as of 04/21/2025. - ISS #Seizure disorder #Chronic asymptomatic hyponatremia Patient history as stated. Sodium 131, patient asymptomatic. Plan: - Resume home Keppra 500 mg p.o. twice daily - Monitor sodium DVT prophylaxis: Heparin GI prophylaxis: Protonix Diet: Renal Bowel Prophylaxis: Colace prn Lines: PIV, PD cath Code status: Full code Patient plan of care was discussed with the attending physician, Dr. Nguyen & senior resident Dr. Pilar Galdamez MD PGY-1 Attending Provider Attestation/Addendum I have discussed and was present for the essential components of the history, physical examination, diagnosis, and treatment plan with the resident. I agree with the patient's care as documented by the resident and amended herein by me. Laurent Nguyen DO. Although this document has been carefully reviewed, there may still be some phonetic and other typographical errors. These errors are purely grammatical due to imperfections in the software program and should not be construed in any way to compromise the substance of the patient's medical care during this visit.
--- NOTE | 2025-06-10 11:53 | PC.SS ---
follow up note: SS met with patient with official court interpreter present. SS discussed d/c options of HH vs SNF. Patient seemed confused by conversation. Patient continued to ask if she needed a grain cleaner. Patient also asked if she needs to sell her home. SS will follow up with her daughter, Marisa, who inquired about a short stay at a SNF. SS received o/p dialysis chair time of every //Sat @ 6:10a.m. with an end time of 9:10a.m. SS updated physician team. Pending Nephrology rec's.
--- NOTE | 2025-06-10 13:34 | PD.SURPROG ---
Documentation for date of: 06/10/25 Subjective Subjective Narrative: Patient is seen and examined. She is resting comfortably Exam Vital Signs Temp Pulse Resp BP Pulse Ox O2 Del Method O2 Flow Rate 98.1 F 80 16 155/91 H 97 Room Air 2 06/10/25 12:00 06/10/25 12:00 06/10/25 12:00 06/10/25 12:00 06/10/25 12:00 06/10/25 12:00 06/10/25 10:48 Constitutional Constitutional: no acute distress Routine Abdominal Exam Comments: Abdomen is soft and nondistended. Incision is clean, dry and intact Assessment & Plan Assessment Additional comments: Postop day #1 status post removal of intraperitoneal dialysis catheter Plan Recovering well postoperatively. May discharge from surgical standpoint PROCEDURES: Procedures Removal of intraperitoneal dialysis catheter
[2025-06-10 13:42] LABS: Hematocrit 27.9 % (36.0-46.0); Hemoglobin 9.6 g/dL (12.0-16.0)
--- NOTE | 2025-06-10 15:36 | PC.SS ---
Follow up note: Patient is agreeable to SNF short term. Patient has no preference at this time. SS updated daughter, Marisa. She will take a tour and speak with her mother. She will follow up with staff Friday with their preference on facility. All local facilities accepted. No auth needed. PaSRR complete
[2025-06-10] MEDS: SODIUM CHLORIDE 0.9% IV (21:27)
[2025-06-10] MEDS: CEFTAZIDIME IV (21:27)
[2025-06-10] MEDS: HYDROcodone/APAP 5/325 TABLET 1 TAB PO (22:30)
[2025-06-11] VITALS (10 sets, daily range): BP systolic 132–172; BP diastolic 71–84; PULSE 67–78; RESP 16–20; TEMP 36.4–37.2; O2SAT 94–96
[2025-06-11] MEDS: ONDANSETRON INJ 2 MG/ML INJ 2 ML 4 MG IVP (05:03)
[2025-06-11 05:51] LABS: Basophils # (Auto) 0.0 Thou/mm3 (0.0-0.2); Basophils % (Auto) 0 % (0-2.5); Eosinophils # (Auto) 0.3 Thou/mm3 (0.0-0.5); Eosinophils % (Auto) 6 % (0-10); Hematocrit 25.2 % (36.0-46.0); Hemoglobin 8.5 g/dL (12.0-16.0); Immature Granulocytes Auto 0.01 Thou/mm3 (0.00-0.00); Lymphocytes # (Auto) 0.9 Thou/mm3 (1.0-4.8); Lymphocytes % (Auto) 18 % (10-50); Mean Corpuscular HGB Conc 33.7 g/dl (31.0-37.0); Mean Corpuscular Hemoglobin 30.6 pg (25.0-35.0); Mean Corpuscular Volume 91 fL (80-100); Monocytes # (Auto) 0.5 Thou/mm3 (0.0-0.8); Monocytes % (Auto) 9 % (0-12); Neutrophils # (Auto) 3.4 Thou/mm3 (1.8-7.7); Neutrophils % (Auto) 66 % (37-80); Nucleated Red Blood Cell # 0.00 Thou/mm3 (0.00-0.00); Nucleated Red Blood Cell % 0 /100 WBC (0); Platelet Count 107 Thou/mm3 (140-440); RDW Standard Deviation 45.3 fL (36.4-46.3); Red Blood Count 2.78 Miln/mm3 (4.00-5.20); White Blood Count 5.1 Thou/mm3 (3.6-11.0)
[2025-06-11 06:23] LABS: Alanine Aminotransferase < 7 U/L (10-49); Albumin, Serum 2.6 gm/dL (3.4-4.8); Albumin/Globulin Ratio 1.2 (1.2-2.2); Alkaline Phosphatase 83 U/L (46-116); Anion Gap 11 (7-16); Aspartate Amino Transferase 13 U/L (0-34); BUN/Creatinine Ratio 3 Ratio (12-20); Bilirubin,Total 0.3 mg/dL (0.3-1.2); Blood Urea Nitrogen 26 mg/dL (9-23); Calcium 8.0 mg/dL (8.3-10.6); Calcium (Corrected) 9.1 mg/dL (8.5-10.1); Carbon Dioxide 27.2 mMol/L (20.0-31.0); Chloride 99 mMol/L (98-107); Creatinine (Component) 7.7 mg/dL (0.6-1.3); Estimated Creatinine Clearance 5.9 mL/min (>60); Globulin 2.1 gm/dL (2.3-3.5); Glucose 118 mg/dL (74-106); Magnesium 1.9 mg/dL (1.6-2.6); Osmolality,Calculated 279 (275-295); Phosphorous 4.9 mg/dL (2.4-5.1); Potassium 3.5 mMol/L (3.4-5.1); Sodium 137 mMol/L (136-145); Total Protein 4.7 gm/dL (5.7-8.2); Vancomycin,Random 20.0 mcg/mL; eGFR 6 See Note
[2025-06-11] MEDS: HEPARIN SOD INJ 5000 UNIT/ML VIAL SC (08:00)
[2025-06-11] MEDS: PANTOPRAZOLE 40 MG TABLET PO (08:01)
[2025-06-11] MEDS: CITRIC ACID/SODIUM CITR 15 ML UDC (BICITRA) 30 ML PO (08:02)
--- NOTE | 2025-06-11 09:47 | PC.NURSE ---
This nurse spoke to the pharmacist at 0948 regarding patients medication Vanco ABX, d/t her Random Vanco lab drawl being 20.0 patient does not need the medication. Pharmacist said she will change the order to a PRN basis.
[2025-06-11] MEDS: VALSARTAN 80 MG TABLET 160 MG PO (10:22)
--- NOTE | 2025-06-11 10:31 | PD.RESPRO ---
Documentation for date of: 06/11/25 Exam Vital Signs Temp Pulse Resp BP Pulse Ox O2 Del Method O2 Flow Rate 98.4 F 69 20 151/80 H 96 Room Air 2 06/11/25 07:36 06/11/25 10:23 06/11/25 07:36 06/11/25 10:23 06/11/25 07:36 06/11/25 07:36 06/10/25 16:00 Objective Labs 06/11/25 04:39 06/11/25 04:39 Labs: Laboratory Results - last 24 hr 06/10/25 06/10/25 06/11/25 08:40 13:28 04:39 WBC 5.1 RBC 2.78 L Hgb 9.6 L D 8.5 L Hct 27.9 L 25.2 L MCV 91 MCH 30.6 MCHC 33.7 RDW Std Deviation 45.3 Plt Count 107 L Neut % (Auto) 66 Lymph % (Auto) 18 [place] % (Auto) 9 Eos % (Auto) 6 Baso % (Auto) 0 Neut # (Auto) 3.4 Lymph # (Auto) 0.9 L [place] # (Auto) 0.5 Eos # (Auto) 0.3 Baso # (Auto) 0.0 Immature Gran # (Auto) 0.01 H Absolute Nucleated RBC 0.00 Immature Gran % 0 Nucleated RBC % 0 Sodium 137 Potassium 3.5 D Chloride 99 Carbon Dioxide 27.2 Anion Gap 11 BUN 26 H Creatinine 7.7 H* D Estim Creat Clear Calc 5.9 L eGFR 6 L* BUN/Creatinine Ratio 3 L Glucose 118 H Calculated Osmolality 279 Calcium 8.0 L Corrected Calcium 9.1 Phosphorus 4.9 Magnesium 1.9 Total Bilirubin 0.3 AST 13 ALT < 7 L Alkaline Phosphatase 83 Total Protein 4.7 L Albumin 2.6 L Globulin 2.1 L Albumin/Globulin Ratio 1.2 Random Vancomycin 20.0 Crossmatch See Detail Quality Measures Quality Measures VTE prophylaxis Assessment & Plan Assessment Current Active Medications: Generic Name Dose Route Start Last Admin Trade Name Freq PRN Reason Stop Dose Admin Acetaminophen 650 mg 06/08/25 22:22 06/09/25 03:50 Acetaminophen 325 Mg Tablet PO 07/08/25 22:21 650 mg Q6H PRN Administration Fever >100.4 or pain 1-3 Hydrocodone Bitart/Acetaminophen 1 tab 06/08/25 22:22 06/10/25 22:30 Hydrocodone/Apap 5/325 Tablet PO 06/13/25 22:21 1 tab Q4HR PRN Administration PAIN SCALE 4-10(Mod-Sev Amlodipine Besylate 10 mg 06/09/25 09:00 06/11/25 10:23 Amlodipine Besylate 5 Mg Tablet PO 07/09/25 08:59 10 mg QDAY TIFFANI Administration Carvedilol 25 mg 06/09/25 08:00 06/11/25 10:23 Carvedilol 12.5 Mg Tablet PO 07/09/25 07:59 25 mg BIDWM TIFFANI Administration Citric Acid/Sodium Citrate 30 ml 06/10/25 09:00 06/11/25 08:02 Citric Acid/Sodium Citr 15 Ml Udc (Bicitra) PO 07/10/25 08:59 30 ml BID TIFFANI Administration Clonidine 0.1 mg 06/09/25 06:00 06/11/25 05:03 Clonidine Hcl 0.1 Mg Tablet PO 07/09/25 05:59 0.1 mg TID TIFFANI Administration Dextrose 25 ml 06/08/25 23:06 Dextrose 50%-Water Inj 50 Ml Syringe IV 07/08/25 23:05 Q15MIN PRN BG 50-70 responsive npo pt Dextrose 50 ml 06/08/25 23:06 Dextrose 50%-Water Inj 50 Ml Syringe IV 07/08/25 23:05 Q15MIN PRN BG <50 OR BG <70 & pt unresponsive Docusate Sodium 100 mg 06/08/25 22:22 Docusate Sod 100 Mg Capsule PO 07/08/25 22:21 QDAY PRN CONSTIPATION Protocol Furosemide 40 mg 06/10/25 09:01 06/11/25 08:01 Furosemide 40 Mg Tablet PO 07/10/25 08:59 40 mg QAM TIFFANI Administration Glucagon 1 mg 06/08/25 23:06 Glucagon Inj 1 Mg Vial IM Q15MIN PRN BG <70, and no IV access Heparin Sodium (Porcine) 5,000 unit 06/09/25 09:00 06/11/25 08:00 Heparin Sod Inj 5000 Unit/Ml Vial SC 06/23/25 08:59 5,000 unit Q12HR TIFFANI Administration Heparin Sodium (Porcine) 3,800 unit 06/09/25 15:24 06/09/25 16:51 Heparin Sod Inj 1000 Unit/Ml Vial 10 Ml INDWELLCAT 06/23/25 15:23 3,800 unit X1 PRN Administration DIALYSIS Hydralazine HCl 10 mg 06/09/25 09:06 Hydralazine Inj 20 Mg/Ml Vial IVP 07/09/25 09:14 Q6H PRN SBP above 180 Ceftazidime 2 gm/ Sodium 50 mls @ 100 mls/hr 06/09/25 21:00 06/10/25 21:27 Chloride IV 06/16/25 20:59 100 mls/hr Q24H TIFFANI Administration Protocol Albumin Human 25 gm in 100 mls @ 100 mls/min 06/09/25 15:24 Albuminar-25 Ivpb IV 06/12/25 15:23 PRN PRN DIALYSIS Insulin Human Lispro 0 unit 06/09/25 17:00 06/11/25 07:36 Insulin Lispro (Admelog) 1 Unit/0.01 Ml Unit SC 07/09/25 16:59 Not Given ACHS TIFFANI Protocol Levetiracetam 500 mg 06/09/25 09:00 06/11/25 08:01 Levetiracetam 250 Mg Tablet PO 07/09/25 08:59 500 mg BID TIFFANI Administration Ondansetron HCl 4 mg 06/08/25 22:22 06/11/25 05:03 Ondansetron Inj 2 Mg/Ml Inj 2 Ml IVP 07/08/25 22:21 4 mg Q6H PRN Administration NAUSEA OR VOMITING Protocol Pantoprazole Sodium 40 mg 06/11/25 09:00 06/11/25 08:01 Pantoprazole 40 Mg Tablet PO 07/09/25 08:59 40 mg QDAY TIFFANI Administration Pharmacy Consult 1 each 06/11/25 09:46 Vancomycin Pharmacy To Dose 1 Each Each IV 07/11/25 09:45 QDAY PRN CONSULT Sennosides 1 tab 06/08/25 22:22 Senna Tablet PO 07/08/25 22:21 QDAY PRN constipation Protocol Valsartan 160 mg 06/10/25 09:00 06/11/25 10:22 Valsartan 80 Mg Tablet PO 07/10/25 08:59 160 mg BID TIFFANI Administration Zinc Acetate/Diphenhydramine 0 gm 06/09/25 17:42 Diphenhydramine/Zn Acet 2% Cr 30 Gm Tube TOP 07/09/25 17:41 Q4HR PRN Itchyness
--- NOTE | 2025-06-11 10:46 | ESPR_ITS ---
Documentation for date of: 06/11/25 Subjective Subjective Interval history: Ms Small is a 59 yo woman with a pmh of ESRD on peritoneal dialysis, anemia, type 2 diabetes, hyperlipidemia, seizure disorder, CHF presents with concern for peritoneal dialysis infection (picture of peritoneal fluid is cloudy and yellow. Dr. Crews saw picture and was concerned for infection, plan to switch to conventional HD given declining benefit from PD. ROS pt denies, fever chills, chest pain, nausea, vomiting, or abdominal pain ED COURSE: Dx - Labs significant for: WBC 6.0, hemoglobin 9.1 (chronic), sodium 131 (chronic), serum bicarb 19.5, anion gap 15, BUN 71, creatinine 15.8, EGFR 2, lactic acid 1.0, procalcitoninl negative. Urinalysis negative bland - Imaging significant for: Chest x-ray showing mild vascular congestion. Tx - Zosyn PMH: ESRD, anemia, type 2 diabetes, seizure disorder, CHF (EF 55% 04/2025), GERD PSH: PD cath placement Allergies:?NKDA Medications: Keppra, Coreg, amlodipine, valsartan, Lasix, aspirin, clonidine, chlorthalidone, atorvastatin 06/09/2025 Pt admitted, Nephro consulted. Surgery consulted for removal of PD catheter given c/f infection, R IJ cath placed by IR for conventional HD. Pt seen and examined in HD s/p PD cath removal, resting comfortably, reports some abdominal pain, no rebound or guarding, recently administerd pain medication. Na 132, K 4.5, CO2 17, BUN 73, Cr 16.2, Phos 6.9, Mag 1.5. eGFR 2.UA with 3+ protien, 3+ glucose, HD today 06/10/2025 patient will receive her second dialysis session today. PD catheter was removed. Patient has a right IJ PermCath and did receive first session yesterday. Seems to be anxious. Had a long conversation with the patient who had several questions which were answered to her satisfaction. Outpatient hemodialysis will be arranged. 06/11/2025 patient currently seen in medical floor. Resting comfortably. Outpatient dialysis Friday, , Friday at 6:10 AM arranged. Renal hoffmann stable for discharge on p.o. antibiotics. Patient seems to be having anxiety/depression. Spoke to primary team-added 50 mg of p.o. sertraline. Review of Systems Review of Systems Narrative Review of Systems: CONSTITUTIONAL: Patient denies any fever, chills. HEENT: Denies any visual disturbances or hearing problems. CARDIOVASCULAR: Patient denies any chest pain, shortness of breath, swelling in the lower extremities. PULMONARY: Patient denies any shortness of breath, cough. GASTROINTESTINAL: Patient denies any abdominal pain, constipation, nausea, vomiting, diarrhea. GENITOURINARY: Patient denies any urinary symptoms of burning or frequency or hematuria, denies any form in the urine. SKIN: Denies any rash. MUSCULOSKELETAL: Denies any muscular skeletal problems of joint pains. NEUROLOGICAL: Denies any neurological problems of strokes, seizures or confusion. Denies any memory problems. PSYCHIATRIC: Patient admits anxiety and depression Exam Vital Signs Temp Pulse Resp BP Pulse Ox O2 Del Method O2 Flow Rate 36.4 C 76 18 132/75 H 96 Room Air 2 06/11/25 12:00 06/11/25 14:23 06/11/25 12:00 06/11/25 14:23 06/11/25 12:00 06/11/25 12:00 06/10/25 16:00 Narrative Exam GENERAL: no acute distress, AAO x3, comfortably laying in medical floor HEENT: Head AT/ NC. Mucous membranes moist. PERRL. RIJ catheter NECK: Supple, no lymphadenopathy, no carotid bruits. CARDIOVASCULAR: RRR. Normal S1/S2, No m/r/g. No pitting edema of bilateral LEs. RESPIRATORY: CTAB. No wheezing, rhonchi, crackles. satting well on RA GASTROINTESTINAL: Abdomen soft, mild tenderness, PD catheter removed no palpable masses. Bowel sounds present MUSCULOSKELETAL:? No cyanosis or edema, no visible joint swelling. scds in place NEUROLOGICAL: CN II-XII grossly intact. No focal deficits. Sensation intact, symmetric. PSYCHIATRIC: Awake and alert, not agitated, normal mood and affect. SKIN: No obvious rashes, no jaundice, normal turgor. Objective Labs 06/11/25 04:39 06/11/25 04:39 Labs: Laboratory Results - last 24 hr 06/11/25 04:39 WBC 5.1 RBC 2.78 L Hgb 8.5 L Hct 25.2 L MCV 91 MCH 30.6 MCHC 33.7 RDW Std Deviation 45.3 Plt Count 107 L Neut % (Auto) 66 Lymph % (Auto) 18 [place] % (Auto) 9 Eos % (Auto) 6 Baso % (Auto) 0 Neut # (Auto) 3.4 Lymph # (Auto) 0.9 L [place] # (Auto) 0.5 Eos # (Auto) 0.3 Baso # (Auto) 0.0 Immature Gran # (Auto) 0.01 H Absolute Nucleated RBC 0.00 Immature Gran % 0 Nucleated RBC % 0 Sodium 137 Potassium 3.5 D Chloride 99 Carbon Dioxide 27.2 Anion Gap 11 BUN 26 H Creatinine 7.7 H* D Estim Creat Clear Calc 5.9 L eGFR 6 L* BUN/Creatinine Ratio 3 L Glucose 118 H Calculated Osmolality 279 Calcium 8.0 L Corrected Calcium 9.1 Phosphorus 4.9 Magnesium 1.9 Total Bilirubin 0.3 AST 13 ALT < 7 L Alkaline Phosphatase 83 Total Protein 4.7 L Albumin 2.6 L Globulin 2.1 L Albumin/Globulin Ratio 1.2 Random Vancomycin 20.0 Assessment & Plan Assessment and plan (1) Peritonitis associated with peritoneal dialysis: Status: Acute Additional Assessment & Plan Additional Plan: Ms Small is a 59 yo woman with a pmh of ESRD on peritoneal dialysis, anemia, type 2 diabetes, hyperlipidemia, seizure disorder, CHF presented with concern for peritoneal dialysis infection (picture of peritoneal fluid is cloudy and yellow. switched to conventional HD given declining benefit from PD, sp R IJ HD cath placement , s/p removal of PD cath with . # PD peritonitis-PD catheter was removed by Dr. Juan. #ESRD transition to hemodialysis. Status post--right IJ HD cath placement Patient got 2 hemodialysis sessions. Can be discharged. TTS schedule arranged. All the information given to the patient. She seems to have some anxiety/depression-sertraline was added. Cultures so far negative. Sent a prescription for cefuroxime for PD peritonitis. #HTN Blood pressure elevated on admission, as high as 193/94 in ED. Patient denies headache, blurry vision, chest pain. Blood pressure improved without active treatment. - reassess after HD with fluid removal Blood pressure much better now. Renal hoffmann stable for discharge. Spoke to primary team. #DM type II A1c 6% as of 04/21/2025. #Anemia of chronic kidney disease, asymptomatic #Seizure disorder #Chronic asymptomatic hyponatremia #electrolyte abnormalities - management per primary team (1) Peritonitis associated with peritoneal dialysis Qualifiers: Encounter type: initial encounter Qualified Code(s): T85.71XA - Infection and inflammatory reaction due to peritoneal dialysis catheter, initial encounter
--- NOTE | 2025-06-11 11:08 | PC.SS ---
Addendum entered by Michelle Reyna 06/11/25 12:35: SS informed by NARDA G[place] patient is requesting to speak to . SS met with patient and her daughter Marisa at bedside to confirm discharge plan. Patient and her daughter have agreed for patient to discharge to [facility]. Patient's daughter Marisa agreed to provide transportation at discharge. SS informed by [facility] she can accept patient today. PASRR submitted to [facility] via [place]. Original Note: SS informed by Dr. Goldsmith patient can discharge today. contacted patient's daughter Marisa [phone] to confirm SNF of choice, [facility] was chosen. Patient's daughter Marisa requested SS meet with her and patient at bedside when she arrives to hospital. SS informed [facility] SNF and booked on [place], pending response for acceptance.
--- NOTE | 2025-06-11 12:26 | ESDS_ITS ---
<Statement entered by Mayra Goldsmith MD - 06/12/25 14:58> Patient was seen and examined at bedside. I agree on the assessment and plan on this note. - Patient's plan and care discussed with my attending, Dr. Wendy Goldsmith MD Internal Medicine PGY-3 Planned Discharge Date 06/11/25 DS: Providers Provider Date of admission: 06/08/25 21:42 Primary care physician: POLA Barrera Admitting Provider: Reji Sahu MD Attending Provider on Admission: Lenny Nguyen DO Consults: 06/08/25 18:51 Consult to Nephrology Stat Comment: ESRD Consulting Provider: Jolly Crews 06/08/25 22:26 Consult to General Surgery Routine Comment: PD cath removal Consulting Provider: Ricardo Juan 06/09/25 08:00 Referral Physical Therapy Routine Comment: Physician Instructions: 06/10/25 05:30 Referral Discharge Planning Routine Comment: Outpatient dialysis unit- hemodialysis Attending Provider on DC: Lenny Nguyen DO Discharging Provider: Lenny Nguyen DO DS: Diagnosis Problem List Completed Was Problem List Reviewed/Reconciled?: Yes Hospital Course Hospital Course Hospital course: 59 y/o F with PMHx significant for ESRD on peritoneal dialysis, anemia, type 2 diabetes, hyperlipidemia, seizure disorder, CHF presents with chief complaint of concern for peritoneal dialysis infection, admitted for potential peritonitis and to initiate hemodialysis. In the ED she was hpertensive. Labs significant for: WBC 6.0, hemoglobin 9.1 (chronic), sodium 131 (chronic), serum bicarb 19.5, anion gap 15, BUN 71, creatinine 15.8, EGFR 2, lactic acid 1.0, Pro-Jeff negative. Urinalysis negative for nitrates, LE, WBCs. Imaging significant for: Chest x-ray showing mild vascular congestion. Patient received Zosyn. Once admitted patient was started on HDS, once RIJ catheter placed and peritoneal catheter removed. and started on vanc and ceftazidime.She had an episode of mild drop in Hb to 7.1 that was corrected with 1 unit pRBCs most likley 2/2 to ESRD, to follow up with her PCP. Patient has had 2 sessions of dialysis in-patient PPD came back negative and chair time availability scheduled to be TTS. Surgery deemed her safe for dc and she was discharged Discharge Instructions: Follow-up with your PCP within 1 week Follow up with your concession attendant, Dr. Crews within one week. You will be doing outpatient hemodialysis scheduled. I am prescribing you Zoloft, an antidepresssant, take as prescribed Take your medicines as prescribed Return to ED if your symptoms worsen or return #Peritonitis, rule out #ESRD (PD dialysis) switched to HD TTS with Dr Crews #Anemia of chronic kidney disease, asymptomatic #HTN #Hypertensive urgency #DM type II #Seizure disorder Patient's plan and care discussed with my attending, Dr. Nguyen, and supervising residents Mayra Goldsmith MD, and MD Cisco Hamilton MD Internal Medicine PGY-1 Time Spent with Patient Time attestation: Total time spent providing and/or coordinating discharge services: Time spent: Greater than 30 minutes Exam Vital Signs Temp Pulse Resp BP Pulse Ox O2 Del Method O2 Flow Rate 97.6 F 67 18 172/84 H 96 Room Air 2 06/11/25 12:00 06/11/25 12:00 06/11/25 12:00 06/11/25 12:00 06/11/25 12:00 06/11/25 12:00 06/10/25 16:00 Narrative Exam General: No acute distress; A&Ox3 Skin: Warm, dry, intact, no obvious rash. HENT: NCAT, EOMI, not icteric. External ears normal. No rhinorrhea. Moist mucous membranes Cardiovascular: Regular rate and rhythm, no murmur, +S1/S2. Respiratory: Lungs CTAB GI: Peritoneal Dialysis Catheter area dry, non-erythematous, mildly TTP, NBS; No guarding or rebound tenderness. Surgical wounds healed Extremities: no edema, no cyanosis, no clubbing. Extremity pulses present Neuro: No focal deficits observed. Conversant, moving all extremities. No overt cerebellar signs/incoordination. Psychiatric: Cooperative, appropriate affect. Discharge Plan Plan Patient Disposition: [facility] [facility] [facility] [place] Patient condition on transfer: Stable Care Plan Goals: Discharge instructions Follow-up with your PCP within 1 week Follow up with your concession attendant, Dr. Crews within one week. You will be doing outpatient hemodialysis scheduled. I am prescribing you Zoloft, an antidepresssant, take as prescribed Take your medicines as prescribed Return to ED if your symptoms worsen or return Prescriptions/Referrals Prescriptions/Med Rec: New sertraline [Zoloft] 50 mg tablet 50 mg PO HS 14 Days Qty: 14 0RF Rx Instructions: Take one tablet by mouth at bedtime valsartan 160 mg tablet 160 mg PO BID 7 Days Qty: 14 0RF cefuroxime axetil 500 mg tablet 500 mg PO BID Qty: 14 0RF Continued carvedilol 25 MG tablet 25 mg PO BID Qty: 0 amlodipine 5 mg Tablet 10 mg PO QDAY Ashley-Joanne 0.8 mg Tablet 1 tab PO QDAY cyclobenzaprine 5 mg Tablet 5 mg PO BID famotidine 40 mg tablet 40 mg PO QDAY Patient Comments: TOME DANG TABLETA POR V A ORAL TODOS LOS D FOR ACID REFLUX levetiracetam 500 mg tablet 500 mg PO BID Patient Comments: TOME 1 TABLETA POR LA BOCA DOS VECES AL LINK clonidine HCl 0.1 mg tablet 0.1 mg PO TID sodium bicarbonate 325 mg tablet 325 mg PO BID Patient Comments: TAKE 1 TABLET BY MOUTH TWICE A DAY ferrous sulfate 325 mg (65 mg iron) tablet 325 mg PO TID Patient Comments: TOME DANG TABLETA POR LA BOCA DERECK VECES AL LINK ANTES DE LAS COMIDA furosemide 40 mg tablet 40 mg PO QAM Discontinued valsartan 40 mg tablet 160 mg PO BID ferric citrate [Auryxia] 210 mg iron tablet 210 mg PO TID Rx Instructions: administer with a meal ferric citrate [Auryxia] 210 mg iron tablet 210 mg PO TID Rx Instructions: administer with a meal Referrals: Janelle Glaser FNP [Primary Care Provider] - Jolly Crews MD [Physician] - Patient/Caregiver Discharge Instructions Discharge Activity: activity as tolerated Other Discharge Activity Instructions:: Follow up with out patient dialysis at: [facility], #[phone] Andriy Day y [place] 6:10AM Education Materials: Paracentesis Dc, Kidney Disease Anemia Iron, CKD Dc, ED Chronic Kidney Disease (CKD) Print Language: Lao Stand Alone Forms: Elicia Award Info., Patient Portal Info Letter Discharge Order Discharge Orders: Discharge (Routine); Ordered 08/23/25 Ordered By: Zade Kurdieh Quality Discharge Quality Measures VTE prophylaxis Attestestation MD Attestation I have discussed and was present for the essential components of the discharge history, physical examination, diagnosis, and discharge treatment plan with the resident. I agree with the patient's discharge care as documented by the resident and amended herein by me. Laurent Nguyen, DO. The patient understood all discharge instructions, all questions were answered satisfactorily. The patient was instructed to return to the Emergency Department is symptoms worsened or persisted. Patient stable for discharge and cleared by nephrology. Patient was stable, afebrile and tolerating p.o. intake at time of discharge home. Hemodialysis chair established, patient will be on a Friday, , Friday schedule, transportation will be arranged. All questions answered satisfactorily, we did communicate the plan to the patient's daughter upon discharge. Although this document has been carefully reviewed, there may still be some phonetic and other typographical errors. These errors are purely grammatical due to imperfections in the software program and should not be construed in any way to compromise the substance of the patient's medical care during this visit.
[2025-06-11] MEDS: INSULIN LISPRO (AdmeLOG) 1 UNIT/0.01 ML UNIT SC (12:45)
== END 2025-06-11 14:55 | disposition skilled nursing facility (03) | DRG 907 ==
LOC: SERX 19:13 → SERHOLD 06-09 06:15 → S3NX 06-09 06:15
PROVIDERS: Nurse Practitioner Primary Care; Surgery; Admitting Provider Student in an Organized Health Care Education/Training Program; Emergency Provider Emergency Medicine; PCP Registered Nurse Community Health; Visit Provider Student in an Organized Health Care Education/Training Program
PROC: 0WPG03Z Removal of Infusion Device from Peritoneal Cavity, Open Approach (ICD-10-PCS; CPT 49422; principal; 2025-06-09 12:00)
DX: T85.71XA Infection and inflammatory reaction due to peritoneal dialysis catheter, initial encounter (principal); K65.9 Peritonitis, unspecified; N18.6 End stage renal disease; I13.2 Hypertensive heart and chronic kidney disease with heart failure and with stage 5 chronic kidney disease, or end stage renal disease; E87.1 Hypo-osmolality and hyponatremia; E11.22 Type 2 diabetes mellitus with diabetic chronic kidney disease; E78.00 Pure hypercholesterolemia, unspecified; Z99.2 Dependence on renal dialysis; I50.9 Heart failure, unspecified; F32.A Depression, unspecified; G40.909 Epilepsy, unspecified, not intractable, without status epilepticus; F41.9 Anxiety disorder, unspecified; I16.0 Hypertensive urgency; D63.1 Anemia in chronic kidney disease; K21.9 Gastro-esophageal reflux disease without esophagitis; Y84.1 Kidney dialysis as the cause of abnormal reaction of the patient, or of later complication, without mention of misadventure at the time of the procedure; Z79.4 Long term (current) use of insulin; Z79.899 Other long term (current) drug therapy
CPT/HCPCS: 36415; 71046; 76937; 77001; 80053; 80202; 81001; 82042; 82150; 82945; 83605; 83615; 83735; 84100; 84145; 84157; 84484; 85014; 85018; 85025; 85610; 85730; 86580; 86703; 86803; 86850; 86900; 86901; 86923; 87040; 87070; 87075; 87081; 87086; 87205; 87811; 89051; 93005; 93225; 96365; 96366; 96375; 97162; 99283; A4217; A4649; C1750; C1894; J0690; J0713; J1642; J1643; J1644; J1815; J2405; J2470; J2543; J2704; J3010; J3373; J3475; J3490; J7050; P9016; A9270; J1920

== ENCOUNTER 2025-07-16 13:19 | Emergency (ER) | payer MEDICARE, MEDICAID, SELFPAY ==
[2025-07-16 13:24] VITALS: BP 199/105; PULSE 84; PULSE 89; RESP 17; TEMP 36.5; O2SAT 95; O2SAT 96; BMI 22.1
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
[2025-07-16 14:21] LABS: Basophils # (Auto) 0.0 Thou/mm3 (0.0-0.2); Basophils % (Auto) 0 % (0-2.5); Eosinophils # (Auto) 0.1 Thou/mm3 (0.0-0.5); Eosinophils % (Auto) 1 % (0-10); Hematocrit 38.6 % (36.0-46.0); Hemoglobin 12.6 g/dL (12.0-16.0); Immature Granulocytes Auto 0.02 Thou/mm3 (0.00-0.00); Lymphocytes # (Auto) 0.9 Thou/mm3 (1.0-4.8); Lymphocytes % (Auto) 14 % (10-50); Mean Corpuscular HGB Conc 32.6 g/dl (31.0-37.0); Mean Corpuscular Hemoglobin 30.0 pg (25.0-35.0); Mean Corpuscular Volume 92 fL (80-100); Monocytes # (Auto) 0.3 Thou/mm3 (0.0-0.8); Monocytes % (Auto) 5 % (0-12); Neutrophils # (Auto) 4.8 Thou/mm3 (1.8-7.7); Neutrophils % (Auto) 79 % (37-80); Nucleated Red Blood Cell # 0.00 Thou/mm3 (0.00-0.00); Nucleated Red Blood Cell % 0 /100 WBC (0); Platelet Count 177 Thou/mm3 (140-440); RDW Standard Deviation 44.5 fL (36.4-46.3); Red Blood Count 4.20 Miln/mm3 (4.00-5.20); White Blood Count 6.0 Thou/mm3 (3.6-11.0)
[2025-07-16] MEDS: HYDROmorphone INJ 2 MG/ML VIAL 0.5 MG IVP (14:24)
[2025-07-16 14:38] LABS: INR 1.1 (0.9-1.3); Prothrombin Time 11.8 Seconds (9.0-12.2)
[2025-07-16 14:44] LABS: Alanine Aminotransferase < 7 U/L (10-49); Albumin, Serum 4.1 gm/dL (3.4-4.8); Albumin/Globulin Ratio 1.3 (1.2-2.2); Alkaline Phosphatase 87 U/L (46-116); Anion Gap 11 (7-16); Aspartate Amino Transferase 24 U/L (0-34); BUN/Creatinine Ratio 3 Ratio (12-20); Bilirubin,Total 0.6 mg/dL (0.3-1.2); Blood Urea Nitrogen 8 mg/dL (9-23); Calcium 9.3 mg/dL (8.3-10.6); Calcium (Corrected) 9.3 mg/dL (8.5-10.1); Carbon Dioxide 28.1 mMol/L (20.0-31.0); Chloride 98 mMol/L (98-107); Creatinine (Component) 2.6 mg/dL (0.6-1.3); Estimated Creatinine Clearance 18.8 mL/min (>60); Globulin 3.1 gm/dL (2.3-3.5); Glucose 213 mg/dL (74-106); Osmolality,Calculated 278 (275-295); Potassium 3.6 mMol/L (3.4-5.1); Sodium 137 mMol/L (136-145); Total Protein 7.2 gm/dL (5.7-8.2); eGFR 20 See Note
[2025-07-16 15:15] VITALS: BP 195/109; PULSE 89; RESP 17; O2SAT 90
[2025-07-16 15:47] VITALS: BP 209/109; PULSE 91
[2025-07-16] MEDS: LABETALOL INJ 5 MG/ML VIAL 20 ML 10 MG IVP (15:47)
--- NOTE | 2025-07-16 16:13 | PC.NURSE ---
ATTEMPTED TO CALL [facility] FOR POSSIBLE TRANSFER. NO ANSWER AT TRANSFER CENTER. MESSAGE LEFT WITH INFORMATION AND TO CONTACT US BACK.
[2025-07-16 16:15] VITALS: BP 201/109; PULSE 89
[2025-07-16] MEDS: NICARDIPINE/NS 20MG IVPB 20 MG/200 ML BAG 50 MG IV (16:15)
[2025-07-16] MEDS: HYDROmorphone INJ 2 MG/ML VIAL 1 MG IVP (16:24)
--- NOTE | 2025-07-16 16:26 | PC.NURSE ---
CALLED [facility]. SPOKE WITH JYOTHI. PER JYOTHI THEY WILL HAVE THEIR NURSES CALL US BACK
[2025-07-16] MEDS: TRANEXAMIC ACID 1,000 MG IVPB 1,000 MG/100 ML BAG 300 MG IV (16:40)
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
--- NOTE | 2025-07-16 17:07 | PC.NURSE ---
MIKE DECLINED PT AT THIS TIME
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
--- NOTE | 2025-07-16 17:45 | PC.NURSE ---
CALLED [facility] TRANSF[facility] AND SPOKE WITH [place]. IMAGES AND PAPERWORK SENT.
--- NOTE | 2025-07-16 18:18 | PC.NURSE ---
PT ACCEPTED TO [facility], ED TO ED. DR ROJAS. REPORT TO BE CALLED TO [phone]
--- NOTE | 2025-07-16 18:20 | PC.NURSE ---
CALLED [facility] TO SET UP TRANSPORT
[2025-07-16 18:23] VITALS: BP 144/77; PULSE 98; RESP 16; TEMP 36.3; O2SAT 91
[2025-07-16 18:45] VITALS: BP 145/71; PULSE 99
[2025-07-16] MEDS: NICARDIPINE/NS 20MG IVPB 20 MG/200 ML BAG 130 MG IV (18:45)
--- NOTE | 2025-07-16 18:50 | PC.NURSE ---
[facility] here, Shante LABOY, Max splicer helper here to take pt. to [facility].
--- NOTE | 2025-07-16 19:17 | PC.NURSE ---
gave report to Jeremy LABOY at [facility], gave all requested information. Jeremy LABOY states thank you.
== END 2025-07-16 19:21 | disposition short-term general hospital (02) ==
PROVIDERS: Emergency Provider Emergency Medicine; PCP Hospitalist
DX: I60.4 Nontraumatic subarachnoid hemorrhage from basilar artery (principal); I12.0 Hypertensive chronic kidney disease with stage 5 chronic kidney disease or end stage renal disease; E11.22 Type 2 diabetes mellitus with diabetic chronic kidney disease; N18.6 End stage renal disease; D63.1 Anemia in chronic kidney disease; Z99.2 Dependence on renal dialysis
CPT/HCPCS: 36415; 70450; 80053; 85025; 85610; 96365; 96366; 96375; 99284; J1171; J2404; J3490; J1920

== ENCOUNTER 2025-08-25 09:55 | Emergency (ER) | payer MEDICARE, MEDICAID, SELFPAY ==
[2025-08-25] VITALS (19 sets, daily range): BP systolic 137–229; BP diastolic 64–104; PULSE 64–160; RESP 16–18; TEMP 36.4–37.1; O2SAT 95–100; BMI 20.7
--- NOTE | 2025-08-25 10:06 | XR_ITS ---
Examination: CT brain head without contrast. 2-D sagittal coronal reconstructions Date and time of exam: 08/25/2025, 12:05 p.m. INDICATION: Generalized head pain COMPARISON: Head CT 07/16/2025 CTDI: vol (mGy): 50.1 DLP: (mGycm): 1000 Technique: Multiple CT axial sections of the brain have been obtained, 5 mm slice thickness. Contrast has not been administered. 2-D sagittal, coronal reconstructions have been obtained Low dose protocols were performed. One or more of the following dose reduction techniques were used; automated exposure control, adjustment of the mA and/or KV according to patient size, use of iterative reconstruction technique. Findings: Interval development of several acute brain parenchymal hemorrhages in the cerebral hemispheres. Acute hematoma in the anteromedial right thalamus with extension into the adjacent right lateral ventricle measures approximate 3.3 x 1.4 cm in transaxial dimensions (axial image 20), including the parenchymal and intraventricular component. An acute hemorrhage in the anteromedial right occipital lobe just posterior to the corpus callosum measures approximately 1.8 x 1.0 cm in transaxial dimensions (axial 21), with surrounding vasogenic edema and mild hemorrhage in the posterior horn of the right lateral ventricle. An additional acute hematoma in the posterolateral left basal ganglia measures 2.1 x 1.2 cm (axial image 22). There is no evidence for acute subdural hematoma, midline shift or obstructive hydrocephalus. Previously visualized subarachnoid hemorrhage in the basal cisterns is no longer seen. No evidence for acute large vessel transcortical ischemic infarction. Very mild age-appropriate cerebral involutional changes are seen, and likely chronic ischemic microangiopathy changes are present throughout both cerebral mysterious and also likely present in the edvin bilaterally and right cerebellum. No evidence for acute hemorrhage, ischemic infarct or mass in the posterior fossa. The calvarium is intact, without fracture concerning lytic or blastic lesion. The paranasal sinuses, mastoid air cells and middle ear cavities are mostly clear, with very mild degree of opacification present within a few inferiorly located left-sided mastoid air cells identified. Sequela of ocular lens replacement surgery noted. Findings compatible with scleral band procedure involving the left ocular globe are present. Impression: Acute intraparenchymal hematomas are now present in both cerebral hemispheres, right side greater than left, with hemorrhage extending into the ventricular system. No obstructive hydrocephalus or midline shift. Previously visualized subarachnoid hemorrhage in the basal cisterns has resolved in the interim. Critical findings were discussed with Dr. Cai via telephone on 08/25/2025 12:12 PM.
--- NOTE | 2025-08-25 10:06 | XR_ITS ---
CLINICAL INDICATION: Chest pain, cough and shortness of breath today TECHNIQUE: XR chest 1V portable Exam date and time: 08/25/2025, 10:33 a.m. COMPARISON: 06/08/2025 FINDINGS: The cardiomediastinal silhouette is mildly enlarged, in part magnified by the portable technique. Redemonstration of prominent bilateral pulmonary vasculature, and interval development of fine diffuse interlobular septal thickening throughout both lungs that is most compatible with pulmonary edema. A hemodialysis catheter is now in place with tips projecting in the region of the superior cavoatrial junction. No airspace opacities suggestive of pneumonia. No mass detected. No sizable pleural effusion or pneumothorax. Multifocal degenerative changes with otherwise no evidence for recent fracture or aggressive lesion. IMPRESSION: Fluid overload/congestive heart failure with bilateral mild diffuse interstitial pulmonary edema. - This report was generated utilizing speech recognition software. -
--- NOTE | 2025-08-25 10:06 | EKG_ITS ---
[facility] Test Date: 2025-08-25 Pat Name: MATILDE GIANG Department: Room: - Gender: Female Weather Anchor: : 1965 Requested By: José Miguel Figueredo Order Number: [id number] Reading MD: José Miguel Figueredo Measurements Intervals [place] Rate: 73 P: 36 [place]: 148 QRS: 37 QRSD: 91 T: -17 QT: 405 QTc: 449 Interpretive Statements SINUS RHYTHM LEFT VENTRICULAR HYPERTROPHY AND ST-T CHANGE [VOLTAGE CRITERIA PLUS ST/T ABNORMALITY] Compared to ECG 06/08/2025 16:25:18 Left ventricular hypertrophy now present ST (T wave) deviation now present Myocardial infarct finding no longer present /store/S0/[id number]/[id number].pdf
[2025-08-25] MEDS: ONDANSETRON INJ 2 MG/ML INJ 2 ML 4 MG IVP (10:28)
[2025-08-25] MEDS: SODIUM CHLORIDE 0.9% 1000 ML 1,000 ML 250 ML IV (10:28)
[2025-08-25] MEDS: MORPHINE SULF INJ 4 MG/ML VIAL IVP (10:29)
[2025-08-25] MEDS: hydrALAZINE INJ 20 MG/ML VIAL 10 MG IVP (10:48)
[2025-08-25 10:59] LABS: Basophils # (Auto) 0.0 Thou/mm3 (0.0-0.2); Basophils % (Auto) 0 % (0-2.5); Eosinophils # (Auto) 0.1 Thou/mm3 (0.0-0.5); Eosinophils % (Auto) 1 % (0-10); Hematocrit 28.5 % (36.0-46.0); Hemoglobin 9.5 g/dL (12.0-16.0); Immature Granulocytes Auto 0.09 Thou/mm3 (0.00-0.00); Lymphocytes # (Auto) 1.0 Thou/mm3 (1.0-4.8); Lymphocytes % (Auto) 10 % (10-50); Mean Corpuscular HGB Conc 33.3 g/dl (31.0-37.0); Mean Corpuscular Hemoglobin 30.0 pg (25.0-35.0); Mean Corpuscular Volume 90 fL (80-100); Monocytes # (Auto) 0.4 Thou/mm3 (0.0-0.8); Monocytes % (Auto) 4 % (0-12); Neutrophils # (Auto) 7.7 Thou/mm3 (1.8-7.7); Neutrophils % (Auto) 84 % (37-80); Nucleated Red Blood Cell # 0.00 Thou/mm3 (0.00-0.00); Nucleated Red Blood Cell % 0 /100 WBC (0); Platelet Count 133 Thou/mm3 (140-440); RDW Standard Deviation 43.4 fL (36.4-46.3); Red Blood Count 3.17 Miln/mm3 (4.00-5.20); White Blood Count 9.2 Thou/mm3 (3.6-11.0)
[2025-08-25 11:20] LABS: INR 1.1 (0.9-1.3); Partial Thromboplastin Time 36.9 Seconds (22.0-36.0); Prothrombin Time 11.6 Seconds (9.0-12.2)
[2025-08-25 11:25] LABS: Alanine Aminotransferase 39 U/L (10-49); Albumin, Serum 4.2 gm/dL (3.4-4.8); Albumin/Globulin Ratio 1.6 (1.2-2.2); Alkaline Phosphatase 126 U/L (46-116); Anion Gap 12 (7-16); Aspartate Amino Transferase 45 U/L (0-34); BUN/Creatinine Ratio 3 Ratio (12-20); Bilirubin,Total 0.5 mg/dL (0.3-1.2); Blood Urea Nitrogen 9 mg/dL (9-23); Calcium 9.0 mg/dL (8.3-10.6); Calcium (Corrected) 9.0 mg/dL (8.5-10.1); Carbon Dioxide 27.8 mMol/L (20.0-31.0); Chloride 99 mMol/L (98-107); Creatinine (Component) 2.6 mg/dL (0.6-1.3); Estimated Creatinine Clearance 18.8 mL/min (>60); Globulin 2.6 gm/dL (2.3-3.5); Glucose 174 mg/dL (74-106); Osmolality,Calculated 280 (275-295); Potassium 3.4 mMol/L (3.4-5.1); Sodium 139 mMol/L (136-145); Total Protein 6.8 gm/dL (5.7-8.2); Troponin I 0.028 ng/mL (0.0-0.045); eGFR 20 See Note
[2025-08-25 11:36] LABS: Sed Rate (ESR) 24 mm/hr (0-30)
--- NOTE | 2025-08-25 11:46 | PD.EDHA ---
ED Headache RME/HPI General Chief Complaint: Headache Stated Complaint: HEADACHE Time Seen by Provider: 08/25/25 10:00 Arrival date/time: 08/25/25 09:55 Limitations: no limitations RME / HPI RME / HPI Narrative: 59 year old female with history of seizures, ESRD on HD T//Fri, anemia, hypertension, hyperlipidemia presents to the ED BIBA from the dialysis center for evaluation of elevated blood pressure, nausea, vomiting, and headache beginning while receiving dialysis today. Per medics, dialysis staff reported they removed an additional 1.5L of fluids with no change in blood pressure, prompting ED visit. In the ED, patient complains of headache and nausea. Denies fevers, chills, sweats, chest pain, shortness of breath. Related Data Home Medications ?Medication ?Instructions ?Recorded ?Confirmed sodium bicarbonate 325 mg tablet 325 mg PO BID 08/11/23 08/25/25 vitamin B complex-vitamin C-folic 1 tab PO QDAY 11/12/23 06/08/25 acid 0.8 mg tablet (Ashley-Joanne) famotidine 40 mg tablet 40 mg PO QDAY acid reflux 04/20/25 08/25/25 clonidine HCl 0.1 mg tablet 0.1 mg PO TID 06/08/25 08/25/25 levetiracetam 500 mg tablet 500 mg PO BID 06/08/25 08/25/25 atorvastatin 80 mg tablet 80 mg PO .qhs 08/25/25 08/25/25 donepezil 5 mg tablet (Aricept) 5 mg PO QDAY 08/25/25 08/25/25 ferric citrate 210 mg iron tablet 1 tab PO TID 08/25/25 08/25/25 (Auryxia) metoprolol succinate 100 mg 100 mg PO QDAY 08/25/25 08/25/25 tablet,extended release 24 hr nifedipine 60 mg tablet,extended 60 mg PO QDAY 08/25/25 08/25/25 release sertraline 25 mg tablet 25 mg PO QDAY 08/25/25 08/25/25 valsartan 160 mg tablet 160 mg PO BID 08/25/25 08/25/25 vitamin B complex-vitamin C-folic 1 tab PO QDAY 08/25/25 08/25/25 acid 0.8 mg tablet Allergies Allergy/AdvReac Type Severity Reaction Status Date / Time No Known Allergies Allergy Verified 07/16/25 13:43 Review of Systems Review of Systems Systems Reviewed: All systems reviewed, normal except as documented Past Medical History Past Medical History NEUROLOGIC: Positive Seizures CARDIAC: Positive Cardiac Disorders, Hypercholesterolemia and Hypertension GASTROINTESTINAL: Positive Gastrointestinal Disorders, Gastroesophageal Reflux Disease and Obesity GENITOURINARY: Positive Genitourinary Disorders, Renal Disease and Dialysis REPRODUCTIVE: Positive Previous Pregnancies MUSCULOSKELETAL: Positive Musculoskeletal Disorders and Fractures ENT: Positive Cataracts and Retinal Detachment ENDOCRINE: Positive Endocrine Disorders and Diabetes Mellitus Type 2 HEMATOLOGIC: Positive Anemia OTHER HISTORY: Positive Hospitalization, Falls and Chicken Pox Surgical History SURGICAL: Positive Hysterectomy Social History SMOKING STATUS: Never smoker SUBSTANCE USE: does not use ED Exam General Limitations: Present no limitations General appearance: Present alert (though somewhat somnolent ) and in no apparent distress Head Head exam: Present atraumatic, normocephalic and other (Positive TMJ tenderness, no temporal artery tenderness ) Eye Eye exam: Present normal appearance, PERRL and EOMI ENT ENT exam: Present normal exam, normal oropharynx and mucous membranes moist Neck Neck exam: Present normal inspection, full ROM and trachea midline Chest Chest inspection: Present normal inspection and symmetric chest wall rise Respiratory Respiratory exam: Present normal lung sounds bilaterally Cardiovascular Cardiovascular exam: Present regular rate, normal rhythm and normal heart sounds Abdominal Exam Abdominal exam: Present soft and normal bowel sounds Extremities Exam Extremities exam: Present normal inspection and full ROM Back Exam Back exam: Present normal inspection and full ROM Neurological Exam Neurological exam: Present alert (though somewhat somnolent), oriented X3 and CN II-XII intact Psychiatric Psychiatric exam: Present normal affect and normal mood Skin Skin exam: Present warm, dry, intact and normal color Course Quality Measures none Orders Category Date Time Status Facility Maintenance Technician NOW Care 08/25/25 10:06 Active Continuous Pulse Oximetry NOW Care 08/25/25 10:06 Completed EKG (ED ONLY) *Do not use* NOW Care 08/25/25 10:06 Completed Insert IV NOW Care 08/25/25 10:06 Active Referral - Corporate Financial Analyst Stat Cons 08/25/25 12:[address] head/brain wo con Stat Exams 08/25/25 10:06 Completed EKG (ED Only) Stat Exams 08/25/25 10:06 Draft XR chest 1V portable Stat Exams 08/25/25 10:06 Completed CBC Stat Lab 08/25/25 10:48 Completed Comprehensive Metabolic Panel Stat Lab 08/25/25 10:48 Completed ESR [Sed Rate (ESR)] Stat Lab 08/25/25 10:48 Completed Partial Thromboplastin Time Stat Lab 08/25/25 10:48 Completed Prothrombin Time with INR Stat Lab 08/25/25 10:48 Completed Troponin I Stat Lab 08/25/25 10:48 Completed MethylPREDNISolone. [SoluMEDROL Inj] Med 08/25/25 10:06 Discontinued 60 mg IVP X1 ONE Morphine* Inj Med 08/25/25 10:06 Discontinued 4 mg IVP X1 ONE Nicardipine/Ns 20Mg Ivpb [Cardene Ivpb] Med 08/25/25 13:00 Active 20 mg in 200 ml IV 5 mg/hr Ondansetron Inj [Zofran Inj] Med 08/25/25 10:06 Discontinued 4 mg IVP X1 ONE Sodium Chloride 0.9% 1000 ml [Ns] 1,000 ml Med 08/25/25 10:06 Discontinued IV 250 mls/hr hydrALAZINE INJ [Apresoline Inj] Med 08/25/25 10:34 Discontinued 10 mg IVP X1 ONE Oxygen Delivery NOW RT 08/25/25 10:06 Active Vital Signs Vital signs: Vital Signs Temperature 98.7 F 08/25/25 10:00 Pulse Rate 73 08/25/25 10:00 Respiratory Rate 18 08/25/25 10:00 Blood Pressure 227/92 H 08/25/25 10:00 Pulse Oximetry (%) 95 08/25/25 10:00 Oxygen Delivery Method Room Air 08/25/25 10:00 Pulse ox is 95% on room air which is adequate. Headache MDM Narrative MDM Narrative:: Shy Meraz am scribing for and in the presence of Dr. Cai. Patient data External records reviewed:: [facility] previous records and EMS form Clinical information provided by:: patient and EMS Social determinants that could affect healthcare access:: none Patient has the following chronic illnesses:: seizures, ESRD on HD T/Th/Sat, anemia, hypertension, hyperlipidemia How is presenting disease/condition affected by chronic disease/condition?: exacerbated by Evaluation data The following diagnostics were reviewed and interpreted by me:: lab results, radiology exam(s) and EKG tracing(s) (EKG @ 10:15 AM. Normal sinus rhythm, rate 73, left ventricular hypertrophy, no STEMI. ) Lab and/or radiology exams considered but not ordered:: None Interpretation Summary: Ordering Physician: José Miguel Cai MD Date of Service: 08/25/25 Procedure(s): XR chest 1V portable Accession Number(s): [id number] cc: José Miguel Cai MD; Darell Robbins DO~ CLINICAL INDICATION: Chest pain, cough and shortness of breath today TECHNIQUE: XR chest 1V portable Exam date and time: 08/25/2025, 10:33 a.m. COMPARISON: 06/08/2025 FINDINGS: The cardiomediastinal silhouette is mildly enlarged, in part magnified by the portable technique. Redemonstration of prominent bilateral pulmonary vasculature, and interval development of fine diffuse interlobular septal thickening throughout both lungs that is most compatible with pulmonary edema. A hemodialysis catheter is now in place with tips projecting in the region of the superior cavoatrial junction. No airspace opacities suggestive of pneumonia. No mass detected. No sizable pleural effusion or pneumothorax. Multifocal degenerative changes with otherwise no evidence for recent fracture or aggressive lesion. IMPRESSION: Fluid overload/congestive heart failure with bilateral mild diffuse interstitial pulmonary edema. - This report was generated utilizing speech recognition software. - Dictated By: Darell Robbins DO Signed By: <Electronically signed by Darell Robbins DO in OV> 08/25/25 1049 Ordering Physician: José Miguel Cai MD Date of Service: 08/25/25 Procedure(s): CT head/brain wo con Accession Number(s): [id number] cc: José Miguel Cai MD; Janelle GlaserP; Darell Robbins DO~ Examination: CT brain head without contrast. 2-D sagittal coronal reconstructions Date and time of exam: 08/25/2025, 12:05 p.m. INDICATION: Generalized head pain COMPARISON: Head CT 07/16/2025 CTDI: vol (mGy): 50.1 DLP: (mGycm): 1000 Technique: Multiple CT axial sections of the brain have been obtained, 5 mm slice thickness. Contrast has not been administered. 2-D sagittal, coronal reconstructions have been obtained Low dose protocols were performed. One or more of the following dose reduction techniques were used; automated exposure control, adjustment of the mA and/or KV according to patient size, use of iterative reconstruction technique. Findings: Interval development of several acute brain parenchymal hemorrhages in the cerebral hemispheres. Acute hematoma in the anteromedial right thalamus with extension into the adjacent right lateral ventricle measures approximate 3.3 x 1.4 cm in transaxial dimensions (axial image 20), including the parenchymal and intraventricular component. An acute hemorrhage in the anteromedial right occipital lobe just posterior to the corpus callosum measures approximately 1.8 x 1.0 cm in transaxial dimensions (axial 21), with surrounding vasogenic edema and mild hemorrhage in the posterior horn of the right lateral ventricle. An additional acute hematoma in the posterolateral left basal ganglia measures 2.1 x 1.2 cm (axial image 22). There is no evidence for acute subdural hematoma, midline shift or obstructive hydrocephalus. Previously visualized subarachnoid hemorrhage in the basal cisterns is no longer seen. No evidence for acute large vessel transcortical ischemic infarction. Very mild age-appropriate cerebral involutional changes are seen, and likely chronic ischemic microangiopathy changes are present throughout both cerebral mysterious and also likely present in the edvin bilaterally and right cerebellum. No evidence for acute hemorrhage, ischemic infarct or mass in the posterior fossa. The calvarium is intact, without fracture concerning lytic or blastic lesion. The paranasal sinuses, mastoid air cells and middle ear cavities are mostly clear, with very mild degree of opacification present within a few inferiorly located left-sided mastoid air cells identified. Sequela of ocular lens replacement surgery noted. Findings compatible with scleral band procedure involving the left ocular globe are present. Impression: Acute intraparenchymal hematomas are now present in both cerebral hemispheres, right side greater than left, with hemorrhage extending into the ventricular system. No obstructive hydrocephalus or midline shift. Previously visualized subarachnoid hemorrhage in the basal cisterns has resolved in the interim. Critical findings were discussed with Dr. Cai via telephone on 08/25/2025 12:12 PM. Dictated By: Darell Robbins DO Signed By: <Electronically signed by Darell Robbins DO in OV> 08/25/25 1214 Medications / Prescriptions Medications or Prescriptions considered but not ordered:: None Medication administrations:: Medication Administration History Nicardipine/Sodium Chloride (Cardene Ivpb) 20 mg in 200 mls @ 50 mls/hr IV .Q4H PRN; Protocol PRN Reason: PER PROTOCOL Stop: 09/24/25 12:59 Last Titration: 08/25/25 13:46 Dose: 3 mg/hr, 30 mls/hr Documented By: Admin: 08/25/25 13:22 Dose: 5 mg/hr, 50 mls/hr Documented By: BY Discontinued Medications Hydralazine HCl (Hydralazine Inj 20 Mg/Ml Vial) 10 mg IVP X1 ONE Stop: 08/25/25 10:35 Last Admin: 08/25/25 10:48 Dose: 10 mg Documented By: BY Sodium Chloride (Ns) 1,000 mls @ 250 mls/hr IV .Q4H ONE Stop: 08/25/25 14:05 Last Admin: 08/25/25 10:28 Dose: 250 mls/hr Documented By: BY Methylprednisolone Sodium Succinate (Methylprednisolone Sod Succ 40 Mg/Ml Vial) 60 mg IVP X1 ONE Stop: 08/25/25 10:07 Last Admin: 08/25/25 10:29 Dose: 60 mg Documented By: BY Morphine Sulfate (Morphine Sulf Inj 4 Mg/Ml Vial) 4 mg IVP X1 ONE Stop: 08/25/25 10:07 Last Admin: 08/25/25 10:29 Dose: 4 mg Documented By: BY Ondansetron HCl (Ondansetron Inj 2 Mg/Ml Inj 2 Ml) 4 mg IVP X1 ONE; Protocol Stop: 08/25/25 10:07 Last Admin: 08/25/25 10:28 Dose: 4 mg Documented By: BY See above Consultations Consultation(s) initiated? (list below): Yes Consultation #1 (Physician, Specialty, Details): I spoke with [facility] transfer nurse and neurosurgeon Dr. Redd. Discussed patients PMHx, HPI, ED course, exam findings, labs, and radiology results. Reports at this time there is no need for emergent intervention and declined transfer. Consultation #2 (Physician, Specialty, Details): 1322: I spoke with [facility] transfer nurse. Discussed patients PMHx, HPI, ED course, exam findings, labs, and radiology results. States she will present the case to their neurosurgery team. Patient has been accepted by neurologist Dr. Duff. Diagnosis Differential diagnosis headache: migraine, tension headache, subarachnoid hemorrhage and headache Most likely diagnosis given after review of the tests above:: Multiple intracranial hematoma Accelerated hypertension Admission Indicated Admission indicated?: not indicated Explain why admission is indicated or not indicated:: Txfer for neurosurgery services Admission Request Was there a request for admission?: No Disposition Plan Disposition Plan: Transfer Critical Care Time Critical Care Time Critical Care Time: Yes Total Critical Care Time (min.): 90 Attestation: The high probability of sudden, clinically significant deterioration in the patient's condition required the highest level of my preparedness to intervene urgently. The services I provided to this patient were to treat and/or prevent clinically significant deterioration. Services included the following: chart data review, reviewing nursing notes and/or old charts, documentation time, nursing consultant collaboration regarding findings and treatment options, medication orders and management, direct patient care, vital sign assessments and ordering, interpreting and reviewing diagnostic studies and lab tests. Aggregate critical care time includes only time during which I was engaged in work directly related to the patient's care, as described above, whether at bedside or elsewhere in the Emergency Department. It did not include time spent performing other reported procedures or the services of residents, students, nurses or physician assistants. Discharge Plan Plan Patient Disposition: [facility] Pt Being Transferred to: [facility] Service Needed for Transfer: Neurosurgery Discharge Disposition comment: Accepting is Dr. Duff Patient condition on transfer: Stable Prescriptions/Referrals Prescriptions/Med Rec: No Action Ashley-Joanne 0.8 mg Tablet 1 tab PO QDAY famotidine 40 mg tablet 40 mg PO QDAY Patient Comments: MARIELA DANG TABLETA POR V A ORAL TODOS LOS D FOR ACID REFLUX levetiracetam 500 mg tablet 500 mg PO BID Patient Comments: TOME 1 TABLETA POR LA BOCA DOS VECES AL LINK clonidine HCl 0.1 mg tablet 0.1 mg PO TID metoprolol succinate 100 mg tablet extended release 24 hr 100 mg PO QDAY atorvastatin 80 mg tablet 80 mg PO .qhs Patient Comments: TOME DANG TABLETA POR LA BOCA EN LA NOCHE donepezil [Aricept] 5 mg tablet 5 mg PO QDAY B complex-vitamin C-folic acid 0.8 mg tablet 1 tab PO QDAY nifedipine 60 mg tablet extended release 60 mg PO QDAY valsartan 160 mg tablet 160 mg PO BID Patient Comments: TOME 1 TABLETA POR V A ORAL DOS VECES AL D A sertraline 25 mg tablet 25 mg PO QDAY ferric citrate [Auryxia] 210 mg iron tablet 1 tab PO TID Rx Instructions: administer with a meal sodium bicarbonate 325 mg tablet 325 mg PO BID Patient Comments: TAKE 1 TABLET BY MOUTH TWICE A DAY Rx Instructions: x2 tabs Referrals: Janelle Glaser FNP [Primary Care Provider] - In 1 week Problem List Clinical Impression: Intracranial hematoma, Accelerated hypertension Patient/Caregiver Discharge Instructions Print Language: Estonian Stand Alone Forms: Elicia Award Info., Patient Portal Info Letter
--- NOTE | 2025-08-25 13:01 | PC.CC ---
Addendum entered by Eyad Mora RN 08/25/25 14:29: 1419: PCS form sent to [facility] via [employer]. 1406: received information [facility] transport E[place] [facility] [place]. Transfer packet w 1CD taken to ER and left with air sampling and monitoring Ruben. 1404: spoke to bedside nurse Roz. She is aware of transfer and transport time. 1400: received call from Ene choudhary/ [facility]. Canceled transfer request with them. informed her [facility] accepted pt. 1356: Called [facility], nearest ETA is [address] Dominique agreeable with the ETA. 1353: Per Dr. Dominique pt is on nicardepine gtt and transport by air. 1344: [facility] called back, pt accepted by Dr. Deyanira Duff ED to ED. Call report to [phone]. Addendum entered by Eyad Mora RN 08/25/25 13:32: 1316: Spoke to Glenys at [facility] TC, she discussed case with Dr. Dominique. She will present to her team and call back. 1315: Dr. Dominique put on hold to transfer [facility]. Dr dominique requested to reach out to [facility]. He stated patient was sent there in Jun for a SAH. Original Note: 1303: Naomi choudhary/ [facility] called back. Peer to Peer between Dr. Dominique and Dr. Redd (neurosx). Per Dr. Redd, no surgical intervention at this time but does a medicine team to workup. 1246: Called [facility], spoke to [facility] to initiate transfer. I was put on hold a couple times. 1244: Clinicals and images sent to [facility]. Called [facility] spoke to Naomi, she stated she will review clinicals and call back. 1243: called dr. dominique regarding transfer request. He stated pt had a previous SAH but is now resolved. Pt now has an acute intraparenchymal hematomas are now present in both cerebral hemispheres, right side greater than left, with hemorrhage extending into the ventricular system.
[2025-08-25] MEDS: NICARDIPINE/NS 20MG IVPB 20 MG/200 ML BAG 50 MG IV (13:22)
--- NOTE | 2025-08-25 14:09 | PC.NURSE ---
patient verbally agreed and daughter also agreed on the phone for the patient to be transfered to other facility via air for higher level of care , nurse and ppap coordinator at bedside ,as well as Dr dominique , who also spoke to daughter on the phone
--- NOTE | 2025-08-25 14:30 | PC.NURSE ---
report given to jhon at [facility] at this time
--- NOTE | 2025-08-25 14:31 | PC.NURSE ---
at this time patient was able to have a conversation with nurse, states she had some dizziness, and that her headache was mostly at her forehead, stated that her vision was blurry but that it was due to her diabetes, stated that she just felt weak, during our conversation patient had several instances where she was not able to follow comands when asked to follow finger with her eyes or to bring down left arm, but was shorly able to be redirected and would do as asked
--- NOTE | 2025-08-25 15:43 | PC.NURSE ---
flight crew at bedside for transport at this time
--- NOTE | 2025-08-25 15:57 | PC.NURSE ---
medication transfered over to flight crew pump at this time,
--- NOTE | 2025-08-25 16:01 | PC.NURSE ---
partient taken at this time
== END 2025-08-25 16:05 | disposition short-term general hospital (02) ==
PROVIDERS: Emergency Provider Family Medicine; PCP Registered Nurse Community Health
DX: S06.2XAA Diffuse traumatic brain injury with loss of consciousness status unknown, initial encounter (principal); X58.XXXA Exposure to other specified factors, initial encounter; E78.5 Hyperlipidemia, unspecified; I13.2 Hypertensive heart and chronic kidney disease with heart failure and with stage 5 chronic kidney disease, or end stage renal disease; N18.6 End stage renal disease; Z99.2 Dependence on renal dialysis
CPT/HCPCS: 36415; 70450; 71045; 80053; 84484; 85025; 85610; 85652; 85730; 93005; 96361; 96374; 96375; 99291; 99292; J0360; J2270; J2404; J2405; J2919; J7030

== ENCOUNTER 2025-09-03 07:38 | Emergency (ER) | payer MEDICARE, MEDICAID, SELFPAY ==
[2025-09-03] VITALS (11 sets, daily range): BP systolic 159–225; BP diastolic 68–102; PULSE 67–79; RESP 12–20; TEMP 36.4–36.7; O2SAT 95–96; BMI 22.1
--- NOTE | 2025-09-03 07:49 | EKG_ITS ---
[facility] Test Date: 2025-09-03 Pat Name: MATILDE GIANG Department: Room: - Gender: Female Medical Center Director: : 1965 Requested By: ED Temporary Provider Order Number: [id number] Reading MD: ED Temporary Provider Measurements Intervals [place] Rate: 67 P: 20 OR: 169 QRS: 19 QRSD: 92 T: 110 QT: 459 QTc: 486 Interpretive Statements SINUS RHYTHM NONSPECIFIC ST & T-WAVE ABNORMALITY PROLONGED QT INTERVAL Compared to ECG 08/25/2025 10:15:28 T-wave abnormality now present Prolonged QT interval now present Left ventricular hypertrophy no longer present ST (T wave) deviation no longer present /store/S0/[id number]
--- NOTE | 2025-09-03 09:29 | PD.EDHA ---
ED Headache RME/HPI General Chief Complaint: Headache Stated Complaint: HYPERTENSION Arrival date/time: 09/03/25 07:38 Limitations: no limitations RME / HPI RME / HPI Narrative: DR. FITCH MAIN ED EVALUATION: 59-year-old female with history of high blood pressure, compliant with her medications, presents to the Emergency Department with complaint of headache and bilateral eye pain. Patient was at dialysis this morning when her systolic blood pressure increased to the 240s, causing the session to stop after only 40 minutes. She reports prior brain bleeds in the past. Here, blood pressure at 0917 hours, her blood pressure was 231/105 with heart rate 68. Related Data Home Medications ?Medication ?Instructions ?Recorded ?Confirmed sodium bicarbonate 325 mg tablet 325 mg PO BID 08/11/23 08/25/25 vitamin B complex-vitamin C-folic 1 tab PO QDAY 11/12/23 06/08/25 acid 0.8 mg tablet (Ashley-Joanne) famotidine 40 mg tablet 40 mg PO QDAY acid reflux 04/20/25 08/25/25 clonidine HCl 0.1 mg tablet 0.1 mg PO TID 06/08/25 08/25/25 levetiracetam 500 mg tablet 500 mg PO BID 06/08/25 08/25/25 atorvastatin 80 mg tablet 80 mg PO .qhs 08/25/25 08/25/25 donepezil 5 mg tablet (Aricept) 5 mg PO QDAY 08/25/25 08/25/25 ferric citrate 210 mg iron tablet 1 tab PO TID 08/25/25 08/25/25 (Auryxia) metoprolol succinate 100 mg 100 mg PO QDAY 08/25/25 08/25/25 tablet,extended release 24 hr nifedipine 60 mg tablet,extended 60 mg PO QDAY 08/25/25 08/25/25 release sertraline 25 mg tablet 25 mg PO QDAY 08/25/25 08/25/25 valsartan 160 mg tablet 160 mg PO BID 08/25/25 08/25/25 vitamin B complex-vitamin C-folic 1 tab PO QDAY 08/25/25 08/25/25 acid 0.8 mg tablet Allergies Allergy/AdvReac Type Severity Reaction Status Date / Time No Known Allergies Allergy Verified 07/16/25 13:43 Review of Systems Review of Systems Systems Reviewed: All systems reviewed, normal except as documented Past Medical History Past Medical History NEUROLOGIC: Positive Seizures CARDIAC: Positive Cardiac Disorders, Hypercholesterolemia and Hypertension GASTROINTESTINAL: Positive Gastrointestinal Disorders, Ulcer, Gastroesophageal Reflux Disease and Obesity GENITOURINARY: Positive Genitourinary Disorders, Renal Disease and Dialysis REPRODUCTIVE: Positive Previous Pregnancies MUSCULOSKELETAL: Positive Musculoskeletal Disorders and Fractures ENT: Positive Cataracts and Retinal Detachment ENDOCRINE: Positive Endocrine Disorders and Diabetes Mellitus Type 2 HEMATOLOGIC: Positive Anemia OTHER HISTORY: Positive Hospitalization, Falls and Chicken Pox Surgical History SURGICAL: Positive Hysterectomy Social History SMOKING STATUS: Never smoker SUBSTANCE USE: does not use ALCOHOL: Never ED Exam General Limitations: Present no limitations General appearance: Present alert and in no apparent distress Head Head exam: Present atraumatic, normocephalic and normal inspection Eye Eye exam: Present normal appearance, PERRL and EOMI ENT ENT exam: Present normal exam, normal oropharynx and mucous membranes moist Neck Neck exam: Present normal inspection, full ROM and trachea midline Chest Chest inspection: Present normal inspection, symmetric chest wall rise and other (right chest dialysis catheter present) Respiratory Respiratory exam: Present normal lung sounds bilaterally Cardiovascular Cardiovascular exam: Present regular rate, normal rhythm and normal heart sounds Abdominal Exam Abdominal exam: Present soft and normal bowel sounds Extremities Exam Extremities exam: Present normal inspection and full ROM Back Exam Back exam: Present normal inspection and full ROM Neurological Exam Neurological exam: Present alert, oriented X3 and CN II-XII intact Psychiatric Psychiatric exam: Present normal affect and normal mood Skin Skin exam: Present warm, dry, intact and normal color Course Quality Measures none Orders Category Date Time Status Wire Mesh 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 NOW Care 09/03/25 09:57 Active Continuous Pulse Oximetry NOW Care 09/03/25 09:57 Completed EKG (ED ONLY) *Do not use* NOW Care 09/03/25 07:49 Completed Insert IV NOW Care 09/03/25 09:[address] head/brain wo con Stat Exams 09/03/25 09:58 Completed EKG (ED Only) Stat Exams 09/03/25 07:49 Draft XR chest 1V portable Stat Exams 09/03/25 09:57 Completed CBC Stat Lab 09/03/25 07:52 Completed Comprehensive Metabolic Panel Stat Lab 09/03/25 07:52 Completed Partial Thromboplastin Time Stat Lab 09/03/25 07:52 Completed Prothrombin Time with INR Stat Lab 09/03/25 07:52 Completed Troponin I Stat Lab 09/03/25 07:52 Completed Urinalysis Stat Lab 09/03/25 09:57 Ordered Acetaminophen Ivpb [Ofirmev Inj] Med 09/03/25 12:05 Discontinued 1,000 mg in 100 ml IV X1 LORazepam [Ativan Inj] Med 09/03/25 12:05 Discontinued 0.5 mg IVP X1 ONE Morphine* Inj Med 09/03/25 12:05 Discontinued 2 mg IVP X1 ONE Ondansetron Inj [Zofran Inj] Med 09/03/25 12:05 Discontinued 4 mg IVP X1 ONE Sodium Chloride 0.9% 1000 ml [Ns] 1,000 ml Med 09/03/25 09:57 Active IV 100 mls/hr cloNIDine HCL [Catapres] Med 09/03/25 16:06 Discontinued 0.1 mg PO X1 ONE cloNIDine HCL [Catapres] Med 09/03/25 09:58 Discontinued 0.2 mg PO X1 ONE cloNIDine HCL [Catapres] Med 09/03/25 12:05 Discontinued 0.2 mg PO X1 ONE hydrALAZINE INJ [Apresoline Inj] Med 09/03/25 09:58 Discontinued 10 mg IVP X1 ONE hydrALAZINE INJ [Apresoline Inj] Med 09/03/25 12:05 Discontinued 10 mg IVP X1 ONE hydrALAZINE INJ [Apresoline Inj] Med 09/03/25 16:06 Discontinued 5 mg IVP X1 ONE Oxygen Delivery NOW RT 09/03/25 09:57 Active Vital Signs Vital signs: Vital Signs Temperature 97.6 F 09/03/25 07:40 Pulse Rate 79 09/03/25 07:40 Respiratory Rate 18 09/03/25 07:40 Blood Pressure 221/102 H 09/03/25 07:40 Pulse Oximetry (%) 95 09/03/25 07:40 Oxygen Delivery Method Room Air 09/03/25 07:40 Headache MDM Narrative MDM Narrative:: IJane am scribing for and in the presence of Dr. Fitch. 59-year-old female with headache and elevated blood pressure during dialysis. Differential diagnoses include hypertensive emergency, recurrent intracranial hemorrhage, and dialysis related headache. Here, blood pressure at 0917 hours, her blood pressure was 231/[address] head reported positive for brain bleed at 10:32 AM, and radiology will compare current findings with her prior documented bleeds. 1510: Patient will be discharged with hypertension, ESRD, and a headache. Patient data External records reviewed:: [facility] previous records Clinical information provided by:: patient Social determinants that could affect healthcare access:: none Patient has the following chronic illnesses:: high blood pressure and previous brain bleeds How is presenting disease/condition affected by chronic disease/condition?: exacerbated by Evaluation data The following diagnostics were reviewed and interpreted by me:: lab results, radiology exam(s) and EKG tracing(s) (My interpretation: EKG performed at 0755 hours, sinus rhythm, rate 67, no acute changes, no STEMI) Lab and/or radiology exams considered but not ordered:: none Interpretation Summary: See MDM narrative above. RADIOLOGY Procedure(s): CT head/brain wo [facility] Accession Number(s): [id number] cc: José Miguel Fitch MD; Janelle Glaser; Mark Melissa MD~ Examination: CT brain head without contrast. 2-D sagittal coronal reconstructions Date and time of exam: September 03, 2025, 1002 hours, comparison August 25, 2025 INDICATIONS: Hypertension this morning with altered mental status, history of brain hemorrhage August 25, 2025 CTDI: vol (mGy): 48.6 DLP: (mGycm): 912 Technique: Multiple CT axial sections of the brain have been obtained, 5 mm slice thickness. Contrast has not been administered. 2-D sagittal, coronal reconstructions have been obtained Low dose protocols were performed. One or more of the following dose reduction techniques were used; automated exposure control, adjustment of the mA and/or KV according to patient size, use of iterative reconstruction technique. Findings: Mild decrease in hemorrhage in the right basal ganglia and right ventricle compared to August 25, 2025 No definite change in hemorrhage in the posterior right corpus callosum Decrease in hemorrhage in the left basal ganglia compared with August 25, 2025 No new areas of hemorrhage No midline shift Cranial vault intact IMPRESSION: Mild decrease in hemorrhage in the right basal ganglia and right ventricle No change in hemorrhage posterior right corpus callosum Decrease in hemorrhage in the left basal ganglia No new hemorrhage compared with August 25, 2025 Dictated By: Mark Melissa MD Procedure(s): XR chest 1V portable Accession Number(s): [id number] cc: José Miguel Fitch MD; Janelle Glaser; Mark Melissa MD~ EXAMINATION: AP chest single view TECHNIQUE: AP portable semiupright chest single view Date and time: September 03, 2025, 1005 hours, comparison August 25, 2025 INDICATIONS: Coughing hypertension shortness of breath today. FINDINGS: Prominent CHF Enlarged cardiac contour with prominent central vascular congestion Extensive perihilar diffuse pulmonary edema Right internal jugular dialysis catheter tip satisfactory position Prominent osteopenia IMPRESSION: Prominent CHF Dictated By: Mark Melissa MD Medications / Prescriptions Medications or Prescriptions considered but not ordered:: none Medication administrations:: Medication Administration History Sodium Chloride (Ns) 1,000 mls @ 100 mls/hr IV .Q10H ONE Stop: 09/03/25 19:56 Last Admin: 09/03/25 10:09 Dose: 100 mls/hr Documented By: EF Discontinued Medications Clonidine (Clonidine Hcl 0.1 Mg Tablet) 0.2 mg PO X1 ONE Stop: 09/03/25 09:59 Last Admin: 09/03/25 10:08 Dose: 0.2 mg Documented By: EF Clonidine (Clonidine Hcl 0.1 Mg Tablet) 0.2 mg PO X1 ONE Stop: 09/03/25 12:06 Last Admin: 09/03/25 12:25 Dose: 0.2 mg Documented By: EF Clonidine (Clonidine Hcl 0.1 Mg Tablet) 0.1 mg PO X1 ONE Stop: 09/03/25 16:07 Last Admin: 09/03/25 16:16 Dose: 0.1 mg Documented By: EF Hydralazine HCl (Hydralazine Inj 20 Mg/Ml Vial) 10 mg IVP X1 ONE Stop: 09/03/25 09:59 Last Admin: 09/03/25 10:09 Dose: 10 mg Documented By: EF Hydralazine HCl (Hydralazine Inj 20 Mg/Ml Vial) 10 mg IVP X1 ONE Stop: 09/03/25 12:06 Last Admin: 09/03/25 12:23 Dose: 10 mg Documented By: EF Hydralazine HCl (Hydralazine Inj 20 Mg/Ml Vial) 5 mg IVP X1 ONE Stop: 09/03/25 16:07 Last Admin: 09/03/25 16:16 Dose: 5 mg Documented By: EF Acetaminophen (Ofirmev Inj) 1,000 mg in 100 mls @ 250 mls/hr IV X1 ONE Stop: 09/03/25 12:28 Last Infusion: 09/03/25 12:48 Dose: Infused Documented By: Admin: 09/03/25 12:24 Dose: 250 mls/hr Documented By: EF Lorazepam (Lorazepam 2 Mg/Ml Vial) 0.5 mg IVP X1 ONE Stop: 09/03/25 12:06 Last Admin: 09/03/25 12:24 Dose: 0.5 mg Documented By: EF Morphine Sulfate (Morphine Sulf Inj 4 Mg/Ml Vial) 2 mg IVP X1 ONE Stop: 09/03/25 12:06 Last Admin: 09/03/25 12:22 Dose: 2 mg Documented By: EF Ondansetron HCl (Ondansetron Inj 2 Mg/Ml Inj 2 Ml) 4 mg IVP X1 ONE; Protocol Stop: 09/03/25 12:06 Last Admin: 09/03/25 12:23 Dose: 4 mg Documented By: EF see above Consultations Consultation(s) initiated? (list below): No Diagnosis Differential diagnosis headache: other (hypertensive emergency, recurrent intracranial hemorrhage, and dialysis related headache) Most likely diagnosis given after review of the tests above:: Hypertension ESRD Headache Admission Indicated Admission indicated?: not indicated Admission Request Was there a request for admission?: No Disposition Plan Disposition Plan: Discharge Discharge Attestation Discharge Attestation: The patient and all family members were given an opportunity to ask questions and understood the discharge instructions. Discharge instructions specifically effects, indications for sooner follow up or return to the emergency department, and the expected course of current diagnosis. Patient condition: Stable Discharge Plan Plan Patient Disposition: HOME (Self Care) Patient condition on transfer: Stable Prescriptions/Referrals Prescriptions/Med Rec: No Action Ashley-Joanne 0.8 mg Tablet 1 tab PO QDAY famotidine 40 mg tablet 40 mg PO QDAY Patient Comments: TOME DANG TABLETA POR V A ORAL TODOS LOS D FOR ACID REFLUX levetiracetam 500 mg tablet 500 mg PO BID Patient Comments: TOME 1 TABLETA POR LA BOCA DOS VECES AL LINK clonidine HCl 0.1 mg tablet 0.1 mg PO TID metoprolol succinate 100 mg tablet extended release 24 hr 100 mg PO QDAY atorvastatin 80 mg tablet 80 mg PO .qhs Patient Comments: TOME DANG TABLETA POR LA BOCA EN LA NOCHE donepezil [Aricept] 5 mg tablet 5 mg PO QDAY B complex-vitamin C-folic acid 0.8 mg tablet 1 tab PO QDAY nifedipine 60 mg tablet extended release 60 mg PO QDAY valsartan 160 mg tablet 160 mg PO BID Patient Comments: TOME 1 TABLETA POR V A ORAL DOS VECES AL D A sertraline 25 mg tablet 25 mg PO QDAY ferric citrate [Auryxia] 210 mg iron tablet 1 tab PO TID Rx Instructions: administer with a meal sodium bicarbonate 325 mg tablet 325 mg PO BID Patient Comments: TAKE 1 TABLET BY MOUTH TWICE A DAY Rx Instructions: x2 tabs Referrals: Janelle Glaser FNP [Primary Care Provider] - In 1 week Problem List Clinical Impression: Hypertension, ESRD (end stage renal disease), Headache Patient/Caregiver Discharge Instructions Discharge Activity: activity as tolerated Education Materials: What Is High Blood Pressure?, ED High Blood Pressure ... Additional Instructions: Please continue your usual medications. Use Tylenol 500 mg 1 to 2 tablets every 6 hours as you need for headache. Follow-up with your dialysis provider on Friday and schedule your next dialysis. Print Language: Zimbabwean Stand Alone Forms: Elicia Award Info., Patient Portal Info Letter
--- NOTE | 2025-09-03 09:57 | XR_ITS ---
EXAMINATION: AP chest single view TECHNIQUE: AP portable semiupright chest single view Date and time: September 03, 2025, 1005 hours, comparison August 25, 2025 INDICATIONS: Coughing hypertension shortness of breath today. FINDINGS: Prominent CHF Enlarged cardiac contour with prominent central vascular congestion Extensive perihilar diffuse pulmonary edema Right internal jugular dialysis catheter tip satisfactory position Prominent osteopenia IMPRESSION: Prominent CHF
--- NOTE | 2025-09-03 09:58 | XR_ITS ---
Examination: CT brain head without contrast. 2-D sagittal coronal reconstructions Date and time of exam: September 03, 2025, 1002 hours, comparison August 25, 2025 INDICATIONS: Hypertension this morning with altered mental status, history of brain hemorrhage August 25, 2025 CTDI: vol (mGy): 48.6 DLP: (mGycm): 912 Technique: Multiple CT axial sections of the brain have been obtained, 5 mm slice thickness. Contrast has not been administered. 2-D sagittal, coronal reconstructions have been obtained Low dose protocols were performed. One or more of the following dose reduction techniques were used; automated exposure control, adjustment of the mA and/or KV according to patient size, use of iterative reconstruction technique. Findings: Mild decrease in hemorrhage in the right basal ganglia and right ventricle compared to August 25, 2025 No definite change in hemorrhage in the posterior right corpus callosum Decrease in hemorrhage in the left basal ganglia compared with August 25, 2025 No new areas of hemorrhage No midline shift Cranial vault intact IMPRESSION: Mild decrease in hemorrhage in the right basal ganglia and right ventricle No change in hemorrhage posterior right corpus callosum Decrease in hemorrhage in the left basal ganglia No new hemorrhage compared with August 25, 2025
[2025-09-03] MEDS: hydrALAZINE INJ 20 MG/ML VIAL 10 MG IVP ×2 (10:09→12:23)
[2025-09-03] MEDS: SODIUM CHLORIDE 0.9% 1000 ML 1,000 ML 100 ML IV (10:09)
[2025-09-03 10:23] LABS: Basophils # (Auto) 0.0 Thou/mm3 (0.0-0.2); Basophils % (Auto) 0 % (0-2.5); Eosinophils # (Auto) 0.2 Thou/mm3 (0.0-0.5); Eosinophils % (Auto) 3 % (0-10); Hematocrit 28.2 % (36.0-46.0); Hemoglobin 9.3 g/dL (12.0-16.0); Immature Granulocytes Auto 0.02 Thou/mm3 (0.00-0.00); Lymphocytes # (Auto) 1.3 Thou/mm3 (1.0-4.8); Lymphocytes % (Auto) 17 % (10-50); Mean Corpuscular HGB Conc 33.0 g/dl (31.0-37.0); Mean Corpuscular Hemoglobin 30.0 pg (25.0-35.0); Mean Corpuscular Volume 91 fL (80-100); Monocytes # (Auto) 0.7 Thou/mm3 (0.0-0.8); Monocytes % (Auto) 9 % (0-12); Neutrophils # (Auto) 5.5 Thou/mm3 (1.8-7.7); Neutrophils % (Auto) 71 % (37-80); Nucleated Red Blood Cell # 0.00 Thou/mm3 (0.00-0.00); Nucleated Red Blood Cell % 0 /100 WBC (0); Platelet Count 180 Thou/mm3 (140-440); RDW Standard Deviation 48.7 fL (36.4-46.3); Red Blood Count 3.10 Miln/mm3 (4.00-5.20); White Blood Count 7.8 Thou/mm3 (3.6-11.0)
[2025-09-03 10:45] LABS: Alanine Aminotransferase 14 U/L (10-49); Albumin, Serum 3.8 gm/dL (3.4-4.8); Albumin/Globulin Ratio 1.7 (1.2-2.2); Alkaline Phosphatase 99 U/L (46-116); Anion Gap 14 (7-16); Aspartate Amino Transferase 26 U/L (0-34); BUN/Creatinine Ratio 5 Ratio (12-20); Bilirubin,Total 0.3 mg/dL (0.3-1.2); Blood Urea Nitrogen 34 mg/dL (9-23); Calcium 8.5 mg/dL (8.3-10.6); Calcium (Corrected) 8.7 mg/dL (8.5-10.1); Carbon Dioxide 23.8 mMol/L (20.0-31.0); Chloride 102 mMol/L (98-107); Creatinine (Component) 7.5 mg/dL (0.6-1.3); Estimated Creatinine Clearance 6.2 mL/min (>60); Globulin 2.2 gm/dL (2.3-3.5); Glucose 99 mg/dL (74-106); Osmolality,Calculated 287 (275-295); Potassium 4.5 mMol/L (3.4-5.1); Sodium 140 mMol/L (136-145); Total Protein 6.0 gm/dL (5.7-8.2); Troponin I 0.020 ng/mL (0.0-0.045); eGFR 6 See Note
[2025-09-03 11:31] LABS: INR 1.1 (0.9-1.3); Partial Thromboplastin Time 66.7 Seconds (22.0-36.0); Prothrombin Time 12.1 Seconds (9.0-12.2)
[2025-09-03] MEDS: MORPHINE SULF INJ 4 MG/ML VIAL 2 MG IVP (12:22)
[2025-09-03] MEDS: ONDANSETRON INJ 2 MG/ML INJ 2 ML 4 MG IVP (12:23)
[2025-09-03] MEDS: ACETAMINOPHEN IVPB 1,000 MG/100 ML VIAL 250 MG IV (12:24)
[2025-09-03] MEDS: LORazepam 2 MG/ML VIAL 0.5 MG IVP (12:24)
--- NOTE | 2025-09-03 15:25 | PC.NURSE ---
attempted to call daughter no answer at this time
[2025-09-03] MEDS: hydrALAZINE INJ 20 MG/ML VIAL 5 MG IVP (16:16)
== END 2025-09-03 16:36 | disposition home or self-care (01) ==
PROVIDERS: Emergency Provider Family Medicine; PCP Registered Nurse Community Health
DX: I61.9 Nontraumatic intracerebral hemorrhage, unspecified (principal); I13.2 Hypertensive heart and chronic kidney disease with heart failure and with stage 5 chronic kidney disease, or end stage renal disease; N18.6 End stage renal disease
CPT/HCPCS: 36415; 70450; 71045; 80053; 81001; 84484; 85025; 85610; 85730; 93005; 96361; 96365; 96375; 96376; 99284; J0131; J0360; J2060; J2270; J2405; J7030; A9270

== ENCOUNTER 2025-09-19 07:03 | Emergency (ER) | payer MEDICARE, MEDICAID, SELFPAY ==
[2025-09-19 07:05] VITALS: PULSE 86
[2025-09-19 07:08] VITALS: BP 121/76; PULSE 69; O2SAT 87
--- NOTE | 2025-09-19 07:09 | PC.NURSE ---
stroke alert called at this time delayed to take to ct due to patient 02 sats dropping md at bedside
--- NOTE | 2025-09-19 07:10 | XR_ITS ---
EXAMINATION: AP chest single view TECHNIQUE: AP portable supine chest single view September 19, 2025, 0729 hours, comparison September 03, 2025 INDICATIONS: Stroke alert, unresponsive, hypoxic respiratory failure FINDINGS: Endotracheal tube at the origin of the right mainstem bronchus Diffuse left lung pneumonia consider aspiration pneumonia No major cardiac enlargement Right internal jugular dialysis catheter tip satisfactory position IMPRESSION: Retract the tracheal tube 4 cm
--- NOTE | 2025-09-19 07:22 | EKG_ITS ---
[facility] Test Date: 2025-09-19 Pat Name: MATILDE GIANG Department: Room: - Gender: Female Auditor Internal: : 1965 Requested By: Chica Arnold Order Number: [id number] Reading MD: Chica Arnold Measurements Intervals Winfred Rate: 57 P: 44 MT: 167 QRS: 50 QRSD: 102 T: 75 QT: 556 QTc: 545 Interpretive Statements SINUS BRADYCARDIA PROLONGED QT INTERVAL CRITICAL TEST RESULT Compared to ECG 09/03/2025 07:55:10 Sinus rhythm no longer present T-wave abnormality no longer present /store/S0/[id number]
--- NOTE | 2025-09-19 07:22 | PD.EDCPR ---
ED CPR RME/HPI General Chief Complaint: Cardiac Arrest/CPR Stated Complaint: STAT Time Seen by Provider: 09/19/25 07:23 Arrival date/time: 09/19/25 07:03 RME / HPI RME / HPI narrative: 59 year old female with history of seizures, hypertension, hyperlipidemia, ESRD on HD T/Th/Sat, anemia presents to the ED [facility] from [facility] following cardiac arrest. Per medics, [facility] staff reported they had just changed the patient and approximately 5-10 minutes after went into her room to check on her and found the patient unresponsive and pulseless. Patient was last known well at 06:25 AM today. Medics state on their arrival, CPR was in progress by staff and rhythm was asystole. Given two rounds of Epinephrine, 1g of Calcium, and intubated with 7.5 ETT prior to achieving ROSC. Prehospital BS 525, HR 86 sinus rhythm, blood pressure 144/81. Per medics, staff at the facility reported the patient last had dialysis Friday. Related Data Home Medications ?Medication ?Instructions ?Recorded ?Confirmed sodium bicarbonate 325 mg tablet 325 mg PO BID 08/11/23 08/25/25 vitamin B complex-vitamin C-folic 1 tab PO QDAY 11/12/23 06/08/25 acid 0.8 mg tablet (Ashley-Joanne) famotidine 40 mg tablet 40 mg PO QDAY acid reflux 04/20/25 08/25/25 clonidine HCl 0.1 mg tablet 0.1 mg PO TID 06/08/25 08/25/25 levetiracetam 500 mg tablet 500 mg PO BID 06/08/25 08/25/25 atorvastatin 80 mg tablet 80 mg PO .qhs 08/25/25 08/25/25 donepezil 5 mg tablet (Aricept) 5 mg PO QDAY 08/25/25 08/25/25 ferric citrate 210 mg iron tablet 1 tab PO TID 08/25/25 08/25/25 (Auryxia) metoprolol succinate 100 mg 100 mg PO QDAY 08/25/25 08/25/25 tablet,extended release 24 hr nifedipine 60 mg tablet,extended 60 mg PO QDAY 08/25/25 08/25/25 release sertraline 25 mg tablet 25 mg PO QDAY 08/25/25 08/25/25 valsartan 160 mg tablet 160 mg PO BID 08/25/25 08/25/25 vitamin B complex-vitamin C-folic 1 tab PO QDAY 08/25/25 08/25/25 acid 0.8 mg tablet Allergies Allergy/AdvReac Type Severity Reaction Status Date / Time No Known Allergies Allergy Verified 07/16/25 13:43 Review of Systems Review of Systems ROS Unobtainable: due to endotracheal tube Past Medical History Past Medical History NEUROLOGIC: Positive Seizures CARDIAC: Positive Cardiac Disorders, Hypercholesterolemia and Hypertension GASTROINTESTINAL: Positive Gastrointestinal Disorders, Ulcer, Gastroesophageal Reflux Disease and Obesity GENITOURINARY: Positive Genitourinary Disorders, Renal Disease and Dialysis REPRODUCTIVE: Positive Previous Pregnancies MUSCULOSKELETAL: Positive Musculoskeletal Disorders and Fractures ENT: Positive Cataracts and Retinal Detachment ENDOCRINE: Positive Endocrine Disorders and Diabetes Mellitus Type 2 HEMATOLOGIC: Positive Anemia OTHER HISTORY: Positive Hospitalization, Falls and Chicken Pox Surgical History SURGICAL: Positive Hysterectomy Social History SMOKING STATUS: Unknown if ever smoked SUBSTANCE USE: does not use ED Exam Narrative Physical exam: GEN: Patient is unresponsive, intubated and actively being bagged by EMS. HEENT: Normocephalic, atraumatic. Anisocoria noted, the right pupil is 9mm and fixed, the left pupil is 7mm and sluggish to light accommodation. NECK: Supple, no JVD. CARDIOVASCULAR: Sinus rhythm, rate 80s on telemetry. RESPIRATORY: Fair breath sounds. ABDOMEN: Soft, flat. EXTREMITIES: No deformities. SKIN: Intact, no rashes noted. NEURO: GCS of 3. Course Quality Measures Suspected type of Stroke: Hemmorrhagic Last known well (date): 09/19/25 Last known well (time): 06:25 Tenecteplase given: Reason(s) TPA not given: H/O intracranial hemorrhage, neoplasm, AVM, or aneurysm and Symptoms suggest SAH not given stroke Orders Category Date Time Status Bedside Blood Glucose NOW Care 09/19/25 07:22 Completed Financial Systems Administrator NOW Care 09/19/25 07:22 Active Continuous Pulse Oximetry NOW Care 09/19/25 07:22 Completed EKG (ED ONLY) *Do not use* NOW Care 09/19/25 07:22 Completed Peter [Urinary Catheter] QS Care 09/19/25 07:44 Active In and Out Catheter NEEDED Care 09/19/25 07:22 Active Insert IV NOW Care 09/19/25 07:22 Completed NIH Stroke Scale now Care 09/19/25 07:22 Active NPO NOW Care 09/19/25 07:22 Active Nurse Swallow Screen x1 Care 09/19/25 07:22 Active Consult to Neurology / Tele-Neurology Routine Cons 09/19/25 07:22 Active Referral - Records Clerk Stat Cons 09/19/25 07:[address] angio stroke protocol Stat Exams 09/19/25 07:[address] stroke protocol Stat Exams 09/19/25 07:22 Completed CXR [XR chest 1V post procedure] Stat Exams 09/19/25 07:10 Completed EKG (ED Only) Stat Exams 09/19/25 07:22 Draft Arterial Blood Gas Stat Lab 09/19/25 07:52 Completed CBC Stat Lab 09/19/25 07:16 Completed Comprehensive Metabolic Panel Stat Lab 09/19/25 07:16 Completed Drug Screen,Urine Stat Lab 09/19/25 07:22 Ordered Magnesium Stat Lab 09/19/25 07:16 Completed Partial Thromboplastin Time Stat Lab 09/19/25 07:16 Completed Prothrombin Time with INR Stat Lab 09/19/25 07:16 Completed Troponin I Stat Lab 09/19/25 07:16 Completed Urinalysis, C/S if Indicated Stat Lab 09/19/25 07:22 Ordered Norepinephrine/NS 16mg/250ml [Levophed in NS 16mg/250ml Med 09/19/25 07:26 Active ] 16 mg in 250 ml IV 0.05 mcg/kg/min Sodium Chloride 0.9% 500 ml [Ns] 500 ml Med 09/19/25 08:05 Discontinued IV 999 mls/hr levETIRAcetam INJ [Keppra Inj] Med 09/19/25 07:44 Discontinued 1,000 mg IVP X1 ONE Mechanical [Volume Ventilator] Stat RT 09/19/25 Active Oxygen Delivery NOW RT 09/19/25 07:22 Active Vital Signs Vital signs: Vital Signs Pulse Rate 69 09/19/25 07:08 Blood Pressure 121/76 09/19/25 07:08 Pulse Oximetry (%) 87 L 09/19/25 07:08 Oxygen Delivery Method Mechanical Ventilation 09/19/25 07:08 Cardiac Arrest / CPR MDM Narrative MDM Narrative:: Shy Meraz am scribing for and in the presence of Dr. Dillard. 0703a: Patient arrived, intubated and being bagged by medics. 0709a: Stroke alert initiated. Patient sent to CT. BS 346. 0711a: Patient desaturating to low 80s on the ventilator. The ETT was pulled back 1.5cm and saturating 96%. 0732a: Radiologist Dr. Melissa relayed head CT findings. 0736a: I spoke with teleneurologist Dr. Valenzuela, discussed head CT findings. Recommends keeping the blood pressure B/P < 140. States Mannitol would be too risky due to blood pressure. He recommends consulting with neurosurgery for further management. 0750a: I spoke with transfer nurse and ED physician at [facility]. Discussed patients PMHx, HPI, ED course, exam findings, labs, and radiology results. States they will consult with their neurosurgeon and if they accept, they will accept the patient for transfer. 0756a: I spoke with ED physician Dr. Doty who states he spoke with neurosurgeon Dr. Dueñas who said if the pupils were reactive to send the patient and if not reactive to allow the patient to . The left pupils is reactive though sluggish. 0810a: The patients daughter was updated and plan to transfer for brain bleed. Patient data External records reviewed:: [facility] previous records, EMS form and Retirement records Clinical information provided by:: EMS Social determinants that could affect healthcare access:: housing (SNF resident ) Patient has the following chronic illnesses:: seizures, hypertension, hyperlipidemia, ESRD on HD T/Th/Sat, anemia, hx of subarachnoid hemorrhage in the basal cisterns on 07/16/2025 How is presenting disease/condition affected by chronic disease/condition?: exacerbated by Evaluation data The following diagnostics were reviewed and interpreted by me:: lab results, radiology exam(s) and EKG tracing(s) (EKG @ 07:36 AM, interpreted by me, sinus bradycardia, rate 57, no STEMI. ) Lab and/or radiology exams considered but not ordered:: None Interpretation Summary: Ordering Physician: Chica Dillard MD Date of Service: 09/19/25 Procedure(s): CT stroke protocol Accession Number(s): [id number] cc: Mark Melissa MD; Chica Dillard MD~ Examination: CT brain head without contrast. 2-D sagittal coronal reconstructions Date and time of exam: September 19, 2025, 0720 hours INDICATIONS: Stroke alert, patient became unresponsive 45 minutes ago CTDI: vol (mGy): 46.9 DLP: (mGycm): 977 Technique: Multiple CT axial sections of the brain have been obtained, 5 mm slice thickness. Contrast has not been administered. 2-D sagittal, coronal reconstructions have been obtained Low dose protocols were performed. One or more of the following dose reduction techniques were used; automated exposure control, adjustment of the mA and/or KV according to patient size, use of iterative reconstruction technique. Findings: Large acute hemorrhage, 5 x 5.8 cm in the right basal ganglia The hemorrhage has ruptured into the ventricular system Severe mass effect or shift of the frontal horns to the left 10 mm and uncal herniation Diffuse cerebral edema Moderate ventricular enlargement Cranial vault intact IMPRESSION: Large right basal ganglia hemorrhage which has ruptured into the ventricular system with severe mass effect Dictated By: Mark Melissa MD Signed By: <Electronically signed by Mark Melissa MD in OV> 09/19/25 0737 Ordering Physician: Chica Dillard MD Date of Service: 09/19/25 Procedure(s): XR chest 1V post procedure Accession Number(s): [id number] cc: Mark Melissa MD; Chica Dillard MD; Jolly Crews MD~ EXAMINATION: AP chest single view TECHNIQUE: AP portable supine chest single view September 19, 2025, 0729 hours, comparison September 03, 2025 INDICATIONS: Stroke alert, unresponsive, hypoxic respiratory failure FINDINGS: Endotracheal tube at the origin of the right mainstem bronchus Diffuse left lung pneumonia consider aspiration pneumonia No major cardiac enlargement Right internal jugular dialysis catheter tip satisfactory position IMPRESSION: Retract the tracheal tube 4 cm Dictated By: Mark Melissa MD Signed By: <Electronically signed by Mark Melissa MD in OV> 09/19/25 0752 Medications / Prescriptions Medications or Prescriptions considered but not ordered:: None Medication administrations:: Medication Administration History Norepinephrine Bitartrate (Levophed In Ns 16mg/250ml) 16 mg in 250 mls @ 3.402 mls/hr IV .Q24H PRN; Protocol PRN Reason: PER protocol Stop: 10/19/25 07:25 Last Titration: 09/19/25 08:26 Dose: 0 mcg/kg/min, 0 mls/hr Documented By: Admin: 09/19/25 08:25 Dose: 0.05 mcg/kg/min, 3.402 mls/hr Documented By: EF Discontinued Medications Sodium Chloride (Ns) 500 mls @ 999 mls/hr IV .Q31M ONE Stop: 09/19/25 08:35 Last Admin: 09/19/25 08:08 Dose: 999 mls/hr Documented By: EF Levetiracetam (Levetiracetam Inj 100 Mg/Ml Vial 5ml) 1,000 mg IVP X1 ONE Stop: 09/19/25 07:45 Last Admin: 09/19/25 07:59 Dose: 1,000 mg Documented By: EF See above Consultations Consultation(s) initiated? (list below): Yes Consultation #1 (Physician, Specialty, Details): See MDM Diagnosis Most likely diagnosis given after review of the tests above:: Large right basal ganglia hemorrhage Acute hemorrhagic stroke Admission Indicated Admission indicated?: not indicated Explain why admission is indicated or not indicated:: Txfer for neurosurgery Admission Request Was there a request for admission?: No Disposition Plan Disposition Plan: Transfer Critical Care Time Critical Care Time Critical Care Time: Yes Total Critical Care Time (min.): 35 Attestation: The high probability of sudden, clinically significant deterioration in the patient's condition required the highest level of my preparedness to intervene urgently. The services I provided to this patient were to treat and/or prevent clinically significant deterioration. Services included the following: chart data review, reviewing nursing notes and/or old charts, documentation time, technology methodology consultant collaboration regarding findings and treatment options, medication orders and management, direct patient care, vital sign assessments and ordering, interpreting and reviewing diagnostic studies and lab tests. Aggregate critical care time includes only time during which I was engaged in work directly related to the patient's care, as described above, whether at bedside or elsewhere in the Emergency Department. It did not include time spent performing other reported procedures or the services of residents, students, nurses or physician assistants. Discharge Plan Plan Patient Disposition: [facility] Facility Pt Being Transferred to: [facility] Service Needed for Transfer: Neurosurgery Discharge Disposition comment: Accepting physicians ED physician Dr. Doty and neurosurgeon Dr. Dueñas accept the patient for transfer Patient condition on transfer: Stable Prescriptions/Referrals Prescriptions/Med Rec: No Action Ashley-Joanne 0.8 mg Tablet 1 tab PO QDAY famotidine 40 mg tablet 40 mg PO QDAY Patient Comments: TOME DANG TABLETA POR V A ORAL TODOS LOS D FOR ACID REFLUX levetiracetam 500 mg tablet 500 mg PO BID Patient Comments: TOME 1 TABLETA POR LA BOCA DOS VECES AL LINK clonidine HCl 0.1 mg tablet 0.1 mg PO TID metoprolol succinate 100 mg tablet extended release 24 hr 100 mg PO QDAY atorvastatin 80 mg tablet 80 mg PO .qhs Patient Comments: TOME DANG TABLETA POR LA BOCA EN LA NOCHE donepezil [Aricept] 5 mg tablet 5 mg PO QDAY B complex-vitamin C-folic acid 0.8 mg tablet 1 tab PO QDAY nifedipine 60 mg tablet extended release 60 mg PO QDAY valsartan 160 mg tablet 160 mg PO BID Patient Comments: TOME 1 TABLETA POR V A ORAL DOS VECES AL D A sertraline 25 mg tablet 25 mg PO QDAY ferric citrate [Auryxia] 210 mg iron tablet 1 tab PO TID Rx Instructions: administer with a meal sodium bicarbonate 325 mg tablet 325 mg PO BID Patient Comments: TAKE 1 TABLET BY MOUTH TWICE A DAY Rx Instructions: x2 tabs Problem List Clinical Impression: Hemorrhagic stroke Patient/Caregiver Discharge Instructions Print Language: Polish Stand Alone Forms: Elicia Award Info., Patient Portal Info Letter
[2025-09-19 07:35] VITALS: PULSE 60; PULSE 65; O2SAT 100
[2025-09-19 07:38] VITALS: BP 99/65; PULSE 60; RESP 18; O2SAT 100
[2025-09-19 07:40] LABS: Basophils # (Auto) 0.0 Thou/mm3 (0.0-0.2); Basophils % (Auto) 0 % (0-2.5); Eosinophils # (Auto) 0.1 Thou/mm3 (0.0-0.5); Eosinophils % (Auto) 1 % (0-10); Hematocrit 32.1 % (36.0-46.0); Hemoglobin 10.0 g/dL (12.0-16.0); Immature Granulocytes Auto 0.16 Thou/mm3 (0.00-0.00); Lymphocytes # (Auto) 2.0 Thou/mm3 (1.0-4.8); Lymphocytes % (Auto) 20 % (10-50); Mean Corpuscular HGB Conc 31.2 g/dl (31.0-37.0); Mean Corpuscular Hemoglobin 29.5 pg (25.0-35.0); Mean Corpuscular Volume 95 fL (80-100); Monocytes # (Auto) 0.3 Thou/mm3 (0.0-0.8); Monocytes % (Auto) 3 % (0-12); Neutrophils # (Auto) 7.7 Thou/mm3 (1.8-7.7); Neutrophils % (Auto) 75 % (37-80); Nucleated Red Blood Cell # 0.03 Thou/mm3 (0.00-0.00); Nucleated Red Blood Cell % 0 /100 WBC (0); Platelet Count 241 Thou/mm3 (140-440); RDW Standard Deviation 47.6 fL (36.4-46.3); Red Blood Count 3.39 Miln/mm3 (4.00-5.20); White Blood Count 10.2 Thou/mm3 (3.6-11.0)
[2025-09-19 07:41] VITALS: BP 99/65; PULSE 64; RESP 17; TEMP 34.8; O2SAT 100
[2025-09-19 07:56] LABS: Base Excess -2 (-3-3); HCO3 23 mEq/L (20-26); Inspired Oxygen, FIO2 75 %; O2 Saturation 100 % (91-98); PCO2 39 mmHg (32.0-48.0); PO2 283 mmHg (83-108); pH, Arterial 7.38 (7.35-7.45)
--- NOTE | 2025-09-19 07:56 | ESCONSULT_ITS ---
Tele Neuro Consultation Consultation Date 09/19/25 Most Recent Vital Signs Last Vital Signs Temp 94.7 F L 09/19/25 07:41 Pulse 64 09/19/25 07:41 Resp 17 09/19/25 07:41 BP 99/65 09/19/25 07:41 Pulse Ox 100 09/19/25 07:41 O2 Del Method Room Air 09/19/25 07:41 FiO2 100 09/19/25 07:41 Consultation Narrative [facility] Tele[facility]urology Consult Services Patient Name: Meme Small Date of : 1965 Identification Number: Date of Service: 09/19/2025 07:11:02 Diagnosis: ? I61.9 - Intracerebral haemorrhage, unspecified ? I61.5 - Intracerebral hemorrhage, intraventricular ? G91.1 - Obstructive hydrocephalus ? G93.1 - Anoxic brain damage, not elsewhere classified Impression: 59 yo female with history of hypertension, hyperlipidemia, diabetes mellitus, end-stage renal disease on dialysis, history of subarachnoid/perimesencephalic hemorrhage in June 2025, subsequent bilateral intraparenchymal hemorrhages in early August 2025 , Seen in the emergency department here at that time and transferred elsewhere. Reportedly eventually was discharged to rehab, further details ff these prior eventsunclear at this time. This morning she reportedly was last seen okay around 6:25 AM, after staff came back in the room minutes later, she was found unresponsive and pulseless. EMS was activated, CPR/ACLS started, patient reported was asystolic, epinephrine, calcium was administered, patient then had PEA followed by regain of pulse. On initial arrival, blood pressures were 120s but subsequently dropped into the 70s. Patient unresponsive on ventilator. She is noted to have asymmetric pupils with right pupil larger than left. On examination, patient is unresponsive on ventilator, no response to noxious stimulation. NIHSS = 31. CT head now reveals large acute right basal ganglia/thalamic hemorrhage measuring 5 x 5.8 cm with some [id number] shift, intraventricular hemorrhage involving lateral, 3rd and 4th ventricles and uncal herniation, diffuse cerebral edema and suspected acute hydrocephalus. Assessment: 1. Acute large right basal ganglia hemorrhage with extensive IVH, hydrocephalus and mass effect, uncal herniation. 2. Status post cardiopulmonary arrest, resuscitated, possible superimposed anoxic encephalopathy. Stat neurosurgery consultation requested and patient being transferred to outside facility for further management after stabilization. Recommendation: Diagnostic Studies: ? Repeat CT head in first 8-12hrs ? CTA head and neck with contrast Laboratory Studies: ? INR/PT ? aPTT? ? CBC Medications: ? Hold?antiplatelet?therapy/NSAIDS/Anticoagulation ? Load with Keppra 1gm now. Nursing Recommendations: ? Telemetry, IV Fluids?Avoid dextrose containing fluids, Maintain euglycemia ? Neuro checks q1-2?hrs?during ICU stay ? Once stable neuro checks q4?hrs ? keep BP less than 140/90's with goal of 130/80s Consultations: ? Need Neurosurgery consultation?STAT ? Recommend Speech therapy if failed dysphagia screen ? Physical therapy/Occupational therapy DVT Prophylaxis: ? SCDs Disposition: ? Neurology will Follow Additional Recommendation: Address hypotension Consider mechanical hyperventilation to keep pCO2 25-30 in the short-term for management of edema. Consider mannitol, however defer to neurosurgery recommendations at this time since patient has hemodynamic instability with hypotension at the present time, blood pressure in the 70s to 90s. Metrics: Last Known Well: 09/19/2025 06:25:00 Arrival Time: 09/19/2025 07:03:00 Activation Time: 09/19/2025 07:11:02 Initial Response Time: 09/19/2025 07:13:02 Symptoms: Status post cardiopulmonary arrest, asymmetric pupils. Initial patient interaction: 09/19/2025 07:18:05 NIHSS Assessment Completed: 09/19/2025 07:28:44 Patient is not a candidate for Thrombolytic. Thrombolytic Medical Decision: 09/19/2025 07:28:44 Patient was not deemed candidate for Thrombolytic because of following reasons: History of previous intracranial hemorrhage, intracranial neoplasm . Current intracranial hemorrhage . CT Head: I personally reviewed all the CT images that were available to me and it showed: States she large right basal ganglia/thalamic hemorrhage on the right with associated edema, some [id number] midline shift with intraventricular hemorrhage involving the lateral, 3rd and 4th ventricles with hydrocephalus Primary Provider Notified of Diagnostic Impression and Management Plan on: 09/19/2025 07:56:28 History of Present Illness: Patient is a 59 year old Female. Patient was brought by EMS for symptoms of Status post cardiopulmonary arrest, asymmetric pupils. 59 yo female with history of hypertension, hyperlipidemia, diabetes mellitus, end-stage renal disease on dialysis, history of subarachnoid/perimesencephalic hemorrhage in June 2025, subsequent bilateral intraparenchymal hemorrhages in early August 2025 , Seen in the emergency department here at that time and transferred elsewhere. Reportedly eventually was discharged to rehab, further details ff these prior eventsunclear at this time. This morning she reportedly was last seen okay around 6:25 AM, after staff came back in the room minutes later, she was found unresponsive and pulseless. EMS was activated, CPR/ACLS started, patient reported was asystolic, epinephrine, calcium was administered, patient then had PEA followed by regain of pulse. On initial arrival, blood pressures were 120s but subsequently dropped into the 70s. Patient unresponsive on ventilator. She is noted to have asymmetric pupils with right pupil larger than left. Past Medical History: ? Hypertension ? Diabetes Mellitus ? Hyperlipidemia ? Seizures ? Dementia/MCI Other PMH: GERD, ESRD , recent bilateral hemorhhages Medications: No Anticoagulant use No Antiplatelet use Reviewed EMR for current medications Other Medications Pertinent To Assessment Include: Ashley-Joanne, famotidine, clonidine, Keppra 500 mg twice daily, atorvastatin, donepezil, Toprol all, ferric citrate, nifedipine, sertraline, valsartan, B complex, folic acid, vitamin C Allergies: Reviewed,NKDA Social History: Unable To Obtain Due To Patient Status : Patient Is Obtunded/ Comatose Family History: There is no family history of premature cerebrovascular disease pertinent to this consultation ROS : ROS Cannot Be Obtained Because: Patient Is Obtunded/ Comatose Past Surgical History: There Is No Surgical History Contributory To Today?s Visit There Is Surgical History of: Hysterectomy NIHSS may not be reliable due to: Intubated in field, unknown if sedatives given Examination: BP(121/76), Pulse(64), Blood Glucose(346) 1A: Level of Consciousness - Postures or Unresponsive + 3 1B: Ask Month and Age - Could Not Answer Either Question Correctly + 2 1C: Blink Eyes & Squeeze Hands - Performs 0 Tasks + 2 2: Test Horizontal Extraocular Movements - Normal + 0 3: Test Visual Lazcano - Bilateral Hemianopia + 3 4: Test Facial Palsy (Use Grimace if Obtunded) - Normal symmetry + 0 5A: Test Left Arm Motor Drift - No Movement + 4 5B: Test Right Arm Motor Drift - No Movement + 4 6A: Test Left Leg Motor Drift - No Movement + 4 6B: Test Right Leg Motor Drift - No Movement + 4 7: Test Limb Ataxia (FNF/Heel-Underwood) - No Ataxia + 0 8: Test Sensation - Coma/Unresponsive + 2 9: Test Language/Aphasia - Coma/Unresponsive + 3 10: Test Dysarthria - Intubated/Unable to Test + 0 11: Test Extinction/Inattention - No abnormality + 0 NIHSS Score: 31 ICH Score: 4 Jt Coma Score: 3-4 (+2) Age >= 80: No (0) ICH volume >= 30mL: Yes (+1) Intraventricular hemorrhage: Yes (+1) Infratentorial origin of hemorrhage: No (0) Pre-Morbid Modified [place] Scale: 7 Points = Unable to assess This consult was conducted in real time using interactive audio and video technology. Patient was informed of the technology being used for this visit and agreed to proceed. Patient located in hospital and provider located at home/office setting. Due to the immediate potential for life-threatening deterioration due to underlying acute neurologic illness, I spent 46 minutes providing critical care. This time includes time for face to face visit via telemedicine, review of medical records, imaging studies and discussion of findings with providers, the patient and/or family. Dr Jatinder Valenzuela [facility] For Inpatient follow-up with [facility] physician please call [facility] at . As we are not an outpatient service for any post hospital discharge needs please contact the hospital for assistance. If you have any questions for the [facility] physicians or need to reconsult for clinical or diagnostic changes please contact us via [facility] at . Non-radiologist review of imaging performed to assist with emergent clinical decision-making. Remote physician workstations do not possess the same resolution, calibration, or diagnostic capabilities as hospital-based radiology reading stations, and formal radiologist read is necessary. Signature : Jatinder Valenzuela
[2025-09-19 07:59] LABS: Allen Test Performed/OK; Puncture Site Left Brachial
[2025-09-19 07:59] LABS: Alanine Aminotransferase 67 U/L (10-49); Albumin, Serum 3.9 gm/dL (3.4-4.8); Albumin/Globulin Ratio 1.4 (1.2-2.2); Alkaline Phosphatase 92 U/L (46-116); Anion Gap 14 (7-16); Aspartate Amino Transferase 96 U/L (0-34); BUN/Creatinine Ratio 7 Ratio (12-20); Bilirubin,Total 0.3 mg/dL (0.3-1.2); Blood Urea Nitrogen 33 mg/dL (9-23); Calcium 10.0 mg/dL (8.3-10.6); Calcium (Corrected) 10.1 mg/dL (8.5-10.1); Carbon Dioxide 24.3 mMol/L (20.0-31.0); Chloride 96 mMol/L (98-107); Creatinine (Component) 5.0 mg/dL (0.6-1.3); Globulin 2.8 gm/dL (2.3-3.5); Glucose 365 mg/dL (74-106); Magnesium 2.4 mg/dL (1.6-2.6); Osmolality,Calculated 290 (275-295); Potassium 5.3 mMol/L (3.4-5.1); Sodium 134 mMol/L (136-145); Total Protein 6.7 gm/dL (5.7-8.2); eGFR 9 See Note
[2025-09-19] MEDS: levETIRAcetam INJ 100 MG/ML VIAL 5ML 1000 MG IVP (07:59)
[2025-09-19 08:08] LABS: INR 1.1 (0.9-1.3); Partial Thromboplastin Time 39.6 Seconds (22.0-36.0); Prothrombin Time 12.0 Seconds (9.0-12.2)
[2025-09-19] MEDS: SODIUM CHLORIDE 0.9% 500 ML 500 ML 999 ML IV (08:08)
--- NOTE | 2025-09-19 08:11 | PC.NURSE ---
dr murrieta speaking with family via telephone at this time
--- NOTE | 2025-09-19 08:18 | PC.NURSE ---
report given to florinda from [facility] flight team
[2025-09-19 08:23] LABS: Troponin I 0.228 ng/mL (0.0-0.045)
[2025-09-19 08:25] VITALS: BP 116/72; PULSE 58
[2025-09-19] MEDS: Norepinephrine/NS 16mg/250ml 16 MG/250 ML BAG 3.402 MG IV (08:25)
--- NOTE | 2025-09-19 08:27 | PC.NURSE ---
levo sent with flight team I scanned but did not start on this patient
--- NOTE | 2025-09-19 08:39 | PC.NURSE ---
report given to jaymie gill via telephone from [facility]
--- NOTE | 2025-09-19 10:28 | PC.CM ---
Addendum entered by Radha Wei RN 09/19/25 15:04: Patient left via [facility] air at 0834. Original Note: 0802 Patient was acceped by Dr. Doty at [facility]. Number for report [phone]. 0745 I called [facility] transfer nurse and she connected Dr. Dillard with [facility] [place] ED doctor. Transfer nurse was going to reach out to their neuro doctor. I started transfer packet and made 1 CD. Meli contacted [facility]. 0734 I received a referral to transfer patient for acute hemorrhagic stroke. I called [facility] and faxed over paperwork. I spoke to Kizzy at [facility] and she stated if patient need IR neuro I would have to contact another facility.
== END 2025-09-19 08:35 | disposition short-term general hospital (02) ==
PROVIDERS: Emergency Provider Emergency Medicine; PCP Internal Medicine
DX: I61.0 Nontraumatic intracerebral hemorrhage in hemisphere, subcortical (principal); R00.1 Bradycardia, unspecified; R94.31 Abnormal electrocardiogram [ECG] [EKG]; N18.6 End stage renal disease; I12.0 Hypertensive chronic kidney disease with stage 5 chronic kidney disease or end stage renal disease; Z75.1 Person awaiting admission to adequate facility elsewhere; Z99.2 Dependence on renal dialysis
CPT/HCPCS: 36415; 36600; 51702; 70450; 80053; 80307; 81001; 82803; 83735; 84484; 85025; 85610; 85730; 93005; 94002; 96374; 99291; A4314; J1953; J3490; J7999